=== PATIENT | male | born 1940 | race Caucasian/White ===

== ENCOUNTER 2021-03-28 01:41 | Inpatient (IN) | payer MEDICARE, OTHER ==
[2021-03-28] MEDS ORDERED: SODIUM CHLORIDE 0.9% 1,000 ML IV STA ×3 (01:44→03:44)
--- NOTE | 2021-03-28 01:55 | ED ---
Fever HPI - General Stated Complaint: Fever, Weakness Time Seen by Provider: 03/28/21 01:44 Source: RN notes reviewed, old records reviewed Limitations: no limitations - History of Present Illness Initial Comments: This is an 80-year-old male to the emergency department today. Patient presents today for evaluation of fever. Patient is a poor story brought in by EMS for evaluation regarding fever altered mental status and weakness. MD Complaint: fever, malaise -: hour(s) Temperature Source: subjective Context: multiple patients with similar symptoms Associated Symptoms: myalgias, nausea, vomiting, confusion Treatments Prior to Arrival: none - Related Data Previous Rx's Medication Instructions Recorded Hydrocodone/Acetaminophen [Trail 1 each PO Q6HR PRN #20 tab 01/11/14 5-325] Allergies Allergy/AdvReac Type Severity Reaction Status Date / Time No Known Allergies Allergy Verified 03/28/21 01:54 Review of Systems ROS Statement: Those systems with pertinent positive or pertinent negative responses have been documented in the HPI. ROS Other: All systems not noted in ROS Statement are negative. Past Medical History Past Medical History: No Reported History History of Any Multi-Drug Resistant Organisms: None Reported Past Surgical History: Hernia Repair Past Psychological History: No Psychological Hx Reported Past Alcohol Use History: Rare Past Drug Use History: None Reported General Exam General appearance: alert, in no apparent distress Head exam: Present: atraumatic, normocephalic, normal inspection Eye exam: Present: normal appearance, PERRL, EOMI. Absent: scleral icterus, conjunctival injection, periorbital swelling ENT exam: Present: normal exam, mucous membranes moist Neck exam: Present: normal inspection. Absent: tenderness, meningismus, lymphadenopathy Respiratory exam: Present: normal lung sounds bilaterally. Absent: respiratory distress, wheezes, rales, rhonchi, stridor Cardiovascular Exam: Present: regular rate, normal rhythm, normal heart sounds. Absent: systolic murmur, diastolic murmur, rubs, gallop, clicks GI/Abdominal exam: Present: soft, normal bowel sounds. Absent: distended, tenderness, guarding, rebound, rigid Extremities exam: Present: normal inspection, full ROM, normal capillary refill. Absent: tenderness, pedal edema, joint swelling, calf tenderness Back exam: Present: normal inspection Neurological exam: Present: alert, oriented X3, CN II-XII intact Psychiatric exam: Present: normal affect, normal mood Skin exam: Present: warm, dry, intact, normal color. Absent: rash Course Vital Signs 03/28/21 01:44 Temperature 102 F H Pulse Rate 122 H Respiratory 20 Rate Blood Pressure 145/71 O2 Sat by Pulse 94 L Oximetry - Reevaluation(s) Reevaluation #1: 03/28/21 01:54 Medical record is reviewed Reevaluation #2: 03/28/21 03:46 Patient is informed of results and questions answered Reevaluation #3: 03/28/21 03:46 Patient is feeling improved here in the ER Medical Decision Making - Medical Decision Making 80 male presents DF for evaluation of fever. Fever and weakness. Patient is found to have significant urinary tract infection will place on IV antibiotics and significant fluid bolus and patient can be admitted to the hospital for further evaluation management - Lab Data Result diagrams: 03/28/21 02:35 03/28/21 02:35 Lab Results 03/28/21 03/28/21 03/28/21 Range/Units 02:35 02:35 02:35 WBC 97.3 H* (3.8-10.6) k/uL RBC 3.28 L (4.30-5.90) m/uL Hgb 10.8 L (13.0-17.5) gm/dL Hct 32.2 L (39.0-53.0) % MCV 98.2 (80.0-100.0) fL MCH 33.0 (25.0-35.0) pg MCHC 33.6 (31.0-37.0) g/dL RDW 17.0 H (11.5-15.5) % Plt Count 91 L (150-450) k/uL MPV 8.5 Neutrophils % (Manual) 14 % Lymphocytes % (Manual) 85 % Monocytes % (Manual) 1 % Neutrophils # (Manual) 13.62 H (1.3-7.7) k/uL Lymphocytes # (Manual) 82.71 H (1.0-4.8) k/uL Monocytes # (Manual) 0.97 (0-1.0) k/uL Nucleated RBCs 0 (0-0) /100 WBC Differential Comment Manual Slide Review Performed Anisocytosis Slight Macrocytosis Slight PT 11.4 (9.0-12.0) sec INR 1.1 (<1.2) APTT 22.9 (22.0-30.0) sec Sodium (137-145) mmol/L Potassium (3.5-5.1) mmol/L Chloride (98-107) mmol/L Carbon Dioxide (22-30) mmol/L Anion Gap mmol/L BUN (9-20) mg/dL Creatinine (0.66-1.25) mg/dL Est GFR (CKD-EPI)AfAm (>60 ml/min/1.73 sqM) Est GFR (CKD-EPI)NonAf (>60 ml/min/1.73 sqM) Glucose (74-99) mg/dL Plasma Lactic Acid Doug (0.7-2.0) mmol/L Calcium (8.4-10.2) mg/dL Phosphorus (2.5-4.5) mg/dL Magnesium (1.6-2.3) mg/dL Total Bilirubin (0.2-1.3) mg/dL AST (17-59) U/L ALT (4-49) U/L Alkaline Phosphatase (38-126) U/L Troponin I (0.000-0.034) ng/mL C-Reactive Protein (<1.0) mg/dL NT-Pro-B Natriuret Pep pg/mL Total Protein (6.3-8.2) g/dL Albumin (3.5-5.0) g/dL TSH (0.465-4.680) mIU/L Urine Color Yellow Urine Appearance Turbid (Clear) Urine pH 5.5 (5.0-8.0) Ur Specific [place] 1.021 (1.001-1.035) Urine Protein 2+ H (Negative) Urine Glucose (UA) Negative (Negative) Urine Ketones Negative (Negative) Urine Blood Large H (Negative) Urine Nitrite Positive (Negative) Urine Bilirubin Negative (Negative) Urine Urobilinogen <2.0 (<2.0) mg/dL Ur Leukocyte Esterase Large H (Negative) Urine RBC 78 H (0-5) /hpf Urine WBC >182 H (0-5) /hpf Urine WBC Clumps Many H (None) /hpf Ur Squamous Epith Cells 3 (0-4) /hpf Amorphous Sediment Rare H (None) /hpf Urine Bacteria Many H (None) /hpf Urine Mucus Occasional H (None) /hpf 03/28/21 03/28/21 03/28/21 Range/Units 02:35 02:35 02:35 WBC (3.8-10.6) k/uL RBC (4.30-5.90) m/uL Hgb (13.0-17.5) gm/dL Hct (39.0-53.0) % MCV (80.0-100.0) fL MCH (25.0-35.0) pg MCHC (31.0-37.0) g/dL RDW (11.5-15.5) % Plt Count (150-450) k/uL MPV Neutrophils % (Manual) % Lymphocytes % (Manual) % Monocytes % (Manual) % Neutrophils # (Manual) (1.3-7.7) k/uL Lymphocytes # (Manual) (1.0-4.8) k/uL Monocytes # (Manual) (0-1.0) k/uL Nucleated RBCs (0-0) /100 WBC Differential Comment Manual Slide Review Anisocytosis Macrocytosis PT (9.0-12.0) sec INR (<1.2) APTT (22.0-30.0) sec Sodium 131 L (137-145) mmol/L Potassium 3.9 (3.5-5.1) mmol/L Chloride 105 (98-107) mmol/L Carbon Dioxide 19 L (22-30) mmol/L Anion Gap 7 mmol/L BUN 30 H (9-20) mg/dL Creatinine 1.50 H (0.66-1.25) mg/dL Est GFR (CKD-EPI)AfAm 50 (>60 ml/min/1.73 sqM) Est GFR (CKD-EPI)NonAf 43 (>60 ml/min/1.73 sqM) Glucose 132 H (74-99) mg/dL Plasma Lactic Acid Doug 2.5 H* (0.7-2.0) mmol/L Calcium 8.5 (8.4-10.2) mg/dL Phosphorus 2.0 L (2.5-4.5) mg/dL Magnesium 1.7 (1.6-2.3) mg/dL Total Bilirubin 1.8 H (0.2-1.3) mg/dL AST 49 (17-59) U/L ALT 24 (4-49) U/L Alkaline Phosphatase 127 H (38-126) U/L Troponin I 0.654 H* (0.000-0.034) ng/mL C-Reactive Protein 4.7 H (<1.0) mg/dL NT-Pro-B Natriuret Pep pg/mL Total Protein 5.7 L (6.3-8.2) g/dL Albumin 3.3 L (3.5-5.0) g/dL TSH 1.560 (0.465-4.680) mIU/L Urine Color Urine Appearance (Clear) Urine pH (5.0-8.0) Ur Specific [place] (1.001-1.035) Urine Protein (Negative) Urine Glucose (UA) (Negative) Urine Ketones (Negative) Urine Blood (Negative) Urine Nitrite (Negative) Urine Bilirubin (Negative) Urine Urobilinogen (<2.0) mg/dL Ur Leukocyte Esterase (Negative) Urine RBC (0-5) /hpf Urine WBC (0-5) /hpf Urine WBC Clumps (None) /hpf Ur Squamous Epith Cells (0-4) /hpf Amorphous Sediment (None) /hpf Urine Bacteria (None) /hpf Urine Mucus (None) /hpf 03/28/21 Range/Units 02:35 WBC (3.8-10.6) k/uL RBC (4.30-5.90) m/uL Hgb (13.0-17.5) gm/dL Hct (39.0-53.0) % MCV (80.0-100.0) fL MCH (25.0-35.0) pg MCHC (31.0-37.0) g/dL RDW (11.5-15.5) % Plt Count (150-450) k/uL MPV Neutrophils % (Manual) % Lymphocytes % (Manual) % Monocytes % (Manual) % Neutrophils # (Manual) (1.3-7.7) k/uL Lymphocytes # (Manual) (1.0-4.8) k/uL Monocytes # (Manual) (0-1.0) k/uL Nucleated RBCs (0-0) /100 WBC Differential Comment Manual Slide Review Anisocytosis Macrocytosis PT (9.0-12.0) sec INR (<1.2) APTT (22.0-30.0) sec Sodium (137-145) mmol/L Potassium (3.5-5.1) mmol/L Chloride (98-107) mmol/L Carbon Dioxide (22-30) mmol/L Anion Gap mmol/L BUN (9-20) mg/dL Creatinine (0.66-1.25) mg/dL Est GFR (CKD-EPI)AfAm (>60 ml/min/1.73 sqM) Est GFR (CKD-EPI)NonAf (>60 ml/min/1.73 sqM) Glucose (74-99) mg/dL Plasma Lactic Acid Doug (0.7-2.0) mmol/L Calcium (8.4-10.2) mg/dL Phosphorus (2.5-4.5) mg/dL Magnesium (1.6-2.3) mg/dL Total Bilirubin (0.2-1.3) mg/dL AST (17-59) U/L ALT (4-49) U/L Alkaline Phosphatase (38-126) U/L Troponin I (0.000-0.034) ng/mL C-Reactive Protein (<1.0) mg/dL NT-Pro-B Natriuret Pep 671 pg/mL Total Protein (6.3-8.2) g/dL Albumin (3.5-5.0) g/dL TSH (0.465-4.680) mIU/L Urine Color Urine Appearance (Clear) Urine pH (5.0-8.0) Ur Specific [place] (1.001-1.035) Urine Protein (Negative) Urine Glucose (UA) (Negative) Urine Ketones (Negative) Urine Blood (Negative) Urine Nitrite (Negative) Urine Bilirubin (Negative) Urine Urobilinogen (<2.0) mg/dL Ur Leukocyte Esterase (Negative) Urine RBC (0-5) /hpf Urine WBC (0-5) /hpf Urine WBC Clumps (None) /hpf Ur Squamous Epith Cells (0-4) /hpf Amorphous Sediment (None) /hpf Urine Bacteria (None) /hpf Urine Mucus (None) /hpf - EKG Data -: EKG Interpreted by Me (EKG shows sinus tachycardiaR 190 QRS 118 QTc 464) - Radiology Data Radiology results: report reviewed (Chest x-rays negative for acute disease), image reviewed Disposition Clinical Impression: UTI (urinary tract infection), Weakness, Fever, Leukemia Disposition: ADMITTED IP TO THIS HOSP Condition: Serious Is patient prescribed a controlled substance at d/c from ED?: No Referrals: None,Stated [REFERRING] - 1-2 days
--- NOTE | 2021-03-28 02:49 | XR ---
EXAMINATION TYPE: XR chest 2V DATE OF EXAM: 03/28/2021 COMPARISON: 01/11/2014 HISTORY: Weakness TECHNIQUE: FINDINGS: There is no heart failure nor confluent pneumonic infiltrate. There is slight coarsening of the interstitial markings in the lower lobes. There are old right-sided healed rib fractures. Costop hrenic angles are clear. There is small hiatal hernia. IMPRESSION: Mild fibrotic changes and subsegmental atelectasis at the lung bases that is new compared to old exam. No heart failure. Small hiatal hernia unchanged.
[2021-03-28 02:51] LABS: Anisocytosis Slight; HCT 32.2 % (39.0-53.0); HGB 10.8 gm/dL (13.0-17.5); MCHC 33.6 g/dL (31.0-37.0); MCV 98.2 fL (80.0-100.0); Macrocytosis Slight; Mean Platelet Volume 8.5; Platelet Count 91 k/uL (150-450); RBC 3.28 m/uL (4.30-5.90)
[2021-03-28 02:52] LABS: WBC 97.3 k/uL (3.8-10.6)
[2021-03-28 03:10] LABS: Albumin 3.3 g/dL (3.5-5.0); C Reactive Protein 4.7 mg/dL (<1.0); Calcium 8.5 mg/dL (8.4-10.2); Magnesium 1.7 mg/dL (1.6-2.3); Potassium 3.9 mmol/L (3.5-5.1); Total Bilirubin 1.8 mg/dL (0.2-1.3); Total Protein 5.7 g/dL (6.3-8.2)
[2021-03-28 03:14] LABS: INR 1.1 (<1.2); Partial Thromboplastin Time 22.9 sec (22.0-30.0); Prothrombin Time 11.4 sec (9.0-12.0)
[2021-03-28] MEDS ORDERED: IBUPROFEN 600 MG TAB PO STA (03:23)
[2021-03-28 03:33] LABS: Lymphocytes # (M) 82.71 k/uL (1.0-4.8); Monocytes # (M) 0.97 k/uL (0-1.0); Neutrophils # (M) 13.62 k/uL (1.3-7.7); Neutrophils % (M) 14 %; Nucleated Red Blood Cells 0 /100 WBC (0-0); Total Cells Counted 200
[2021-03-28 03:43] LABS: Amorphous Sediment,Urine Rare /hpf; Appearance,Urine Turbid (Clear); Bacteria,Urine Many /hpf; Bilirubin,Urine Negative (Negative); Blood,Urine Large (Negative); Color,Urine Yellow; Glucose,Urine (UA) Negative (Negative); Ketones,Urine Negative (Negative); Leukocyte Esterase,Urine Large (Negative); Mucus,Urine Occasional /hpf; Nitrite,Urine Positive (Negative); PH, Urine 5.5 (5.0-8.0); Protein,Urine 2+ (Negative); RBC,Urine 78 /hpf (0-5); Specific Gravity,Urine 1.021 (1.001-1.035); Squamous Epithelial Cell,Urine 3 /hpf (0-4); Urobilinogen,Urine <2.0 mg/dL (<2.0); WBC,Urine >182 /hpf (0-5)
[2021-03-28] MEDS ORDERED: MORPHINE SULFATE 4 MG/ML SYRINGE IV PRN (03:44)
[2021-03-28] MEDS ORDERED: ONDANSETRON 4 MG/2 ML VIAL IVP PRN (03:44)
[2021-03-28] MEDS ORDERED: ACETAMINOPHEN TAB 325 MG TAB PO PRN (03:44)
[2021-03-28] MEDS ORDERED: NALOXONE 0.4 MG/ML 1 ML VIAL IV PRN (03:44)
[2021-03-28] MEDS: SODIUM CHLORIDE 0.9% 1,000 ML IV SCH ×3 (04:20→20:02)
[2021-03-28] MEDS ORDERED: PANTOPRAZOLE 40 MG/10 ML VIAL IV SCH (09:00)
[2021-03-28] MEDS ORDERED: VANCOMYCIN IV PER PHARMACY 1 EACH MISC MISCELLANE PRN (10:15)
[2021-03-28] MEDS ORDERED: VANCOMYCIN 1,500 MG in SODIUM CHLORIDE 0.9% 250 ML IVPB SCH (11:00)
--- NOTE | 2021-03-28 11:22 | US ---
EXAMINATION TYPE: US kidneys/renal and bladder DATE OF EXAM: 03/28/2021 COMPARISON: NONE CLINICAL HISTORY: dina. DINA, UTI EXAM MEASUREMENTS: Right Kidney: 10.1 x 4.2 x 4.9 cm Left Kidney: 10.6 x 3.9 x 4.2 cm Right Kidney: no evidence of hydronephrosis Left Kidney: no evidence of hydronephrosis, limited evaluation of lower pole due to overlying bowel c ontent Bladder: multiple diverticula. possible debris noted Bilateral Jets seen: no *Prostate = 5.4cm *spleen enlarged = 16.8cm IMPRESSION: 1. Multiple bladder diverticula with abnormal echogenicity within the right lateral posterior diverti cula could represent early. Other etiologies not excluded correlate clinically. 2. Prostate hypertrophy
[2021-03-28] MEDS: CEFEPIME 2 GM in SODIUM CHLORIDE 0.9% 100 ML IVPB SCH ×2 (12:18→20:01)
[2021-03-28] MEDS ORDERED: TAMSULOSIN 0.4 MG CAP.ER.24H PO STA (13:14)
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
[2021-03-28] MEDS: HEPARIN SODIUM,PORCINE/PF 5,000 UNIT/0.5 ML SYRINGE SQ SCH ×2 (17:02→22:23)
--- NOTE | 2021-03-28 18:29 | P.CONS ---
History of Present Illness - Reason for Consult Consult date: 03/28/21 CLL Requesting physician: Bobby Pearson - Chief Complaint Fever - History of Present Illness Mr. Lua is an 80 year old male patient known to Dr. 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 He has been on surveillance, without requiring treatment. He presents with a fever of 102 on admission. COVID negative, Blood cultures in progress. additional kaur work-up. Because of his known CLL we have been asked to further evaluate. His WBC is 95K, which is actually improved since seen in January. Patient was seen and examined in the emergency department today. He states he apparently "blacked out" and woke up in the ambulance. Review of Systems All systems: negative Constitutional: Reports as per HPI Past Medical History Past Medical History: No Reported History History of Any Multi-Drug Resistant Organisms: None Reported Past Surgical History: Hernia Repair Past Psychological History: No Psychological Hx Reported Past Alcohol Use History: Rare Past Drug Use History: None Reported Medications and Allergies Home Medications Medication Instructions Recorded Confirmed Type Cholecalciferol [Vitamin D3 (25 25 mcg PO DAILY 03/28/21 03/28/21 History Mcg = 1000 Iu)] Levothyroxine Sodium [Synthroid] 50 mcg PO DAILY@0400 03/28/21 03/28/21 History Omeprazole 20 mg PO DAILY 03/28/21 03/28/21 History Super B Complex 1 tab PO DAILY 03/28/21 03/28/21 History Allergies Allergy/AdvReac Type Severity Reaction Status Date / Time No Known Allergies Allergy Verified 03/28/21 17:55 Physical Exam Vitals: Vital Signs Temp Pulse Resp BP Pulse Ox 03/28/21 12:22 98.5 F 72 20 131/73 96 03/28/21 11:00 78 20 137/67 96 03/28/21 09:29 74 20 124/74 96 03/28/21 08:17 89 20 106/60 96 03/28/21 07:00 98.9 F 79 16 104/56 95 03/28/21 04:00 80 18 123/67 95 03/28/21 02:54 100.7 F H 101 H 18 127/77 95 03/28/21 01:44 102 F H 122 H 20 145/71 94 L Intake and Output 03/27/21 03/28/21 03/28/21 22:59 06:59 14:59 Other: Weight 90.718 kg Flushed, Pale NAD O/P Dry Neck: Supple Heart: Irr, Reg Lungs: CTA Abd: Soft Ext": No edema Alert and oriented Results CBC & Chem 7: 03/28/21 02:35 03/28/21 02:35 Labs: Abnormal Lab Results - Last 24 Hours (Table) 03/28/21 03/28/21 03/28/21 Range/Units 02:35 02:35 02:35 WBC 97.3 H* (3.8-10.6) k/uL RBC 3.28 L (4.30-5.90) m/uL Hgb 10.8 L (13.0-17.5) gm/dL Hct 32.2 L (39.0-53.0) % RDW 17.0 H (11.5-15.5) % Plt Count 91 L (150-450) k/uL Neutrophils # (Manual) 13.62 H (1.3-7.7) k/uL Lymphocytes # (Manual) 82.71 H (1.0-4.8) k/uL Sodium 131 L (137-145) mmol/L Carbon Dioxide 19 L (22-30) mmol/L BUN 30 H (9-20) mg/dL Creatinine 1.50 H (0.66-1.25) mg/dL Glucose 132 H (74-99) mg/dL Plasma Lactic Acid Doug (0.7-2.0) mmol/L Phosphorus 2.0 L (2.5-4.5) mg/dL Total Bilirubin 1.8 H (0.2-1.3) mg/dL Alkaline Phosphatase 127 H (38-126) U/L Troponin I (0.000-0.034) ng/mL C-Reactive Protein 4.7 H (<1.0) mg/dL Total Protein 5.7 L (6.3-8.2) g/dL Albumin 3.3 L (3.5-5.0) g/dL Urine Protein 2+ H (Negative) Urine Blood Large H (Negative) Ur Leukocyte Esterase Large H (Negative) Urine RBC 78 H (0-5) /hpf Urine WBC >182 H (0-5) /hpf Urine WBC Clumps Many H (None) /hpf Amorphous Sediment Rare H (None) /hpf Urine Bacteria Many H (None) /hpf Urine Mucus Occasional H (None) /hpf 03/28/21 03/28/21 03/28/21 Range/Units 02:35 02:35 11:08 WBC (3.8-10.6) k/uL RBC (4.30-5.90) m/uL Hgb (13.0-17.5) gm/dL Hct (39.0-53.0) % RDW (11.5-15.5) % Plt Count (150-450) k/uL Neutrophils # (Manual) (1.3-7.7) k/uL Lymphocytes # (Manual) (1.0-4.8) k/uL Sodium (137-145) mmol/L Carbon Dioxide (22-30) mmol/L BUN (9-20) mg/dL Creatinine (0.66-1.25) mg/dL Glucose (74-99) mg/dL Plasma Lactic Acid Doug 2.5 H* (0.7-2.0) mmol/L Phosphorus (2.5-4.5) mg/dL Total Bilirubin (0.2-1.3) mg/dL Alkaline Phosphatase (38-126) U/L Troponin I 0.654 H* 6.770 H* (0.000-0.034) ng/mL C-Reactive Protein (<1.0) mg/dL Total Protein (6.3-8.2) g/dL Albumin (3.5-5.0) g/dL Urine Protein (Negative) Urine Blood (Negative) Ur Leukocyte Esterase (Negative) Urine RBC (0-5) /hpf Urine WBC (0-5) /hpf Urine WBC Clumps (None) /hpf Amorphous Sediment (None) /hpf Urine Bacteria (None) /hpf Urine Mucus (None) /hpf Microbiology - Last 24 Hours (Table) 03/28/21 02:35 Urine Culture - Preliminary Urine,Voided Assessment and Plan (1) CLL (chronic lymphocytic leukemia) Current Visit: Yes Status: Acute Code(s): C91.10 - CHRONIC LYMPHOCYTIC LEUK OF B-CELL TYPE NOT ACHIEVE REMIS SNOMED Code(s): 39073676 (2) Fever Current Visit: Yes Status: Acute Code(s): R50.9 - FEVER, UNSPECIFIED SNOMED Code(s): 030584342 (3) UTI (urinary tract infection) Current Visit: Yes Status: Acute Code(s): N39.0 - URINARY TRACT INFECTION, SITE NOT SPECIFIED SNOMED Code(s): 88469605 Plan: Because of the active infection we will check Immunoglobulins to see if additional immune support can be provided with IVIG. Pancytopenia: - Worsening due to Infectious/Inflammatory Process - Anemia work-up, check hemolysis - Monitor for DIC CLL: - Check Immunoglobulins - Serial CBCs Infection and acute hospitalization support per primary team Thank you for allowing us to participate in the care of this patient
[2021-03-29 02:12] LABS: Uric Acid 6.1 mg/dL (3.7-8.7)
[2021-03-29 02:53] LABS: Immunoglobulin A 54.7 mg/dL (60.0-350.0)
[2021-03-29 03:12] LABS: Immunoglobulin M 8.1 mg/dL (40.0-280.0)
[2021-03-29] MEDS: SODIUM CHLORIDE 0.9% 1,000 ML IV SCH ×3 (04:07→20:18)
[2021-03-29] MEDS: LEVOTHYROXINE 50 MCG TAB PO SCH (04:08)
[2021-03-29] MEDS: PANTOPRAZOLE 40 MG TABLET PO SCH (06:22)
[2021-03-29 07:32] LABS: Anisocytosis Slight; HCT 30.8 % (39.0-53.0); MCHC 32.6 g/dL (31.0-37.0); MCV 101.3 fL (80.0-100.0); Macrocytosis Slight; Mean Platelet Volume 8.9; Platelet Count 77 k/uL (150-450); RBC 3.04 m/uL (4.30-5.90); RDW 16.7 % (11.5-15.5)
[2021-03-29 08:26] LABS: WBC 63.5 k/uL (3.8-10.6)
--- NOTE | 2021-03-29 08:31 | P.CONS ---
History of Present Illness - Reason for Consult Consult date: 03/28/21 Fever/UTI Requesting physician: Lubna Alan - Chief Complaint Fever , weakness x 1 day - History of Present Illness History of present illness : Patient is 80-year-old male with a past medical history significant for CML on surveillance without requiring any tr eatment patient presenting to the [facility] ER for evaluation of blood in his urine symptoms started the day before presentation to the hospital patient also complaining of fever weakness and apparently blacked out when he was in the bathroom patient denies having any fall or trauma patient denies having any headache no chest pain shortness of breath or cough no vomiting no abdominal pain no diarrhea on presentation to the hospital the patient did have a fever of 102 F patient did have white count of 97.3 predominantly sites creatinine was mildly elevated lactic acid was 2.5 liver enzymes are normal did have a positive UA caldera PCR was not detected blood urine culture has been obt ained which are currently pending patient did have a chest x-ray mild fibrotic changes atelectasis patient was admitted to the hospital patient was started on cefepime and vancomycin infectious disease was consulted for further management of antibiotic therapy Review of system: CONSTITUTIONAL: Positive for weakness along with the fever. EYES: No complaint. ENT: No complaint. RESPIRATORY: No complaint. CARDIOVASCULAR: No complaint. GENITOURINARY: As per history of present illness. GASTROINTESTINAL: No complaint. MUSCULOSKELETAL: No complaint. INTEGUMENTARY: No complaint. PSYCHOLOGIC: No complaint. ENDOCRINE: No complaint. NEUROLOGIC: No complaint. Past medical history : Reviewed, documented below Past surgical history : Reviewed, documented below Social history: Reviewed, documented below Medications: Reviewed, as documented below EXAMINATION: Vital sigans= Reviewed and documented below GENERAL DESCRIPTION: Elderly male lying in bed, no distress. No tachypnea or accessory muscle of respiration use. HEENT: Shows Pallor , no scleral icterus. Oral mucous membrane is dry. NECK: Trachea central, no thyromegaly. LUNGS: Unlabored breathing. Clear to auscultation anteriorly. No wheeze or crackle. HEART: S1, S2, regular rate and rhythm. ABDOMEN: Soft, no tenderness , guarding or rigidity EXTREMITIES: No edema of feet. SKIN: No rash, no masses palpable. NEUROLOGICAL: The patient is awake, alert, oriented x2, mood and affect normal. LABS AND RADIOLOGY: Reviewed results see below Assessment : 1-Patient presented to hospital with fever and weakness in this patient who did have hematuria significantly positive UA likely urinary source for his fever infection as currently do not have any other obvious focus of infection 2-elevated white count more likely to his CLL Plan: 1-continue the patient on cefepime 2 g every 12 hours 2-discontinue vancomycin 3-gentle IV fluid We will follow on clinical condition and cultures to further adjust medication if needed Thank you for this consultation we will follow the patient along with you Past Medical History Past Medical History: No Reported History History of Any Multi-Drug Resistant Organisms: None Reported Past Surgical History: Hernia Repair Past Psychological History: No Psychological Hx Reported Past Alcohol Use History: Rare Past Drug Use History: None Reported Medications and Allergies Home Medications Medication Instructions Recorded Confirmed Type Cholecalciferol [Vitamin D3 (25 25 mcg PO DAILY 03/28/21 03/28/21 History Mcg = 1000 Iu)] Levothyroxine Sodium [Synthroid] 50 mcg PO DAILY@0400 03/28/21 03/28/21 History Omeprazole 20 mg PO DAILY 03/28/21 03/28/21 History Super B Complex 1 tab PO DAILY 03/28/21 03/28/21 History Allergies Allergy/AdvReac Type Severity Reaction Status Date / Time No Known Allergies Allergy Verified 03/28/21 17:55 Physical Exam Vitals: Vital Signs Temp Pulse Resp BP Pulse Ox 03/28/21 13:49 79 18 136/77 96 03/28/21 12:22 98.5 F 72 20 131/73 96 03/28/21 11:00 78 20 137/67 96 03/28/21 09:29 74 20 124/74 96 03/28/21 08:17 89 20 106/60 96 03/28/21 07:00 98.9 F 79 16 104/56 95 03/28/21 04:00 80 18 123/67 95 03/28/21 02:54 100.7 F H 101 H 18 127/77 95 03/28/21 01:44 102 F H 122 H 20 145/71 94 L Intake and Output 03/28/21 03/28/21 03/28/21 06:59 14:59 22:59 Other: Weight 90.718 kg Results CBC & Chem 7: 03/29/21 07:08 03/28/21 02:35 Labs: Abnormal Lab Results - Last 24 Hours (Table) 03/28/21 03/28/21 03/28/21 Range/Units 02:35 02:35 02:35 WBC 97.3 H* (3.8-10.6) k/uL RBC 3.28 L (4.30-5.90) m/uL Hgb 10.8 L (13.0-17.5) gm/dL Hct 32.2 L (39.0-53.0) % RDW 17.0 H (11.5-15.5) % Plt Count 91 L (150-450) k/uL Neutrophils # (Manual) 13.62 H (1.3-7.7) k/uL Lymphocytes # (Manual) 82.71 H (1.0-4.8) k/uL Sodium 131 L (137-145) mmol/L Carbon Dioxide 19 L (22-30) mmol/L BUN 30 H (9-20) mg/dL Creatinine 1.50 H (0.66-1.25) mg/dL Glucose 132 H (74-99) mg/dL Plasma Lactic Acid Doug (0.7-2.0) mmol/L Phosphorus 2.0 L (2.5-4.5) mg/dL Total Bilirubin 1.8 H (0.2-1.3) mg/dL Alkaline Phosphatase 127 H (38-126) U/L Troponin I (0.000-0.034) ng/mL C-Reactive Protein 4.7 H (<1.0) mg/dL Total Protein 5.7 L (6.3-8.2) g/dL Albumin 3.3 L (3.5-5.0) g/dL Urine Protein 2+ H (Negative) Urine Blood Large H (Negative) Ur Leukocyte Esterase Large H (Negative) Urine RBC 78 H (0-5) /hpf Urine WBC >182 H (0-5) /hpf Urine WBC Clumps Many H (None) /hpf Amorphous Sediment Rare H (None) /hpf Urine Bacteria Many H (None) /hpf Urine Mucus Occasional H (None) /hpf 03/28/21 03/28/21 03/28/21 Range/Units 02:35 02:35 11:08 WBC (3.8-10.6) k/uL RBC (4.30-5.90) m/uL Hgb (13.0-17.5) gm/dL Hct (39.0-53.0) % RDW (11.5-15.5) % Plt Count (150-450) k/uL Neutrophils # (Manual) (1.3-7.7) k/uL Lymphocytes # (Manual) (1.0-4.8) k/uL Sodium (137-145) mmol/L Carbon Dioxide (22-30) mmol/L BUN (9-20) mg/dL Creatinine (0.66-1.25) mg/dL Glucose (74-99) mg/dL Plasma Lactic Acid Doug 2.5 H* (0.7-2.0) mmol/L Phosphorus (2.5-4.5) mg/dL Total Bilirubin (0.2-1.3) mg/dL Alkaline Phosphatase (38-126) U/L Troponin I 0.654 H* 6.770 H* (0.000-0.034) ng/mL C-Reactive Protein (<1.0) mg/dL Total Protein (6.3-8.2) g/dL Albumin (3.5-5.0) g/dL Urine Protein (Negative) Urine Blood (Negative) Ur Leukocyte Esterase (Negative) Urine RBC (0-5) /hpf Urine WBC (0-5) /hpf Urine WBC Clumps (None) /hpf Amorphous Sediment (None) /hpf Urine Bacteria (None) /hpf Urine Mucus (None) /hpf Microbiology - Last 24 Hours (Table) 03/28/21 02:35 Urine Culture - Preliminary Urine,Voided
[2021-03-29] MEDS ORDERED: HEPARIN SODIUM 1,000 UN/ML (10ML VL) IV ONE (08:40)
[2021-03-29] MEDS ORDERED: HEPARIN SODIUM 1,000 UN/ML (10ML VL) IV PRN (08:40)
[2021-03-29 08:48] LABS: Albumin 2.8 g/dL (3.5-5.0); Calcium 7.8 mg/dL (8.4-10.2); Magnesium 1.8 mg/dL (1.6-2.3); Phosphorus 2.7 mg/dL (2.5-4.5); Potassium 4.4 mmol/L (3.5-5.1); Total Bilirubin 1.6 mg/dL (0.2-1.3); Total Protein 5.1 g/dL (6.3-8.2)
[2021-03-29 09:22] LABS: Anisocytosis Slight; HCT 30.7 % (39.0-53.0); HGB 9.8 gm/dL (13.0-17.5); MCH 32.4 pg (25.0-35.0); MCHC 32.1 g/dL (31.0-37.0); MCV 100.9 fL (80.0-100.0); Macrocytosis Slight; Mean Platelet Volume 8.8; RBC 3.04 m/uL (4.30-5.90); RDW 16.6 % (11.5-15.5)
[2021-03-29 09:52] LABS: Partial Thromboplastin Time 29.5 sec (22.0-30.0); Prothrombin Time 10.9 sec (9.0-12.0)
[2021-03-29] MEDS: CEFEPIME 2 GM in SODIUM CHLORIDE 0.9% 100 ML IVPB SCH ×2 (10:03→20:17)
[2021-03-29] MEDS: ASPIRIN 81 MG PO SCH (10:04)
[2021-03-29] MEDS: ATORVASTATIN 80 MG TAB PO SCH (10:04)
[2021-03-29] MEDS: METOPROLOL TARTRATE 25 MG TAB PO SCH ×2 (10:04→20:17)
[2021-03-29 10:16] LABS: Platelet Count 67 k/uL (150-450)
--- NOTE | 2021-03-29 10:39 | ECHOF ---
Referral Reason:elevated trop MEASUREMENTS -------- HEIGHT: 182.9 cm WEIGHT: 89.8 kg BP: RVIDd: 3.1 cm (< 3.3) IVSd: 1.3 cm (0.6 - 1.1) LVIDd: 4.3 cm (3.9 - 5.3) LVPWd: 1.5 cm (0.6 - 1.1) IVSs: 1.7 cm LVIDs: 4.0 cm LVPWs: 1.1 cm LAESV Index (A-L): 26.15 ml/m Ao Diam: 3.6 cm (2.0 - 3.7) AV Cusp: 1.3 cm (1.5 - 2.6) MV EXCURSION: 14.924 mm (> 18.000) MV EF SLOPE: 49 mm/s (70 - 150) EPSS: 0.3 cm MV E Stevan: 0.71 m/s MV DecT: 172 ms MV A Stevan: 0.72 m/s MV E/A Ratio: 0.98 AV maxP.31 mmHg AV meanP.16 mmHg AR PHT: 317 ms RAP: 5.00 mmHg RVSP: 44.82 mmHg FINDINGS -------- Sinus rhythm. This was a technically good study. The left ventricular size is normal. There is mild concentric left ventricular hypertrophy. Overa ll left ventricular systolic function is normal with, an EF between 55 - 60 %. The right ventricle is normal in size. LA is midly dilated 29-33ml/m2. The right atrial size is normal. Trace to mild aortic regurgitation. There is moderate aortic stenosis present. Peak/mean gradient across the Aortic Valve is 40.31mmHg / 21.16mmHg. Mild mitral annular calcification present. [id number] mitral regurgitation is present. Mild tricuspid regurgitation present. There is mild pulmonary hypertension. The right ventricular systolic pressure, as measured by Doppler, is 44.82mmHg. Trace/mild (physiologic) pulmonic regurgitation. There is no pericardial effusion. CONCLUSIONS -------- 1. The left ventricular size is normal. 2. There is mild concentric left ventricular hypertrophy. 3. Overall left ventricular systolic function is normal with, an EF between 55 - 60 %. 4. The right ventricle is normal in size. 5. LA is midly dilated 29-33ml/m2. 6. The right atrial size is normal. 7. Trace to mild aortic regurgitation. 8. There is moderate aortic stenosis present. 9. Peak/mean gradient across the Aortic Valve is 40.31mmHg / 21.16mmHg. 10. Mild mitral annular calcification present. 11. [id number] mitral regurgitation is present. 12. Mild tricuspid regurgitation present. 13. There is mild pulmonary hypertension. 14. The right ventricular systolic pressure, as measured by Doppler, is 44.82mmHg. 15. Trace/mild (physiologic) pulmonic regurgitation. 16. There is no pericardial effusion. [employer]: Teresa Jeronimo RDCS
--- NOTE | 2021-03-29 10:56 | P.CRDCN ---
History of Present Illness History of present illness: This is a pleasant 80-year-old male past medical history significant for CLL, hypothyroidism, vitamin D deficiency, gastroesophageal reflux disease. 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 We have been asked to see in consultation for concern for elevated troponin. He is somewhat of a poor historian, he is not aware of the names of his physicians or his medical problems. He is alert, orie nted to person and place. Patient presents to the emergency department after a possible syncopal episode. Patient states lately he has been feeling tired and fatigued. Yesterday he was walking to the bathroom, he felt dizzy and "disorientated" and felt as if he might "black out", he states he thinks he lowered himself to the ground. He believes he did lose consciousness because the next thing he remembers is waking up in the EMS. He states the women he lives with called EMS. He does endorse lightheadedness which is chronic for him. He denies any chest pain, shortness of breath, diaphoresis, nausea, vomiting, abdominal pain, palpitations, orthopnea, PND, lower extremity edema. He denies history of PA, stroke, diabetes or hypertension. He denies family history of CAD. He is a non-smoker, denies alcohol use. He states he is pretty active at home walking. On admission his temp of 102. DIAGNOSTICS EKG reveals sinus rhythm first degree AV Block, left anterior fasicular block, LVH, T wave inversion in lead aVL, early repolarization in lead V2 could be positional Telemetry tracings indicate sinus mechanism HR 70s-80s Chest xray mild fibrotic changes and subsugmental atelectasis at the lung bases Laboratory reviewed, WBC 97.3 Hgb 10.8, plt 91, Na 131, K 3.9, BUN 30, sCr 1.5, Mag 1.7 troponin 0.6-->6.7-->61, UA positive for UTI Current home medications include omeprazole, synthroid, Vitamin D REVIEW OF SYSTEMS At the time of my exam: CONSTITUTIONAL: Denies fever or chills. +tiredness +syncope CARDIOVASCULAR: Denies chest pain, shortness of breath, orthopnea, PND or palpitations. RESPIRATORY: Denies cough. GASTROINTESTINAL: Denies abdominal pain, diarrhea, constipation, nausea or vomiting. MUSCULOSKELETAL: Denies myalgias. NEUROLOGIC: +dizziness Denies numbness, tingling, headacbe or weakness. ENDOCRINE: +fatigue, Denies weight change, polydipsia or polyurina. GENITOURINARY: Denies burning, hematuria or urgency with micturation. HEMATOLOGIC: Denies history of anemia or bleeding. PHYSICAL EXAMINATION Blood pressure 118/56, HR 87, temp 98.1, SpO2 92% on room air CONSTITUTIONAL: No apparent distress. HEENT: Head is normocephalic. Pupils are equal, round. Sclerae anicteric. Mucous membranes of the mouth are moist. No JVD. No carotid bruit. CHEST EXAMINATION: Lungs are diminished bilateral bases to auscultation. No chest wall tenderness is noted on palpation or with deep breathing. HEART EXAMINATION: Regular rate and rhythm. S1, S2 heard. Systolic ejection murmur at apex, No gallops or rub. ABDOMEN: Soft, nontender. Positive bowel sounds. EXTREMITIES: 2+ peripheral pulses, no lower extremity edema and no calf tenderness. NEUROLOGIC EXAMINATION: Patient is awake, alert and oriented to person and place ASSESSMENT NSTEMI Syncope CLL Fever UTI Leukocytosis Anemia Thrombocytopenia Acute Kidney Injury History hypothyroidism PLAN -Obtain 2D echocardiogram -Start aspirin and IV heparin. Will reach out with oncology for IV heparin use -Start statin and beta yuko -Patient most likely needs a cardiac catheterization. Discussed with Dr. Harvey olivera, at this time due to thrombocytopenia and acute kidney injury we will treat the patient medically and monitor the patient's lab and further discuss cardiac catheterization -Further recommendations based on clinical course. Nurse Practitioner note has been reviewed, I agree with a documented findings and plan of care. Patient was seen and examined. Past Medical History Past Medical History: No Reported History History of Any Multi-Drug Resistant Organisms: None Reported Past Surgical History: Hernia Repair Past Anesthesia/Blood Transfusion Reactions: No Reported Reaction Additional Past Anesthesia/Blood Transfusion Reaction / Comment(s): PATIENT STATES HE HAS NEVER HAD A BLOOD TRANSFUSION Past Psychological History: No Psychological Hx Reported Past Alcohol Use History: Rare Past Drug Use History: None Reported Medications and Allergies Home Medications Medication Instructions Recorded Confirmed Type Cholecalciferol [Vitamin D3 (25 25 mcg PO DAILY 03/28/21 03/28/21 History Mcg = 1000 Iu)] Levothyroxine Sodium [Synthroid] 50 mcg PO DAILY@0400 03/28/21 03/28/21 History Omeprazole 20 mg PO DAILY 03/28/21 03/28/21 History Super B Complex 1 tab PO DAILY 03/28/21 03/28/21 History Allergies Allergy/AdvReac Type Severity Reaction Status Date / Time No Known Allergies Allergy Verified 03/28/21 17:55 Physical Exam Vitals: Vital Signs Temp Pulse Pulse Resp BP BP Pulse Ox 03/29/21 04:00 87 18 118/56 92 L 03/29/21 00:42 98.1 F 98 18 135/65 95 03/28/21 19:58 97.7 F 90 18 132/64 94 L 03/28/21 18:15 97.5 F L 89 17 157/72 98 03/28/21 17:49 97.7 F 70 22 140/79 95 03/28/21 17:04 72 22 124/76 96 03/28/21 13:49 79 18 136/77 96 03/28/21 12:22 98.5 F 72 20 131/73 96 03/28/21 11:00 78 20 137/67 96 03/28/21 09:29 74 20 124/74 96 03/28/21 08:17 89 20 106/60 96 Intake and Output 03/28/21 03/29/21 03/29/21 22:59 06:59 14:59 Other: # Voids 3 3 # Bowel Movements 1 Weight 90.718 kg 90 kg Results 03/29/21 08:57 03/29/21 07:08 Cardiac Enzymes 03/28/21 Range/Units 11:08 Troponin I 6.770 H* (0.000-0.034) ng/mL Current Medications Generic Name Dose Route Start Last Admin Trade Name Freq PRN Reason Stop Dose Admin Acetaminophen 650 mg 03/28/21 03:44 Acetaminophen Tab 325 Mg Tab PO Q6HR PRN Mild Pain or Fever > 100.5 Heparin Sodium (Porcine) 5,000 unit 03/28/21 16:00 03/28/21 22:23 Heparin Sodium,Porcine/Pf 5,000 Unit/0.5 Ml Syringe SQ 5,000 unit Q8HR WARREN Administration Sodium Chloride 1,000 mls @ 130 mls/hr 03/28/21 03:45 03/29/21 04:07 Saline 0.9% IV 130 mls/hr .[id number] WARREN Administration Cefepime HCl 2 gm/ Sodium 100 mls @ 25 mls/hr 03/28/21 10:30 03/28/21 20:01 Chloride IVPB 25 mls/hr Q12HR WARREN Administration Vancomycin HCl 1,500 mg/ 250 mls @ 125 mls/hr 03/28/21 11:00 03/28/21 12:21 Sodium Chloride IVPB 125 mls/hr Q24H WARREN Administration Levothyroxine Sodium 50 mcg 03/29/21 04:00 03/29/21 04:08 Levothyroxine 50 Mcg Tab PO 50 mcg DAILY@0400 [facility] Administration Morphine Sulfate 4 mg 03/28/21 03:44 Morphine Sulfate 4 Mg/Ml Syringe IV Q4HR PRN Severe Pain Naloxone HCl 0.2 mg 03/28/21 03:44 Naloxone 0.4 Mg/Ml 1 Ml Vial IV Q2M PRN Opioid Reversal Ondansetron HCl 4 mg 03/28/21 03:44 Ondansetron 4 Mg/2 Ml Vial IVP Q8HR PRN Nausea And Vomiting Pantoprazole Sodium 40 mg 03/29/21 07:30 03/29/21 06:22 Pantoprazole 40 Mg Tablet PO 40 mg DAILY@0730 [facility] Administration Intake and Output 03/28/21 03/29/21 03/29/21 22:59 06:59 14:59 Other: # Voids 3 3 # Bowel Movements 1 Weight 90.718 kg 90 kg 03/28/21 02:35 03/28/21 02:35
[2021-03-29 11:40] LABS: Lymphocytes # (M) 52.71 k/uL (1.0-4.8); Monocytes # (M) 0.64 k/uL (0-1.0); Neutrophils # (M) 10.16 k/uL (1.3-7.7); Neutrophils % (M) 16 %; Nucleated Red Blood Cells 0 /100 WBC (0-0); Total Cells Counted 200
[2021-03-29] MEDS: HEPARIN SOD,PORK IN 0.45% NACL 25,000 UNIT in 0.45% NACL 1 250ML.BAG IV SCH (13:02)
[2021-03-29] MEDS: HEPARIN SODIUM,PORCINE/PF 5,000 UNIT/0.5 ML SYRINGE SQ SCH (13:30)
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
[2021-03-29 14:32] LABS: Band Neutrophils % 1 %; Eosinophils # (M) 0.61 k/uL (0-0.7); Lymphocytes # (M) 51.24 k/uL (1.0-4.8); Monocytes # (M) 0.61 k/uL (0-1.0); Neutrophils % (M) 14 %; Nucleated Red Blood Cells 0 /100 WBC (0-0); Total Cells Counted 200
[2021-03-29 14:34] LABS: Poikilocytosis (M) Present
[2021-03-29 17:01] LABS: % Iron Saturation 13.98 (15.00-50.00); Folate, Serum 11.3 ng/mL (4.40-31.00)
--- NOTE | 2021-03-29 17:47 | PN ---
PROGRESS NOTE DATE OF SERVICE: 03/29/2021 REASON FOR FOLLOWUP: Urinary tract infection. INTERVAL HISTORY: The patient is afebrile. The patient is currently breathing comfortably. The patient denies having any chest pain, shortness of breath or cough. No abdominal pain or diarrhea. PHYSICAL EXAMINATION: Blood pressure 133/64, pulse of 75, temperature 98.3. He is 95% on room air. General description is an elderly male lying in bed in no distress. RESPIRATORY SYSTEM: Unlabored breathing. Clear to auscultation anteriorly. HEART: S1, S2. Regular rate and rhythm. ABDOMEN: Soft. There is no tenderness. EXTREMITIES: No edema of the feet. LABS: White count of ,000. Ultrasound shows multiple diverticula and prostate hypertrophy. DIAGNOSTIC IMPRESSION AND PLAN: Patient with a fever. Source is urinary tract infection, likely from enteric Gram- negative pathogen in this patient who seems to have clinically responded to cefepime; to continue while waiting for the culture to finalize and monitor clinical course closely. MMODL / IJN: [id number] /
[2021-03-29 18:32] LABS: Chol/HDL Ratio 6.31 Ratio; HDL Cholesterol 29.3 mg/dL (40.00-60.00); LDL Cholesterol,Calculated 123.3 mg/dL (0.0-131.0); VLDL Calculation 32.4 mg/dL (5.00-40.00)
--- NOTE | 2021-03-29 19:50 | P.PN ---
Subjective Progress Note Date: 03/29/21 Principal diagnosis: OK and Fever Monitor PLatelets closely, trending down, prior to heparin exposure. Will need to keep greater than 50K. Monitor for DIC. Will check HIT (less likely). Renal Function trending down. Stop Heparin if less than 50K or signs of bleeding. Objective - Vital Signs Vital signs: Vital Signs Temp 99.0 F 03/29/21 08:00 Pulse 65 03/29/21 12:00 Resp 18 03/29/21 12:00 BP 130/69 03/29/21 12:00 Pulse Ox 95 03/29/21 12:00 Intake & Output 03/28/21 03/29/21 03/29/21 18:59 06:59 18:59 Intake Total 240 Output Total 300 Balance -60 Weight 90.718 kg 90 kg Intake: Oral 240 Output: Urine 300 Other: # Voids 3 1 # Bowel Movements 1 - Exam Flushed, Pale NAD O/P Dry Neck: Supple Heart: Irr, Reg Lungs: CTA Abd: Soft Ext": No edema Alert and oriented - Labs CBC & Chem 7: 03/29/21 08:57 03/29/21 07:08 Labs: Abnormal Lab Results - Last 24 Hours (Table) 03/28/21 03/29/21 03/29/21 Range/Units 15:13 07:08 07:08 WBC 63.5 H* (3.8-10.6) k/uL RBC 3.04 L (4.30-5.90) m/uL Hgb 10.0 L (13.0-17.5) gm/dL Hct 30.8 L (39.0-53.0) % MCV 101.3 H (80.0-100.0) fL RDW 16.7 H (11.5-15.5) % Plt Count 77 L (150-450) k/uL Neutrophils # (Manual) 10.16 H (1.3-7.7) k/uL Lymphocytes # (Manual) 52.71 H (1.0-4.8) k/uL APTT (22.0-30.0) sec Sodium 135 L (137-145) mmol/L Chloride 110 H (98-107) mmol/L Carbon Dioxide 19 L (22-30) mmol/L BUN 24 H (9-20) mg/dL Creatinine 1.27 H (0.66-1.25) mg/dL Calcium 7.8 L (8.4-10.2) mg/dL Total Bilirubin 1.6 H (0.2-1.3) mg/dL AST 63 H (17-59) U/L Troponin I (0.000-0.034) ng/mL Total Protein 5.1 L (6.3-8.2) g/dL Albumin 2.8 L (3.5-5.0) g/dL IgG 643.0 L (700.0-1600.0) mg/dL IgA 54.7 L (60.0-350.0) mg/dL IgM 8.1 L (40.0-280.0) mg/dL 03/29/21 03/29/21 03/29/21 Range/Units 07:08 08:57 14:29 WBC 61.0 H* (3.8-10.6) k/uL RBC 3.04 L (4.30-5.90) m/uL Hgb 9.8 L (13.0-17.5) gm/dL Hct 30.7 L (39.0-53.0) % MCV 100.9 H (80.0-100.0) fL RDW 16.6 H (11.5-15.5) % Plt Count 67 L (150-450) k/uL Neutrophils # (Manual) 9.10 H (1.3-7.7) k/uL Lymphocytes # (Manual) 51.24 H (1.0-4.8) k/uL APTT 82.1 H (22.0-30.0) sec Sodium (137-145) mmol/L Chloride (98-107) mmol/L Carbon Dioxide (22-30) mmol/L BUN (9-20) mg/dL Creatinine (0.66-1.25) mg/dL Calcium (8.4-10.2) mg/dL Total Bilirubin (0.2-1.3) mg/dL AST (17-59) U/L Troponin I 4.540 H* (0.000-0.034) ng/mL Total Protein (6.3-8.2) g/dL Albumin (3.5-5.0) g/dL IgG (700.0-1600.0) mg/dL IgA (60.0-350.0) mg/dL IgM (40.0-280.0) mg/dL Microbiology - Last 24 Hours (Table) 03/28/21 02:35 Urine Culture - Final Urine,Voided 03/28/21 02:50 Blood Culture - Preliminary Blood No Growth after 24 hours 03/28/21 03:05 Blood Culture - Preliminary Blood No Growth after 24 hours Assessment and Plan (1) CLL (chronic lymphocytic leukemia) Current Visit: Yes Status: Acute Code(s): C91.10 - CHRONIC LYMPHOCYTIC LEUK OF B-CELL TYPE NOT ACHIEVE REMIS SNOMED Code(s): 39096986 (2) Fever Current Visit: Yes Status: Acute Code(s): R50.9 - FEVER, UNSPECIFIED SNOMED Code(s): 347959115 (3) UTI (urinary tract infection) Current Visit: Yes Status: Acute Code(s): N39.0 - URINARY TRACT INFECTION, SITE NOT SPECIFIED SNOMED Code(s): 05639098 Plan: Because of the active infection we will check Immunoglobulins to see if additional immune support can be provided with IVIG. Pancytopenia: - Worsening due to Infectious/Inflammatory Process - Anemia work-up, check hemolysis - Monitor for DIC Thrombocytopenia: - Monitor closely as this is trending down and now heparin drip had been started - Hold Heparin if signs of bleeding or less than 50K 0 Recheck DIC panel - Check HOT antibodies (less likely trending down prior to Hep) CLL: - Check Immunoglobulins - Serial CBCs Anticoagulation started per primary team - KEEP platelets greater than 50K Physician attest: garima completed the full history and physical and agree with above dictation, dictated as a scribe.
[2021-03-29 20:46] LABS: Partial Thromboplastin Time 64.4 sec (22.0-30.0)
[2021-03-30] MEDS: SODIUM CHLORIDE 0.9% 1,000 ML IV SCH ×4 (05:31→20:33)
[2021-03-30] MEDS: PANTOPRAZOLE 40 MG TABLET PO SCH (06:05)
[2021-03-30] MEDS: LEVOTHYROXINE 50 MCG TAB PO SCH (06:05)
[2021-03-30] MEDS: CEFEPIME 2 GM in SODIUM CHLORIDE 0.9% 100 ML IVPB SCH ×2 (08:43→20:30)
[2021-03-30] MEDS: ASPIRIN 81 MG PO SCH (08:43)
[2021-03-30] MEDS: ATORVASTATIN 80 MG TAB PO SCH (08:43)
[2021-03-30] MEDS: METOPROLOL TARTRATE 25 MG TAB PO SCH ×2 (08:44→20:30)
[2021-03-30 10:06] LABS: Anisocytosis Slight; HCT 28.6 % (39.0-53.0); HGB 9.3 gm/dL (13.0-17.5); MCH 33.2 pg (25.0-35.0); MCHC 32.6 g/dL (31.0-37.0); MCV 101.8 fL (80.0-100.0); Macrocytosis Moderate; Mean Platelet Volume 8.8; Platelet Count 69 k/uL (150-450); RBC 2.81 m/uL (4.30-5.90); RDW 16.7 % (11.5-15.5)
[2021-03-30 10:07] LABS: WBC 57.4 k/uL (3.8-10.6)
[2021-03-30 10:21] LABS: Albumin 2.7 g/dL (3.5-5.0); Calcium 7.8 mg/dL (8.4-10.2); Potassium 3.9 mmol/L (3.5-5.1); Total Bilirubin 1.3 mg/dL (0.2-1.3); Total Protein 4.9 g/dL (6.3-8.2)
[2021-03-30 10:25] LABS: Prothrombin Time 10.4 sec (9.0-12.0)
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
[2021-03-30 14:02] LABS: Band Neutrophils % 1 %; Lymphocytes # (M) 48.22 k/uL (1.0-4.8); Monocytes # (M) 0.57 k/uL (0-1.0); Neutrophils % (M) 15 %; Nucleated Red Blood Cells 0 /100 WBC (0-0); Total Cells Counted 200
[2021-03-30 14:03] LABS: Poikilocytosis (M) Present
--- NOTE | 2021-03-30 14:43 | P.PN ---
Subjective Progress Note Date: 03/30/21 The patient is an 80-year-old female with past medical history of CLL, hypothyroidism, and GERD, who presented to the hospital with a syncopal spell. The patient reported being more tired and fatigued. She was walking to the bathroom when he felt he might pass out. On arrival to the emergency room he was febrile with a temp of 102F. EKG revealed first-degree AV block with left anterior fascicular block and T-wave inversions. Elevated troponins at 0.6, 6.7, and 4.5. Echocardiogram revealed normal LV function with mild to moderate mitral regurgitation and mild tricuspid regurgitation. He was subsequently diagnosed with a non-ST elevated myocardial infarction, however we did not proceed with coronary angiogram due to thrombocytopenia and pancytopenia. Overnight the patient states he's been doing well. He has no complaints. No chest pain or chest pressure. He has not been up ambulating therefore he cannot assess for shortness of breath or dizziness and lightheadedness with positional changes. Discussed planning care in detail with the patient and his . We d o recommend proceeding with coronary angiogram, however this must be delayed due to his worsening thrombocytopenia. Should he undergo left heart cath and need stent placement, he will need to be on dual antiplatelet therapy for at least 1 year. Currently we will recommend medical management, however we appreciate any recommendations from his oncologist. GENERAL: Well-appearing, well-nourished and in no acute distress. NECK: Supple without JVD or thyromegaly. LUNGS: Breath sounds clear to auscultation bilaterally. Respiration equal and unlabored. No wheezes, rales or rhonchi. HEART: Regular rate and rhythm without rubs or gallops. S1 and S2 heard. Systolic murmur audible. EXTREMITIES: Normal range of motion, no edema. No clubbing or cyanosis. Peripheral pulses intact and strong. VITALS: Blood pressure 123/69, pulse 77, respiratory rate 16, temp 97.8F, SpO2 94% on 4 L nasal cannula TELEMETRY: Sinus mechanism without arrhythmia overnight LABS: WBC 57.4, hemoglobin 9.3, platelets 69, sodium 134, potassium 3.9, BUN 19, creatinine 1.25, AST 58, ALT 24, LDL 123, HDL 29 IMPRESSION: Non-ST elevated myocardial infarction, coronary angiogram deferred at this time due to worsening thrombocytopenia Medical management, however appreciate recommendations from heme/onc as we may proceed if platelets rise Thrombocytopenia, worsening Pancytopenia, secondary to CLL Dyslipidemia, start statin therapy Valvular heart disease, moderate mitral regurgitation PLAN: Recommend continuing atorvastatin 80 mg daily Heparin infusion per heme/onc recommendations Further recommendations based on clinical course The patient has been seen and evaluated. Plan of care has been reviewed and agreed upon by Dr Griffin. Objective - Vital Signs Vital signs: Vital Signs Temp 97.9 F 03/30/21 11:05 Pulse 73 03/30/21 11:05 Resp 16 03/30/21 11:05 BP 158/73 03/30/21 11:05 Pulse Ox 95 03/30/21 11:05 Intake & Output 03/29/21 03/30/21 03/30/21 18:59 06:59 18:59 Intake Total 538 92.250 180 Output Total 300 Balance 238 92.250 180 Weight 90.3 kg Intake: Intake, IV Titration 58 92.250 Amount Heparin Sod,Pork in 0.45% 58 92.250 NaCl 25,000 unit In 0.45 % NaCl 1 250ml.bag @ 11. 111 UNITS/KG/HR 10 mls/hr IV .Q24H WARREN Rx#: [id number] Oral 480 180 Output: Urine 300 Other: # Voids 1 1 3 - Labs CBC & Chem 7: 03/30/21 09:38 03/30/21 09:38 Labs: Abnormal Lab Results - Last 24 Hours (Table) 03/28/21 03/29/21 03/29/21 Range/Units 15:13 07:08 08:57 WBC (3.8-10.6) k/uL RBC (4.30-5.90) m/uL Hgb (13.0-17.5) gm/dL Hct (39.0-53.0) % MCV (80.0-100.0) fL RDW (11.5-15.5) % Plt Count 67 L (150-450) k/uL Neutrophils # (Manual) 9.10 H (1.3-7.7) k/uL Lymphocytes # (Manual) 51.24 H (1.0-4.8) k/uL APTT (22.0-30.0) sec D-Dimer (<0.60) mg/L FEU Sodium (137-145) mmol/L Chloride (98-107) mmol/L Carbon Dioxide (22-30) mmol/L Calcium (8.4-10.2) mg/dL Iron 37 L (65-175) ug/dL % Saturation 13.98 L (15.00-50.00) Transferrin 189.0 L (204.0-354.0) mg/dL Lactate Dehydrogenase 268 H (120-246) U/L Total Protein (6.3-8.2) g/dL Albumin (3.5-5.0) g/dL Triglycerides 162.00 H (0.00-149.00) mg/dL HDL Cholesterol 29.30 L (40.00-60.00) mg/dL 03/29/21 03/29/21 03/30/21 Range/Units 14:29 19:51 09:38 WBC (3.8-10.6) k/uL RBC (4.30-5.90) m/uL Hgb (13.0-17.5) gm/dL Hct (39.0-53.0) % MCV (80.0-100.0) fL RDW (11.5-15.5) % Plt Count (150-450) k/uL Neutrophils # (Manual) (1.3-7.7) k/uL Lymphocytes # (Manual) (1.0-4.8) k/uL APTT 82.1 H 64.4 H (22.0-30.0) sec D-Dimer 1.03 H (<0.60) mg/L FEU Sodium 134 L (137-145) mmol/L Chloride 110 H (98-107) mmol/L Carbon Dioxide 20 L (22-30) mmol/L Calcium 7.8 L (8.4-10.2) mg/dL Iron (65-175) ug/dL % Saturation (15.00-50.00) Transferrin (204.0-354.0) mg/dL Lactate Dehydrogenase (120-246) U/L Total Protein 4.9 L (6.3-8.2) g/dL Albumin 2.7 L (3.5-5.0) g/dL Triglycerides (0.00-149.00) mg/dL HDL Cholesterol (40.00-60.00) mg/dL 03/30/21 Range/Units 09:38 WBC 57.4 H* (3.8-10.6) k/uL RBC 2.81 L (4.30-5.90) m/uL Hgb 9.3 L (13.0-17.5) gm/dL Hct 28.6 L (39.0-53.0) % MCV 101.8 H (80.0-100.0) fL RDW 16.7 H (11.5-15.5) % Plt Count 69 L (150-450) k/uL Neutrophils # (Manual) 9.10 H (1.3-7.7) k/uL Lymphocytes # (Manual) 48.22 H (1.0-4.8) k/uL APTT (22.0-30.0) sec D-Dimer (<0.60) mg/L FEU Sodium (137-145) mmol/L Chloride (98-107) mmol/L Carbon Dioxide (22-30) mmol/L Calcium (8.4-10.2) mg/dL Iron (65-175) ug/dL % Saturation (15.00-50.00) Transferrin (204.0-354.0) mg/dL Lactate Dehydrogenase (120-246) U/L Total Protein (6.3-8.2) g/dL Albumin (3.5-5.0) g/dL Triglycerides (0.00-149.00) mg/dL HDL Cholesterol (40.00-60.00) mg/dL Microbiology - Last 24 Hours (Table) 03/28/21 02:50 Blood Culture - Preliminary Blood No Growth after 48 hours 03/28/21 03:05 Blood Culture - Preliminary Blood No Growth after 48 hours 03/28/21 02:35 Urine Culture - Final Urine,Voided
[2021-03-30] MEDS: HEPARIN SOD,PORK IN 0.45% NACL 25,000 UNIT in 0.45% NACL 1 250ML.BAG IV SCH (15:49)
--- NOTE | 2021-03-30 16:52 | PN ---
PROGRESS NOTE DATE OF SERVICE: 03/30/2021 REASON FOR FOLLOWUP: Urinary tract infection. INTERVAL HISTORY: The patient is afebrile. The patient is breathing comfortably. The patient denies having any chest pain, shortness of breath or cough. No nausea or vomiting. No abdominal pain or diarrhea. PHYSICAL EXAMINATION: Blood pressure 158/73 with a pulse of 73, temperature 97.9. He is 95% on room air. General description is an elderly male lying in bed in no distress. RESPIRATORY SYSTEM: Unlabored breathing. Clear to auscultation anteriorly. HEART: S1, S2. Regular rate and rhythm. ABDOMEN: Soft. No tenderness. LABS: Hemoglobin is 9.3, white count of 57, creatinine 1.25. Blood and urine cultures came back negative. DIAGNOSTIC IMPRESSION AND PLAN: Patient admitted to hospital with a fever and hematuria concerning for a urinary source of infection. The patient's urine culture came back negative. Will repeat his UA. Continue with cefepime with overall clinical improvement and monitor his clinical course closely. MMODL / IJN: [id number] /
[2021-03-30 17:02] LABS: Appearance,Urine Cloudy (Clear); Bacteria,Urine Rare /hpf; Bilirubin,Urine Negative (Negative); Blood,Urine Moderate (Negative); Color,Urine Yellow; Glucose,Urine (UA) Negative (Negative); Ketones,Urine Negative (Negative); Leukocyte Esterase,Urine Large (Negative); Mucus,Urine Rare /hpf; Nitrite,Urine Negative (Negative); PH, Urine 5.5 (5.0-8.0); Protein,Urine Trace (Negative); RBC,Urine 38 /hpf (0-5); Specific Gravity,Urine 1.011 (1.001-1.035); Squamous Epithelial Cell,Urine <1 /hpf (0-4); Urobilinogen,Urine <2.0 mg/dL (<2.0); WBC,Urine 98 /hpf (0-5)
[2021-03-31] MEDS: PANTOPRAZOLE 40 MG TABLET PO SCH (06:11)
[2021-03-31] MEDS: LEVOTHYROXINE 50 MCG TAB PO SCH (06:11)
[2021-03-31 09:44] LABS: Anisocytosis Slight; HCT 31.1 % (39.0-53.0); MCH 31.8 pg (25.0-35.0); MCHC 32.1 g/dL (31.0-37.0); Macrocytosis Slight; Mean Platelet Volume 9.2; Poikilocytosis Slight; RBC 3.14 m/uL (4.30-5.90); RDW 17.3 % (11.5-15.5)
[2021-03-31] MEDS: HEPARIN SOD,PORK IN 0.45% NACL 25,000 UNIT in 0.45% NACL 1 250ML.BAG IV SCH (09:52)
[2021-03-31 09:53] LABS: Calcium 8.2 mg/dL (8.4-10.2)
[2021-03-31] MEDS: CEFEPIME 2 GM in SODIUM CHLORIDE 0.9% 100 ML IVPB SCH ×2 (09:53→20:40)
[2021-03-31] MEDS: METOPROLOL TARTRATE 25 MG TAB PO SCH (09:53)
[2021-03-31] MEDS: ATORVASTATIN 80 MG TAB PO SCH (09:53)
[2021-03-31] MEDS: TAMSULOSIN 0.4 MG CAP.ER.24H PO SCH (09:53)
[2021-03-31] MEDS: ASPIRIN 81 MG PO SCH (09:53)
[2021-03-31 10:04] LABS: Platelet Count 92 k/uL (150-450)
[2021-03-31 10:06] LABS: WBC 72.1 k/uL (3.8-10.6)
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
--- NOTE | 2021-03-31 12:52 | P.PN ---
Subjective Progress Note Date: 03/31/21 Overnight the patient states he's been doing well. He has no complaints. No chest pain or chest pressure. He has not been up ambulating therefore he cannot assess for shortness of breath or dizziness and lightheadedness with positional changes. GENERAL: Well-appearing, well-nourished and in no acute distress. NECK: Supple without JVD or thyromegaly. LUNGS: Breath sounds clear to auscultation bilaterally. Respiration equal and unlabored. No wheezes, rales or rhonchi. HEART: Regular rate and rhythm without rubs or gallops. S1 and S2 heard. Systolic murmur audible. EXTREMITIES: Normal range of motion, no edema. No clubbing or cyanosis. Peripheral pulses intact and strong. VITALS: Blood pressure 164/86, pulse 75, respiratory rate 18, temp 97.7F, SpO2 94% on room air TELEMETRY: Sinus mechanism without arrhythmia overnight LABS: WBC 72.1, hemoglobin 10.0, hematocrit 31.1, platelet 92, sodium 136, potassium 4.0, BUN 16, creatinine 1.26 IMPRESSION: Non-ST elevated myocardial infarction, coronary angiogram deferred at this time due to worsening thrombocytopenia Medical management, however appreciate recommendations from heme/onc as we may proceed if platelets rise Thrombocytopenia, improved since discontinuing heparin Pancytopenia, secondary to CLL Dyslipidemia, start statin therapy Valvular heart disease, moderate mitral regurgitation PLAN: Recommend continuing atorvastatin 80 mg daily Continue to monitor platelet count Increase beta yuko to 50 mg twice daily Start losartan 25 mg daily at bedtime Further recommendations based on clinical course The patient has been seen and evaluated. Plan of care has been reviewed and agreed upon by Dr Griffin. Objective - Vital Signs Vital signs: Vital Signs Temp 97.8 F 03/31/21 11:55 Pulse 88 03/31/21 11:55 Resp 19 03/31/21 11:55 BP 162/85 03/31/21 11:55 Pulse Ox 94 L 03/31/21 11:55 Intake & Output 03/30/21 03/31/21 03/31/21 18:59 06:59 18:59 Intake Total 360 Balance 360 Weight 91.1 kg Intake: Oral 360 Other: # Voids 2 1 - Labs CBC & Chem 7: 03/31/21 08:11 03/31/21 08:11 Labs: Abnormal Lab Results - Last 24 Hours (Table) 03/30/21 03/30/21 03/31/21 Range/Units 09:38 14:55 08:11 WBC 57.4 H* 72.1 H* (3.8-10.6) k/uL RBC 3.14 L (4.30-5.90) m/uL Hgb 10.0 L (13.0-17.5) gm/dL Hct 31.1 L (39.0-53.0) % RDW 17.3 H (11.5-15.5) % Plt Count 92 L (150-450) k/uL Neutrophils # (Manual) 9.10 H (1.3-7.7) k/uL Lymphocytes # (Manual) 48.22 H (1.0-4.8) k/uL Sodium (137-145) mmol/L Chloride (98-107) mmol/L Carbon Dioxide (22-30) mmol/L Creatinine (0.66-1.25) mg/dL Calcium (8.4-10.2) mg/dL Urine Protein Trace H (Negative) Urine Blood Moderate H (Negative) Ur Leukocyte Esterase Large H (Negative) Urine RBC 38 H (0-5) /hpf Urine WBC 98 H (0-5) /hpf Urine Bacteria Rare H (None) /hpf Urine Mucus Rare H (None) /hpf 03/31/21 Range/Units 08:11 WBC (3.8-10.6) k/uL RBC (4.30-5.90) m/uL Hgb (13.0-17.5) gm/dL Hct (39.0-53.0) % RDW (11.5-15.5) % Plt Count (150-450) k/uL Neutrophils # (Manual) (1.3-7.7) k/uL Lymphocytes # (Manual) (1.0-4.8) k/uL Sodium 136 L (137-145) mmol/L Chloride 110 H (98-107) mmol/L Carbon Dioxide 19 L (22-30) mmol/L Creatinine 1.26 H (0.66-1.25) mg/dL Calcium 8.2 L (8.4-10.2) mg/dL Urine Protein (Negative) Urine Blood (Negative) Ur Leukocyte Esterase (Negative) Urine RBC (0-5) /hpf Urine WBC (0-5) /hpf Urine Bacteria (None) /hpf Urine Mucus (None) /hpf Microbiology - Last 24 Hours (Table) 03/28/21 02:50 Blood Culture - Preliminary Blood No Growth after 72 hours 03/28/21 03:05 Blood Culture - Preliminary Blood No Growth after 72 hours 03/30/21 14:55 Urine Culture - Preliminary Urine,Voided
[2021-03-31 13:21] LABS: Eosinophils # (M) 0.72 k/uL (0-0.7)
[2021-03-31 13:22] LABS: Nucleated Red Blood Cells 0 /100 WBC (0-0); Total Cells Counted 200
[2021-03-31 16:27] VITALS: RESP 18
[2021-03-31] MEDS: SODIUM CHLORIDE 0.9% 1,000 ML IV SCH ×2 (16:42→20:42)
[2021-03-31] MEDS: METOPROLOL TARTRATE 50 MG TAB PO SCH (20:40)
[2021-03-31] MEDS: LOSARTAN 25 MG TAB PO SCH (20:40)
--- NOTE | 2021-04-01 02:47 | PN ---
PROGRESS NOTE DATE OF SERVICE: 03/31/2021 REASON FOR FOLLOWUP: Urinary tract infection. INTERVAL HISTORY: Patient is afebrile. The patient is currently breathing comfortably. The patient denies having any chest pain. No shortness of breath or cough. No nausea, vomiting. No abdominal pain or diarrhea. EXAMINATION: Blood pressure 134/63 with a pulse of 72, temperature 98.4. He is 96% on room air. General description is an elderly male lying in bed in no distress. Respiratory system: Unlabored breathing, clear to auscultation anteriorly. Heart S1, S2. Regular rate and rhythm. Abdomen soft, no tenderness. LABS: Hemoglobin is 10, white count 72. BUN of 16, creatinine 1.26. Repeat urine is mildly positive. DIAGNOSTIC IMPRESSION AND PLAN: Patient admitted to the hospital with fever, hematuria, concern for a symptomatic urinary tract infection. Overall fever responded to the cefepime. Cultures remain negative. May consider a short course of oral Ceftin on discharge. Continue supportive care. MMODL / IJN: [id number] /
[2021-04-01 06:15] LABS: Anisocytosis Slight; HCT 29.5 % (39.0-53.0); HGB 9.6 gm/dL (13.0-17.5); MCH 32.9 pg (25.0-35.0); MCHC 32.6 g/dL (31.0-37.0); MCV 100.9 fL (80.0-100.0); Macrocytosis Slight; Mean Platelet Volume 8.4; Platelet Count 86 k/uL (150-450); Poikilocytosis Slight; RBC 2.92 m/uL (4.30-5.90); RDW 16.8 % (11.5-15.5)
[2021-04-01 06:26] LABS: Calcium 8.4 mg/dL (8.4-10.2); Potassium 3.9 mmol/L (3.5-5.1)
[2021-04-01 06:29] LABS: WBC 70.1 k/uL (3.8-10.6)
[2021-04-01] MEDS: TAMSULOSIN 0.4 MG CAP.ER.24H PO SCH (06:52)
[2021-04-01] MEDS: PANTOPRAZOLE 40 MG TABLET PO SCH (06:52)
[2021-04-01] MEDS: LEVOTHYROXINE 50 MCG TAB PO SCH (06:52)
[2021-04-01] MEDS: SODIUM CHLORIDE 0.9% 1,000 ML IV SCH ×2 (06:53→16:42)
[2021-04-01 08:41] LABS: Band Neutrophils % 1 %; Lymphocytes # (M) 60.56 k/uL (1.0-4.8); Monocytes # (M) 1.44 k/uL (0-1.0); Myelocytes # (M) 0.72 k/uL (0); Myelocytes % 1 %; Neutrophils % (M) 14 %
[2021-04-01] MEDS: ATORVASTATIN 80 MG TAB PO SCH (09:28)
[2021-04-01] MEDS: LOSARTAN 25 MG TAB PO SCH (09:28)
[2021-04-01] MEDS: CEFEPIME 2 GM in SODIUM CHLORIDE 0.9% 100 ML IVPB SCH (09:28)
[2021-04-01] MEDS: METOPROLOL TARTRATE 50 MG TAB PO SCH (09:28)
[2021-04-01] MEDS: ASPIRIN 81 MG PO SCH (09:28)
[2021-04-01 12:16] LABS: Lymphocytes # (M) 57.48 k/uL (1.0-4.8); Neutrophils # (M) 10.52 k/uL (1.3-7.7); Neutrophils % (M) 15 %; Nucleated Red Blood Cells 0 /100 WBC (0-0); Total Cells Counted 200
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
--- NOTE | 2021-04-01 13:44 | PN ---
PROGRESS NOTE DATE OF SERVICE: 04/01/2021 REASON FOR FOLLOW UP: Urinary tract infection. INTERVAL HISTORY: Patient is afebrile. The patient is currently breathing comfortably. Denies having any chest pain, shortness of breath or cough. No nausea, vomiting. No abdominal pain. No diarrhea. PHYSICAL EXAMINATION: Blood pressure 134/65, pulse of 65, temperature 98.5. He is 94% on room air. General description is an elderly male up in the bed in no distress. Respiratory system: Unlabored breathing, clear to auscultation anteriorly. Heart S1, S2. Regular rate and rhythm. Abdomen soft, no tenderness. Extremities: No edema of the feet. LABS: Hemoglobin 9.1, white count 17.1, creatinine 1.18. DIAGNOSTIC IMPRESSION AND PLAN: Patient admitted to the hospital with fever, hematuria concerning for urinary tract infection in this patient who has clinically responded to cefepime. Cultures have been negative, may consider short course of oral Ceftin on discharge. Continue supportive care. MMODL / IJN: [id number] /
--- NOTE | 2021-04-01 13:53 | P.PN ---
Subjective Progress Note Date: 04/01/21 HISTORY OF PRESENT ILLNESS: This is a pleasant 80-year-old male past medical history significant for CLL, hypothyroidism, vitamin D deficiency, gastroesophageal reflux disease. 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 We have been asked to see in consultation for concern for elevated troponin. He is somewhat of a poor historian, he is not aware of the names of his physicians or his medical problems. He is alert, oriented to person and place. Patient presents to the emergency department after a possible syncopal episode. Patient states lately he has been feeling tired and fatigued. Yesterday he was walking to the bathroom, he felt dizzy and "disorientated" and felt as if he might "black out", he states he thinks he lowered himself to the ground. He believes he did lose consciousness because the next thing he remembers is waking up in the EMS. He states the women he lives with called EMS. He does endorse lightheadedness which is chronic for him. He denies any chest pain, shortness of breath, diaphoresis, nausea, vomiting, abdominal pain, palpitations, orthopnea, PND, lower extremity edema. He denies history of [place], stroke, diabetes or hypertension. He denies family history of CAD. He is a non-smoker, denies alcohol use. He states he is pretty active at home walking. On admission his temp of 102. DIAGNOSTICS EKG reveals sinus rhythm first degree AV Block, left anterior fasicular block, LVH, T wave inversion in lead aVL, early repolarization in lead V2 could be positional Telemetry tracings indicate sinus mechanism HR 70s-80s Chest xray mild fibrotic changes and subsugmental atelectasis at the lung bases Laboratory reviewed, WBC 97.3 Hgb 10.8, plt 91, Na 131, K 3.9, BUN 30, sCr 1.5, Mag 1.7 troponin 0.6-->6.7-->61, UA positive for UTI Current home medications include omeprazole, synthroid, Vitamin D 04/01/2021 Patient examined this morning at the bedside. Patient denies chest pain or pressure. He denies shortness of breath. Patient has been up in the hallway with physical therapy and bleeding. Patient states he is tired today and just wants to sleep. His vital signs are stable. Her cardiac exam completed revealing ejection fraction 55-60%, trace to mild aortic regurgitation, moderate aortic stenosis, mild to moderate mitral regurgitation, mild tricuspid regurgitation, and mild pulmonary hypertension PHYSICAL EXAM: VITAL SIGNS: Reviewed. GENERAL: Well-developed in no acute distress. NECK: Supple. No JVD or thyromegaly LUNGS: Respirations even and unlabored. Lungs essentially clear to auscultation bilaterally. HEART: Regular rate and rhythm. S1 and S2 heard. + Systolic murmur EXTREMITIES: Normal range of motion. No clubbing or cyanosis. Peripheral pulses intact. No lower extremity edema ASSESSMENT: Non-STEMI Syncope CLL Urinary tract infection with sepsis Anemia Thrombocytopenia Hyperlipidemia Hypertension Valvular heart disease PLAN: Continue with medical management at this time No plans for cardiac cath due to thrombocytopenia Continue current cardiac medications Further recommendations pending patient's course Patient may follow up outpatient with Dr. Griffin Nurse practitioner note has been reviewed by physician. Signing provider agrees with the documented findings, assessment, and plan of care. Objective - Vital Signs Vital signs: Vital Signs Temp 98.5 F 04/01/21 12:00 Pulse 65 04/01/21 12:00 Resp 18 04/01/21 12:00 BP 134/65 04/01/21 12:00 Pulse Ox 94 L 04/01/21 12:00 Intake & Output 03/31/21 04/01/21 04/01/21 18:59 06:59 18:59 Intake Total 300 240 Output Total 204 800 200 Balance -204 -500 40 Weight 88.6 kg Intake: IV 40 Invasive Line 1 20 Invasive Line 3 20 Oral 260 240 Output: Urine 400 200 Straight 400 Post Void Residual 204 400 Other: Voiding Method Toilet Toilet # Voids 1 1 1 # Bowel Movements 1 - Labs CBC & Chem 7: 04/01/21 05:38 04/01/21 05:38 Labs: Abnormal Lab Results - Last 24 Hours (Table) 03/31/21 04/01/21 04/01/21 Range/Units 08:11 05:38 05:38 WBC 72.1 H* 70.1 H* (3.8-10.6) k/uL RBC 3.14 L 2.92 L (4.30-5.90) m/uL Hgb 10.0 L 9.6 L (13.0-17.5) gm/dL Hct 31.1 L 29.5 L (39.0-53.0) % MCV 100.9 H (80.0-100.0) fL RDW 17.3 H 16.8 H (11.5-15.5) % Plt Count 92 L 86 L (150-450) k/uL Neutrophils # (Manual) 10.80 H 10.52 H (1.3-7.7) k/uL Lymphocytes # (Manual) 60.56 H 57.48 H (1.0-4.8) k/uL Monocytes # (Manual) 1.44 H 2.80 H (0-1.0) k/uL Eosinophils # (Manual) 0.72 H (0-0.7) k/uL Myelocytes # (Manual) 0.72 H (0) k/uL Blast Cells # (Man) 2.16 H (0) k/uL Sodium 136 L (137-145) mmol/L Chloride 111 H (98-107) mmol/L Carbon Dioxide 20 L (22-30) mmol/L Microbiology - Last 24 Hours (Table) 03/28/21 02:50 Blood Culture - Preliminary Blood No Growth after 96 hours 03/28/21 03:05 Blood Culture - Preliminary Blood No Growth after 96 hours 03/30/21 14:55 Urine Culture - Final Urine,Voided
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
--- NOTE | 2021-04-01 15:48 | P.GSCN ---
History of Present Illness Consult date: 04/01/21 History of present illness: This is an 80 yo male admitted to the hospital with fever and possible UTI. Urology is consulted for urinary retention. He indicated he is been having gross hematuria and dysuria for the past few days. No previous hx of UTI, but indicates he did have an episode of gross hematuria earlier this year. No previous hx of urinary retention. His PVR was 400 mL and required CIC X 1. He does have obstructive symptoms at baseline.He underwent RBUS which showed multiple bladder diverticula and echogenic focus within one of the diverticula. Review of Systems - Constitutional Denies fever, Denies weight loss - EENT Ears, nose, mouth and throat: Denies dysphagia - Cardiovascular Denies chest pain, Denies shortness of breath - Respiratory Reports as per HPI - Gastrointestinal Reports as per HPI - Genitourinary Reports dysuria, Reports hematuria, Reports urinary retention - Neurological Denies headaches, Denies syncope Past Medical History Past Medical History: No Reported History History of Any Multi-Drug Resistant Organisms: None Reported Past Surgical History: Hernia Repair Past Anesthesia/Blood Transfusion Reactions: No Reported Reaction Additional Past Anesthesia/Blood Transfusion Reaction / Comm: PATIENT STATES HE HAS NEVER HAD A BLOOD TRANSFUSION Past Psychological History: No Psychological Hx Reported Past Alcohol Use History: Rare Past Drug Use History: None Reported Medications and Allergies Home Medications Medication Instructions Recorded Confirmed Type Cholecalciferol [Vitamin D3 (25 25 mcg PO DAILY 03/28/21 03/28/21 History Mcg = 1000 Iu)] Levothyroxine Sodium [Synthroid] 50 mcg PO DAILY@0400 03/28/21 03/28/21 History Omeprazole 20 mg PO DAILY 03/28/21 03/28/21 History Super B Complex 1 tab PO DAILY 03/28/21 03/28/21 History Aspirin 81 mg PO DAILY tab 04/01/21 Rx Atorvastatin [Lipitor] 80 mg PO DAILY #30 tab 04/01/21 Rx Cefuroxime [Ceftin] 250 mg PO BID 5 Days #10 tab 04/01/21 Rx Losartan [Cozaar] 25 mg PO DAILY #30 tab 04/01/21 Rx Metoprolol Tartrate [Lopressor] 50 mg PO BID #60 tab 04/01/21 Rx Allergies Allergy/AdvReac Type Severity Reaction Status Date / Time No Known Allergies Allergy Verified 03/28/21 17:55 Surgical - Exam Vital Signs Temp Pulse Resp BP Pulse Ox 102 F H 122 H 20 145/71 94 L 03/28/21 01:44 03/28/21 01:44 03/28/21 01:44 03/28/21 01:44 03/28/21 01:44 - General well developed, well nourished, no distress, no pain - Eyes PERRL, normal ocular movement - ENT normal nares, normal mucosa - Respiratory normal expansion, normal respiratory effort - Abdomen Abdomen: soft, non tender - Psychiatric oriented to time, oriented to person, oriented to place Results - Labs 04/01/21 05:38 04/01/21 05:38 Abnormal Lab Results - Last 24 Hours (Table) 03/31/21 04/01/21 04/01/21 Range/Units 08:11 05:38 05:38 WBC 70.1 H* (3.8-10.6) k/uL RBC 2.92 L (4.30-5.90) m/uL Hgb 9.6 L (13.0-17.5) gm/dL Hct 29.5 L (39.0-53.0) % MCV 100.9 H (80.0-100.0) fL RDW 16.8 H (11.5-15.5) % Plt Count 86 L (150-450) k/uL Neutrophils # (Manual) 10.80 H 10.52 H (1.3-7.7) k/uL Lymphocytes # (Manual) 60.56 H 57.48 H (1.0-4.8) k/uL Monocytes # (Manual) 1.44 H 2.80 H (0-1.0) k/uL Eosinophils # (Manual) 0.72 H (0-0.7) k/uL Myelocytes # (Manual) 0.72 H (0) k/uL Blast Cells # (Man) 2.16 H (0) k/uL Sodium 136 L (137-145) mmol/L Chloride 111 H (98-107) mmol/L Carbon Dioxide 20 L (22-30) mmol/L Microbiology - Last 24 Hours (Table) 03/28/21 02:50 Blood Culture - Preliminary Blood No Growth after 96 hours 03/28/21 03:05 Blood Culture - Preliminary Blood No Growth after 96 hours 03/30/21 14:55 Urine Culture - Final Urine,Voided Diabetes panel 04/01/21 Range/Units 05:38 Sodium 136 L (137-145) mmol/L Potassium 3.9 (3.5-5.1) mmol/L Chloride 111 H (98-107) mmol/L Carbon Dioxide 20 L (22-30) mmol/L BUN 14 (9-20) mg/dL Creatinine 1.18 (0.66-1.25) mg/dL Glucose 98 (74-99) mg/dL Calcium 8.4 (8.4-10.2) mg/dL Calcium panel 04/01/21 Range/Units 05:38 Calcium 8.4 (8.4-10.2) mg/dL Pituitary panel 04/01/21 Range/Units 05:38 Sodium 136 L (137-145) mmol/L Potassium 3.9 (3.5-5.1) mmol/L Chloride 111 H (98-107) mmol/L Carbon Dioxide 20 L (22-30) mmol/L BUN 14 (9-20) mg/dL Creatinine 1.18 (0.66-1.25) mg/dL Glucose 98 (74-99) mg/dL Calcium 8.4 (8.4-10.2) mg/dL Adrenal panel 04/01/21 Range/Units 05:38 Sodium 136 L (137-145) mmol/L Potassium 3.9 (3.5-5.1) mmol/L Chloride 111 H (98-107) mmol/L Carbon Dioxide 20 L (22-30) mmol/L BUN 14 (9-20) mg/dL Creatinine 1.18 (0.66-1.25) mg/dL Glucose 98 (74-99) mg/dL Calcium 8.4 (8.4-10.2) mg/dL Assessment and Plan Assessment: 80 yo with urinary retention, admitted with possible UTI, but urine culture is negative. Has no had two episode of gross hematuria. RBUS showed multiple diverticula and echogenic focus within one of the diverticula. -Obtain PVR, if >300 mL insert walton can f/u one week for TOV -Continue flomax -Will need cystoscopy as an outpatient given his recurrent gross hematuria.
[2021-04-01 16:18] VITALS: BP 166/79; PULSE 71; TEMP 98.6
== END 2021-04-01 17:14 | disposition home or self-care (01) | DRG 871 ==
LOC: EC 01:41 → 4SSUR 03:44 → 3SCARD 15:13
PROVIDERS: ADMIT Internal Medicine Geriatric Medicine; ATTEND Internal Medicine Geriatric Medicine
DX: A41.9 Sepsis, unspecified organism (principal); I21.4 Non-ST elevation (NSTEMI) myocardial infarction; C91.10 Chronic lymphocytic leukemia of B-cell type not having achieved remission; D61.818 Other pancytopenia; N17.9 Acute kidney failure, unspecified; N39.0 Urinary tract infection, site not specified; E03.9 Hypothyroidism, unspecified; E78.5 Hyperlipidemia, unspecified; H91.90 Unspecified hearing loss, unspecified ear; I10 Essential (primary) hypertension; I27.20 Pulmonary hypertension, unspecified; I34.0 Nonrheumatic mitral (valve) insufficiency; I44.0 Atrioventricular block, first degree; I44.4 Left anterior fascicular block; Z20.822 Contact with and (suspected) exposure to COVID-19; K21.9 Gastro-esophageal reflux disease without esophagitis; K44.9 Diaphragmatic hernia without obstruction or gangrene; N20.0 Calculus of kidney; N32.3 Diverticulum of bladder; N40.0 Benign prostatic hyperplasia without lower urinary tract symptoms; R31.0 Gross hematuria; Z79.82 Long term (current) use of aspirin; Z79.890 Hormone replacement therapy; Z79.899 Other long term (current) drug therapy; Z82.49 Family history of ischemic heart disease and other diseases of the circulatory system; Z82.5 Family history of asthma and other chronic lower respiratory diseases; R25.1 Tremor, unspecified; E55.9 Vitamin D deficiency, unspecified
CPT/HCPCS: 36415; 71046; 76770; 80048; 80053; 80061; 81001; 82306; 82607; 82728; 82746; 82784; 83010; 83540; 83550; 83605; 83615; 83735; 83880; 84100; 84439; 84443; 84484; 84550; 85025; 85379; 85384; 85610; 85730; 86022; 86140; 87040; 87086; 87635; 93005; 93306; 96365; 96366; 96367; 96375; 99285

== ENCOUNTER 2022-05-13 08:27 | Inpatient (IN) | payer MEDICARE, OTHER ==
--- NOTE | 2022-05-13 08:36 | ED ---
Chest Pain HPI - General Stated Complaint: chest pain Time Seen by Provider: 05/13/22 08:27 Source: patient, RN notes reviewed - History of Present Illness Initial Comments: 81-year-old male with a history of thyroid disease dementia and Parkinson's disease and leukemia for which she takes chemo therapy orally who states he had the onset around 3 AM this morning of midsternal chest pain 4/10 severity pressure-like nonradiating. It persisted throughout the restaurant crew but by the time paramedics arrived it was about 1/10. He currently is pain-free he denies any fevers chills nausea vomiting sweats cough or other symptoms no known prior history of heart disease. Information obtained from the patient and patient's family. MD Complaint: chest pain - Related Data Home Medications Medication Instructions Recorded Confirmed Cholecalciferol [Vitamin D3 (25 25 mcg PO DAILY 03/28/21 03/28/21 Mcg = 1000 Iu)] Levothyroxine Sodium [Synthroid] 50 mcg PO DAILY@0400 03/28/21 03/28/21 Omeprazole 20 mg PO DAILY 03/28/21 03/28/21 Super B Complex 1 tab PO DAILY 03/28/21 03/28/21 Previous Rx's Medication Instructions Recorded Aspirin 81 mg PO DAILY tab 04/01/21 Atorvastatin [Lipitor] 80 mg PO DAILY #30 tab 04/01/21 Cefuroxime [Ceftin] 250 mg PO BID 5 Days #10 tab 04/01/21 Losartan [Cozaar] 25 mg PO DAILY #30 tab 04/01/21 Metoprolol Tartrate [Lopressor] 50 mg PO BID #60 tab 04/01/21 Allergies Allergy/AdvReac Type Severity Reaction Status Date / Time No Known Allergies Allergy Verified 03/28/21 17:55 Review of Systems ROS Statement: Those systems with pertinent positive or pertinent negative responses have been documented in the HPI. ROS Other: All systems not noted in ROS Statement are negative. EKG Findings - EKG Results: EKG: interpreted by ERMD (EKG interpreted by me a sinus rhythm with first-degree AV block rate 86 VT interval 2:30 QRS duration 112 QT since QTC 354/397 evidence a left axis deviation and LVH there is evidence of ST depression in leads 2 as well as leads V4 V5 and V6 compared to an EKG dated 03/28/2021) Past Medical History Past Medical History: No Reported History History of Any Multi-Drug Resistant Organisms: None Reported Past Surgical History: Hernia Repair Past Anesthesia/Blood Transfusion Reactions: No Reported Reaction Additional Past Anesthesia/Blood Transfusion Reaction / Comment(s): PATIENT STATES HE HAS NEVER HAD A BLOOD TRANSFUSION Past Psychological History: No Psychological Hx Reported Past Alcohol Use History: Rare Past Drug Use History: None Reported General Exam - General Exam Comments Initial Comments: This is a well-developed well-nourished awake alert oriented 3 male General appearance: alert, in no apparent distress Head exam: Present: atraumatic, normocephalic, normal inspection Eye exam: Present: normal appearance, PERRL, EOMI. Absent: scleral icterus, conjunctival injection, periorbital swelling ENT exam: Present: normal exam, mucous membranes moist Neck exam: Present: normal inspection, full ROM, other (No stridor JVD or bruits). Absent: tenderness, meningismus, lymphadenopathy Respiratory exam: Present: normal lung sounds bilaterally. Absent: respiratory distress, wheezes, rales, rhonchi, stridor Cardiovascular Exam: Present: regular rate, normal rhythm, normal heart sounds. Absent: systolic murmur, diastolic murmur, rubs, gallop, clicks GI/Abdominal exam: Present: soft, normal bowel sounds. Absent: distended, tenderness, guarding, rebound, rigid, bruit, pulsatile mass Extremities exam: Present: normal inspection, full ROM, normal capillary refill. Absent: tenderness, pedal edema, joint swelling, calf tenderness Back exam: Present: normal inspection Neurological exam: Present: alert, oriented X3, CN II-XII intact Psychiatric exam: Present: normal affect, normal mood Skin exam: Present: warm, dry, intact, normal color. Absent: rash Course Vital Signs 05/13/22 08:32 Temperature 98.9 F Pulse Rate 86 Respiratory 16 Rate Blood Pressure 145/80 O2 Sat by Pulse 96 Oximetry - Reevaluation(s) Reevaluation #1: 05/13/22 08:51 I did discuss the case with Dr. Griffin who will see the patient in consult in the emergency department. Reevaluation #2: 05/13/22 09:10 I did interpret the chest x-ray no evidence of acute processes. Reevaluation #3: 05/13/22 09:28 Patient remains pain-free at this time patient was examined by cardiology. Patient will be admitted for initial medical management and consideration of catheterization Chest Pain MDM - MDM Patient does have evidence of EKG changes with the chest pain that he dem onstrated this morning currently pain-free patient will be admitted his regimen seen by cardiology. Initially medical management will be performed with potential catheterization. Patient will be admitted to Dr. Torres's group. Critical Care Time Critical Care Time: Yes Total Critical Care Time: 32 Critical Care Time: Critical care time includes initial presentation with history physical labs x- rays discussed with the patient family discussed with paramedics on arrival reevaluation patient discussed with cardiology. Review of old charting was available admission orders and documentation of the above Disposition Clinical Impression: Chest pain, Unstable angina, Acute electrocardiogram changes, Leukemia Disposition: ADMITTED IP TO THIS HOSP Condition: Fair Referrals: Roberto Crocker MD [Primary Care Provider] - 1-2 days Decision Date: 05/13/22 Decision Time: 09:30
[2022-05-13] MEDS ORDERED: HEPARIN SODIUM 1,000 UN/ML (10ML VL) IV PRN (08:56)
[2022-05-13] MEDS ORDERED: HEPARIN SODIUM 1,000 UN/ML (10ML VL) IV ONE ×2 (08:56→12:25)
[2022-05-13] MEDS ORDERED: NITROGLYCERIN OINT 1 INCH/GM PACKET TOPICAL STA (08:56)
[2022-05-13] MEDS: SODIUM CHLORIDE 0.9% 500 ML 500 ML IV SCH ×2 (09:00→17:40)
--- NOTE | 2022-05-13 09:12 | XR ---
EXAMINATION TYPE: XR chest 2V DATE OF EXAM: 05/13/2022 COMPARISON: 03/28/2021 TECHNIQUE: PA and lateral views submitted. HISTORY: Chest pain FINDINGS: The lungs are clear and there is no pneumothorax, pleural effusion, or focal pneumonia. Chronic rib deformities are seen in the hyperinflation. Atherosclerotic change aorta. Correlate for COPD. Subseg mental linear changes at the left lung base lucency overlying the right glenoid and scapula appear st able dating back to 01/11/2014, therefore, likely is benign and represent a benign cyst or geode. IMPRESSION: 1. COPD with basilar atelectasis favored over pneumonia. Correlate for chronic interstitial pulmonary fibrosis..
[2022-05-13 09:14] LABS: Anisocytosis Slight; Basophils # (A) 0.1 k/uL (0-0.2); Basophils % (A) 1 %; Eosinophils # (A) 0.1 k/uL (0-0.7); Eosinophils % (A) 0 %; HCT 30.8 % (39.0-53.0); HGB 10.2 gm/dL (13.0-17.5); Hypochromasia Slight; Lymphocytes # (A) 8.8 k/uL (1.0-4.8); Lymphocytes % (A) 60 %; MCH 31.9 pg (25.0-35.0); MCHC 33.2 g/dL (31.0-37.0); MCV 96.2 fL (80.0-100.0); Macrocytosis Slight; Mean Platelet Volume 10.5; Monocytes # (A) 0.7 k/uL (0-1.0); Monocytes % (A) 5 %; Neutrophils # (A) 4.4 k/uL (1.3-7.7); Neutrophils % (A) 30 %; WBC 14.7 k/uL (3.8-10.6)
[2022-05-13] MEDS ORDERED: LOSARTAN 25 MG TAB PO SCH (09:15)
[2022-05-13] MEDS ORDERED: ATORVASTATIN 80 MG TAB PO SCH (09:15)
[2022-05-13 09:16] LABS: Albumin 3.7 g/dL (3.5-5.0); Calcium 8.7 mg/dL (8.4-10.2); Magnesium 1.8 mg/dL (1.6-2.3); Potassium 4.2 mmol/L (3.5-5.1); Total Bilirubin 1.1 mg/dL (0.2-1.3); Total Protein 5.6 g/dL (6.3-8.2)
[2022-05-13] MEDS: HEPARIN SOD,PORK IN 0.45% NACL 25,000 UNIT in 0.45% NACL 1 250ML.BAG IV SCH ×2 (09:16→17:41)
[2022-05-13] MEDS: ASPIRIN 81 MG PO SCH (09:18)
[2022-05-13] MEDS: METOPROLOL TARTRATE 50 MG TAB PO SCH ×2 (09:19→20:51)
[2022-05-13 09:23] LABS: INR 1.1 (<1.2); Partial Thromboplastin Time 22.2 sec (22.0-30.0); Prothrombin Time 11.7 sec (9.0-12.0)
--- NOTE | 2022-05-13 09:41 | ED ---
Medical Decision Making - Lab Data Result diagrams: 05/13/22 08:38 05/13/22 08:38 Lab Results 05/13/22 05/13/22 05/13/22 Range/Units 08:38 08:38 08:38 WBC 14.7 H (3.8-10.6) k/uL RBC 3.20 L (4.30-5.90) m/uL Hgb 10.2 L (13.0-17.5) gm/dL Hct 30.8 L (39.0-53.0) % MCV 96.2 (80.0-100.0) fL MCH 31.9 (25.0-35.0) pg MCHC 33.2 (31.0-37.0) g/dL RDW 17.0 H (11.5-15.5) % MPV 10.5 Hypochromasia Slight Anisocytosis Slight Macrocytosis Slight PT 11.7 (9.0-12.0) sec INR 1.1 (<1.2) APTT 22.2 (22.0-30.0) sec D-Dimer 0.52 (<0.60) mg/L FEU Sodium 138 (137-145) mmol/L Potassium 4.2 (3.5-5.1) mmol/L Chloride 108 H (98-107) mmol/L Carbon Dioxide 23 (22-30) mmol/L Anion Gap 7 mmol/L BUN 30 H (9-20) mg/dL Creatinine 1.45 H (0.66-1.25) mg/dL Est GFR (CKD-EPI)AfAm 51 (>60 ml/min/1.73 sqM) Est GFR (CKD-EPI)NonAf 44 (>60 ml/min/1.73 sqM) Glucose 103 H (74-99) mg/dL Calcium 8.7 (8.4-10.2) mg/dL Magnesium 1.8 (1.6-2.3) mg/dL Total Bilirubin 1.1 (0.2-1.3) mg/dL AST 33 (17-59) U/L ALT 23 (4-49) U/L Alkaline Phosphatase 96 (38-126) U/L Total Protein 5.6 L (6.3-8.2) g/dL Albumin 3.7 (3.5-5.0) g/dL Lipase 106 (23-300) U/L Disposition Clinical Impression: Chest pain, Unstable angina, Acute electrocardiogram changes, Leukemia, Leukocytosis Disposition: ADMITTED IP TO THIS HOSP Condition: Fair
[2022-05-13 09:42] LABS: Platelet Count 45 k/uL (150-450)
--- NOTE | 2022-05-13 09:51 | ED ---
Medical Decision Making - Medical Decision Making The patient's troponin was evaluated and found to be elevated consistent with an NSTEMI. I did discuss case with Dr. Condon from [facility] - Lab Data Result diagrams: 05/13/22 08:38 05/13/22 08:38 Lab Results 05/13/22 05/13/22 05/13/22 Range/Units 08:38 08:38 08:38 WBC 14.7 H (3.8-10.6) k/uL RBC 3.20 L (4.30-5.90) m/uL Hgb 10.2 L (13.0-17.5) gm/dL Hct 30.8 L (39.0-53.0) % MCV 96.2 (80.0-100.0) fL MCH 31.9 (25.0-35.0) pg MCHC 33.2 (31.0-37.0) g/dL RDW 17.0 H (11.5-15.5) % Plt Count 45 L (150-450) k/uL MPV 10.5 Neutrophils % 30 % Lymphocytes % 60 % Monocytes % 5 % Eosinophils % 0 % Basophils % 1 % Neutrophils # 4.4 (1.3-7.7) k/uL Lymphocytes # 8.8 H (1.0-4.8) k/uL Monocytes # 0.7 (0-1.0) k/uL Eosinophils # 0.1 (0-0.7) k/uL Basophils # 0.1 (0-0.2) k/uL Manual Slide Review Performed Hypochromasia Slight Anisocytosis Slight Macrocytosis Slight PT 11.7 (9.0-12.0) sec INR 1.1 (<1.2) APTT 22.2 (22.0-30.0) sec D-Dimer 0.52 (<0.60) mg/L FEU Sodium 138 (137-145) mmol/L Potassium 4.2 (3.5-5.1) mmol/L Chloride 108 H (98-107) mmol/L Carbon Dioxide 23 (22-30) mmol/L Anion Gap 7 mmol/L BUN 30 H (9-20) mg/dL Creatinine 1.45 H (0.66-1.25) mg/dL Est GFR (CKD-EPI)AfAm 51 (>60 ml/min/1.73 sqM) Est GFR (CKD-EPI)NonAf 44 (>60 ml/min/1.73 sqM) Glucose 103 H (74-99) mg/dL Calcium 8.7 (8.4-10.2) mg/dL Magnesium 1.8 (1.6-2.3) mg/dL Total Bilirubin 1.1 (0.2-1.3) mg/dL AST 33 (17-59) U/L ALT 23 (4-49) U/L Alkaline Phosphatase 96 (38-126) U/L Troponin I (0.000-0.034) ng/mL NT-Pro-B Natriuret Pep pg/mL Total Protein 5.6 L (6.3-8.2) g/dL Albumin 3.7 (3.5-5.0) g/dL Lipase 106 (23-300) U/L 05/13/22 05/13/22 Range/Units 08:38 08:38 WBC (3.8-10.6) k/uL RBC (4.30-5.90) m/uL Hgb (13.0-17.5) gm/dL Hct (39.0-53.0) % MCV (80.0-100.0) fL MCH (25.0-35.0) pg MCHC (31.0-37.0) g/dL RDW (11.5-15.5) % Plt Count (150-450) k/uL MPV Neutrophils % % Lymphocytes % % Monocytes % % Eosinophils % % Basophils % % Neutrophils # (1.3-7.7) k/uL Lymphocytes # (1.0-4.8) k/uL Monocytes # (0-1.0) k/uL Eosinophils # (0-0.7) k/uL Basophils # (0-0.2) k/uL Manual Slide Review Hypochromasia Anisocytosis Macrocytosis PT (9.0-12.0) sec INR (<1.2) APTT (22.0-30.0) sec D-Dimer (<0.60) mg/L FEU Sodium (137-145) mmol/L Potassium (3.5-5.1) mmol/L Chloride (98-107) mmol/L Carbon Dioxide (22-30) mmol/L Anion Gap mmol/L BUN (9-20) mg/dL Creatinine (0.66-1.25) mg/dL Est GFR (CKD-EPI)AfAm (>60 ml/min/1.73 sqM) Est GFR (CKD-EPI)NonAf (>60 ml/min/1.73 sqM) Glucose (74-99) mg/dL Calcium (8.4-10.2) mg/dL Magnesium (1.6-2.3) mg/dL Total Bilirubin (0.2-1.3) mg/dL AST (17-59) U/L ALT (4-49) U/L Alkaline Phosphatase (38-126) U/L Troponin I 0.416 H* (0.000-0.034) ng/mL NT-Pro-B Natriuret Pep 2920 pg/mL Total Protein (6.3-8.2) g/dL Albumin (3.5-5.0) g/dL Lipase (23-300) U/L Disposition Clinical Impression: Chest pain, Unstable angina, Acute electrocardiogram changes, Leukemia, Leukocytosis, Acute non-ST elevation myocardial infarction (NSTEMI) Disposition: ADMITTED IP TO THIS HOSP Condition: Fair Procedures - [place] Protocol (Time Out) Nurse: Valentina Keller
[2022-05-13 10:38] LABS: Appearance,Urine Clear (Clear); Bilirubin,Urine Negative (Negative); Blood,Urine Negative (Negative); Color,Urine Yellow; Glucose,Urine (UA) Negative (Negative); Ketones,Urine Negative (Negative); Leukocyte Esterase,Urine Negative (Negative); Mucus,Urine Occasional /hpf; Nitrite,Urine Negative (Negative); PH, Urine 5.5 (5.0-8.0); RBC,Urine 4 /hpf (0-5); Squamous Epithelial Cell,Urine <1 /hpf (0-4); Urobilinogen,Urine <2.0 mg/dL (<2.0); WBC,Urine 2 /hpf (0-5)
[2022-05-13 10:40] LABS: Protein,Urine 1+ (Negative)
[2022-05-13] MEDS ORDERED: ALPRAZolam 0.25 MG TAB PO PRN (11:12)
[2022-05-13] MEDS ORDERED: NITROGLYCERIN SL TABS 0.4 MG TAB SUBLINGUAL PRN (11:12)
[2022-05-13] MEDS ORDERED: ALPRAZolam 0.5 MG TAB PO PRN (11:12)
[2022-05-13] MEDS ORDERED: VERAPAMIL 2.5 MG/ML 2 ML AMP ONE (11:30)
--- NOTE | 2022-05-13 12:00 | P.CRDCN ---
History of Present Illness History of present illness: This is a pleasant 80-year-old male past medical history significant for CLL, hypothyroidism, vitamin D deficiency, gastroesophageal reflux disease, NSTEMI in 03/2021 advised medical therapy. He does not follow with a stick roller. We have been asked to see in consultation for concern for chest pain, elevated troponin. He is somewhat of a poor historian about medical care, but is alert, oriented to person and place. Patient presents to the emergency department with chest pain. He states he woke up with heaviness in his chest early in the morning, states it felt as if someone was sitting on his chest. Non-radiating. It was not resolving. No specific alleviating or aggravating factors. He had some mild shortness of breath. Denies any palpitations, lightheadedness, dizziness, nausea or vomiting. EMS was called, EKG reveled significant ST depression in anterior leads and was brought to the ER for further evaluation. In 03/2021 Patient presented to the ER as NSTEMI also with fever, UTI, and thrombocytopenia, and acute kidney injury. At that time he was evaluated by cardiology and cardiac catheterization was deferred and patient treated medically secondary to kidney function and thrombocytopenia. He was placed on medical therapy at that time. He has no known history of stroke, diabetes, CAD, or hypertension. He denies family history of CAD. He is a non-smoker. DIAGNOSTICS * EKG reveals sinus rhythm first degree AV Block, with ST depression in leads V4-V6 and slightly ST depression in inferior leads. * Telemetry tracings indicate sinus rhythm * Chest xray COPD, basilar atelectasis, no acute heart failure * Laboratory reviewed, troponin 0.41, proBNP 2019, sodium 138, potassium 4.2, BUN 30, serum creatinine 1.4, magnesium 1.8, WBC 40.7, hemoglobin 10.2, platelets 45 * Current home medications include atorvastatin 80 mg nightly, metoprolol tartrate 50 mg twice a day, losartan 25 mg daily, calquence, synthroid, namenda * Echocardiogram 03/2021 revealed EF 5560 percent, moderate aortic stenosis 40mmHg/21mmHg, mild to moderate mitral regurgitation, mild tricuspid reg urgitation REVIEW OF SYSTEMS At the time of my exam: CONSTITUTIONAL: Denies fever or chills. CARDIOVASCULAR: +chest pain,Denies shortness of breath, orthopnea, PND or palpitations. RESPIRATORY: Denies cough. GASTROINTESTINAL: Denies abdominal pain, diarrhea, constipation, nausea or vomiting. MUSCULOSKELETAL: Denies myalgias. NEUROLOGIC: Denies numbness, tingling, headacbe or weakness. ENDOCRINE: Denies weight change, polydipsia or polyurina. GENITOURINARY: Denies burning, hematuria or urgency with micturation. HEMATOLOGIC: Denies history of anemia or bleeding. PHYSICAL EXAMINATION Blood pressure CONSTITUTIONAL: No apparent distress. HEENT: Head is normocephalic. Pupils are equal, round. Sclerae anicteric. Mucous membranes of the mouth are moist. No JVD. No carotid bruit. CHEST EXAMINATION: Lungs are diminished bilateral bases to auscultation. No chest wall tenderness is noted on palpation or with deep breathing. HEART EXAMINATION: Regular rate and rhythm. S1, S2 heard. Systolic ejection murmur at right sternal border and apex, No gallops or rub. ABDOMEN: Soft, nontender. Positive bowel sounds. EXTREMITIES: 2+ peripheral pulses, no lower extremity edema and no calf tender ness. NEUROLOGIC EXAMINATION: Patient is awake, alert and oriented to person and place ASSESSMENT NSTEMI CLL Thrombocytopenia History hypothyroidism Chronic kidney disease Anemia of chronic disease, hemoglobin stable PLAN -Obtain 2D echocardiogram -Start aspirin and IV heparin. -Hold Losartan -Start statin and beta yuko -Recommend cardiac catheterization this was discussed with patient and his significant other, Sagrario. Patient and family are agreeable to proceed with cardiac catheterization. Patient discussed with Dr. Griffin and Dr. Painter. Plan for cardiac catheterization with Dr. Painter today. -Keep NPO -Monitor renal function -I have discussed the risks, benefits and alternative therapies for the above- mentioned procedure and for both sedation/analgesia as well as necessary blood product administration, if indicated, as they pertain to this patient. The patient has indicated understanding and acceptance of the risks and procedures discussed. Questions have been answered appropriately and he is agreeable to move forward with the above-stated procedure. Nurse Practitioner note has been reviewed, I agree with a documented findings and plan of care. Patient was seen and examined. Past Medical History Past Medical History: No Reported History Additional Past Medical History / Comment(s): luekiamia, CLL, parkinsons, dementia History of Any Multi-Drug Resistant Organisms: None Reported Past Surgical History: Hernia Repair Past Anesthesia/Blood Transfusion Reactions: No Reported Reaction Additional Past Anesthesia/Blood Transfusion Reaction / Comment(s): PATIENT STATES HE HAS NEVER HAD A BLOOD TRANSFUSION Past Psychological History: No Psychological Hx Reported Past Alcohol Use History: Rare Past Drug Use History: None Reported Medications and Allergies Home Medications Medication Instructions Recorded Confirmed Type Levothyroxine Sodium [Synthroid] 50 mcg PO DAILY@0400 03/28/21 05/13/22 History Losartan [Cozaar] 25 mg PO DAILY #30 tab 04/01/21 05/13/22 Rx Metoprolol Tartrate [Lopressor] 50 mg PO BID #60 tab 04/01/21 05/13/22 Rx Acalabrutinib Maleate [Calquence] 100 mg PO BID@0500,1700 05/13/22 05/13/22 History Atorvastatin [Lipitor] 80 mg PO HS 05/13/22 05/13/22 History Memantine [Namenda] 10 mg PO BID 05/13/22 05/13/22 History Allergies Allergy/AdvReac Type Severity Reaction Status Date / Time No Known Allergies Allergy Verified 05/13/22 09:33 Physical Exam Vitals: Vital Signs Temp Pulse Resp BP Pulse Ox 05/13/22 08:32 98.9 F 86 16 145/80 96 Intake and Output 05/12/22 05/13/22 05/13/22 22:59 06:59 14:59 Other: Weight 90.718 kg Results 05/13/22 08:38 05/13/22 08:38 Current Medications Generic Name Dose Route Start Last Admin Trade Name Hemantq PRN Reason Stop Dose Admin Heparin Sodium (Porcine) 0 unit 05/13/22 08:56 Heparin Sodium 1,000 Un/Ml (10ml Vl) IV PER PROTOCOL PRN Low PTT Protocol Heparin Sodium/Sodium Chloride 250 mls @ 10.006 mls/hr 05/13/22 09:00 25,000 unit/ Sodium Chloride IV .Q24H WARREN Protocol 11.03 UNITS/KG/HR Intake and Output 05/12/22 05/13/22 05/13/22 22:59 06:59 14:59 Other: Weight 90.718 kg Patient Weight 05/14/22 06:59 Weight 90.718 kg
[2022-05-13] MEDS ORDERED: fentaNYL (PF) 50 MCG/ML 2 ML AMP ONE (12:13)
[2022-05-13] MEDS ORDERED: LIDOCAINE 1% INJ 10MG/ML (30 ML VIAL-PF) SQ ONE (12:15)
[2022-05-13] MEDS ORDERED: VERAPAMIL SYRINGE (5 MG/10 ML) INTRAARTER ONE (12:15)
[2022-05-13] MEDS ORDERED: MIDAZOLAM 2 MG/2 ML VIAL IV ONE (12:16)
[2022-05-13] MEDS ORDERED: fentaNYL (PF) 50 MCG/ML 2 ML AMP IV ONE (12:16)
[2022-05-13] MEDS ORDERED: HEPARIN SODIUM 1,000 UN/ML (10ML VL) ONE (12:19)
[2022-05-13] MEDS ORDERED: SODIUM CHLORIDE 0.9% 1,000 ML IV ONE (12:29)
[2022-05-13] MEDS ORDERED: CLOPIDOGREL 75 MG TAB ONE (12:34)
[2022-05-13] MEDS ORDERED: CLOPIDOGREL 75 MG TAB PO ONE (12:35)
[2022-05-13] MEDS: SODIUM CHLORIDE 0.9% 1,000 ML IV SCH (12:45)
[2022-05-13] MEDS ORDERED: IOPAMIDOL-370 100ML BTL INJ ONE (12:47)
--- NOTE | 2022-05-13 12:48 | P.CARDCATH ---
Description of Procedure: PROCEDURES PERFORMED: Left heart catheterization, bilateral coronary angiography INDICATION: Non-STEMI, CKD CONSENT:I have discussed the risks, benefits and alternative therapies for the above-mentioned procedure and for both sedation/analgesia as well as necessary blood product administration, if indicated, as they pertain to this patient. The patient has indicated understanding and acceptance of the risks and procedures discussed. PROCEDURE: After the risks, benefits and alternatives of the above mentioned procedure explained in detail with the patient, informed consent was obtained. Patient was taken to the catheterization lab and prepped and draped in usual fashion. 1% lidocaine was used to anesthetize the right radial artery. A 6- Macedonian sheath was placed in the right radial artery using modified Seldinger technique. Left coronary angiography was performed with a 5-Macedonian JL 3.5 catheter and right coronary angiography was performed with a 5-Macedonian JR5 catheter in various views. A 5-Macedonian FR5 catheter was inserted into the left ventricle and pressure measurements were obtained. The takeoff of the innomin ate was very tortuous making any intervention likely difficult from her right radial approach and patient also nearing contrast limit and therefore decision was made to stage intervention. The right radial sheath was removed and a TR band was placed with hemostasis achieved. The patient tolerated the procedure well. Patient was transported back to the post catheterization holding area in stable condition. Conscious Sedation: Patient was monitored under the direct supervision of vision of myself for conscious sedation using Versed and fentanyl for a total duration of [] minutes HEMODYNAMICS: Aortic: 110/76 LV: 144/5, LVEDP 16. Peak to peak gradient of 24 with a mean gradient of 20 mmHg SELECTIVE CORONARY ARTERIOGRAPHY: LEFT MAIN: The left main is a large caliber vessel which bifurcates into the LAD and circumflex. There is no significant stenosis. LEFT ANTERIOR DESCENDING CORONARY ARTERY: LAD is a large caliber vessel which wraps around to the apex. There is a proximal LAD 50% stenosis and a mid LAD 50-60% stenosis. LEFT CIRCUMFLEX CORONARY ARTERY: Left circumflex is a large caliber vessel which has a 85% proximal circumflex stenosis at the level of an OM1 branch. Othe rwise there are mild 2030% circumflex stenosis. The circumflex gives off the PDA and is the dominant vessel. RIGHT CORONARY ARTERY: The right coronary artery is a small caliber vessel which gives off an acute marginal branch and is nondominant. There is a mid 80% RCA stenosis. FINAL IMPRESSION: 1. CAD as described above including 85% proximal circumflex stenosis, 50% proximal LAD stenosis and mid LAD 50-60% stenosis, and small caliber nondominant mid RCA 80% stenosis 2. High normal left sided filling pressures 3. Mild aortic stenosis PLAN: 1. Aggressive risk factor modification per most recent ACC/AHA guidelines. 2. Culprit lesion appears to be circumflex however given contrast/shoulder as well as tortuosity of innominate recommend staged intervention and next 24-48 hours. Continue on heparin drip. Load with Plavix.
--- NOTE | 2022-05-13 12:55 | P.HPIM ---
History of Present Illness H&P Date: 05/13/22 History of present illness: Patient is 80-year-old male with past medical history significant for CLL, hypothyroidism, vitamin D deficiency, gastroesophageal reflux disease, NSTEMI in 03/2021 who presented to the emergency department with chest pain. Patient stated that he woke up this morning with left-sided chest pain, pressure-like in nature, was 10 x 10 intensity, nonradiating, not associated with any shortness of breath or diaphoresis. No specific alleviating or aggravating factors. Denies any palpitations, lightheadedness, dizziness, nausea or vomiting. EMS was called, EKG reveled significant ST depression in anterior leads and was brought to the ER for further evaluation. Patient was worked up in the ER, initial WBC was 14.7, hemoglobin 10.2. D-dimer was 0.52. Initial troponin was 0.416. Creatinine was 1.45, bun 30. EKG showed ST depression in leads V4 to V6. Patient was started on pharmacy dose heparin, cardiology was consulted. Patient will be admitted to hospitalist service REVIEW OF SYSTEMS: CONSTITUTIONAL: No fever, no malaise, no fatigue. HEENT: No recent visual problems or hearing problems. Denied any sore throat. CARDIOVASCULAR: No orthopnea, PND, no palpitations, no syncope. PULMONARY: No shortness of breath, no cough, no hemoptysis. GASTROINTESTINAL: No diarrhea, no nausea, no vomiting, no abdominal pain. NEUROLOGICAL: No headaches, no weakness, no numbness. HEMATOLOGICAL: Denies any bleeding or petechiae. GENITOURINARY: Denies any burning micturition, frequency, or urgency. MUSCULOSKELETAL/RHEUMATOLOGICAL: Denies any joint pain, swelling, or any muscle pain. ENDOCRINE: Denies any polyuria or polydipsia. The rest of the 14-point review of systems is negative. PHYSICAL EXAMINATION: GENERAL: The patient is alert and oriented x3, not in any acute distress. Well developed, well nourished. HEENT: Pupils are round and equally reacting to light. EOMI. No scleral icterus. No conjunctival pallor. Normocephalic, atraumatic. No pharyngeal erythema. No thyromegaly. CARDIOVASCULAR: S1 and S2 present. No murmurs, rubs, or gallops. PULMONARY: Chest is clear to auscultation, no wheezing or crackles. ABDOMEN: Soft, nontender, nondistended, normoactive bowel sounds. No palpable organomegaly. MUSCULOSKELETAL: No joint swelling or deformity. EXTREMITIES: No cyanosis, clubbing, or pedal edema. NEUROLOGICAL: Gross neurological examination did not reveal any focal deficits. SKIN: No rashes. Assessment and plan NSTEMI CLL Thrombocytopenia History hypothyroidism Chronic kidney disease Anemia of chronic disease, hemoglobin stable PLAN Monitor electrolytes. Monitor renal function continue telemetry monitoring Ordered 2D echocardiogram Continue pharmacy dose IV heparin. Continue statin and beta yuko Cardiology consulted DVT prophylaxis: Heparin Past Medical History Past Medical History: No Reported History Additional Past Medical History / Comment(s): lue[place]ia, CLL, parkinsons, dementia History of Any Multi-Drug Resistant Organisms: None Reported Past Surgical History: Hernia Repair Past Anesthesia/Blood Transfusion Reactions: No Reported Reaction Additional Past Anesthesia/Blood Transfusion Reaction / Comment(s): PATIENT STATES HE HAS NEVER HAD A BLOOD TRANSFUSION Past Psychological History: No Psychological Hx Reported Past Alcohol Use History: Rare Past Drug Use History: None Reported Medications and Allergies Home Medications Medication Instructions Recorded Confirmed Type Levothyroxine Sodium [Synthroid] 50 mcg PO DAILY@0400 03/28/21 05/13/22 History Losartan [Cozaar] 25 mg PO DAILY #30 tab 04/01/21 05/13/22 Rx Metoprolol Tartrate [Lopressor] 50 mg PO BID #60 tab 04/01/21 05/13/22 Rx Acalabrutinib Maleate [Calquence] 100 mg PO BID@0500,1700 05/13/22 05/13/22 History Atorvastatin [Lipitor] 80 mg PO HS 05/13/22 05/13/22 History Memantine [Namenda] 10 mg PO BID 05/13/22 05/13/22 History Allergies Allergy/AdvReac Type Severity Reaction Status Date / Time No Known Allergies Allergy Verified 05/13/22 09:33 Physical Exam Vitals: Vital Signs Temp Pulse Resp BP Pulse Ox 05/13/22 11:55 98.8 F 72 16 106/64 96 05/13/22 11:00 71 16 121/62 96 05/13/22 10:30 72 18 139/77 96 05/13/22 10:00 79 18 137/70 96 05/13/22 09:30 79 16 141/70 96 05/13/22 09:00 78 18 146/73 96 05/13/22 08:32 98.9 F 86 16 145/80 96 Intake and Output 05/12/22 05/13/22 05/13/22 22:59 06:59 14:59 Intake Total 425.682 Balance 425.682 Intake: IV 400 Intake, IV Titration 25.682 Amount Heparin Sod,Pork in 0.45% 25.682 NaCl 25,000 unit In 0.45 % NaCl 1 250ml.bag @ 11. 03 UNITS/KG/HR 10.006 mls /hr IV .Q24H [facility] Rx#: [id number] Other: Weight 90.718 kg Results CBC & Chem 7: 05/13/22 08:38 05/13/22 08:38 Labs: Abnormal Lab Results - Last 24 Hours (Table) 05/13/22 05/13/22 05/13/22 Range/Units 08:38 08:38 08:38 WBC 14.7 H (3.8-10.6) k/uL RBC 3.20 L (4.30-5.90) m/uL Hgb 10.2 L (13.0-17.5) gm/dL Hct 30.8 L (39.0-53.0) % RDW 17.0 H (11.5-15.5) % Plt Count 45 L (150-450) k/uL Lymphocytes # 8.8 H (1.0-4.8) k/uL Chloride 108 H (98-107) mmol/L BUN 30 H (9-20) mg/dL Creatinine 1.45 H (0.66-1.25) mg/dL Glucose 103 H (74-99) mg/dL Troponin I 0.416 H* (0.000-0.034) ng/mL Total Protein 5.6 L (6.3-8.2) g/dL Urine Protein (Negative) Urine Mucus (None) /hpf 05/13/22 Range/Units 10:06 WBC (3.8-10.6) k/uL RBC (4.30-5.90) m/uL Hgb (13.0-17.5) gm/dL Hct (39.0-53.0) % RDW (11.5-15.5) % Plt Count (150-450) k/uL Lymphocytes # (1.0-4.8) k/uL Chloride (98-107) mmol/L BUN (9-20) mg/dL Creatinine (0.66-1.25) mg/dL Glucose (74-99) mg/dL Troponin I (0.000-0.034) ng/mL Total Protein (6.3-8.2) g/dL Urine Protein 1+ H (Negative) Urine Mucus Occasional H (None) /hpf
[2022-05-13] MEDS ORDERED: HEPARIN SOD,PORK IN 0.45% NACL 25,000 UNIT in 0.45% NACL 1 250ML.BAG IV SCH (14:15)
[2022-05-13] MEDS: ATORVASTATIN 80 MG TAB PO SCH (20:51)
[2022-05-13] MEDS: MEMANTINE 10 MG TAB PO SCH (20:51)
[2022-05-14] MEDS ORDERED: SODIUM CHLORIDE 0.9% 1,000 ML in EMPTY BAG 1 BAG IV ONE
[2022-05-14] MEDS: ASPIRIN 81 MG PO SCH (06:07)
[2022-05-14] MEDS: LEVOTHYROXINE 50 MCG TAB PO SCH (06:07)
[2022-05-14] MEDS: MEMANTINE 10 MG TAB PO SCH ×2 (06:08→20:45)
[2022-05-14] MEDS: METOPROLOL TARTRATE 50 MG TAB PO SCH ×2 (06:08→20:44)
[2022-05-14] MEDS: CLOPIDOGREL 75 MG TAB PO SCH (06:08)
[2022-05-14] MEDS: SODIUM CHLORIDE 0.9% 500 ML 500 ML IV SCH (06:08)
[2022-05-14] MEDS ORDERED: HEPARIN SODIUM,PORCINE 10,000 UNIT in SODIUM CHLORIDE 0.9% 1,000 ML IRRIGATION PRN (07:00)
[2022-05-14] MEDS ORDERED: HEPARIN SODIUM,PORCINE 2,500 UNIT in SODIUM CHLORIDE 0.9% 250 ML IRRIGATION PRN (07:00)
[2022-05-14 09:21] LABS: Anisocytosis Slight; HCT 22.5 % (39.0-53.0); Hypochromasia Moderate; MCH 33.3 pg (25.0-35.0); MCHC 33.9 g/dL (31.0-37.0); MCV 98.4 fL (80.0-100.0); Macrocytosis Slight; Mean Platelet Volume 10.8; RBC 2.28 m/uL (4.30-5.90); RDW 17.5 % (11.5-15.5); WBC 11.6 k/uL (3.8-10.6)
[2022-05-14 09:46] LABS: INR 1.2 (<1.2); Partial Thromboplastin Time 59.8 sec (22.0-30.0); Prothrombin Time 12.4 sec (9.0-12.0)
--- NOTE | 2022-05-14 09:52 | CA ---
Transthoracic Echo Report Name: Tab Lua Age: 81 Gender: M : 1940 Exam Date: 05/13/2022 13:27 Exam Location: [facility] Ht (in): Wt (lb): 200 Ordering Physician: Chrissie Trivedi Attending/Referring Phys: [employer] Tender Raisa Parrish RDCS Procedure CPT: Indications: nstemi Cardiac Hx: Technical Quality: Fair Contrast 1: Total Dose (mL): Contrast 2: Total Dose (mL): MEASUREMENTS (Male / Female) Normal Values 2D ECHO LV Diastolic Diameter PLAX 5.0 cm 4.2 - 5.9 / 3.9 - 5.3 cm LV Systolic Diameter PLAX 3.1 cm IVS Diastolic Thickness 1.3 cm 0.6 - 1.0 / 0.6 - 0.9 cm LVPW Diastolic Thickness 0.9 cm 0.6 - 1.0 / 0.6 - 0.9 cm LV Relative Wall Thickness 0.4 RV Internal Dim ED PLAX 4.4 cm LVOT Diameter 2.2 cm LA Volume 99.6 cm??? 18 - 58 / 22 - 52 cm??? M-MODE Aortic Root Diameter MM 3.0 cm LA Systolic Diameter MM 4.5 cm LA Ao Ratio MM 1.5 DOPPLER AV Peak Velocity 340.6 cm/s AV Peak Gradient 46.4 mmHg AV Mean Velocity 225.8 cm/s AV Mean Gradient 23.3 mmHg AV Velocity Time Integral 64.7 cm AI Peak Velocity 429.6 cm/s AI Peak Gradient 73.8 mmHg AI Pressure Half Time 423.0 ms LVOT Peak Velocity 106.4 cm/s LVOT Peak Gradient 4.5 mmHg LVOT Velocity Time Integral 27.4 cm LVOT Stroke Volume 107.5 cm??? AV Area Cont Eq vti 1.7 cm??? AV Area Cont Eq pk 1.2 cm??? MV Area PHT 3.6 cm??? MR Peak Velocity 533.5 cm/s MR Peak Gradient 113.8 mmHg Mitral E Point Velocity 115.8 cm/s Mitral A Point Velocity 91.9 cm/s Mitral E to A Ratio 1.3 MV Deceleration Time 210.0 ms MV E' Velocity 7.1 cm/s Mitral E to MV E' Ratio 16.3 TR Peak Velocity 278.2 cm/s TR Peak Gradient 31.0 mmHg Right Ventricular Systolic Press 33.9 mmHg FINDINGS Left Ventricle Mildly increased left ventricular wall thickness. Hypokinetic basal inferior wall. Preserved LV function. Left ventricular ejection fraction is estimated at 50 %. Right Ventricle Moderate right ventricular dilatation. Right ventricular systolic pressure within normal limits. Right Atrium Normal right atrial size. Left Atrium Severely increased left atrial volume. Mitral Valve Structurally normal mitral valve. Mitral valve thickened. Moderate mitral annular calcification. Moderate mitral regurgitation. Centrally directed mitral regurgitation jet. Aortic Valve Moderate aortic stenosis with a peak gradient of 46 mmHg and a mean gradient of 23 mmHg. Mild aortic regurgitation. Tricuspid Valve Structurally normal tricuspid valve. Mild tricuspid regurgitation. Pulmonic Valve Trace pulmonic regurgitation. Pericardium No pericardial effusion. Aorta Normal size aortic root and proximal ascending aorta. CONCLUSIONS Left ventricular ejection fraction 50% with inferior hypokinesis RVSP 33 Moderate mitral regurgitation Moderate mitral annular calcification Mild aortic regurgitation Moderate aortic stenosis Mild tricuspid regurgitation No pericardial effusion Previewed by: Dr. Skyler Painter DO (Electronically Signed) Final Date: 14 May 2022 09:51
[2022-05-14 10:07] LABS: Calcium 7.6 mg/dL (8.4-10.2); Potassium 4.2 mmol/L (3.5-5.1)
--- NOTE | 2022-05-14 11:31 | P.PN ---
Subjective This is a pleasant 81-year-old male past medical history significant for CLL, hypothyroidism, vitamin D deficiency, gastroesophageal reflux disease, NSTEMI in 03/2021 advised medical therapy. He does not follow with a remedy developer. We have been asked to see in consultation for concern for chest pain, elevated troponin. He is somewhat of a poor historian about medical care, but is alert, oriented to person and place. Patient presents to the emergency department with chest pain. He states he woke up with heaviness in his chest early in the morning, states it felt as if someone was sitting on his chest. Non-radiating. It was not resolving. No specific alleviating or aggravating factors. He had some mild shortness of breath. Denies any palpitations, lightheadedness, dizziness, nausea or vomiting. EMS was called, EKG reveled significant ST depression in anterior leads and was brought to the ER for further evaluation. He underwent cardiac catheterization that revealed CAD with 85% proximal circumflex stenosis, 50% proximal LAD stenosis and mid LAD 50-60% stenosis, and small caliber nondominant mid RCA 80% stenosis, High normal left sided filling pressures, Mild aortic stenosis. Plan for PCI to circumflex on 05/14. Echocardiogram revealed EF 50%, hypokinetic basal inferior wall, moderate mitral regurgitation, moderate aortic stenosis, mild aortic regurgitation 05/14/2022 Patient seen and examined at bedside, he is lying comfortably in bed, no acute distress. He had increased confusion and agitation overnight. He has significant right radial edema and bruising post cardiac catheterization yesterday. right radial pulse appreciated. He is more lethargic this morning. BUN 38, serum creatinine 1.2. PHYSICAL EXAMINATION Blood pressure CONSTITUTIONAL: No apparent distress. HEENT: Neck Supple. No JVD. No carotid bruit. CHEST EXAMINATION: Lungs are diminished bilateral bases to auscultation. No c hest wall tenderness is noted on palpation or with deep breathing. HEART EXAMINATION: Regular rate and rhythm. S1, S2 heard. Systolic ejection murmur at right sternal border and apex, No gallops or rub. ABDOMEN: Soft, nontender. Positive bowel sounds. EXTREMITIES: 1+ right radial pulse, Right radial cath site significant edema and hematoma and bruising. no lower extremity edema and no calf tenderness. NEUROLOGIC EXAMINATION: Patient is lethargic, alert and oriented to person and place ASSESSMENT NSTEMI Status post cardiac catheterization with 85% proximal circumflex stenosis, 50% proximal LAD stenosis and mid LAD 50-60% stenosis, and small caliber nondominant mid RCA 80% stenosis Right radial site edema CLL Thrombocytopenia History hypothyroidism Chronic kidney disease Anemia of chronic disease, hemoglobin stable Dementia Mild aortic stenosis Moderate mitral regurgitation PLAN At this time, do not recommend repeat heart catheterization and stent placement. Continue to monitor right radial cath site Continue medical therapy with aspirin and Plavix Continue statin and beta yuko Losartan currently on hold for hypotension Stop IV heparin Further recommendations based on clinical course Nurse Practitioner note has been reviewed, I agree with a documented findings and plan of care. Patient was seen and examined. Objective - Vital Signs Vital signs: Vital Signs Temp 98.6 F 05/14/22 08:00 Pulse 68 05/14/22 08:00 Resp 16 05/14/22 08:00 BP 93/51 05/14/22 08:00 Pulse Ox 95 05/14/22 08:00 FiO2 Intake & Output 05/13/22 05/14/22 05/14/22 18:59 06:59 18:59 Intake Total 665.682 134.528 Output Total 150 200 Balance 515.682 -65.472 Weight 90.718 kg Intake: IV 400 Intake, IV Titration 25.682 134.528 Amount Heparin Sod,Pork in 0.45% 25.682 74.528 NaCl 25,000 unit In 0.45 % NaCl 1 250ml.bag @ 11. 03 UNITS/KG/HR 10.006 mls /hr IV .Q24H [facility] Rx#: [id number] Heparin Sod,Pork in 0.45% 60 NaCl 25,000 unit In 0.45 % NaCl 1 250ml.bag @ 12 UNITS/KG/HR 10.886 mls/hr IV .[id number] [facility] Rx#: [id number] Oral 240 Output: Urine 150 200 Other: Voiding Method Urinal Urinal # Voids 1 2 - Labs CBC & Chem 7: 05/13/22 08:38 05/14/22 08:11 Labs: Abnormal Lab Results - Last 24 Hours (Table) 05/13/22 05/13/22 05/13/22 Range/Units 11:26 15:31 15:31 PT (9.0-12.0) sec INR (<1.2) APTT 54.8 H (22.0-30.0) sec Sodium (137-145) mmol/L Chloride (98-107) mmol/L Carbon Dioxide (22-30) mmol/L BUN (9-20) mg/dL Creatinine (0.66-1.25) mg/dL Calcium (8.4-10.2) mg/dL Troponin I 2.180 H* 5.600 H* (0.000-0.034) ng/mL 05/13/22 05/14/22 05/14/22 Range/Units 23:31 08:11 08:11 PT 12.4 H (9.0-12.0) sec INR 1.2 H (<1.2) APTT 96.7 H 59.8 H (22.0-30.0) sec Sodium 134 L (137-145) mmol/L Chloride 109 H (98-107) mmol/L Carbon Dioxide 20 L (22-30) mmol/L BUN 38 H (9-20) mg/dL Creatinine 1.32 H (0.66-1.25) mg/dL Calcium 7.6 L (8.4-10.2) mg/dL Troponin I (0.000-0.034) ng/mL
[2022-05-14 12:11] LABS: Platelet Count 34 k/uL (150-450)
--- NOTE | 2022-05-14 12:39 | P.PN ---
Subjective Progress Note Date: 05/14/22 Patient is 80-year-old male with past medical history significant for CLL, hypothyroidism, vitamin D deficiency, gastroesophageal reflux disease, NSTEMI in 03/2021 who presented to the emergency department with chest pain. Patient stated that he woke up this morning with left-sided chest pain, pressure-like in nature, was 10 x 10 intensity, nonradiating, not associated with any shortness of breath or diaphoresis. No specific alleviating or aggravating factors. Denies any palpitations, lightheadedness, dizziness, nausea or vomiting. EMS was called, EKG reveled significant ST depression in anterior leads and was brought to the ER for further evaluation. Patient was worked up in the ER, initial WBC was 14.7, hemoglobin 10.2. D-dimer was 0.52. Initial troponin was 0.416. Creatinine was 1.45, bun 30. EKG showed ST depression in leads V4 to V6. Patient was started on pharmacy dose heparin, cardiology was consulted. Patient will be admitted to hospitalist service 05/14 He underwent cardiac catheterization that revealed CAD with 85% proximal circumflex stenosis, 50% proximal LAD stenosis and mid LAD 50-60% stenosis, and small caliber nondominant mid RCA 80% stenosis, High normal left sided filling pressures, Mild aortic stenosis. Initial Plan was for PCI to circumflex on 05/14 but patient developed hematoma of his right forearm. Cardiology had postponed the procedure for now. No chest pain at this time. Denies any shortness of breath. Hemoglobin this morning is 7.6, platelet count is 34 REVIEW OF SYSTEMS: CONSTITUTIONAL: No fever, no malaise,. CARDIOVASCULAR: No chest pain, no palpitations, no syncope. PULMONARY: No shortness of breath, no cough, GASTROINTESTINAL: No diarrhea, no nausea, no vomiting, no abdominal pain. NEUROLOGICAL: No headaches, no weakness, PHYSICAL EXAMINATION: GENERAL: The patient is alert , not in any acute distress. Well developed, well nourished. HEENT: Pupils are round and equally reacting to light. EOMI. No scleral icterus. No conjunctival pallor. Normocephalic, atraumatic. No pharyngeal erythema. No thyromegaly. CARDIOVASCULAR: S1 and S2 present. No murmurs, rubs, or gallops. PULMONARY: Chest is clear to auscultation, no wheezing or crackles. ABDOMEN: Soft, nontender, nondistended, normoactive bowel sounds. No palpable organomegaly. MUSCULOSKELETAL: Right forearm hematoma seen, no evidence of any loss of sensations in fingers. No cyanosis noticeable EXTREMITIES: No cyanosis, clubbing, or pedal edema. NEUROLOGICAL: Gross neurological examination did not reveal any focal deficits. SKIN: No rashes. Assessment and plan Status post cardiac catheterization with 85% proximal circumflex stenosis, 50% proximal LAD stenosis and mid LAD 50-60% stenosis, and small caliber nondominant mid RCA 80% stenosis Right radial site edema CLL Thrombocytopenia History hypothyroidism Chronic kidney disease Anemia of chronic disease, hemoglobin stable Dementia Mild aortic stenosis Moderate mitral regurgitation PLAN Monitor vital signs Monitor CBC Will transfuse 1 unit of packed red blood cell. Consult hematology oncology. DC heparin Cardiology At this time, do not recommend repeat heart catheterization and stent placement. Continue to monitor right radial cath site Continue medical therapy with aspirin and Plavix Continue statin and beta yuko Follow-up on cardiology recommendations Objective - Vital Signs Vital signs: Vital Signs Temp 98.6 F 05/14/22 08:00 Pulse 80 05/14/22 12:00 Resp 16 05/14/22 12:00 BP 108/56 05/14/22 12:00 Pulse Ox 96 05/14/22 12:00 FiO2 Intake & Output 05/13/22 05/14/22 05/14/22 18:59 06:59 18:59 Intake Total 665.682 134.528 Output Total 150 200 Balance 515.682 -65.472 Weight 90.718 kg Intake: IV 400 Intake, IV Titration 25.682 134.528 Amount Heparin Sod,Pork in 0.45% 25.682 74.528 NaCl 25,000 unit In 0.45 % NaCl 1 250ml.bag @ 11. 03 UNITS/KG/HR 10.006 mls /hr IV .Q24H [facility] Rx#: [id number] Heparin Sod,Pork in 0.45% 60 NaCl 25,000 unit In 0.45 % NaCl 1 250ml.bag @ 12 UNITS/KG/HR 10.886 mls/hr IV .[id number] [facility] Rx#: [id number] Oral 240 Output: Urine 150 200 Other: Voiding Method Urinal Urinal # Voids 1 2 - Labs CBC & Chem 7: 05/14/22 08:11 05/14/22 08:11 Labs: Abnormal Lab Results - Last 24 Hours (Table) 05/13/22 05/13/22 05/13/22 Range/Units 11:26 15:31 15:31 WBC (3.8-10.6) k/uL RBC (4.30-5.90) m/uL Hgb (13.0-17.5) gm/dL Hct (39.0-53.0) % RDW (11.5-15.5) % Plt Count (150-450) k/uL PT (9.0-12.0) sec INR (<1.2) APTT 54.8 H (22.0-30.0) sec Sodium (137-145) mmol/L Chloride (98-107) mmol/L Carbon Dioxide (22-30) mmol/L BUN (9-20) mg/dL Creatinine (0.66-1.25) mg/dL Calcium (8.4-10.2) mg/dL Troponin I 2.180 H* 5.600 H* (0.000-0.034) ng/mL 05/13/22 05/14/22 05/14/22 Range/Units 23:31 08:11 08:11 WBC 11.6 H (3.8-10.6) k/uL RBC 2.28 L (4.30-5.90) m/uL Hgb 7.6 L D (13.0-17.5) gm/dL Hct 22.5 L (39.0-53.0) % RDW 17.5 H (11.5-15.5) % Plt Count 34 L (150-450) k/uL PT 12.4 H (9.0-12.0) sec INR 1.2 H (<1.2) APTT 96.7 H 59.8 H (22.0-30.0) sec Sodium (137-145) mmol/L Chloride (98-107) mmol/L Carbon Dioxide (22-30) mmol/L BUN (9-20) mg/dL Creatinine (0.66-1.25) mg/dL Calcium (8.4-10.2) mg/dL Troponin I (0.000-0.034) ng/mL 05/14/22 Range/Units 08:11 WBC (3.8-10.6) k/uL RBC (4.30-5.90) m/uL Hgb (13.0-17.5) gm/dL Hct (39.0-53.0) % RDW (11.5-15.5) % Plt Count (150-450) k/uL PT (9.0-12.0) sec INR (<1.2) APTT (22.0-30.0) sec Sodium 134 L (137-145) mmol/L Chloride 109 H (98-107) mmol/L Carbon Dioxide 20 L (22-30) mmol/L BUN 38 H (9-20) mg/dL Creatinine 1.32 H (0.66-1.25) mg/dL Calcium 7.6 L (8.4-10.2) mg/dL Troponin I (0.000-0.034) ng/mL
[2022-05-14 14:19] LABS: Lymphocytes # (M) 7.66 k/uL (1.0-4.8); Neutrophils # (M) 3.25 k/uL (1.3-7.7); Neutrophils % (M) 28 %; Nucleated Red Blood Cells 0 /100 WBC (0-0); Total Cells Counted 100
--- NOTE | 2022-05-14 15:35 | CDI ---
Documentation Clarification Form Date: 05/14/2022 02:52:59 PM From: Michelle Tobin RN CCDS Admit Date: 05/13/2022 09:04:00 AM Patient Name: Tab Lua Visit Number: [id number] Discharge Date: ATTENTION: The Clinical Documentation Specialists (CDI) and [facility] Coding Staff appreciate your assistance in clarifying documentation. Please respond to the clarification below the line at the bottom and electronically sign. The CDI & [facility] Coding staff will review the response and follow-up if needed. Please note: Queries are made part of the Legal Health Record. If you have any questions, please contact the author of this message via ITS. Dr. Skyler Painter Right radial edema and bruising and right forearm hematoma is documented 05/14, Medicine note and patient had cardiac catheterization, 05/13. Additional clarification is requested regarding the relationship, if any, that exists between the diagnosis and the procedure. Patients Admitting Diagnosis: NSTEMI, CKD Post-Operative Diagnosis: CAD, 85% proximal circumflex stenosis, 50% proximal LAD stenosis and mid LAD 50-60% stenosis, and small caliber nondominant mid RCA 80% stenosis. High normal left sided filling pressures. Procedure performed: Left heart catheterization, bilateral coronary angiography History/Risk Factors: 80-year-old male presents to the ED with left sided chest pain, pressure-like in nature. Medical History: CLL, CKD and Anemia. 05/13, H&P. Clinical Indicators: 05/14, Cardiology note: He has significant right radial edema and bruising post cardiac catheterization yesterday. Right radial pulse appreciated. 05/14, Medicine note: initial plan was for PCI to circumflex on 05/14 but patient developed hematoma of his right forearm. Treatment: 05/14 1-unit PRBC transfused; Stop IV heparin; Monitor right radial catheter site; PCI procedure cancelled. What relationship, if any, exists between the diagnosis of Right radial edema and bruising and right forearm hematoma and the procedure: [ ] Right radial edema and bruising and right forearm hematoma is a complication of surgical procedure [ x ] Right radial edema and bruising and right forearm hematoma is related to patients co-morbid condition(s) of Chronic lymphocytic leukemia, thrombocytopenia & not a complication of the procedure. [ ] Right radial edema and bruising and right forearm hematoma is related to patients co-morbid condition(s) of please specify [ ] Other please specify ____ [ ] Unable to determine (Template Last Revised: August 2020) MTDD
[2022-05-14 16:06] LABS: HGB 7.6 gm/dL (13.0-17.5)
[2022-05-14] MEDS ORDERED: ACALABRUTINIB MALEATE 100 MG PO SCH (17:00)
[2022-05-14] MEDS: SODIUM CHLORIDE 0.9% 1,000 ML IV SCH (20:36)
[2022-05-14] MEDS: ATORVASTATIN 80 MG TAB PO SCH (20:45)
--- NOTE | 2022-05-14 23:21 | P.CONS ---
History of Present Illness - Reason for Consult Consult date: 05/14/22 CLL, thrombocytopenia Requesting physician: Pablo Condon - Chief Complaint chest pain - History of Present Illness Mr. Khan is a male pt of Dr. Real yeboah a PHM including CLL, hypothyroidism, GERD, NSTEMI presenting to ED with c/o chest pain, severe, no associated symptoms. EKG showed ST depression started on heparin, asa, plavix. Cardiology has seen pt and he has had catherization. He was seen in 2013 for elevated WBC, had no other abnormal counts and no co nstitutional symptoms so he was monitored. 12/2021 he started having B symptoms including night sweats and anorexia. He was started on acalabrutinib 100mg BID and has done well on it, resolution of B symptoms, last CBC 04/25 WBC 31.9, Hgb 10 and plt of 54,000. Review of Systems 10 point ROS is neg except as stated in HPI Past Medical History Past Medical History: No Reported History, Cancer, Chest Pain / Angina Additional Past Medical History / Comment(s): luekiamia, CLL, parkinsons, dementia History of Any Multi-Drug Resistant Organisms: None Reported Past Surgical History: Hernia Repair Past Anesthesia/Blood Transfusion Reactions: No Reported Reaction Additional Past Anesthesia/Blood Transfusion Reaction / Comm: PATIENT STATES HE HAS NEVER HAD A BLOOD TRANSFUSION Past Psychological History: No Psychological Hx Reported Smoking Status: Never smoker Past Alcohol Use History: Rare Past Drug Use History: None Reported Medications and Allergies Home Medications Medication Instructions Recorded Confirmed Type Levothyroxine Sodium [Synthroid] 50 mcg PO DAILY@0400 03/28/21 05/13/22 History Losartan [Cozaar] 25 mg PO DAILY #30 tab 04/01/21 05/13/22 Rx Metoprolol Tartrate [Lopressor] 50 mg PO BID #60 tab 04/01/21 05/13/22 Rx Acalabrutinib Maleate [Calquence] 100 mg PO BID@0500,1700 05/13/22 05/13/22 History Atorvastatin [Lipitor] 80 mg PO HS 05/13/22 05/13/22 History Memantine [Namenda] 10 mg PO BID 05/13/22 05/13/22 History Allergies Allergy/AdvReac Type Severity Reaction Status Date / Time No Known Allergies Allergy Verified 05/13/22 09:33 Physical Exam Vitals: Vital Signs Temp Pulse Pulse Pulse Resp BP BP 05/14/22 16:49 99 F 74 16 115/58 05/14/22 16:29 98.1 F 76 16 99/51 05/14/22 16:20 99.4 F 75 16 106/61 05/14/22 12:00 80 16 108/56 05/14/22 08:00 98.6 F 68 16 93/51 05/14/22 04:00 97.8 F 80 16 136/72 05/14/22 00:30 97.7 F 79 17 132/78 05/13/22 23:43 82 18 05/13/22 23:39 97.6 F 82 18 126/82 05/13/22 20:00 97.7 F 88 18 137/63 Pulse Ox 05/14/22 16:49 94 L 05/14/22 16:29 94 L 05/14/22 16:20 05/14/22 12:00 96 05/14/22 08:00 95 05/14/22 04:00 92 L 05/14/22 00:30 91 L 05/13/22 23:43 05/13/22 23:39 91 L 05/13/22 20:00 94 L Intake and Output 05/14/22 05/14/22 05/14/22 06:59 14:59 22:59 Intake Total 134.528 0 Output Total 100 Balance 34.528 0 Intake: Intake, IV Titration 134.528 Amount Heparin Sod,Pork in 0.45% 74.528 NaCl 25,000 unit In 0.45 % NaCl 1 250ml.bag @ 11. 03 UNITS/KG/HR 10.006 mls /hr IV .Q24H [facility]ARREN Rx#: [id number] Heparin Sod,Pork in 0.45% 60 NaCl 25,000 unit In 0.45 % NaCl 1 250ml.bag @ 12 UNITS/KG/HR 10.886 mls/hr IV .[id number] [facility]ARREN Rx#: [id number] Blood Product 0 Rc As-1 Unit 0 [id number] Output: Urine 100 Other: Voiding Method Urinal Urinal # Voids 1 2 2 - Constitutional General appearance: average body habitus, cooperative, no acute distress - EENT Eyes: anicteric sclerae, EOMI ENT: hearing grossly normal, normal oropharynx - Neck Neck: no lymphadenopathy - Respiratory Respiratory: bilateral: diminished - Cardiovascular Rhythm: regular Heart sounds: normal: S1, S2 leg Peripheral Edema: bilateral: None - Gastrointestinal General gastrointestinal: no absent bowel sounds, no decreased bowel sounds, no distended, no hepatomegaly, no hyperactive bowel sounds, normal bowel sounds, no organomegaly, no rigid, no scaphoid, soft, no splenomegaly, no tenderness, no umbilical hernia, no ventral hernia - Neurologic Neurologic: CNII-XII intact - Musculoskeletal Musculoskeletal: generalized weakness - Psychiatric Psychiatric: A&O x's 3, appropriate affect, intact judgment & insight Results CBC & Chem 7: 05/14/22 08:11 05/14/22 08:11 Labs: Abnormal Lab Results - Last 24 Hours (Table) 05/13/22 05/14/22 05/14/22 Range/Units 23:31 08:11 08:11 WBC 11.6 H (3.8-10.6) k/uL RBC 2.28 L (4.30-5.90) m/uL Hgb 7.6 L D (13.0-17.5) gm/dL Hct 22.5 L (39.0-53.0) % RDW 17.5 H (11.5-15.5) % Plt Count 34 L (150-450) k/uL Lymphocytes # (Manual) 7.66 H (1.0-4.8) k/uL PT 12.4 H (9.0-12.0) sec INR 1.2 H (<1.2) APTT 96.7 H 59.8 H (22.0-30.0) sec Sodium (137-145) mmol/L Chloride (98-107) mmol/L Carbon Dioxide (22-30) mmol/L BUN (9-20) mg/dL Creatinine (0.66-1.25) mg/dL Calcium (8.4-10.2) mg/dL Crossmatch 05/14/22 05/14/22 Range/Units 08:11 12:38 WBC (3.8-10.6) k/uL RBC (4.30-5.90) m/uL Hgb (13.0-17.5) gm/dL Hct (39.0-53.0) % RDW (11.5-15.5) % Plt Count (150-450) k/uL Lymphocytes # (Manual) (1.0-4.8) k/uL PT (9.0-12.0) sec INR (<1.2) APTT (22.0-30.0) sec Sodium 134 L (137-145) mmol/L Chloride 109 H (98-107) mmol/L Carbon Dioxide 20 L (22-30) mmol/L BUN 38 H (9-20) mg/dL Creatinine 1.32 H (0.66-1.25) mg/dL Calcium 7.6 L (8.4-10.2) mg/dL Crossmatch See Detail Assessment and Plan (1) CLL (chronic lymphocytic leukemia) Current Visit: No Status: Chronic Priority: Medium Code(s): C91.10 - CHRONIC LYMPHOCYTIC LEUK OF B-CELL TYPE NOT ACHIEVE REMIS SNOMED Code(s): 40197378 Plan: Did order 1 unit SD platelets for count<50,000 on asa and plavix, with bruising. Keep platelets 40-50K on antiplatelet therapy. Monitor Hgb. Transfuse for Hgb <7 or if symptomatic. Hold acalabrutinib for CLL for now. Checking hepatic function, hemolysis labs and fibrinogen as acalabrutinib can cause bleeding and increased LFTs. CBC daily.
[2022-05-15 02:56] LABS: Reticulocyte % 1.2 % (0.5-2.0)
[2022-05-15 02:58] LABS: Albumin 2.7 g/dL (3.5-5.0); Bilirubin, Delta 0.1 mg/dL (0.0-0.2); Calcium 7.6 mg/dL (8.4-10.2); Potassium 4.1 mmol/L (3.5-5.1); Total Bilirubin 1.1 mg/dL (0.2-1.3); Total Protein 4.6 g/dL (6.3-8.2)
[2022-05-15 03:03] LABS: Anisocytosis Slight; HCT 25.2 % (39.0-53.0); HGB 8.3 gm/dL (13.0-17.5); Hypochromasia Slight; MCH 31.1 pg (25.0-35.0); MCHC 33.1 g/dL (31.0-37.0); MCV 93.8 fL (80.0-100.0); Mean Platelet Volume 11.3; Poikilocytosis Slight; RBC 2.68 m/uL (4.30-5.90); RDW 17.6 % (11.5-15.5); WBC 14.6 k/uL (3.8-10.6)
[2022-05-15 03:09] LABS: Platelet Count 32 k/uL (150-450)
[2022-05-15 03:59] LABS: Lymphocytes # (M) 10.37 k/uL (1.0-4.8); Monocytes # (M) 0.44 k/uL (0-1.0); Neutrophils % (M) 26 %; Nucleated Red Blood Cells 0 /100 WBC (0-0); Total Cells Counted 200
[2022-05-15] MEDS: SODIUM CHLORIDE 0.9% 500 ML 500 ML IV SCH ×4 (06:24→20:15)
[2022-05-15] MEDS: LEVOTHYROXINE 50 MCG TAB PO SCH (06:24)
[2022-05-15] MEDS: SODIUM CHLORIDE 0.9% 1,000 ML IV SCH (07:29)
[2022-05-15] MEDS: ASPIRIN 81 MG PO SCH (07:51)
[2022-05-15] MEDS: MEMANTINE 10 MG TAB PO SCH ×2 (07:51→20:14)
[2022-05-15] MEDS: CLOPIDOGREL 75 MG TAB PO SCH (07:51)
[2022-05-15] MEDS: METOPROLOL TARTRATE 50 MG TAB PO SCH ×2 (07:52→20:14)
--- NOTE | 2022-05-15 11:42 | P.PN ---
Subjective Progress Note Date: 05/15/22 Patient is 80-year-old male with past medical history significant for CLL, hypothyroidism, vitamin D deficiency, gastroesophageal reflux disease, NSTEMI in 03/2021 who presented to the emergency department with chest pain. Patient stated that he woke up this morning with left-sided chest pain, pressure-like in nature, was 10 x 10 intensity, nonradiating, not associated with any shortness of breath or diaphoresis. No specific alleviating or aggravating factors. Denies any palpitations, lightheadedness, dizziness, nausea or vomiting. EMS was called, EKG reveled significant ST depression in anterior leads and was brought to the ER for further evaluation. Patient was worked up in the ER, initial WBC was 14.7, hemoglobin 10.2. D-dimer was 0.52. Initial troponin was 0.416. Creatinine was 1.45, bun 30. EKG showed ST depression in leads V4 to V6. Patient was started on pharmacy dose heparin, cardiology was consulted. Patient will be admitted to hospitalist service 05/14 He underwent cardiac catheterization that revealed CAD with 85% proximal circumflex stenosis, 50% proximal LAD stenosis and mid LAD 50-60% stenosis, and small caliber nondominant mid RCA 80% stenosis, High normal left sided filling pressures, Mild aortic stenosis. Initial Plan was for PCI to circumflex on 05/14 but patient developed hematoma of his right forearm. Cardiology had postponed the procedure for now. No chest pain at this time. Denies any shortness of breath. Hemoglobin this morning is 7.6, platelet count is 34 05/15. Patient seen and examined. Right forearm swelling slightly improved, bruising noticeable. Denies any chest pain. Vital signs stable. REVIEW OF SYSTEMS: CONSTITUTIONAL: No fever, no malaise,. CARDIOVASCULAR: No palpitations, no syncope. PULMONARY: No shortness of breath, no cough, GASTROINTESTINAL: No diarrhea, no abdominal pain. NEUROLOGICAL: No headaches, no weakness, PHYSICAL EXAMINATION: GENERAL: The patient is alert , not in any acute distress. Well developed, well nourished. HEENT: Pupils are round and equally reacting to light. EOMI. No scleral icterus. No conjunctival pallor. Normocephalic, atraumatic. No pharyngeal erythema. No thyromegaly. CARDIOVASCULAR: S1 and S2 present. No murmurs, rubs, or gallops. PULMONARY: Chest is clear to auscultation, no wheezing or crackles. ABDOMEN: Soft, nontender, nondistended, normoactive bowel sounds. No palpable organomegaly. MUSCULOSKELETAL: Right forearm hematoma improved from yesterday, bruising noticeable. No cyanosis noticeable EXTREMITIES: No cyanosis, clubbing, or pedal edema. NEUROLOGICAL: Gross neurological examination did not reveal any focal deficits. SKIN: No rashes. Assessment and plan Status post cardiac catheterization with 85% proximal circumflex stenosis, 50% proximal LAD stenosis and mid LAD 50-60% stenosis, and small caliber nondominant mid RCA 80% stenosis Right radial site edema CLL Thrombocytopenia History hypothyroidism Chronic kidney disease Anemia of chronic disease, hemoglobin stable Dementia Mild aortic stenosis Moderate mitral regurgitation PLAN Monitor vital signs Monitor CBC Cardiology At this time, do not recommend repeat heart catheterization and stent placement recommend medical therapy with aspirin and Plavix Continue statin and beta yuko Hematology oncology evaluated the patient and recommended to transfuse 1 unit SD platelets for count<50,000 on asa and plavix, with bruising. They also recommended to Keep platelets 40-50K on antiplatelet therapy. Monitor Hgb. Transfuse for Hgb <7 or if symptomatic. Hold acalabrutinib for CLL for now. Checking hepatic function, hemolysis labs and fibrinogen as acalabrutinib can cause bleeding and increased LFTs Objective - Vital Signs Vital signs: Vital Signs Temp 98.4 F 05/15/22 04:00 Pulse 58 L 05/15/22 11:22 Resp 15 05/15/22 11:22 BP 101/58 05/15/22 11:22 Pulse Ox 95 05/15/22 11:22 FiO2 Intake & Output 05/14/22 05/15/22 05/15/22 18:59 06:59 18:59 Intake Total 310 337 Balance 310 337 Weight 71.5 kg Intake: Blood Product 310 337 Platelet Pheresis Pas 337 Psoralen Unit [id number] Rc As-1 Unit 310 [id number] Other: Voiding Method Urinal Urinal Urinal Diaper # Voids 2 1 0 # Bowel Movements 1 0 - Labs CBC & Chem 7: 05/15/22 02:22 05/15/22 02:22 Labs: Abnormal Lab Results - Last 24 Hours (Table) 05/14/22 05/14/22 05/15/22 Range/Units 08:11 12:38 02:22 WBC 11.6 H 14.6 H (3.8-10.6) k/uL RBC 2.28 L 2.68 L (4.30-5.90) m/uL Hgb 7.6 L D 8.3 L (13.0-17.5) gm/dL Hct 22.5 L 25.2 L (39.0-53.0) % RDW 17.5 H 17.6 H (11.5-15.5) % Plt Count 34 L 32 L (150-450) k/uL Lymphocytes # (Manual) 7.66 H 10.37 H (1.0-4.8) k/uL Sodium (137-145) mmol/L Chloride (98-107) mmol/L Carbon Dioxide (22-30) mmol/L BUN (9-20) mg/dL Creatinine (0.66-1.25) mg/dL Calcium (8.4-10.2) mg/dL AST (17-59) U/L Lactate Dehydrogenase (313-618) U/L Total Protein (6.3-8.2) g/dL Albumin (3.5-5.0) g/dL Crossmatch See Detail 05/15/22 05/15/22 Range/Units 02:22 02:22 WBC (3.8-10.6) k/uL RBC (4.30-5.90) m/uL Hgb (13.0-17.5) gm/dL Hct (39.0-53.0) % RDW (11.5-15.5) % Plt Count (150-450) k/uL Lymphocytes # (Manual) (1.0-4.8) k/uL Sodium 132 L (137-145) mmol/L Chloride 108 H (98-107) mmol/L Carbon Dioxide 20 L (22-30) mmol/L BUN 43 H (9-20) mg/dL Creatinine 1.49 H (0.66-1.25) mg/dL Calcium 7.6 L (8.4-10.2) mg/dL AST 78 H (17-59) U/L Lactate Dehydrogenase 712 H (313-618) U/L Total Protein 4.6 L (6.3-8.2) g/dL Albumin 2.7 L (3.5-5.0) g/dL Crossmatch
--- NOTE | 2022-05-15 13:20 | P.PN ---
Subjective This is a pleasant 81-year-old male past medical history significant for CLL, hypothyroidism, vitamin D deficiency, gastroesophageal reflux disease, NSTEMI in 03/2021 advised medical therapy. 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 We have been asked to see in consultation for concern for chest pain, elevated troponin. He is somewhat of a poor historian about medical care, but is alert, oriented to person and place. Patient presents to the emergency department with chest pain. He states he woke up with heaviness in his chest early in the morning, states it felt as if someone was sitting on his chest. Non-radiating. It was not resolving. No specific alleviating or aggravating factors. He had some mild shortness of breath. Denies any palpitations, lightheadedness, dizziness, nausea or vomiting. EMS was called, EKG reveled significant ST depression in anterior leads and was brought to the ER for further evaluation. He underwent cardiac catheterization that revealed CAD with 85% proximal circumflex stenosis, 50% proximal LAD stenosis and mid LAD 50-60% stenosis, and small caliber nondominant mid RCA 80% stenosis, High normal left sided filling pressures, Mild aortic stenosis. Plan for PCI to circumflex on 05/14. Echocardiogram revealed EF 50%, hypokinetic basal inferior wall, moderate mitral regurgitation, moderate aortic stenosis, mild aortic regurgitation 05/14/2022 Patient seen and examined at bedside, he is lying comfortably in bed, no acute distress. He had increased confusion and agitation overnight. He has significant right radial edema and bruising post cardiac catheterization yesterday. right radial pulse appreciated. He is more lethargic this morning. BUN 38, serum creatinine 1.2. 05/15 Patient seen and examined. Patient's right forearm appears stable with no increase in swelling. He denies any chest pain or pressure. He remains somewhat lethargic however arousable. PHYSICAL EXAMINATION Blood pressure CONSTITUTIONAL: No apparent distress. HEENT: Neck Supple. No JVD. No carotid bruit. CHEST EXAMINATION: Lungs are diminished bilateral bases to auscultation. No chest wall tenderness is noted on palpation or with deep breathing. HEART EXAMINATION: Regular rate and rhythm. S1, S2 heard. Systolic ejection murmur at right sternal border and apex, No gallops or rub. ABDOMEN: Soft, nontender. Positive bowel sounds. EXTREMITIES: 1+ right radial pulse, Right radial cath site significant edema and hematoma and bruising. no lower extremity edema and no calf tenderness. NEUROLOGIC EXAMINATION: Patient is lethargic, alert and oriented to person and place ASSESSMENT NSTEMI Status post cardiac catheterization with 85% proximal circumflex stenosis, 50% proximal LAD stenosis and mid LAD 50-60% stenosis, and small caliber nondominant mid RCA 80% stenosis Right radial site edema CLL Thrombocytopenia History hypothyroidism Chronic kidney disease Anemia of chronic disease, hemoglobin stable Dementia Mild aortic stenosis Moderate mitral regurgitation PLAN Continue with current medical therapy with aspirin and Plavix. Patient has not had any more angina-type symptoms and continue with antianginals. Unclear if patient will be able to tolerate dual antiplatelets long-term with his thrombocytopenia and unclear if she is the best interventional candidate. Id eally optimize and monitor and if remains stable possible discharge home and may consider intervention as an outpatient in 1-2 weeks if radial site is stable and mentation improved. Continue to monitor clinically. Continue statin and beta yuko Losartan currently on hold for hypotension Further recommendations based on clinical course Objective - Vital Signs Vital signs: Vital Signs Temp 98.4 F 05/15/22 04:00 Pulse 58 L 05/15/22 11:22 Resp 15 05/15/22 11:22 BP 101/58 05/15/22 11:22 Pulse Ox 95 05/15/22 11:22 FiO2 Intake & Output 05/14/22 05/15/22 05/15/22 18:59 06:59 18:59 Intake Total 310 337 Output Total 20 Balance 310 337 -20 Weight 71.5 kg Intake: Blood Product 310 337 Platelet Pheresis Pas 337 Psoralen Unit [id number] Rc As-1 Unit 310 [id number] Output: Urine 20 Other: Voiding Method Urinal Urinal Urinal Diaper # Voids 2 1 1 # Bowel Movements 1 0 - Labs CBC & Chem 7: 05/15/22 02:22 05/15/22 02:22 Labs: Abnormal Lab Results - Last 24 Hours (Table) 05/14/22 05/14/22 05/15/22 Range/Units 08:11 12:38 02:22 WBC 14.6 H (3.8-10.6) k/uL RBC 2.68 L (4.30-5.90) m/uL Hgb 7.6 L D 8.3 L (13.0-17.5) gm/dL Hct 25.2 L (39.0-53.0) % RDW 17.6 H (11.5-15.5) % Plt Count 32 L (150-450) k/uL Lymphocytes # (Manual) 7.66 H 10.37 H (1.0-4.8) k/uL Sodium (137-145) mmol/L Chloride (98-107) mmol/L Carbon Dioxide (22-30) mmol/L BUN (9-20) mg/dL Creatinine (0.66-1.25) mg/dL Calcium (8.4-10.2) mg/dL AST (17-59) U/L Lactate Dehydrogenase (313-618) U/L Total Protein (6.3-8.2) g/dL Albumin (3.5-5.0) g/dL Crossmatch See Detail 05/15/22 05/15/22 Range/Units 02:22 02:22 WBC (3.8-10.6) k/uL RBC (4.30-5.90) m/uL Hgb (13.0-17.5) gm/dL Hct (39.0-53.0) % RDW (11.5-15.5) % Plt Count (150-450) k/uL Lymphocytes # (Manual) (1.0-4.8) k/uL Sodium 132 L (137-145) mmol/L Chloride 108 H (98-107) mmol/L Carbon Dioxide 20 L (22-30) mmol/L BUN 43 H (9-20) mg/dL Creatinine 1.49 H (0.66-1.25) mg/dL Calcium 7.6 L (8.4-10.2) mg/dL AST 78 H (17-59) U/L Lactate Dehydrogenase 712 H (313-618) U/L Total Protein 4.6 L (6.3-8.2) g/dL Albumin 2.7 L (3.5-5.0) g/dL Crossmatch
[2022-05-15 16:51] LABS: Glucose,Whole Blood 109 mg/dL (70-110)
[2022-05-15 17:42] LABS: Anisocytosis Slight; Basophils % (A) 0 %; Eosinophils % (A) 0 %; Hypochromasia Moderate; Lymphocytes # (A) 6.7 k/uL (1.0-4.8); Lymphocytes % (A) 66 %; MCH 32.1 pg (25.0-35.0); MCHC 33.4 g/dL (31.0-37.0); MCV 96.1 fL (80.0-100.0); Macrocytosis Slight; Mean Platelet Volume 11.6; Monocytes # (A) 0.4 k/uL (0-1.0); Monocytes % (A) 4 %; Neutrophils # (A) 2.7 k/uL (1.3-7.7); Neutrophils % (A) 26 %; Poikilocytosis Slight; RDW 17.5 % (11.5-15.5); WBC 10.1 k/uL (3.8-10.6)
[2022-05-15 17:44] LABS: Platelet Count 31 k/uL (150-450)
[2022-05-15] MEDS: ATORVASTATIN 80 MG TAB PO SCH (20:14)
[2022-05-15] MEDS: PANTOPRAZOLE 40 MG/10 ML VIAL IVP SCH (20:14)
[2022-05-16 01:27] LABS: Anisocytosis Slight; HCT 22.5 % (39.0-53.0); HGB 7.3 gm/dL (13.0-17.5); Hypochromasia Moderate; MCH 30.9 pg (25.0-35.0); MCHC 32.3 g/dL (31.0-37.0); MCV 95.6 fL (80.0-100.0); Macrocytosis Slight; RBC 2.36 m/uL (4.30-5.90); RDW 17.3 % (11.5-15.5); WBC 11.2 k/uL (3.8-10.6)
[2022-05-16 01:33] LABS: Platelet Count 27 k/uL (150-450)
[2022-05-16] MEDS: SODIUM CHLORIDE 0.9% 1,000 ML IV SCH ×2 (02:13→08:51)
[2022-05-16 03:11] LABS: Band Neutrophils % 2 %; Lymphocytes # (M) 7.39 k/uL (1.0-4.8); Monocytes # (M) 0.34 k/uL (0-1.0); Neutrophils % (M) 29 %; Nucleated Red Blood Cells 0 /100 WBC (0-0); Total Cells Counted 100
[2022-05-16 03:16] LABS: Poikilocytosis (M) Present
[2022-05-16] MEDS: LEVOTHYROXINE 50 MCG TAB PO SCH (04:30)
[2022-05-16] MEDS: SODIUM CHLORIDE 0.9% 500 ML 500 ML IV SCH ×2 (07:02→16:25)
[2022-05-16 08:25] LABS: Anisocytosis Slight; HCT 22.1 % (39.0-53.0); HGB 7.1 gm/dL (13.0-17.5); Hypochromasia Moderate; MCH 31.2 pg (25.0-35.0); MCHC 32.2 g/dL (31.0-37.0); Macrocytosis Slight; Mean Platelet Volume 12.7; Poikilocytosis Slight; RBC 2.28 m/uL (4.30-5.90); WBC 8.9 k/uL (3.8-10.6)
[2022-05-16 08:32] LABS: Platelet Count 24 k/uL (150-450)
[2022-05-16 08:47] LABS: Albumin 2.5 g/dL (3.5-5.0); Calcium 7.3 mg/dL (8.4-10.2); Potassium 4.1 mmol/L (3.5-5.1); Total Bilirubin 1.1 mg/dL (0.2-1.3); Total Protein 4.2 g/dL (6.3-8.2)
[2022-05-16] MEDS: ASPIRIN 81 MG PO SCH (08:51)
[2022-05-16] MEDS: METOPROLOL TARTRATE 50 MG TAB PO SCH ×2 (08:51→20:25)
[2022-05-16] MEDS: PANTOPRAZOLE 40 MG/10 ML VIAL IVP SCH ×2 (08:51→20:25)
[2022-05-16] MEDS: MEMANTINE 10 MG TAB PO SCH ×2 (08:51→20:25)
--- NOTE | 2022-05-16 11:23 | P.GSCN ---
History of Present Illness Consult date: 05/16/22 Reason for Consult: GI bleed History of present illness: 81-year-old male hospitalized with chest pain. Found to have significant coronary artery disease. Started on antiplatelet therapy. Patient improved from a cardiac standpoint. Patient did have drop in hemoglobin from his initial CBC. This may be related to hydration. Stool was positive for occult blood. No rectal bleeding or melena per patient. He feels well. No abdominal com plaints. Patient is not sure if he has had previous endoscopy. Patient is on chemotherapy for CLL. Platelets also were low. He has received blood and platelet transfusion. Review of Systems The patient denies any acute changes in vision or hearing, no dysphagia or kate nophagia, no shortness of breath, no dysuria or hematuria, no headache, no runny nose, no rectal bleeding or melena, no unexplained weight loss Past Medical History Past Medical History: No Reported History, Cancer, Chest Pain / Angina Additional Past Medical History / Comment(s): [place], CLL, parkinsons, dementia History of Any Multi-Drug Resistant Organisms: None Reported Past Surgical History: Hernia Repair Past Anesthesia/Blood Transfusion Reactions: No Reported Reaction Additional Past Anesthesia/Blood Transfusion Reaction / Comm: PATIENT STATES HE HAS NEVER HAD A BLOOD TRANSFUSION Past Psychological History: No Psychological Hx Reported Smoking Status: Never smoker Past Alcohol Use History: Rare Past Drug Use History: None Reported Medications and Allergies Home Medications Medication Instructions Recorded Confirmed Type Levothyroxine Sodium [Synthroid] 50 mcg PO DAILY@0400 03/28/21 05/13/22 History Losartan [Cozaar] 25 mg PO DAILY #30 tab 04/01/21 05/13/22 Rx Metoprolol Tartrate [Lopressor] 50 mg PO BID #60 tab 04/01/21 05/13/22 Rx Acalabrutinib Maleate [Calquence] 100 mg PO BID@0500,1700 05/13/22 05/13/22 History Atorvastatin [Lipitor] 80 mg PO HS 05/13/22 05/13/22 History Memantine [Namenda] 10 mg PO BID 05/13/22 05/13/22 History Allergies Allergy/AdvReac Type Severity Reaction Status Date / Time No Known Allergies Allergy Verified 05/13/22 09:33 Surgical - Exam Vital Signs Temp Pulse Resp BP Pulse Ox 98.9 F 86 16 145/80 96 05/13/22 08:32 05/13/22 08:32 05/13/22 08:32 05/13/22 08:32 05/13/22 08:32 Physical exam: General: Well-developed, well-nourished HEENT: Normocephalic, sclerae nonicteric Abdomen: Nontender, nondistended Extremities: No edema Neuro: Alert and oriented Results - Labs 05/16/22 07:36 05/16/22 07:36 Abnormal Lab Results - Last 24 Hours (Table) 05/14/22 05/15/22 05/16/22 Range/Units 12:38 17:23 00:09 WBC 11.2 H (3.8-10.6) k/uL RBC 2.50 L 2.36 L (4.30-5.90) m/uL Hgb 8.0 L 7.3 L (13.0-17.5) gm/dL Hct 24.0 L 22.5 L (39.0-53.0) % RDW 17.5 H 17.3 H (11.5-15.5) % Plt Count 31 L 27 L (150-450) k/uL Lymphocytes # 6.7 H (1.0-4.8) k/uL Lymphocytes # (Manual) 7.39 H (1.0-4.8) k/uL Sodium (137-145) mmol/L Chloride (98-107) mmol/L BUN (9-20) mg/dL Calcium (8.4-10.2) mg/dL AST (17-59) U/L Total Protein (6.3-8.2) g/dL Albumin (3.5-5.0) g/dL Crossmatch See Detail 05/16/22 05/16/22 Range/Units 07:36 07:36 WBC (3.8-10.6) k/uL RBC 2.28 L (4.30-5.90) m/uL Hgb 7.1 L (13.0-17.5) gm/dL Hct 22.1 L (39.0-53.0) % RDW 18.0 H (11.5-15.5) % Plt Count 24 L (150-450) k/uL Lymphocytes # (1.0-4.8) k/uL Lymphocytes # (Manual) (1.0-4.8) k/uL Sodium 134 L (137-145) mmol/L Chloride 110 H (98-107) mmol/L BUN 37 H (9-20) mg/dL Calcium 7.3 L (8.4-10.2) mg/dL AST 68 H (17-59) U/L Total Protein 4.2 L (6.3-8.2) g/dL Albumin 2.5 L (3.5-5.0) g/dL Crossmatch Diabetes panel 05/16/22 Range/Units 07:36 Sodium 134 L (137-145) mmol/L Potassium 4.1 (3.5-5.1) mmol/L Chloride 110 H (98-107) mmol/L Carbon Dioxide 22 (22-30) mmol/L BUN 37 H (9-20) mg/dL Creatinine 1.23 (0.66-1.25) mg/dL Glucose 82 (74-99) mg/dL Calcium 7.3 L (8.4-10.2) mg/dL AST 68 H (17-59) U/L ALT 32 (4-49) U/L Alkaline Phosphatase 67 (38-126) U/L Total Protein 4.2 L (6.3-8.2) g/dL Albumin 2.5 L (3.5-5.0) g/dL Calcium panel 05/16/22 Range/Units 07:36 Calcium 7.3 L (8.4-10.2) mg/dL Albumin 2.5 L (3.5-5.0) g/dL Pituitary panel 05/16/22 Range/Units 07:36 Sodium 134 L (137-145) mmol/L Potassium 4.1 (3.5-5.1) mmol/L Chloride 110 H (98-107) mmol/L Carbon Dioxide 22 (22-30) mmol/L BUN 37 H (9-20) mg/dL Creatinine 1.23 (0.66-1.25) mg/dL Glucose 82 (74-99) mg/dL Calcium 7.3 L (8.4-10.2) mg/dL Adrenal panel 05/16/22 Range/Units 07:36 Sodium 134 L (137-145) mmol/L Potassium 4.1 (3.5-5.1) mmol/L Chloride 110 H (98-107) mmol/L Carbon Dioxide 22 (22-30) mmol/L BUN 37 H (9-20) mg/dL Creatinine 1.23 (0.66-1.25) mg/dL Glucose 82 (74-99) mg/dL Calcium 7.3 L (8.4-10.2) mg/dL Total Bilirubin 1.1 (0.2-1.3) mg/dL AST 68 H (17-59) U/L ALT 32 (4-49) U/L Alkaline Phosphatase 67 (38-126) U/L Total Protein 4.2 L (6.3-8.2) g/dL Albumin 2.5 L (3.5-5.0) g/dL Assessment and Plan (1) GI bleed Narrative/Plan: 81-year-old male with GI bleed. Patient now on antiplatelet therapy. Patient with thrombocytopenia. Unclear whether the patient has had previous endoscopy. We'll try to obtain those records. No significant active bleeding seen clinically at this time. We'll follow closely with you. Current Visit: Yes Status: Acute Code(s): K92.2 - GASTROINTESTINAL HEMORRHAGE, UNSPECIFIED SNOMED Code(s): 47461571
--- NOTE | 2022-05-16 13:42 | P.PN ---
Subjective This is a pleasant 81-year-old male past medical history significant for CLL, hypothyroidism, vitamin D deficiency, gastroesophageal reflux disease, NSTEMI in 03/2021 advised medical therapy. 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 We have been asked to see in consultation for concern for chest pain, elevated troponin. He is somewhat of a poor historian about medical care, but is alert, oriented to person and place. Patient presents to the emergency department with chest pain. He states he woke up with heaviness in his chest early in the morning, states it felt as if someone was sitting on his chest. Non-radiating. It was not resolving. No specific alleviating or aggravating factors. He had some mild shortness of breath. Denies any palpitations, lightheadedness, dizziness, nausea or vomiting. EMS was called, EKG reveled significant ST depression in anterior leads and was brought to the ER for further evaluation. He underwent cardiac catheterization that revealed CAD with 85% proximal circumflex stenosis, 50% proximal LAD stenosis and mid LAD 50-60% stenosis, and small caliber nondominant mid RCA 80% stenosis, High normal left sided filling pressures, Mild aortic stenosis. Plan for PCI to circumflex on 05/14. Echocardiogram revealed EF 50%, hypokinetic basal inferior wall, moderate mitral regurgitation, moderate aortic stenosis, mild aortic regurgitation 05/14/2022 Patient seen and examined at bedside, he is lying comfortably in bed, no acute distress. He had increased confusion and agitation overnight. He has significant right radial edema and bruising post cardiac catheterization yesterday. right radial pulse appreciated. He is more lethargic this morning. BUN 38, serum creatinine 1.2. 05/15 Patient seen and examined. Patient's right forearm appears stable with no increase in swelling. He denies any chest pain or pressure. He remains somewhat lethargic however arousable. 05/16 Patient seen and examined. Patient having black melanotic stools yesterday. He was on aspirin and Plavix. The Plavix was discontinued. Fortunately has not had anymore chest pain or pressure. His hemoglobin did drop to 7.1 and he has been transfused 2 units packed red blood cells. Platelets remained in the 30s. PHYSICAL EXAMINATION Blood pressure CONSTITUTIONAL: No apparent distress. HEENT: Neck Supple. No JVD. No carotid bruit. CHEST EXAMINATION: Lungs are diminished bilateral bases to auscultation. No chest wall tenderness is noted on palpation or with deep breathing. HEART EXAMINATION: Regular rate and rhythm. S1, S2 heard. Systolic ejection murmur at right sternal border and apex, No gallops or rub. ABDOMEN: Soft, nontender. Positive bowel sounds. EXTREMITIES: 1+ right radial pulse, Right radial cath site significant edema and hematoma and bruising. no lower extremity edema and no calf tenderness. NEUROLOGIC EXAMINATION: Patient is lethargic, alert and oriented to person and place ASSESSMENT NSTEMI Status post cardiac catheterization with 85% proximal circumflex stenosis, 50% proximal LAD stenosis and mid LAD 50-60% stenosis, and small caliber nondominant mid RCA 80% stenosis Right radial site edema CLL Thrombocytopenia History hypothyroidism Chronic kidney disease Anemia of chronic disease, hemoglobin stable Dementia Mild aortic stenosis Moderate mitral regurgitation GI bleed PLAN Patient having melena and has been transfused platelets as well as packed red blood cells. Does not appear he can tolerate antiplatelets and patient is not a good interventional candidate at this point. Fortunately he has not been having any angina and appears well controlled on the metoprolol. Continue with medical therapy and discussed with may reassess matters in the office if platelets and bleeding stabilized. Currently however no significant angina-type symptoms. Objective - Vital Signs Vital signs: Vital Signs Temp 96.7 F L 05/16/22 12:00 Pulse 58 L 05/16/22 12:00 Resp 16 05/16/22 12:00 BP 128/61 05/16/22 12:00 Pulse Ox 96 05/16/22 12:00 FiO2 Intake & Output 05/15/22 05/16/22 05/16/22 18:59 06:59 18:59 Intake Total 180 150 0 Output Total 20 0 300 Balance 160 150 -300 Weight 71.5 kg Intake: Intake, IV Titration 150 Amount Sodium Chloride 0.9% 500 150 ml 500 ml @ 50 mls/hr IV .Q10H [facility] Rx#:[id number] Oral 180 Blood Product 0 Rc As-1 Unit 0 [id number] Output: Urine 20 0 300 Other: Voiding Method Urinal Urinal Diaper Diaper # Voids 1 1 # Bowel Movements 0 1 - Labs CBC & Chem 7: 05/16/22 07:36 05/16/22 07:36 Labs: Abnormal Lab Results - Last 24 Hours (Table) 1105/15/22 05/16/22 Range/Units 12:38 17:23 00:09 WBC 11.2 H (3.8-10.6) k/uL RBC 2.50 L 2.36 L (4.30-5.90) m/uL Hgb 8.0 L 7.3 L (13.0-17.5) gm/dL Hct 24.0 L 22.5 L (39.0-53.0) % RDW 17.5 H 17.3 H (11.5-15.5) % Plt Count 31 L 27 L (150-450) k/uL Lymphocytes # 6.7 H (1.0-4.8) k/uL Lymphocytes # (Manual) 7.39 H (1.0-4.8) k/uL Sodium (137-145) mmol/L Chloride (98-107) mmol/L BUN (9-20) mg/dL Calcium (8.4-10.2) mg/dL AST (17-59) U/L Total Protein (6.3-8.2) g/dL Albumin (3.5-5.0) g/dL Crossmatch See Detail 05/16/22 05/16/22 Range/Units 07:36 07:36 WBC (3.8-10.6) k/uL RBC 2.28 L (4.30-5.90) m/uL Hgb 7.1 L (13.0-17.5) gm/dL Hct 22.1 L (39.0-53.0) % RDW 18.0 H (11.5-15.5) % Plt Count 24 L (150-450) k/uL Lymphocytes # (1.0-4.8) k/uL Lymphocytes # (Manual) (1.0-4.8) k/uL Sodium 134 L (137-145) mmol/L Chloride 110 H (98-107) mmol/L BUN 37 H (9-20) mg/dL Calcium 7.3 L (8.4-10.2) mg/dL AST 68 H (17-59) U/L Total Protein 4.2 L (6.3-8.2) g/dL Albumin 2.5 L (3.5-5.0) g/dL Crossmatch
--- NOTE | 2022-05-16 14:30 | P.PN ---
Subjective Progress Note Date: 05/16/22 Patient is 80-year-old male with past medical history significant for CLL, hypothyroidism, vitamin D deficiency, gastroesophageal reflux disease, NSTEMI in 03/2021 who presented to the emergency department with chest pain. Patient stated that he woke up this morning with left-sided chest pain, pressure-like in nature, was 10 x 10 intensity, nonradiating, not associated with any shortness of breath or diaphoresis. No specific alleviating or aggravating factors. Denies any palpitations, lightheadedness, dizziness, nausea or vomiting. EMS was called, EKG reveled significant ST depression in anterior leads and was brought to the ER for further evaluation. Patient was worked up in the ER, initial WBC was 14.7, hemoglobin 10.2. D-dimer was 0.52. Initial troponin was 0.416. Creatinine was 1.45, bun 30. EKG showed ST depression in leads V4 to V6. Patient was started on pharmacy dose heparin, cardiology was consulted. Patient will be admitted to hospitalist service 05/14 He underwent cardiac catheterization that revealed CAD with 85% proximal circumflex stenosis, 50% proximal LAD stenosis and mid LAD 50-60% stenosis, and small caliber nondominant mid RCA 80% stenosis, High normal left sided filling pressures, Mild aortic stenosis. Initial Plan was for PCI to circumflex on 05/14 but patient developed hematoma of his right forearm. Cardiology had postponed the procedure for now. No chest pain at this time. Denies any shortness of breath. Hemoglobin this morning is 7.6, platelet count is 34 05/15. Patient seen and examined. Right forearm swelling slightly improved, bruising noticeable. Denies any chest pain. Vital signs stable. 05/16. Patient seen and examined. Patient had black tarry stools overnight. Hemoglobin did drop from 8 to 7.1 this morning. Patient being transfuse 1 unit of packed red blood cell. Aspirin and Plavix has been discontinued. Denies any chest pain REVIEW OF SYSTEMS: CONSTITUTIONAL: No fever, no malaise,. CARDIOVASCULAR: No palpitations, no syncope. PULMONARY: No shortness of breath, no cough, GASTROINTESTINAL: No diarrhea, no abdominal pain. NEUROLOGICAL: No headaches, no weakness, PHYSICAL EXAMINATION: GENERAL: The patient is alert , not in any acute distress. Well developed, well nourished. HEENT: Pupils are round and equally reacting to light. EOMI. No scleral icterus. No conjunctival pallor. Normocephalic, atraumatic. No pharyngeal erythema. No thyromegaly. CARDIOVASCULAR: S1 and S2 present. No murmurs, rubs, or gallops. PULMONARY: Chest is clear to auscultation, no wheezing or crackles. ABDOMEN: Soft, nontender, nondistended, normoactive bowel sounds. No palpable organomegaly. MUSCULOSKELETAL: Right forearm hematoma improved from yesterday, bruising noticeable. No cyanosis noticeable EXTREMITIES: No cyanosis, clubbing, or pedal edema. NEUROLOGICAL: Gross neurological examination did not reveal any focal deficits. SKIN: No rashes. Assessment and plan Status post cardiac catheterization with 85% proximal circumflex stenosis, 50% proximal LAD stenosis and mid LAD 50-60% stenosis, and small caliber nondominant mid RCA 80% stenosis Right radial site edema GI bleed Acute blood loss anemia CLL Thrombocytopenia History hypothyroidism Chronic kidney disease Anemia of chronic disease Dementia Mild aortic stenosis Moderate mitral regurgitation PLAN Monitor vital signs Monitor CBC Transfuse 1 unit of packed red blood cell. DC aspirin Plavix Continue IV Protonix Consulted general surgery for GI bleed Continue statin and beta yuko Cardiology At this time, do not recommend repeat heart catheterization and stent placement recommend medical therapy Hematology oncology evaluated the patient They also recommended to Keep platelets 40-50K on antiplatelet therapy. Monitor Hgb. Transfuse for Hgb <7 or if symptomatic. Hold acalabrutinib for CLL for now. Patient received 1 unit of packed red blood cell and platelets on 05/15. Patient being transfused another unit of platelets today Objective - Vital Signs Vital signs: Vital Signs Temp 96.7 F L 05/16/22 12:00 Pulse 58 L 05/16/22 12:00 Resp 16 05/16/22 12:00 BP 128/61 05/16/22 12:00 Pulse Ox 96 05/16/22 12:00 FiO2 Intake & Output 05/15/22 05/16/22 05/16/22 18:59 06:59 18:59 Intake Total 180 150 240 Output Total 20 0 300 Balance 160 150 -60 Weight 71.5 kg Intake: Intake, IV Titration 150 Amount Sodium Chloride 0.9% 500 150 ml 500 ml @ 50 mls/hr IV .Q10H [facility] Rx#:[id number] Oral 180 240 Blood Product 0 Rc As-1 Unit 0 [id number] Output: Urine 20 0 300 Other: Voiding Method Urinal Urinal Diaper Diaper # Voids 1 1 # Bowel Movements 0 1 - Labs CBC & Chem 7: 05/16/22 07:36 05/16/22 07:36 Labs: Abnormal Lab Results - Last 24 Hours (Table) 05/14/22 05/15/22 05/16/22 Range/Units 12:38 17:23 00:09 WBC 11.2 H (3.8-10.6) k/uL RBC 2.50 L 2.36 L (4.30-5.90) m/uL Hgb 8.0 L 7.3 L (13.0-17.5) gm/dL Hct 24.0 L 22.5 L (39.0-53.0) % RDW 17.5 H 17.3 H (11.5-15.5) % Plt Count 31 L 27 L (150-450) k/uL Lymphocytes # 6.7 H (1.0-4.8) k/uL Lymphocytes # (Manual) 7.39 H (1.0-4.8) k/uL Sodium (137-145) mmol/L Chloride (98-107) mmol/L BUN (9-20) mg/dL Calcium (8.4-10.2) mg/dL AST (17-59) U/L Total Protein (6.3-8.2) g/dL Albumin (3.5-5.0) g/dL Crossmatch See Detail 05/16/22 05/16/22 Range/Units 07:36 07:36 WBC (3.8-10.6) k/uL RBC 2.28 L (4.30-5.90) m/uL Hgb 7.1 L (13.0-17.5) gm/dL Hct 22.1 L (39.0-53.0) % RDW 18.0 H (11.5-15.5) % Plt Count 24 L (150-450) k/uL Lymphocytes # (1.0-4.8) k/uL Lymphocytes # (Manual) (1.0-4.8) k/uL Sodium 134 L (137-145) mmol/L Chloride 110 H (98-107) mmol/L BUN 37 H (9-20) mg/dL Calcium 7.3 L (8.4-10.2) mg/dL AST 68 H (17-59) U/L Total Protein 4.2 L (6.3-8.2) g/dL Albumin 2.5 L (3.5-5.0) g/dL Crossmatch
[2022-05-16 15:12] LABS: Basophils # (M) 0.09 k/uL (0-0.2); Lymphocytes # (M) 5.87 k/uL (1.0-4.8); Monocytes # (M) 0.62 k/uL (0-1.0); Neutrophils # (M) 2.31 k/uL (1.3-7.7); Neutrophils % (M) 26 %; Nucleated Red Blood Cells 0 /100 WBC (0-0); Total Cells Counted 100
[2022-05-16] MEDS: ATORVASTATIN 80 MG TAB PO SCH (20:25)
[2022-05-17] MEDS: LEVOTHYROXINE 50 MCG TAB PO SCH (03:43)
[2022-05-17] MEDS: SODIUM CHLORIDE 0.9% 500 ML 500 ML IV SCH ×2 (05:52→20:31)
[2022-05-17 08:37] LABS: Anisocytosis Slight; HCT 25.8 % (39.0-53.0); HGB 8.3 gm/dL (13.0-17.5); Hypochromasia Slight; MCH 30.5 pg (25.0-35.0); MCHC 32.4 g/dL (31.0-37.0); MCV 94.2 fL (80.0-100.0); Macrocytosis Slight; Mean Platelet Volume 12.2; Poikilocytosis Slight; RBC 2.73 m/uL (4.30-5.90); WBC 10.1 k/uL (3.8-10.6)
[2022-05-17 08:46] LABS: Platelet Count 34 k/uL (150-450)
[2022-05-17 08:55] LABS: Albumin 2.6 g/dL (3.5-5.0); Calcium 7.2 mg/dL (8.4-10.2); Total Bilirubin 1.4 mg/dL (0.2-1.3); Total Protein 4.4 g/dL (6.3-8.2)
[2022-05-17] MEDS: PANTOPRAZOLE 40 MG/10 ML VIAL IVP SCH ×2 (09:05→20:26)
[2022-05-17] MEDS: MEMANTINE 10 MG TAB PO SCH ×2 (09:05→20:26)
[2022-05-17] MEDS: METOPROLOL TARTRATE 50 MG TAB PO SCH ×2 (09:05→20:26)
[2022-05-17] MEDS: SODIUM CHLORIDE 0.9% 1,000 ML IV SCH (09:06)
[2022-05-17 09:11] LABS: Potassium 3.9 mmol/L (3.5-5.1)
--- NOTE | 2022-05-17 10:21 | P.PN ---
Subjective Progress Note Date: 05/17/22 Principal diagnosis: GI bleed Patient without new complaints. No rectal bleeding per patient. Tolerating regular diet. Hemoglobin 8 after 1 unit transfusion yesterday. No chest pain or abdominal pain. Objective - Vital Signs Vital signs: Vital Signs Temp 98.3 F 05/17/22 03:40 Pulse 59 L 05/17/22 03:40 Resp 16 05/17/22 03:40 BP 110/44 05/17/22 03:40 Pulse Ox 93 L 05/17/22 03:40 FiO2 Intake & Output 05/16/22 05/17/22 05/17/22 18:59 06:59 18:59 Intake Total 1648 900 118 Output Total 300 450 Balance 1348 450 118 Intake: Intake, IV Titration 100 600 Amount Sodium Chloride 0.9% 1, 100 600 000 ml @ 50 mls/hr IV . Q20H [facility] Rx#:[id number] Oral 240 300 118 Blood Product 1308 Platelet Pheresis Pas 344 Psoralen Unit [id number] Rc As-1 Unit 310 [id number] Output: Urine 300 450 Other: Voiding Method Urinal Diaper - Exam Abdomen: Soft, nontender, nondistended - Labs CBC & Chem 7: 05/17/22 08:00 05/17/22 08:00 Labs: Abnormal Lab Results - Last 24 Hours (Table) 05/14/22 05/16/22 05/17/22 Range/Units 12:38 07:36 08:00 RBC 2.73 L (4.30-5.90) m/uL Hgb 8.3 L (13.0-17.5) gm/dL Hct 25.8 L (39.0-53.0) % RDW 18.0 H (11.5-15.5) % Plt Count 34 L (150-450) k/uL Lymphocytes # (Manual) 5.87 H (1.0-4.8) k/uL Sodium (137-145) mmol/L Chloride (98-107) mmol/L BUN (9-20) mg/dL Calcium (8.4-10.2) mg/dL Total Bilirubin (0.2-1.3) mg/dL AST (17-59) U/L Total Protein (6.3-8.2) g/dL Albumin (3.5-5.0) g/dL Crossmatch See Detail 05/17/22 Range/Units 08:00 RBC (4.30-5.90) m/uL Hgb (13.0-17.5) gm/dL Hct (39.0-53.0) % RDW (11.5-15.5) % Plt Count (150-450) k/uL Lymphocytes # (Manual) (1.0-4.8) k/uL Sodium 136 L (137-145) mmol/L Chloride 111 H (98-107) mmol/L BUN 30 H (9-20) mg/dL Calcium 7.2 L (8.4-10.2) mg/dL Total Bilirubin 1.4 H (0.2-1.3) mg/dL AST 65 H (17-59) U/L Total Protein 4.4 L (6.3-8.2) g/dL Albumin 2.6 L (3.5-5.0) g/dL Crossmatch Assessment and Plan (1) GI bleed Narrative/Plan: 81-year-old male with anemia. Patient with ongoing oral chemotherapy for CLL. Patient with severe cardiac disease. Recommend upper and lower endoscopy to evaluate for source of fecal occult blood. Patient states he will consider. Current Visit: Yes Status: Acute Code(s): K92.2 - GASTROINTESTINAL HEMORRHAGE, UNSPECIFIED SNOMED Code(s): 18778551
--- NOTE | 2022-05-17 11:43 | P.PN ---
Subjective Progress Note Date: 05/17/22 Patient is 80-year-old male with past medical history significant for CLL, hypothyroidism, vitamin D deficiency, gastroesophageal reflux disease, NSTEMI in 03/2021 who presented to the emergency department with chest pain. Patient stated that he woke up this morning with left-sided chest pain, pressure-like in nature, was 10 x 10 intensity, nonradiating, not associated with any shortness of breath or diaphoresis. No specific alleviating or aggravating factors. Denies any palpitations, lightheadedness, dizziness, nausea or vomiting. EMS was called, EKG reveled significant ST depression in anterior leads and was brought to the ER for further evaluation. Patient was worked up in the ER, initial WBC was 14.7, hemoglobin 10.2. D-dimer was 0.52. Initial troponin was 0.416. Creatinine was 1.45, bun 30. EKG showed ST depression in leads V4 to V6. Patient was started on pharmacy dose heparin, cardiology was consulted. Patient will be admitted to hospitalist service 05/14 He underwent cardiac catheterization that revealed CAD with 85% proximal circumflex stenosis, 50% proximal LAD stenosis and mid LAD 50-60% stenosis, and small caliber nondominant mid RCA 80% stenosis, High normal left sided filling pressures, Mild aortic stenosis. Initial Plan was for PCI to circumflex on 05/14 but patient developed hematoma of his right forearm. Cardiology had postponed the procedure for now. No chest pain at this time. Denies any shortness of breath. Hemoglobin this morning is 7.6, platelet count is 34 05/15. Patient seen and examined. Right forearm swelling slightly improved, bruising noticeable. Denies any chest pain. Vital signs stable. 05/16. Patient seen and examined. Patient had black tarry stools overnight. Hemoglobin did drop from 8 to 7.1 this morning. Patient being transfuse 1 unit of packed red blood cell. Aspirin and Plavix has been discontinued. Denies any chest pain 05/17. Patient seen and examined. Denies any chest pain. Hemoglobin this morning is 8.3. Platelet count this morning is 34. No abdominal pain. No blood in stools REVIEW OF SYSTEMS: CONSTITUTIONAL: No fever, no malaise,. CARDIOVASCULAR: No palpitations, no syncope. PULMONARY: No shortness of breath, no cough, GASTROINTESTINAL: No diarrhea, no abdominal pain. NEUROLOGICAL: No headaches, no weakness, PHYSICAL EXAMINATION: GENERAL: The patient is alert , not in any acute distress. Well developed, well nourished. HEENT: Pupils are round and equally reacting to light. EOMI. No scleral icterus. No conjunctival pallor. Normocephalic, atraumatic. No pharyngeal erythema. No thyromegaly. CARDIOVASCULAR: S1 and S2 present. No murmurs, rubs, or gallops. PULMONARY: Chest is clear to auscultation, no wheezing or crackles. ABDOMEN: Soft, nontender, nondistended, normoactive bowel sounds. No palpable organomegaly. MUSCULOSKELETAL: Right forearm hematoma improved from yesterday, bruising noticeable. No cyanosis noticeable EXTREMITIES: No cyanosis, clubbing, or pedal edema. NEUROLOGICAL: Gross neurological examination did not reveal any focal deficits. SKIN: No rashes. Assessment and plan Status post cardiac catheterization with 85% proximal circumflex stenosis, 50% proximal LAD stenosis and mid LAD 50-60% stenosis, and small caliber nondominant mid RCA 80% stenosis Coronary artery disease Right radial site edema GI bleed Acute blood loss anemia CLL Thrombocytopenia History hypothyroidism Chronic kidney disease Anemia of chronic disease Dementia Mild aortic stenosis Moderate mitral regurgitation PLAN Monitor vital signs Monitor CBC Continue IV Protonix Continue statin and beta yuko Cardiology At this time, do not recommend repeat heart catheterization and stent placement recommend medical therapy. Patient cannot tolerate aspirin Plavix secondary to GI bleed Hematology oncology evaluated the patient They also recommended to Keep platelets 40-50K on antiplatelet therapy. Monitor Hgb. Transfuse for Hgb <7 or if symptomatic. Hold acalabrutinib for CLL for now. Patient received 1 unit of packed red blood cell and platelets on 05/15. Patient being transfused another unit of platelets and blood on 05/16. Gen. surgery consulted for GI bleed, recommend upper and lower endoscopy Objective - Vital Signs Vital signs: Vital Signs Temp 97.9 F 05/17/22 08:00 Pulse 62 05/17/22 08:00 Resp 16 05/17/22 08:00 BP 112/60 05/17/22 08:00 Pulse Ox 95 05/17/22 08:00 FiO2 Intake & Output 05/16/22 05/17/22 05/17/22 18:59 06:59 18:59 Intake Total 1648 900 118 Output Total 300 450 Balance 1348 450 118 Intake: Intake, IV Titration 100 600 Amount Sodium Chloride 0.9% 1, 100 600 000 ml @ 50 mls/hr IV . Q20H [facility] Rx#:[id number] Oral 240 300 118 Blood Product 1308 Platelet Pheresis Pas 344 Psoralen Unit [id number] Rc As-1 Unit 310 [id number] Output: Urine 300 450 Other: Voiding Method Urinal Urinal Diaper Diaper - Labs CBC & Chem 7: 05/17/22 08:00 05/17/22 08:00 Labs: Abnormal Lab Results - Last 24 Hours (Table) 05/14/22 05/16/22 05/17/22 Range/Units 12:38 07:36 08:00 RBC 2.73 L (4.30-5.90) m/uL Hgb 8.3 L (13.0-17.5) gm/dL Hct 25.8 L (39.0-53.0) % RDW 18.0 H (11.5-15.5) % Plt Count 34 L (150-450) k/uL Lymphocytes # (Manual) 5.87 H (1.0-4.8) k/uL Sodium (137-145) mmol/L Chloride (98-107) mmol/L BUN (9-20) mg/dL Calcium (8.4-10.2) mg/dL Total Bilirubin (0.2-1.3) mg/dL AST (17-59) U/L Total Protein (6.3-8.2) g/dL Albumin (3.5-5.0) g/dL Crossmatch See Detail 05/17/22 Range/Units 08:00 RBC (4.30-5.90) m/uL Hgb (13.0-17.5) gm/dL Hct (39.0-53.0) % RDW (11.5-15.5) % Plt Count (150-450) k/uL Lymphocytes # (Manual) (1.0-4.8) k/uL Sodium 136 L (137-145) mmol/L Chloride 111 H (98-107) mmol/L BUN 30 H (9-20) mg/dL Calcium 7.2 L (8.4-10.2) mg/dL Total Bilirubin 1.4 H (0.2-1.3) mg/dL AST 65 H (17-59) U/L Total Protein 4.4 L (6.3-8.2) g/dL Albumin 2.6 L (3.5-5.0) g/dL Crossmatch
--- NOTE | 2022-05-17 14:37 | P.PN ---
Subjective This is a pleasant 81-year-old male past medical history significant for CLL, hypothyroidism, vitamin D deficiency, gastroesophageal reflux disease, NSTEMI in 03/2021 advised medical therapy. 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 We have been asked to see in consultation for concern for chest pain, elevated troponin. He is somewhat of a poor historian about medical care, but is alert, oriented to person and place. Patient presents to the emergency department with chest pain. He states he woke up with heaviness in his chest early in the morning, states it felt as if someone was sitting on his chest. Non-radiating. It was not resolving. No specific alleviating or aggravating factors. He had some mild shortness of breath. Denies any palpitations, lightheadedness, dizziness, nausea or vomiting. EMS was called, EKG reveled significant ST depression in anterior leads and was brought to the ER for further evaluation. He underwent cardiac catheterization that revealed CAD with 85% proximal circumflex stenosis, 50% proximal LAD stenosis and mid LAD 50-60% stenosis, and small caliber nondominant mid RCA 80% stenosis, High normal left sided filling pressures, Mild aortic stenosis. Plan for PCI to circumflex on 05/14. Echocardiogram revealed EF 50%, hypokinetic basal inferior wall, moderate mitral regurgitation, moderate aortic stenosis, mild aortic regurgitation 05/14/2022 Patient seen and examined at bedside, he is lying comfortably in bed, no acute distress. He had increased confusion and agitation overnight. He has significant right radial edema and bruising post cardiac catheterization yesterday. right radial pulse appreciated. He is more lethargic this morning. BUN 38, serum creatinine 1.2. 05/15 Patient seen and examined. Patient's right forearm appears stable with no increase in swelling. He denies any chest pain or pressure. He remains somewhat lethargic however arousable. 05/16 Patient seen and examined. Patient having black melanotic stools yesterday. He was on aspirin and Plavix. The Plavix was discontinued. Fortunately has not had anymore chest pain or pressure. His hemoglobin did drop to 7.1 and he has been transfused 2 units packed red blood cells. Platelets remained in the 30s. 05/17 Patient seen and examined. Patient denies any chest pain or pressure. He states he is looking forward to going home. He did receive blood transfusion yesterday with hemoglobin up to 8.3. No further hematochezia or melena. Platelets 34 mildly improved from yesterday. PHYSICAL EXAMINATION Blood pressure CONSTITUTIONAL: No apparent distress. HEENT: Neck Supple. No JVD. No carotid bruit. CHEST EXAMINATION: Lungs are diminished bilateral bases to auscultation. No mary st wall tenderness is noted on palpation or with deep breathing. HEART EXAMINATION: Regular rate and rhythm. S1, S2 heard. Systolic ejection murmur at right sternal border and apex, No gallops or rub. ABDOMEN: Soft, nontender. Positive bowel sounds. EXTREMITIES: 1+ right radial pulse, Right radial cath site significant edema and hematoma and bruising. no lower extremity edema and no calf tenderness. NEUROLOGIC EXAMINATION: Patient is lethargic, alert and oriented to person and place ASSESSMENT NSTEMI Status post cardiac catheterization with 85% proximal circumflex stenosis, 50% proximal LAD stenosis and mid LAD 50-60% stenosis, and small caliber nondominant mid RCA 80% stenosis Right radial site edema CLL Thrombocytopenia History hypothyroidism Chronic kidney disease Anemia of chronic disease, hemoglobin stable Dementia Mild aortic stenosis Moderate mitral regurgitation GI bleed PLAN Patient appears relatively stable from a cardiac standpoint. Although he does have significant circumflex stenosis has been doing well without any significant angina. Given severe thrombocytopenia and anemia no current recommendations for stenting. Patient appears stable for discharge home from a cardiac standpoint. Monitor hemoglobin and platelets. Objective - Vital Signs Vital signs: Vital Signs Temp 97.9 F 05/17/22 08:00 Pulse 62 05/17/22 08:00 Resp 16 05/17/22 08:00 BP 112/60 05/17/22 08:00 Pulse Ox 95 05/17/22 08:00 FiO2 Intake & Output 05/16/22 05/17/22 05/17/22 18:59 06:59 18:59 Intake Total 1648 900 236 Output Total 300 450 Balance 1348 450 236 Intake: Intake, IV Titration 100 600 Amount Sodium Chloride 0.9% 1, 100 600 000 ml @ 50 mls/hr IV . Q20H [facility] Rx#:[id number] Oral 240 300 236 Blood Product 1308 Platelet Pheresis Pas 344 Psoralen Unit [id number] Rc As-1 Unit 310 [id number] Output: Urine 300 450 Other: Voiding Method Urinal Urinal Diaper Diaper - Labs CBC & Chem 7: 05/17/22 08:00 05/17/22 08:00 Labs: Abnormal Lab Results - Last 24 Hours (Table) 05/14/22 05/16/22 05/17/22 Range/Units 12:38 07:36 08:00 RBC 2.73 L (4.30-5.90) m/uL Hgb 8.3 L (13.0-17.5) gm/dL Hct 25.8 L (39.0-53.0) % RDW 18.0 H (11.5-15.5) % Plt Count 34 L (150-450) k/uL Lymphocytes # (Manual) 5.87 H (1.0-4.8) k/uL Sodium (137-145) mmol/L Chloride (98-107) mmol/L BUN (9-20) mg/dL Calcium (8.4-10.2) mg/dL Total Bilirubin (0.2-1.3) mg/dL AST (17-59) U/L Total Protein (6.3-8.2) g/dL Albumin (3.5-5.0) g/dL Crossmatch See Detail 05/17/22 Range/Units 08:00 RBC (4.30-5.90) m/uL Hgb (13.0-17.5) gm/dL Hct (39.0-53.0) % RDW (11.5-15.5) % Plt Count (150-450) k/uL Lymphocytes # (Manual) (1.0-4.8) k/uL Sodium 136 L (137-145) mmol/L Chloride 111 H (98-107) mmol/L BUN 30 H (9-20) mg/dL Calcium 7.2 L (8.4-10.2) mg/dL Total Bilirubin 1.4 H (0.2-1.3) mg/dL AST 65 H (17-59) U/L Total Protein 4.4 L (6.3-8.2) g/dL Albumin 2.6 L (3.5-5.0) g/dL Crossmatch
--- NOTE | 2022-05-17 19:54 | P.PN ---
Subjective Progress Note Date: 05/17/22 Platelets remain under 50K, Antiplatelets had been discharged therefore will not transfuse unless evidence of bleeding. Recheck coags today Objective - Vital Signs Vital signs: Vital Signs Temp 97.9 F 05/17/22 08:00 Pulse 62 05/17/22 08:00 Resp 16 05/17/22 08:00 BP 112/60 05/17/22 08:00 Pulse Ox 95 05/17/22 08:00 FiO2 Intake & Output 05/16/22 05/17/22 05/17/22 18:59 06:59 18:59 Intake Total 1648 900 118 Output Total 300 450 Balance 1348 450 118 Intake: Intake, IV Titration 100 600 Amount Sodium Chloride 0.9% 1, 100 600 000 ml @ 50 mls/hr IV . Q20H [facility] Rx#:[id number] Oral 240 300 118 Blood Product 1308 Platelet Pheresis Pas 344 Psoralen Unit [id number] Rc As-1 Unit 310 [id number] Output: Urine 300 450 Other: Voiding Method Urinal Urinal Diaper Diaper - Exam - Constitutional General appearance: average body habitus, cooperative, no acute distress - EENT Eyes: anicteric sclerae, EOMI ENT: hearing grossly normal, normal oropharynx - Neck Neck: no lymphadenopathy - Respiratory Respiratory: bilateral: diminished - Cardiovascular Rhythm: regular Heart sounds: normal: S1, S2 leg Peripheral Edema: bilateral: None - Gastrointestinal General gastrointestinal: no absent bowel sounds, no decreased bowel sounds, no distended, no hepatomegaly, no hyperactive bowel sounds, normal bowel sounds, no organomegaly, no rigid, no scaphoid, soft, no splenomegaly, no tenderness, no umbilical hernia, no ventral hernia - Neurologic Neurologic: CNII-XII intact - Musculoskeletal Musculoskeletal: generalized weakness - Psychiatric Psychiatric: A&O x's 3, appropriate affect, intact judgment & insight - Labs CBC & Chem 7: 05/17/22 08:00 05/17/22 08:00 Labs: Abnormal Lab Results - Last 24 Hours (Table) 05/14/22 05/16/22 05/17/22 Range/Units 12:38 07:36 08:00 RBC 2.73 L (4.30-5.90) m/uL Hgb 8.3 L (13.0-17.5) gm/dL Hct 25.8 L (39.0-53.0) % RDW 18.0 H (11.5-15.5) % Plt Count 34 L (150-450) k/uL Lymphocytes # (Manual) 5.87 H (1.0-4.8) k/uL Sodium (137-145) mmol/L Chloride (98-107) mmol/L BUN (9-20) mg/dL Calcium (8.4-10.2) mg/dL Total Bilirubin (0.2-1.3) mg/dL AST (17-59) U/L Total Protein (6.3-8.2) g/dL Albumin (3.5-5.0) g/dL Crossmatch See Detail 05/17/22 Range/Units 08:00 RBC (4.30-5.90) m/uL Hgb (13.0-17.5) gm/dL Hct (39.0-53.0) % RDW (11.5-15.5) % Plt Count (150-450) k/uL Lymphocytes # (Manual) (1.0-4.8) k/uL Sodium 136 L (137-145) mmol/L Chloride 111 H (98-107) mmol/L BUN 30 H (9-20) mg/dL Calcium 7.2 L (8.4-10.2) mg/dL Total Bilirubin 1.4 H (0.2-1.3) mg/dL AST 65 H (17-59) U/L Total Protein 4.4 L (6.3-8.2) g/dL Albumin 2.6 L (3.5-5.0) g/dL Crossmatch Assessment and Plan (1) Thrombocytopenia Current Visit: Yes Status: Acute Code(s): D69.6 - THROMBOCYTOPENIA, UNSPECIFIED SNOMED Code(s): 271857645 (2) Acute non-ST elevation myocardial infarction (NSTEMI) Current Visit: Yes Status: Acute Code(s): I21.4 - NON-ST ELEVATION (NSTEMI) MYOCARDIAL INFARCTION SNOMED Code(s): 624851906 (3) CLL (chronic lymphocytic leukemia) Current Visit: No Status: Chronic Priority: Medium Code(s): C91.10 - CHRONIC LYMPHOCYTIC LEUK OF B-CELL TYPE NOT ACHIEVE REMIS SNOMED Code(s): 59194525 Plan: Assessment and Plan (1) CLL (chronic lymphocytic leukemia) Current Visit: No Status: Chronic Priority: Medium Code(s): C91.10 - CHRONIC LYMPHOCYTIC LEUK OF B-CELL TYPE NOT ACHIEVE REMIS SNOMED Code(s): 02635372 Plan: If anti-coagulant and anti-platelets need to stay on then will need to transfuse platelets to keep platelets 40-50K on antiplatelet therapy. Monitor Hgb. Monitor for s/s bleeding Transfuse for Hgb <7 or if symptomatic. Hold acalabrutinib for CLL for now. Monitor for DIC Appears that AC has been stopped at this time will monitor for now
[2022-05-17] MEDS: ATORVASTATIN 80 MG TAB PO SCH (20:26)
[2022-05-18] MEDS: SODIUM CHLORIDE 0.9% 500 ML 500 ML IV SCH (00:06)
[2022-05-18] MEDS: SODIUM CHLORIDE 0.9% 1,000 ML IV SCH (02:31)
[2022-05-18] MEDS: LEVOTHYROXINE 50 MCG TAB PO SCH (05:20)
[2022-05-18 08:31] LABS: Anisocytosis Slight; HCT 27.9 % (39.0-53.0); HGB 9.2 gm/dL (13.0-17.5); Hypochromasia Slight; MCH 30.9 pg (25.0-35.0); MCV 93.8 fL (80.0-100.0); Mean Platelet Volume 10.7; Poikilocytosis Slight; RBC 2.98 m/uL (4.30-5.90); WBC 11.3 k/uL (3.8-10.6)
[2022-05-18 08:36] LABS: Platelet Count 36 k/uL (150-450)
[2022-05-18 08:49] LABS: Eosinophils # (M) 0.11 k/uL (0-0.7); Lymphocytes # (M) 6.55 k/uL (1.0-4.8); Metamyelocytes # (M) 0.23 k/uL (0); Metamyelocytes % 2 %; Monocytes # (M) 0.57 k/uL (0-1.0); Neutrophils # (M) 3.84 k/uL (1.3-7.7); Neutrophils % (M) 34 %; Nucleated Red Blood Cells 0 /100 WBC (0-0); Polychromasia Present; Total Cells Counted 100
[2022-05-18] MEDS ORDERED: LACTULOSE 20 GM/30 ML CUP PO ONE (09:44)
--- NOTE | 2022-05-18 09:44 | P.PN ---
Subjective Progress Note Date: 05/18/22 Principal diagnosis: GI bleed Patient without new complaints. Denies abdominal pain. No rectal bleeding or melena. Tolerating diet. Anticoagulation has been held. Labs noted. Objective - Vital Signs Vital signs: Vital Signs Temp 98.2 F 05/18/22 00:00 Pulse 65 05/18/22 03:21 Resp 17 05/18/22 03:21 BP 155/62 05/18/22 03:21 Pulse Ox 94 L 05/18/22 03:21 FiO2 Intake & Output 05/17/22 05/18/22 05/18/22 18:59 06:59 18:59 Intake Total 476 450 Output Total 450 700 Balance 26 -250 Intake: Intake, IV Titration 400 Amount Sodium Chloride 0.9% 1, 400 000 ml @ 50 mls/hr IV . Q20H [facility] Rx#:[id number] Oral 476 50 Output: Urine 450 500 Stool 200 Other: Voiding Method Urinal External Catheter Diaper # Bowel Movements 1 - Exam Abdomen: Soft, nontender, nondistended - Labs CBC & Chem 7: 05/18/22 07:31 05/17/22 08:00 Labs: Abnormal Lab Results - Last 24 Hours (Table) 05/18/22 Range/Units 07:31 WBC 11.3 H (3.8-10.6) k/uL RBC 2.98 L (4.30-5.90) m/uL Hgb 9.2 L (13.0-17.5) gm/dL Hct 27.9 L (39.0-53.0) % RDW 18.0 H (11.5-15.5) % Plt Count 36 L (150-450) k/uL Lymphocytes # (Manual) 6.55 H (1.0-4.8) k/uL Metamyelocytes # (Man) 0.23 H (0) k/uL Assessment and Plan (1) GI bleed Narrative/Plan: Patient is stable from a cardiac and surgery standpoint at this time. Will begin clear liquid diet tomorrow for possible upper and lower endoscopy on Thursday of patient agreeable Current Visit: Yes Status: Acute Code(s): K92.2 - GASTROINTESTINAL HEMORRHAGE, UNSPECIFIED SNOMED Code(s): 99067683
[2022-05-18] MEDS: METOPROLOL TARTRATE 50 MG TAB PO SCH (09:45)
[2022-05-18] MEDS: MEMANTINE 10 MG TAB PO SCH (09:45)
[2022-05-18] MEDS: PANTOPRAZOLE 40 MG/10 ML VIAL IVP SCH (09:45)
[2022-05-18 11:29] VITALS: BP 159/57; PULSE 64; RESP 18; TEMP 97.7
--- NOTE | 2022-05-18 12:13 | P.DS ---
Providers Date of admission: 05/13/22 09:04 Expected date of discharge: 05/18/22 Attending physician: Wilberto Torres Consults: 05/14/22 12:32 Consult Physician Routine Consulting Provider: Torin España Consult Reason/Comments: CLL, thrombocyotpenia Do you want consulting provider notified?: Yes 05/16/22 09:01 Consult Physician Routine Consulting Provider: Pepe Carpio Consult Reason/Comments: blood in stool. gi bleed Do you want consulting provider notified?: Yes Primary care physician: [facility] Course: Discharge diagnoses; Status post cardiac catheterization with 85% proximal circumflex stenosis, 50% proximal LAD stenosis and mid LAD 50-60% stenosis, and small caliber nondominant mid RCA 80% stenosis Coronary artery disease Right radial site edema GI bleed Acute blood loss anemia CLL Thrombocytopenia History hypothyroidism Chronic kidney disease Anemia of chronic disease Dementia Mild aortic stenosis Moderate mitral regurgitation PLAN Being discharged on oral Protonix 40 mg twice a day Patient at this time is refusing EGD and colonoscopy, hemoglobin is stable. Referral sent to GI outpatient for endoscopy Continue statin and beta yuko Cardiology At this time, do not recommend repeat heart catheterization and stent placement recommend medical therapy. Patient cannot tolerate aspirin Plavix secondary to GI bleed Hematology oncology evaluated the patient They also recommended to Keep platelets 40-50K on antiplatelet therapy. Monitor Hgb. Transfuse for Hgb <7 or if symptomatic. Hold acalabrutinib for CLL for now. Patient received 1 unit of packed red blood cell and platelets on 05/15. Patient being transfused another unit of platelets and blood on 05/16. Outpatient follow-up with hematology oncology Hospital course; Patient is 80-year-old male with past medical history significant for CLL, hypothyroidism, vitamin D deficiency, gastroesophageal reflux disease, NSTEMI in 03/2021 who presented to the emergency department with chest pain. Patient stated that he woke up this morning with left-sided chest pain, pressure-like in nature, was 10 x 10 intensity, nonradiating, not associated with any shortness of breath or diaphoresis. No specific alleviating or aggravating factors. Denies any palpitations, lightheadedness, dizziness, nausea or vomiting. EMS was called, EKG reveled significant ST depression in anterior leads and was brought to the ER for further evaluation. Patient was worked up in the ER, initial WBC was 14.7, hemoglobin 10.2. D-dimer was 0.52. Initial troponin was 0.416. Creatinine was 1.45, bun 30. EKG showed ST depression in leads V4 to V6. Patient was started on pharmacy dose heparin, cardiology was consulted. Patient will be admitted to hospitalist service 05/14 He underwent cardiac catheterization that revealed CAD with 85% proximal circumflex stenosis, 50% proximal LAD stenosis and mid LAD 50-60% stenosis, and small caliber nondominant mid RCA 80% stenosis, High normal left sided filling pressures, Mild aortic stenosis. Initial Plan was for PCI to circumflex on 05/14 but patient developed hematoma of his right forearm. Cardiology had postponed the procedure for now. No chest pain at this time. Denies any shortness of breath. Hemoglobin this morning is 7.6, platelet count is 34 05/15. Patient seen and examined. Right forearm swelling slightly improved, bruising noticeable. Denies any chest pain. Vital signs stable. 05/16. Patient seen and examined. Patient had black tarry stools overnight. Hemoglobin did drop from 8 to 7.1 this morning. Patient being transfuse 1 unit of packed red blood cell. Aspirin and Plavix has been discontinued. Denies any chest pain 05/17. Patient seen and examined. Denies any chest pain. Hemoglobin this morning is 8.3. Platelet count this morning is 34. No abdominal pain. No blood in stools 05/18. Hemoglobin continues to be stable, platelet count has improved to 36. Patient not keen to stay in the hospital, was discharged home. Referral sent for outpatient GI for follow-up for EGD and colonoscopy patient cannot tolerate aspirin or Plavix because of GI bleed PHYSICAL EXAMINATION: GENERAL: The patient is alert , not in any acute distress. Well developed, well nourished. HEENT: Pupils are round and equally reacting to light. EOMI. No scleral icterus. No conjunctival pallor. Normocephalic, atraumatic. No pharyngeal erythema. No thyromegaly. CARDIOVASCULAR: S1 and S2 present. No murmurs, rubs, or gallops. PULMONARY: Chest is clear to auscultation, no wheezing or crackles. ABDOMEN: Soft, nontender, nondistended, normoactive bowel sounds. No palpable organomegaly. MUSCULOSKELETAL: No joint swelling or deformity. EXTREMITIES: No cyanosis, clubbing, or pedal edema. NEUROLOGICAL: Gross neurological examination did not reveal any focal deficits. SKIN: No rashes. Patient Condition at Discharge: Fair Plan - Discharge Summary Discharge Rx Participant: No New Discharge Prescriptions: New Pantoprazole Sodium [Protonix] 40 mg PO AC-BID #60 tab Nitroglycerin Sl Tabs [Nitrostat] 0.4 mg SUBLINGUAL Q5M PRN #30 tab PRN Reason: Chest Pain Continue Levothyroxine Sodium [Synthroid] 50 mcg PO DAILY@0400 Memantine [Namenda] 10 mg PO BID Losartan [Cozaar] 25 mg PO DAILY #30 tab Metoprolol Tartrate [Lopressor] 50 mg PO BID #60 tab Atorvastatin [Lipitor] 80 mg PO HS Acalabrutinib Maleate [Calquence] 100 mg PO BID@0500,1700 Discharge Medication List Levothyroxine Sodium [Synthroid] 50 mcg PO DAILY@0400 03/28/21 [History] Losartan [Cozaar] 25 mg PO DAILY #30 tab 04/01/21 [Rx] Metoprolol Tartrate [Lopressor] 50 mg PO BID #60 tab 04/01/21 [Rx] Acalabrutinib Maleate [Calquence] 100 mg PO BID@0500,1700 05/13/22 [History] Atorvastatin [Lipitor] 80 mg PO HS 05/13/22 [History] Memantine [Namenda] 10 mg PO BID 05/13/22 [History] Nitroglycerin Sl Tabs [Nitrostat] 0.4 mg SUBLINGUAL Q5M PRN #30 tab 05/18/22 [Rx] Pantoprazole Sodium [Protonix] 40 mg PO AC-BID #60 tab 05/18/22 [Rx] Follow up Appointment(s)/Referral(s): Skyler Painter DO [STAFF PHYSICIAN] - 1 Week Dona Lira MD [STAFF PHYSICIAN] - [facility] Week [facility] [NON-STAFF] - Roberto Crocker MD [Primary Care Provider] - 1-2 days
--- NOTE | 2022-05-21 08:25 | CDI ---
Documentation Clarification Form Date: 05/21/22 From: Maggie Timmons Admit Date: 05/13/2022 09:04:00 AM Patient Name: Tab Lua Visit Number: [id number] Discharge Date: 05/18/2022 03:34:00 PM ATTENTION: The Clinical Documentation Specialists (CDI) and [facility] Coding Staff appreciate your assistance in clarifying documentation. Please respond to the clarification below the line at the bottom and electronically sign. The CDI & [facility] Coding staff will review the response and follow-up if needed. Please note: Queries are made part of the Legal Health Record. If you have any questions, please contact the author of this message via ITS. Dr. Pablo Condon, Unspecified CKD is documented in the H&P and DS. Additional clarification regarding the stage of CKD is requested. History/Risk Factors: NSTEMI, CAD, CLL, ABLA, melena, thrombocytopenia, chronic anemia Patients Historical BUN/CR/GFR - not available Clinical Indicators: 05/13-05/17/22 Current BUN: 30, 38, 43, 37, 30 Current CR: 1.45, 1.32, 1.49, 1.23, 1.17 Current GFR: 44, 50, 43, 54, 57 Treatment: IV fluids, hold Losartan, during heart cath nearing contrast limit and was decided to stage intervention Please clarify the stage of the CKD, if known: [ ] CKD Stage 1 (GFR > 90) [ ] CKD Stage 2 (GFR 60-89) [ ] CKD Stage 3 (GFR 30-59) [ x ] CKD Stage 3a (GFR 45-59) [ ] CKD Stage 3b (GFR 30-44) [ ] CKD Stage 4 (GFR 15-29) [ ] CKD Stage 5 (GFR <15) [ ] ESRD [ ] Other, please specify [ ] Unable to determine MTDD
--- NOTE | 2022-05-23 10:53 | CDI ---
Documentation Clarification Form Date: 05/21/2022 08:24:00 AM From: Maggie Timmons Admit Date: 05/13/2022 09:04:00 AM Patient Name: Tab uLa Visit Number: [id number] Discharge Date: 05/18/2022 03:34:00 PM ATTENTION: The Clinical Documentation Specialists (CDI) and [facility] Coding Staff appreciate your assistance in clarifying documentation. Please respond to the clarification below the line at the bottom and electronically sign. The CDI & [facility] Coding staff will review the response and follow-up if needed. Please note: Queries are made part of the Legal Health Record. If you have any questions, please contact the author of this message via ITS. Dr. Pablo Condon, Unspecified CKD is documented in the H&P and DS. Additional clarification regarding the stage of CKD is requested. History/Risk Factors: NSTEMI, CAD, CLL, ABLA, melena, thrombocytopenia, chronic anemia Patients Historical BUN/CR/GFR Clinical Indicators: 05/13-05/17/22 Current BUN: 30, 38, 43, 37, 30 Current CR: 1.45, 1.32, 1.49, 1.23, 1.17 Current GFR: 44, 50, 43, 54, 57 Treatment: IV fluids, hold Losartan, during heart cath nearing contrast limit and was decided to stage intervention Please clarify the stage of the CKD, if known: [ ] CKD Stage 1 (GFR > 90) [ ] CKD Stage 2 (GFR 60-89) [ ] CKD Stage 3 (GFR 30-59) [ ] CKD Stage 3a (GFR 45-59) [ ] CKD Stage 3b (GFR 30-44) [ ] CKD Stage 4 (GFR 15-29) [ ] CKD Stage 5 (GFR <15) [ ] ESRD [ ] Other, please specify [ ] Unable to determine MTDD
== END 2022-05-18 15:34 | disposition home health service (06) | DRG 281 ==
LOC: EC 08:27 → 3SCARD 09:04
PROVIDERS: ADMIT Hospitalist; ATTEND Hospitalist
PROC: 4A023N7 Measurement of Cardiac Sampling and Pressure, Left Heart, Percutaneous Approach (ICD-10-PCS; principal; 2022-05-13 13:30)
PROC: B2111ZZ Fluoroscopy of Multiple Coronary Arteries using Low Osmolar Contrast (ICD-10-PCS; principal; 2022-05-13 13:30)
PROC: 30233R1 Transfusion of Nonautologous Platelets into Peripheral Vein, Percutaneous Approach (ICD-10-PCS; 2022-05-14)
PROC: 30233N1 Transfusion of Nonautologous Red Blood Cells into Peripheral Vein, Percutaneous Approach (ICD-10-PCS; 2022-05-14)
DX: I21.4 Non-ST elevation (NSTEMI) myocardial infarction (principal); C91.10 Chronic lymphocytic leukemia of B-cell type not having achieved remission; D62 Acute posthemorrhagic anemia; F02.811 Dementia in other diseases classified elsewhere, unspecified severity, with agitation; K92.1 Melena; D69.6 Thrombocytopenia, unspecified; D63.1 Anemia in chronic kidney disease; I95.9 Hypotension, unspecified; K21.9 Gastro-esophageal reflux disease without esophagitis; G20 Parkinson's disease; I25.110 Atherosclerotic heart disease of native coronary artery with unstable angina pectoris; N18.31 Chronic kidney disease, stage 3a; I08.3 Combined rheumatic disorders of mitral, aortic and tricuspid valves; M79.81 Nontraumatic hematoma of soft tissue; D63.0 Anemia in neoplastic disease; I44.0 Atrioventricular block, first degree; I25.2 Old myocardial infarction; E03.9 Hypothyroidism, unspecified; E55.9 Vitamin D deficiency, unspecified; Z79.890 Hormone replacement therapy; Z79.899 Other long term (current) drug therapy; Z87.440 Personal history of urinary (tract) infections
CPT/HCPCS: 36415; 71046; 80048; 80053; 80076; 81001; 82272; 83010; 83615; 83690; 83735; 83880; 84484; 85025; 85027; 85045; 85379; 85384; 85610; 85730; 86850; 86900; 86901; 86920; 93005; 93306; 93458; 96365; 96366; 99291

== ENCOUNTER 2023-01-28 20:43 | Observation (INO) | payer MEDICARE, OTHER ==
--- NOTE | 2023-01-28 21:56 | ED ---
General Adult HPI - General Chief complaint: Chest Pain Stated complaint: Chest Pain Time Seen by Provider: 01/28/23 21:02 Source: EMS, RN notes reviewed, old records reviewed Mode of arrival: EMS Limitations: no limitations - History of Present Illness Initial comments: 82-year-old male history of coronary artery disease presents for evaluation of chest pain which was related to exertion. This episode lasted approximately 30 minutes. It was relieved by nitroglycerin. The patient has no chest pain at the time my evaluation. He does have known coronary artery disease. No vomiting. No abdominal pain. No fever. - Related Data Home Medications Medication Instructions Recorded Confirmed Levothyroxine Sodium [Synthroid] 50 mcg PO DAILY 03/28/21 01/28/23 Acalabrutinib Maleate [Calquence] 100 mg PO DAILY 05/13/22 01/28/23 Atorvastatin [Lipitor] 80 mg PO HS 05/13/22 01/28/23 Memantine [Namenda] 10 mg PO BID 05/13/22 01/28/23 Carbidopa-Levodopa ER 25-100Mg 2 tab PO BID 01/28/23 01/28/23 [Sinemet CR 25-100 mg] Cholecalciferol [Vitamin D3 (10 10 mcg PO DAILY 01/28/23 01/28/23 Mcg = 400 Iu)] Super B Complex 1 tab PO DAILY 01/28/23 01/28/23 Previous Rx's Medication Instructions Recorded Losartan [Cozaar] 25 mg PO DAILY #30 tab 04/01/21 Metoprolol Tartrate [Lopressor] 50 mg PO BID #60 tab 04/01/21 Nitroglycerin Sl Tabs [Nitrostat] 0.4 mg SUBLINGUAL Q5M PRN #30 tab 05/18/22 Pantoprazole Sodium [Protonix] 40 mg PO AC-BID #60 tab 05/18/22 Allergies Allergy/AdvReac Type Severity Reaction Status Date / Time No Known Allergies Allergy Verified 01/28/23 22:03 Review of Systems ROS Statement: Those systems with pertinent positive or pertinent negative responses have been documented in the HPI. ROS Other: All systems not noted in ROS Statement are negative. Past Medical History Past Medical History: No Reported History, Cancer, Chest Pain / Angina Additional Past Medical History / Comment(s): [place], CLL, parkinsons, dementia History of Any Multi-Drug Resistant Organisms: None Reported Past Surgical History: Hernia Repair Past Anesthesia/Blood Transfusion Reactions: No Reported Reaction Additional Past Anesthesia/Blood Transfusion Reaction / Comment(s): PATIENT STATES HE HAS NEVER HAD A BLOOD TRANSFUSION Past Psychological History: No Psychological Hx Reported Smoking Status: Never smoker Past Alcohol Use History: Rare Past Drug Use History: None Reported General Exam Limitations: no limitations General appearance: alert, in no apparent distress Head exam: Present: atraumatic, normocephalic Eye exam: Present: normal appearance, PERRL ENT exam: Present: normal exam Neck exam: Present: normal inspection. Absent: tenderness Respiratory exam: Present: normal lung sounds bilaterally. Absent: respiratory distress, wheezes Cardiovascular Exam: Present: regular rate, normal rhythm GI/Abdominal exam: Present: soft. Absent: distended, tenderness, guarding Extremities exam: Present: normal inspection, normal capillary refill Neurological exam: Present: alert, oriented X3, CN II-XII intact. Absent: motor sensory deficit Psychiatric exam: Present: normal affect, normal mood Skin exam: Present: warm, dry, intact Course Vital Signs 01/28/23 01/28/23 20:52 22:31 Pulse Rate 65 57 L Respiratory 18 18 Rate Blood Pressure 153/68 183/78 O2 Sat by Pulse 99 99 Oximetry Medical Decision Making - Medical Decision Making Was pt. sent in by a medical professional or institution (FRANCK Araujo, [employer], urgent care, hospital, or care home...) When possible be specific @ -No Did you speak to anyone other than the patient for history (EMS, parent, family, police, friend...)? What history was obtained from this source @ -No Did you review nursing and triage notes (agree or disagree)? Why? @ -I reviewed and agree with nursing and triage notes Were old charts reviewed (outside hosp., previous admission, EMS record, old EKG, old radiological studies, urgent care reports/EKG's, care home records)? Report findings @ -[Reviewed heart cath from Differential Diagnosis (chest pain, altered mental status, abdominal pain women, abdominal pain men, vaginal bleeding, weakness, fever, dyspnea, syncope, headache, dizziness, GI bleed, back pain, seizure, CVA, palpatations, mental health, musculoskeletal)? @ Differential Chest Pain: Stable Angina, Unstable Angina, STEMI, NSTEMI Aortic Dissection, Pneumothorax, Musculoskeletal, Esophageal Spasm GERD, Cholecystitis, Pancreatitis, Zoster, this is not meant to be an all-inclusive list. EKG interpreted by me (3pts min.). @ -EKG: Sinus rhythm rate of 65, VT interval 232 consistent with a first-degree AV block, QRS duration 123, QTC [address] segment elevation. X-rays interpreted by me (1pt min.). @ -COPD, CHF CT interpreted by me (1pt min.). @ -None done U/S interpreted by me (1pt. min.). @ -None done What testing was considered but not performed or refused? (CT, X-rays, U/S, labs)? Why? @ -None What meds were considered but not given or refused? Why? @ -None Did you discuss the management of the patient with other professionals (professionals i.e. , PA, INTERIOR BLOCK [employer]ER, lab, RT, psych nurse, rn social work, office bookkeeper, teacher, staff submarine warfare officer, telephonic nurse case manager)? Give summary @ -[Case discussed with Dr. Crocker Was smoking cessation discussed for >3mins.? @ -No Was critical care preformed (if so, how long)? @ -No Were there social determinants of health that impacted care today? How? (Mini elessness, low income, unemployed, alcoholism, drug addiction, transportation, low edu. Level, literacy, decrease access to med. care, detention, rehab)? @ -No Was there de-escalation of care discussed even if they declined (Discuss DNR or withdrawal of care, Hospice)? DNR status @ -No What co-morbidities impacted this encounter? (DM, HTN, Smoking, COPD, CAD, Cancer, CVA, ARF, Chemo, Hep., AIDS, mental health diagnosis, sleep apnea, morbid obesity)? @ -COPD, CHF, coronary artery disease Was patient admitted / discharged? Hospital course, mention meds given and route, prescriptions, significant lab abnormalities, going to OR and other pertinent info. @ -[82-year-old male presenting for an episode of chest pain which was exertional, substernal, relieved by nitroglycerin. EKG is without ST segment elevation. Chest x-ray shows mild CHF and hyperinflation. Patient has chronic stable lab abnormalities including chronic anemia, headache, cytopenia. He has a negative initial troponin. Patient will be kept in observation for telemetry, cardiology consultation, serial cardiac enzymes. Undiagnosed new problem with uncertain prognosis? @ -No Drug Therapy requiring intensive monitoring for toxicity (Heparin, Nitro, Insulin, Cardizem)? @ -No Were any procedures done? @ -No Diagnosis/symptom? @ -[Chest pain rule out Acute, or Chronic, or Acute on Chronic? @ -[Acute Uncomplicated (without systemic symptoms) or Complicated (systemic symptoms)? @ -default Side effects of treatment? @ -No Exacerbation, Progression, or Severe Exacerbation? @ -No Poses a threat to life or bodily function? How? (Chest pain, [place], IA, pneumonia, PE, COPD, DKA, ARF, appy, cholecystitis, CVA, Diverticulitis, Homicidal, Suicidal, threat to staff... and all critical care pts) @ -[Yes, chest pain - Lab Data Result diagrams: 01/28/23 20:50 01/28/23 20:50 Lab Results 01/28/23 01/28/23 01/28/23 Range/Units 20:50 20:50 20:50 WBC 11.1 H (3.8-10.6) k/uL RBC 2.33 L (4.30-5.90) m/uL Hgb 7.2 L (13.0-17.5) gm/dL Hct 22.1 L (39.0-53.0) % MCV 95.1 (80.0-100.0) fL MCH 30.7 (25.0-35.0) pg MCHC 32.3 (31.0-37.0) g/dL RDW 17.3 H (11.5-15.5) % Plt Count 32 L (150-450) k/uL MPV 11.6 Neutrophils % (Manual) 41 % Lymphocytes % (Manual) 53 % Monocytes % (Manual) 6 % Neutrophils # (Manual) 4.55 (1.3-7.7) k/uL Lymphocytes # (Manual) 5.88 H (1.0-4.8) k/uL Monocytes # (Manual) 0.67 (0-1.0) k/uL Nucleated RBCs 0 (0-0) /100 WBC Manual Slide Review Performed Large Platelets Present Polychromasia Present Hypochromasia Marked Poikilocytosis Slight Anisocytosis Slight PT 10.9 (9.0-12.0) sec INR 1.0 (<1.2) APTT 23.3 (22.0-30.0) sec Sodium 134 L (137-145) mmol/L Potassium 3.9 (3.5-5.1) mmol/L Chloride 104 (98-107) mmol/L Carbon Dioxide 21 L (22-30) mmol/L Anion Gap 9 mmol/L BUN 22 H (9-20) mg/dL Creatinine 1.32 H (0.66-1.25) mg/dL Est GFR (CKD-EPI)AfAm 57 (>60 ml/min/1.73 sqM) Est GFR (CKD-EPI)NonAf 49 (>60 ml/min/1.73 sqM) Glucose 110 H (74-99) mg/dL Calcium 7.9 L (8.4-10.2) mg/dL Magnesium 2.0 (1.6-2.3) mg/dL Total Bilirubin 0.8 (0.2-1.3) mg/dL AST 22 (17-59) U/L ALT 15 (4-49) U/L Alkaline Phosphatase 81 (38-126) U/L Troponin I (0.000-0.034) ng/mL NT-Pro-B Natriuret Pep 2240 pg/mL Total Protein 5.3 L (6.3-8.2) g/dL Albumin 3.2 L (3.5-5.0) g/dL 01/28/23 Range/Units 20:50 WBC (3.8-10.6) k/uL RBC (4.30-5.90) m/uL Hgb (13.0-17.5) gm/dL Hct (39.0-53.0) % MCV (80.0-100.0) fL MCH (25.0-35.0) pg MCHC (31.0-37.0) g/dL RDW (11.5-15.5) % Plt Count (150-450) k/uL MPV Neutrophils % (Manual) % Lymphocytes % (Manual) % Monocytes % (Manual) % Neutrophils # (Manual) (1.3-7.7) k/uL Lymphocytes # (Manual) (1.0-4.8) k/uL Monocytes # (Manual) (0-1.0) k/uL Nucleated RBCs (0-0) /100 WBC Manual Slide Review Large Platelets Polychromasia Hypochromasia Poikilocytosis Anisocytosis PT (9.0-12.0) sec INR (<1.2) APTT (22.0-30.0) sec Sodium (137-145) mmol/L Potassium (3.5-5.1) mmol/L Chloride (98-107) mmol/L Carbon Dioxide (22-30) mmol/L Anion Gap mmol/L BUN (9-20) mg/dL Creatinine (0.66-1.25) mg/dL Est GFR (CKD-EPI)AfAm (>60 ml/min/1.73 sqM) Est GFR (CKD-EPI)NonAf (>60 ml/min/1.73 sqM) Glucose (74-99) mg/dL Calcium (8.4-10.2) mg/dL Magnesium (1.6-2.3) mg/dL Total Bilirubin (0.2-1.3) mg/dL AST (17-59) U/L ALT (4-49) U/L Alkaline Phosphatase (38-126) U/L Troponin I 0.017 (0.000-0.034) ng/mL NT-Pro-B Natriuret Pep pg/mL Total Protein (6.3-8.2) g/dL Albumin (3.5-5.0) g/dL Disposition Clinical Impression: Chest pain, Thrombocytopenia Disposition: ADMITTED IP TO THIS [facility] Condition: Stable Is patient prescribed a controlled substance at d/c from ED?: No Referrals: Jostin Crocker MD [Primary Care Provider] - 1-2 days Time of Disposition: 23:08
--- NOTE | 2023-01-28 22:04 | XR ---
EXAMINATION TYPE: XR chest 2V DATE OF EXAM: 01/28/2023 COMPARISON: 05/13/2022 HISTORY: 82-year-old male with chest pain TECHNIQUE: AP and lateral views FINDINGS: Heart mild to moderately enlarged. Hyperinflation. Diffuse interstitial density. Old healed bilateral rib fracture deformities. Patchy posterior basilar opacity on the lateral view. No sizable pleural e ffusion. IMPRESSION: Cardiomegaly with COPD. Diffuse interstitial density. Correlate for CHF with pulmonary vascular conge stion. Patchy posterior basilar atelectasis versus early developing patchy pulmonary edema.
[2023-01-28 22:29] LABS: Partial Thromboplastin Time 23.3 sec (22.0-30.0); Prothrombin Time 10.9 sec (9.0-12.0)
[2023-01-28 22:33] LABS: Anisocytosis Slight; HCT 22.1 % (39.0-53.0); HGB 7.2 gm/dL (13.0-17.5); Hypochromasia Marked; MCH 30.7 pg (25.0-35.0); MCHC 32.3 g/dL (31.0-37.0); MCV 95.1 fL (80.0-100.0); Mean Platelet Volume 11.6; Poikilocytosis Slight; RBC 2.33 m/uL (4.30-5.90); RDW 17.3 % (11.5-15.5); WBC 11.1 k/uL (3.8-10.6)
[2023-01-28 22:35] LABS: ALT 15 U/L (4-49); AST 22 U/L (17-59); African American GFR (CKD) 57 (>60 ml/min/1.73 sqM); Albumin 3.2 g/dL (3.5-5.0); Alkaline Phosphatase 81 U/L (38-126); Anion Gap 9 mmol/L; Blood Urea Nitrogen 22 mg/dL (9-20); Calcium 7.9 mg/dL (8.4-10.2); Carbon Dioxide 21 mmol/L (22-30); Chloride 104 mmol/L (98-107); Glucose 110 mg/dL (74-99); Non-African American GFR(CKD) 49 (>60 ml/min/1.73 sqM); Potassium 3.9 mmol/L (3.5-5.1); Sodium 134 mmol/L (137-145); Total Bilirubin 0.8 mg/dL (0.2-1.3); Total Protein 5.3 g/dL (6.3-8.2)
[2023-01-28 22:42] LABS: NT-Pro-B-Type Natriuretic Pept 2240 pg/mL
[2023-01-28 22:59] LABS: Lymphocytes # (M) 5.88 k/uL (1.0-4.8); Monocytes # (M) 0.67 k/uL (0-1.0); Neutrophils # (M) 4.55 k/uL (1.3-7.7); Neutrophils % (M) 41 %; Nucleated Red Blood Cells 0 /100 WBC (0-0); Total Cells Counted 100
[2023-01-28 23:00] LABS: Platelet Count 32 k/uL (150-450); Polychromasia Present
[2023-01-28 23:01] LABS: Large Platelets Present
[2023-01-28] MEDS ORDERED: ACETAMINOPHEN TAB 325 MG TAB PO PRN (23:04)
[2023-01-28] MEDS ORDERED: NALOXONE 0.4 MG/ML 1 ML VIAL IV PRN (23:04)
[2023-01-28] MEDS ORDERED: METOPROLOL TARTRATE 50 MG TAB PO STA (23:04)
[2023-01-29] MEDS ORDERED: HEPARIN SODIUM 1,000 UN/ML (10ML VL) IV PRN (03:42)
[2023-01-29] MEDS ORDERED: HEPARIN SODIUM 1,000 UN/ML (10ML VL) IV ONE (03:42)
[2023-01-29] MEDS ORDERED: HEPARIN SOD,PORK IN 0.45% NACL 25,000 UNIT in 0.45% NACL 1 250ML.BAG IV SCH (03:45)
[2023-01-29] MEDS: NITROGLYCERIN OINT 1 INCH/GM PACKET TOPICAL SCH ×2 (04:08→08:42)
[2023-01-29] MEDS ORDERED: NITROGLYCERIN SL TABS 0.4 MG TAB SUBLINGUAL PRN (08:17)
[2023-01-29] MEDS ORDERED: NON FORMULARY DRUG (Super B Complex 1 TAB) PO SCH (09:00)
[2023-01-29] MEDS: ISOSORBIDE MONONITRATE ER 30 MG TAB.ER.24H PO SCH (09:36)
[2023-01-29] MEDS: CHOLECALCIFEROL 10 MCG (400 IU) TABLET PO SCH (09:36)
[2023-01-29] MEDS: LOSARTAN 25 MG TAB PO SCH (09:36)
[2023-01-29] MEDS: LEVOTHYROXINE 50 MCG TAB PO SCH (09:37)
[2023-01-29] MEDS: CARBIDOPA-LEVODOPA ER 25-100MG 1 EACH TABLET.ER PO SCH ×2 (09:37→21:02)
[2023-01-29] MEDS: METOPROLOL TARTRATE 50 MG TAB PO SCH ×2 (09:37→21:02)
[2023-01-29] MEDS: PANTOPRAZOLE 40 MG TABLET PO SCH ×2 (09:37→17:20)
[2023-01-29] MEDS: MEMANTINE 10 MG TAB PO SCH ×2 (09:37→21:02)
--- NOTE | 2023-01-29 12:19 | P.CRDCN ---
History of Present Illness Consult date: 01/29/23 Consult reason: chest pain History of present illness: History of present illness: This is an 82-year-old male with past medical history of CLL, hypertension, hyperlipidemia, hypothyroidism, gastroesophageal reflux disease, history of non- ST elevated myocardial infarction and 2020 with medical therapy advised at the time and diagnosed with a non-ST elevated myocardial infarction 04/2022 and underwent cardiac catheterization that revealed CAD 85% proximal circumflex stenosis, 50% proximal LAD stenosis, mid LAD at 50-60% stenosis in caliber nondominant mid RCA 80% stenosis. Plan was for staged intervention. Unfortunately, patient developed hematoma on the right forearm and procedure was to be postponed. Patient was found to have a GI bleed and hemoglobin drop as well as low platelets. Medical therapy was recommended at that time. We have been asked to evaluate the patient for chest pain. Patient states that he developed an episode of chest pain in the midsternal area felt like someone was stepping on his chest after he had walked a half a block. He normally walks assistance without any symptoms. Patient states that he has been eating and drinking okay. EKG sinus rhythm with left axis deviation Chest x-ray: Cardiomegaly with COPD. Diffuse interstitial density. Correlate for heart failure with pulmonary vascular congestion. Patchy posterior basilar atelectasis versus early developing patchy pulmonary edema. WBC 11.1, hemoglobin 7.2, platelet count 32. INR 1.0. Sodium 134, potassium 3.9, BUN 22 and creatinine 1.32. Troponin 0.017, 0.036 and 0.034. ProBNP 2240. Liver function tests normal. Magnesium 2. Blood sugar 110. Calcium 7.9. Home cardiac medications: Lipitor 80 mg at bedtime, losartan 25 mg daily, Lopressor 50 mg twice daily, Nitrostat as needed, patient is also on levothyroxine 50 g daily, Protonix 40 mg twice daily and also on Acalabrutinib. Echocardiogram 04/2022 revealed EF 50%, RVSP 33, moderate mitral regurgitation, mild aortic regurgitation, moderate aortic stenosis, mild tricuspid regurgitation. No pericardial effusion. Review Of Systems: At the time of my evaluation: Constitutional: No fever, no chills. No weakness, fatigue or lethargy. EENT: No headache. No dizziness. Lungs: No shortness of breath, cough, no sputum production. No wheezing. Cardiovascular: No chest pain, no lower extremity edema. No palpitations. No paroxysmal nocturnal dyspnea. No orthopnea. No lightheadedness or dizziness. No syncopal episodes. Abdominal: No abdominal pain. No nausea, vomiting. No diarrhea. No constipation. No bloody or tarry stools. Genitourinary: No dysuria.. No urinary retention. Musculoskeletal: No myalgias. No muscle weakness, no frequent falls. No back p ain. No neck pain. Integumentary: No wounds. No rash. No unusual bruising. Neurologic: No aphasia. No facial droop. No change in mentation. No head injury. No headache. Physical examination: Gen: This is an 82-year-old male. He is resting in bed and appears to be comfortable. VS: reviewed HEENT: Head is atraumatic, normocephalic. Pupils equal, round. Sclerae is anicteric. NECK: Supple. No JVD. LUNGS: Clear to auscultation. No wheezes or rhonchi. No intercostal retractions. HEART: Regular rate and rhythm. No murmur. ABDOMEN: Soft No tenderness. EXTREMITIES: No pedal edema. No calf tenderness. NEUROLOGICAL: Patient is awake, alert and oriented x3. Assessment: Chest pain most likely secondary to symptomatic anemia Bicytopenia with anemia and thrombocytopenia secondary to CLL CAD with severe obstructive disease Moderate aortic stenosis Hypertension Hyperlipidemia Hypothyroidism, gastroesophageal reflux disease Known coronary artery disease Plan: Continue home cardiac medications Continue Protonix 40 mg twice daily Hold aspirin due to anemia Monitor hemoglobin/anemia closely and transfuse as indicated Obtain good blood pressure control Plan for medical management and no aggressive cardiac workup at this time Obtain 2-D echocardiogram and Doppler study to assess cardiac structure and function Further recommendations to follow based upon clinical course Thank you kindly for this consultation. Nurse practitioner note has been reviewed, I agree with documented findings and plan of care. Patient was seen and examined. Dr. Steinberg's Addendum Patient presented with chest pain which is most likely due to symptomatic anemia. Due to his anemia and leukocytopenia he is not on an antiplatelet therapy despite having severe obstructive coronary artery disease. No evidence of ACS at this time. We will obtain an echocardiogram to assess aortic stenosis. We will add antianginal therapy and controlled his blood pressure. I have personally seen and examined the patient. I have personally performed all the components of medical care documented above including detailed hisotry, review of system, physican exam, MDM and formulating the assessment and plan. I have personally reviewed the relevant labs, imaging and other diagnostics. I have discussed this in detail with my [employer]ER who has helped me with this documentation. I have carefully reviewed this document before finalizing. Thank you for letting cardiology team participating in this patient's care. Dr. Parag Steinberg MD Cardiovascular Disease Past Medical History Past Medical History: Cancer, Chest Pain / Angina, Dementia, GERD/Reflux, Hypertension, Thyroid Disorder Additional Past Medical History / Comment(s): CLL, leukemia, parkinsons History of Any Multi-Drug Resistant Organisms: None Reported Past Surgical History: Heart Catheterization, Hernia Repair Past Anesthesia/Blood Transfusion Reactions: No Reported Reaction Additional Past Anesthesia/Blood Transfusion Reaction / Comment(s): PATIENT STATES HE HAS NEVER HAD A BLOOD TRANSFUSION Past Psychological History: No Psychological Hx Reported Smoking Status: Never smoker Past Alcohol Use History: Rare Past Drug Use History: None Reported Medications and Allergies Home Medications Medication Instructions Recorded Confirmed Type Levothyroxine Sodium [Synthroid] 50 mcg PO DAILY 03/28/21 01/28/23 History Losartan [Cozaar] 25 mg PO DAILY #30 tab 04/01/21 01/28/23 Rx Metoprolol Tartrate [Lopressor] 50 mg PO BID #60 tab 04/01/21 01/28/23 Rx Acalabrutinib Maleate [Calquence] 100 mg PO DAILY 05/13/22 01/28/23 History Atorvastatin [Lipitor] 80 mg PO HS 05/13/22 01/28/23 History Memantine [Namenda] 10 mg PO BID 05/13/22 01/28/23 History Nitroglycerin Sl Tabs [Nitrostat] 0.4 mg SUBLINGUAL Q5M PRN #30 tab 05/18/22 01/28/23 Rx Pantoprazole Sodium [Protonix] 40 mg PO AC-BID #60 tab 05/18/22 01/28/23 Rx Carbidopa-Levodopa ER 25-100Mg 2 tab PO BID 01/28/23 01/28/23 History [Sinemet CR 25-100 mg] Cholecalciferol [Vitamin D3 (10 10 mcg PO DAILY 01/28/23 01/28/23 History Mcg = 400 Iu)] Super B Complex 1 tab PO DAILY 01/28/23 01/28/23 History Allergies Allergy/AdvReac Type Severity Reaction Status Date / Time No Known Allergies Allergy Verified 01/28/23 22:03 Physical Exam Vitals: Vital Signs Temp Pulse Pulse Resp BP BP Pulse Ox 01/29/23 07:00 98.2 F 60 16 147/67 97 01/29/23 00:35 97.7 F 60 15 177/78 97 01/28/23 23:54 60 18 187/80 99 01/28/23 22:31 57 L 18 183/78 99 01/28/23 20:52 65 18 153/68 99 Intake and Output 01/28/23 01/29/23 01/29/23 22:59 06:59 14:59 Other: Voiding Method Toilet # Voids 2 Weight 90.718 kg 90.718 kg Results 01/28/23 20:50 01/28/23 20:50 Cardiac Enzymes 01/28/23 01/28/23 01/29/23 Range/Units 20:50 20:50 01:33 AST 22 (17-59) U/L Troponin I 0.017 0.036 H* (0.000-0.034) ng/mL 01/29/23 Range/Units 05:37 AST (17-59) U/L Troponin I 0.034 (0.000-0.034) ng/mL Coagulation 01/28/23 Range/Units 20:50 PT 10.9 (9.0-12.0) sec APTT 23.3 (22.0-30.0) sec CBC 01/28/23 Range/Units 20:50 WBC 11.1 H (3.8-10.6) k/uL RBC 2.33 L (4.30-5.90) m/uL Hgb 7.2 L (13.0-17.5) gm/dL Hct 22.1 L (39.0-53.0) % Plt Count 32 L (150-450) k/uL Comprehensive Metabolic Panel 01/28/23 Range/Units 20:50 Sodium 134 L (137-145) mmol/L Potassium 3.9 (3.5-5.1) mmol/L Chloride 104 (98-107) mmol/L Carbon Dioxide 21 L (22-30) mmol/L BUN 22 H (9-20) mg/dL Creatinine 1.32 H (0.66-1.25) mg/dL Glucose 110 H (74-99) mg/dL Calcium 7.9 L (8.4-10.2) mg/dL AST 22 (17-59) U/L ALT 15 (4-49) U/L Alkaline Phosphatase 81 (38-126) U/L Total Protein 5.3 L (6.3-8.2) g/dL Albumin 3.2 L (3.5-5.0) g/dL Current Medications Generic Name Dose Route Start Last Admin Trade Name Freq PRN Reason Stop Dose Admin Acetaminophen 650 mg 01/28/23 23:04 Acetaminophen Tab 325 Mg Tab PO Q6HR PRN Mild Pain or Fever > 100.5 Naloxone HCl 0.2 mg 01/28/23 23:04 Naloxone 0.4 Mg/Ml 1 Ml Vial IV Q2M PRN Opioid Reversal Nitroglycerin 1 inch 01/29/23 04:00 01/29/23 04:08 Nitroglycerin Oint 1 Inch/Gm Packet TOPICAL 1 inch Q8HR WARREN Administration Intake and Output 01/28/23 01/29/23 01/29/23 22:59 06:59 14:59 Other: Voiding Method Toilet # Voids 2 Weight 90.718 kg 90.718 kg 01/28/23 20:50 01/28/23 20:50
[2023-01-29] MEDS: SUCRALFATE 1 GM TAB PO SCH ×2 (12:53→17:20)
--- NOTE | 2023-01-29 13:24 | CA ---
Transthoracic Echo Report Name: Tab Lua Age: 82 Gender: M : 1940 Exam Date: 01/29/2023 11:14 Exam Location: [facility] Ht (in): 72 Wt (lb): 200 Ordering Physician: Ana Palmer Attending/Referring Phys: Real Wilder MD Humidifier Maintenance Worker Erin Green RDCS Procedure CPT: Indications: LVF Cardiac Hx: Technical Quality: Good Contrast 1: Total Dose (mL): Contrast 2: Total Dose (mL): MEASUREMENTS (Male / Female) Normal Values 2D ECHO LV Diastolic Diameter PLAX 4.5 cm 4.2 - 5.9 / 3.9 - 5.3 cm LV Systolic Diameter PLAX 3.2 cm IVS Diastolic Thickness 1.6 cm 0.6 - 1.0 / 0.6 - 0.9 cm LVPW Diastolic Thickness 1.4 cm 0.6 - 1.0 / 0.6 - 0.9 cm LV Relative Wall Thickness 0.7 RV Internal Dim ED PLAX 4.0 cm LVOT Diameter 2.3 cm LA Systolic Diameter LX 3.9 cm 3.0 - 4.0 / 2.7 - 3.8 cm LV Diastolic Volume MOD 4C 134.7 cm??? LV Systolic Volume MOD 4C 54.3 cm??? LV Ejection Fraction MOD 4C 59.7 % LV Cardiac Index MOD 4C 2233.1 cm???/min???m??? LV Diastolic Length 4C 8.8 cm LV Systolic Length 4C 6.7 cm LV Diastolic Volume MOD 2C 136.5 cm??? LV Systolic Volume MOD 2C 54.8 cm??? LV Ejection Fraction MOD 2C 59.9 % LV Cardiac Index MOD 2C 2270.2 cm???/min???m??? LV Diastolic Length 2C 8.6 cm LV Systolic Length 2C 7.0 cm LA Volume 95.4 cm??? 18 - 58 / 22 - 52 cm??? M-MODE Aortic Root Diameter MM 3.9 cm MV E Point Septal Separation 0.8 cm AV Cusp Separation MM 1.3 cm DOPPLER AV Peak Velocity 356.3 cm/s AV Peak Gradient 50.8 mmHg AV Mean Velocity 281.5 cm/s AV Mean Gradient 36.2 mmHg AV Velocity Time Integral 102.6 cm AI Peak Velocity 439.1 cm/s AI Peak Gradient 77.1 mmHg AI Pressure Half Time 390.0 ms LVOT Peak Velocity 129.5 cm/s LVOT Peak Gradient 6.7 mmHg AV Area Cont Eq pk 1.5 cm??? MV Area PHT 3.3 cm??? Mitral E Point Velocity 126.2 cm/s Mitral A Point Velocity 81.0 cm/s Mitral E to A Ratio 1.6 MV Deceleration Time 230.9 ms TR Peak Velocity 283.7 cm/s TR Peak Gradient 32.2 mmHg Right Ventricular Systolic Press 36.2 mmHg FINDINGS Left Ventricle Left ventricular ejection fraction is estimated at 55-60 %. Left ventricular cavity size normal. Mild septal hypertrophy. No obvious regional wall motion abnormality Right Ventricle Mild right ventricular dilatation. RVSP estimated at 35 mmHg Right Atrium Normal right atrial size. Left Atrium Moderate left atrial dilatation Mitral Valve Mitral valve thickened. Mild mitral annular calcification. Moderate mitral regurgitation Aortic Valve Moderate aortic valve sclerosis. Moderate aortic stenosis a mean gradient of 36 mmHg. Moderate aortic regurgitation. Tricuspid Valve Structurally normal tricuspid valve. Mild tricuspid regurgitation. Pulmonic Valve Pulmonic valve not well visualized. Trace pulmonic regurgitation. Pericardium No pericardial effusion. Aorta Mildly dilated proximal ascending aorta 39 mm CONCLUSIONS Normal LV size. Mildly increased septal thickness. Normal LV systolic function. EF estimated at 55% No obvious regional wall motion abnormality Moderate aortic stenosis, mean gradient 36 mmHg Moderate aortic regurgitation Moderate mitral regurgitation Moderate left atrial dilatation When compared to prior echo from 05/13, MR and AI appear similar. Aortic stenosis has progressed Previewed by: Dr Parag Steinberg (Electronically Signed) Final Date: 29 January 2023 13:24
[2023-01-29] MEDS: methylPREDNISolone SOD SUCCI 40 MG/ML 1 ML VIAL IV SCH (18:38)
[2023-01-29] MEDS ORDERED: ATORVASTATIN 80 MG TAB PO SCH (21:00)
[2023-01-29] MEDS: BUDESONIDE 0.5 MG/2 ML NEBU INHALATION SCH (21:21)
[2023-01-29] MEDS: IPRATROPIUM-ALBUTEROL 3 ML NEB INHALATION SCH (21:21)
--- NOTE | 2023-01-29 22:01 | CT ---
EXAMINATION TYPE: CT chest wo con DATE OF EXAM: 01/29/2023 HISTORY: chest pain. Inpatient. TECHNIQUE: CT scan of the thorax is performed without IV contrast. CT DLP: 311.6 mGycm. Automated Exposure Control for Dose Reduction was Utilized. COMPARISON: None FINDINGS: LUNGS: The lungs are grossly clear, there is no concerning parenchymal mass or nodule identified. Chronic bi basilar subpleural coarse reticulation noted. There is no pleural effusion or pneumothorax seen. Th e tracheobronchial tree is patent. MEDIASTINUM: Thyroid is unremarkable. 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 Lack of IV contrast is noted to limit evaluation for mediastinal and especially hilar adenopathy. The re are no definitive greater than 1 cm hilar or mediastinal lymph nodes. There is moderate cardiomegaly with prominent left and right coronary calcifications. Pulmonary arteries are mildly dilated, which can correlate with a clinical diagnosis of pulmonary hyp ertension. There are prominent aortic valve calcifications. The aorta is moderately tortuous and the arch and de scending aorta demonstrate prominent volume of atherosclerotic intimal calcifications. The ascending aorta is not dilated though the descending aorta measures up to 31 mm caliber. The proximal half of the stomach is intrathoracic in its position. OTHER: No additional significant abnormality is seen. IMPRESSION: No acute process, though findings as noted.
--- NOTE | 2023-01-29 22:19 | HP ---
HISTORY AND PHYSICAL HISTORY OF PRESENT ILLNESS: An 82-year-old white male, CLL, hypertension, dyslipidemia, hypothyroidism, GERD, history of NSTEMI, heart catheterization, left in 2010 and 2021, 85% proximal circumflex stenosis, 50% stenosis in multiple other vessels. History of GI bleed also. He had some chest pain after stepping on walked half a block and he walks without any assistance. Chest x-ray, cardiomegaly, COPD, , cardiovascular congestion, atelectasis versus pulmonary edema. Hemoglobin 7.2, potassium 3.9, BUN is 22, creatinine 1.32. BNP 2240. LFTs normal. Calcium is 7.9. MEDICATIONS: 1. Lipitor 80 at night. 2. Losartan 25 daily. 3. Lopressor 50 b.i.d. 4. Nitrostat p.r.n. 5. Levothyroxine 50 units daily. 6. Protonix 40 mg daily. Echo 04/2022 showed moderate , tricuspid regurg, REVIEW OF SYSTEMS: A 14-point review of systems otherwise negative. PHYSICAL EXAMINATION: VITAL SIGNS: An 82-year-old white male, comfortable. HEAD: Normocephalic, atraumatic. LUNGS: Decreased breath sounds x4. HEART: S1, S2. ABDOMEN: Soft, nontender. EXTREMITIES: No cyanosis, clubbing, or edema. NEUROLOGIC: Cranial nerves intact. 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 Continue cardiac monitoring. Hold aspirin due to anemia. Monitor hemoglobin. Get Dr. España to assess him. Continue on current treatments. Prognosis guarded. MMODL / IJN: [id number] /
[2023-01-30] MEDS: methylPREDNISolone SOD SUCCI 40 MG/ML 1 ML VIAL IV SCH ×2 (00:15→08:54)
[2023-01-30] MEDS: LEVOTHYROXINE 50 MCG TAB PO SCH (06:07)
[2023-01-30] MEDS: PANTOPRAZOLE 40 MG TABLET PO SCH (06:08)
[2023-01-30] MEDS: SUCRALFATE 1 GM TAB PO SCH (06:09)
[2023-01-30] MEDS: BUDESONIDE 0.5 MG/2 ML NEBU INHALATION SCH (07:48)
[2023-01-30] MEDS: IPRATROPIUM-ALBUTEROL 3 ML NEB INHALATION SCH ×4 (07:48→14:58)
[2023-01-30 08:38] LABS: Glucose,Whole Blood 147 mg/dL (70-110)
[2023-01-30] MEDS: METOPROLOL TARTRATE 50 MG TAB PO SCH (08:54)
[2023-01-30] MEDS: ISOSORBIDE MONONITRATE ER 30 MG TAB.ER.24H PO SCH (08:54)
[2023-01-30] MEDS: LOSARTAN 25 MG TAB PO SCH (08:54)
[2023-01-30] MEDS: CHOLECALCIFEROL 10 MCG (400 IU) TABLET PO SCH (08:54)
[2023-01-30] MEDS: MEMANTINE 10 MG TAB PO SCH (08:54)
[2023-01-30] MEDS: CARBIDOPA-LEVODOPA ER 25-100MG 1 EACH TABLET.ER PO SCH (08:54)
[2023-01-30] MEDS ORDERED: SODIUM FERRIC GLUCONAT-SUCROSE 125 MG in SODIUM CHLORIDE 0.9% 100 ML IVPB SCH (09:00)
[2023-01-30 09:28] VITALS: RESP 18; TEMP 97.5
[2023-01-30 10:42] VITALS: BP 129/61; PULSE 71
--- NOTE | 2023-01-30 10:58 | P.PN ---
Subjective Progress Note Date: 01/30/23 History of present illness: This is an 82-year-old male with past medical history of CLL, hypertension, hy perlipidemia, hypothyroidism, gastroesophageal reflux disease, history of non-ST elevated myocardial infarction and 2020 with medical therapy advised at the time and diagnosed with a non-ST elevated myocardial infarction 04/2022 and underwent cardiac catheterization that revealed CAD 85% proximal circumflex stenosis, 50% proximal LAD stenosis, mid LAD at 50-60% stenosis in caliber nondominant mid RCA 80% stenosis. Plan was for staged intervention. Unfortunately, patient developed hematoma on the right forearm and procedure was to be postponed. Patient was found to have a GI bleed and hemoglobin drop as well as low platelets. Medical therapy was recommended at that time. We have been asked to evaluate the patient for chest pain. Patient states that he developed an episode of chest pain in the midsternal area felt like someone was stepping on his chest after he had walked a half a block. He normally walks assistance without any symptoms. Patient states that he has been eating and drinking okay. EKG sinus rhythm with left axis deviation Chest x-ray: Cardiomegaly with COPD. Diffuse interstitial density. Correlate for heart failure with pulmonary vascular congestion. Patchy posterior basilar atelectasis versus early developing patchy pulmonary edema. WBC 11.1, hemoglobin 7.2, platelet count 32. INR 1.0. Sodium 134, potassium 3.9, BUN 22 and creatinine 1.32. Troponin 0.017, 0.036 and 0.034. ProBNP 2240. Liver function tests normal. Magnesium 2. Blood sugar 110. Calcium 7.9. Home cardiac medications: Lipitor 80 mg at bedtime, losartan 25 mg daily, Lopressor 50 mg twice daily, Nitrostat as needed, patient is also on levothyroxine 50 g daily, Protonix 40 mg twice daily and also on Acalabrutinib. Echocardiogram 04/2022 revealed EF 50%, RVSP 33, moderate mitral regurgitation, mild aortic regurgitation, moderate aortic stenosis, mild tricuspid regurgitation. No pericardial effusion. Dr. Steinberg's Addendum Patient presented with chest pain which is most likely due to symptomatic anemia. Due to his anemia and leukocytopenia he is not on an antiplatelet therapy despite having severe obstructive coronary artery disease. No evidence of ACS at this time. We will obtain an echocardiogram to assess aortic stenosis. We will add antianginal therapy and controlled his blood pressure. I have personally seen and examined the patient. I have personally performed all the components of medical care documented above including detailed hisotry, review of system, physican exam, MDM and formulating the assessment and plan. I have personally reviewed the relevant labs, imaging and other diagnostics. I have discussed this in detail with my COMMUNICATIONS ASSISTANT who has helped me with this documentation. I have carefully reviewed this document before finalizing. Thank you for letting cardiology team participating in this patient's care. Dr. Parag Steinberg MD Cardiovascular Disease 01/30 Patient is seen today in follow-up. He denies having any chest pain, lightheadedness or dizziness. Repeat blood work for today is pending. Echocardiogram reveals EF 55%, moderate aortic stenosis, moderate aortic regurgitation, moderate mitral regurgitation, moderate left atrial dilatation. No arrhythmias on telemetry. Blood pressure 129/61, heart rate 71. 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 Cardiology will sign off this case and follow on an as-needed basis. Please reconsult for any new concerns. Patient may follow-up in the office in one to 2 weeks.. Nurse practitioner note has been reviewed, I agree with documented findings and plan of care. Patient was seen and examined. Objective - Vital Signs Vital signs: Vital Signs Temp 98.6 F 01/30/23 02:10 Pulse 71 01/30/23 02:10 Resp 17 01/30/23 02:10 BP 123/78 01/30/23 02:10 Pulse Ox 99 01/30/23 02:10 FiO2 Intake & Output 01/29/23 01/30/23 01/30/23 18:59 06:59 18:59 Other: Voiding Method Toilet Toilet # Voids 2 0 - Labs CBC & Chem 7: 01/28/23 20:50 01/28/23 20:50
[2023-01-30 13:31] LABS: HCT 22.4 % (39.6-50.0); Immature Platelet Fraction 13.4 % (1.1-6.1); MCH 29.9 pg (27.0-32.0); MCHC 31.3 d/dL (32.0-37.0); MCV 95.7 FL (80.0-97.0); NRBC Per 100 WBC 0 X 10*3/uL (0.00-0.01); Platelet Count 37 X 10*3/uL (140-440); RBC 2.34 X 10*6/uL (4.40-5.60); RDW 17.9 % (11.5-14.5); WBC 17.19 X 10*3/uL (4.50-10.00)
[2023-01-30 13:32] LABS: Basophils # (M) 0 X 10*3/uL (0.00-0.10); Eosinophils # (M) 0 X 10*3/uL (0.04-0.35); Lymphocytes # (M) 8.77 X 10*3/uL (0.90-5.00); Monocytes # (M) 0 X 10*3/uL (0.20-1.00); Neutrophils # (M) 8.42 X 10*3/uL (1.80-7.70); Neutrophils % (M) 49 %
[2023-01-30 13:33] LABS: ALT <5 U/L (10-49); AST 17 U/L (14-35); Albumin 3.8 d/dL (3.8-4.9); Albumin/Globulin Ratio 2.24 Ratio (1.60-3.17); Alkaline Phosphatase 93 U/L (41-126); Blood Urea Nitrogen 25.9 mg/dL (9.0-27.0); Calcium 8.8 mg/dL (8.7-10.3); Carbon Dioxide 22.9 mmol/L (21.6-31.8); Chloride 105 mmol/L (96-109); Globulin 1.7 d/dL (1.6-3.3); Glucose 140 mg/dL (70-110); Potassium 4.6 mmol/L (3.5-5.5); Sodium 137 mmol/L (135-145); Total Protein 5.5 d/dL (6.2-8.2)
--- NOTE | 2023-01-30 22:48 | P.DS ---
Providers Date of admission: 01/28/23 23:06 Expected date of discharge: 01/30/23 Attending physician: Jostin Crocker Consults: 01/28/23 23:04 Consult Physician Routine Consulting Provider: Skyler Painter Consult Reason/Comments: CP Do you want consulting provider notified?: Yes Primary care physician: [facility] Course: This is an 82-year-old male with past medical history of CLL, hypertension, hyperlipidemia, hypothyroidism, gastroesophageal reflux disease, history of non- ST elevated myocardial infarction and 2020 with medical therapy advised at the time and diagnosed with a non-ST elevated myocardial infarction 04/2022 and underwent cardiac catheterization that revealed CAD 85% proximal circumflex stenosis, 50% proximal LAD stenosis, mid LAD at 50-60% stenosis in caliber nondominant mid RCA 80% stenosis. Plan was for staged intervention. Unfortunately, patient developed hematoma on the right forearm and procedure was to be postponed. Patient was found to have a GI bleed and hemoglobin drop as well as low platelets. Medical therapy was recommended at that time. We have been asked to evaluate the patient for chest pain. Patient states that he developed an episode of chest pain in the midsternal area felt like someone was stepping on his chest after he had walked a half a block. He normally walks assistance without any symptoms. Patient states that he has been eating and drinking okay. 01/30/2023: I'm rounding for Dr. Jostin Crocker today. Patient admitted with chest pain. [place] to be due to symptomatic anemia. Patient was transfused 1 unit of blood. Patient is due to see Dr. Cuenca today. Spoke to the nurse and the patient and the . Appointment has been made for later today. Imdur has been added. Patient will follow-up with cardiology outpatient. Questions answered. Discussion and discharge planning more than 35 minutes On examination: 71, 18, 129/61, 94% room air Resting in bed, comfortable Lungs: Clear Cardiovascular first seconds are normal Psychiatry: AO 3, mood affect normal INVESTIGATIONS, reviewed in the clinical context: White count 17.1 hemoglobin 7 platelets 37 sodium 137 potassium 4.[address]: Unremarkable 2-D echocardiogram: EF 55-60%. Moderate mitral regurgitation. Moderate aortic valve sclerosis. Moderate aortic stenosis. Moderate aortic regurgitation. Assessment and plan: -Angina precipitated by anemia. Imdur added. -Moderate mitral regurgitation, moderate aortic valve sclerosis, moderate aortic stenosis. Moderate aortic regurgitation. Follow outpatient with cardiology. -Cognitive impairment -GERD Protonix -Hypothyroid Synthroid -GERD -Essential hypertension Lopressor. Cozaar -Chronic lymphoid leukemia Follow with Dr. Cuenca -Parkinson's disease Sinemet -hyperlipidemia Lipitor Plan - Discharge Summary New Discharge Prescriptions: New Isosorbide Mononitrate ER [Imdur] 30 mg PO DAILY #30 tab Continue Levothyroxine Sodium [Synthroid] 50 mcg PO DAILY Memantine [Namenda] 10 mg PO BID Pantoprazole Sodium [Protonix] 40 mg PO AC-BID #60 tab Carbidopa-Levodopa ER 25-100Mg [Sinemet CR 25-100 mg] 2 tab PO BID Cholecalciferol [Vitamin D3 (10 Mcg = 400 Iu)] 10 mcg PO DAILY Super B Complex 1 tab PO DAILY Losartan [Cozaar] 25 mg PO DAILY #30 tab Metoprolol Tartrate [Lopressor] 50 mg PO BID #60 tab Atorvastatin [Lipitor] 80 mg PO HS Acalabrutinib Maleate [Calquence] 100 mg PO DAILY Nitroglycerin Sl Tabs [Nitrostat] 0.4 mg SUBLINGUAL Q5M PRN #30 tab PRN Reason: Chest Pain Discharge Medication List Levothyroxine Sodium [Synthroid] 50 mcg PO DAILY 03/28/21 [History] Losartan [Cozaar] 25 mg PO DAILY #30 tab 04/01/21 [Rx] Metoprolol Tartrate [Lopressor] 50 mg PO BID #60 tab 04/01/21 [Rx] Acalabrutinib Maleate [Calquence] 100 mg PO DAILY 05/13/22 [History] Atorvastatin [Lipitor] 80 mg PO HS 05/13/22 [History] Memantine [Namenda] 10 mg PO BID 05/13/22 [History] Nitroglycerin Sl Tabs [Nitrostat] 0.4 mg SUBLINGUAL Q5M PRN #30 tab 05/18/22 [Rx] Pantoprazole Sodium [Protonix] 40 mg PO AC-BID #60 tab 05/18/22 [Rx] Carbidopa-Levodopa ER 25-100Mg [Sinemet CR 25-100 mg] 2 tab PO BID 01/28/23 [History] Cholecalciferol [Vitamin D3 (10 Mcg = 400 Iu)] 10 mcg PO DAILY 01/28/23 [History] Super B Complex 1 tab PO DAILY 01/28/23 [History] Isosorbide Mononitrate ER [Imdur] 30 mg PO DAILY #30 tab 01/30/23 [Rx] Follow up Appointment(s)/Referral(s): Skyler Painter DO [STAFF PHYSICIAN] - 02/10/23 1:00 pm Jostin Crocker MD [Primary Care Provider] - 1-2 days Real Wilder MD [STAFF PHYSICIAN] - 01/30/23 4:00 pm Patient Instructions/Handouts: Chest Pain (DC)
[2023-01-30 23:51] LABS: % Iron Saturation 7.01 (15.00-50.00); Ferritin 21.9 ng/mL (22.0-322.0)
== END 2023-01-30 15:30 ==
LOC: EC 20:43 → 6NMEDSUR 23:06
PROVIDERS: ADMIT Family Medicine; ATTEND Family Medicine
DX: I25.118 Atherosclerotic heart disease of native coronary artery with other forms of angina pectoris (principal); D63.0 Anemia in neoplastic disease; C91.10 Chronic lymphocytic leukemia of B-cell type not having achieved remission; I08.3 Combined rheumatic disorders of mitral, aortic and tricuspid valves; D69.6 Thrombocytopenia, unspecified; K21.9 Gastro-esophageal reflux disease without esophagitis; E03.9 Hypothyroidism, unspecified; I10 Essential (primary) hypertension; F02.80 Dementia in other diseases classified elsewhere, unspecified severity, without behavioral disturbance, psychotic disturbance, mood disturbance, and anxiety; G20 Parkinson's disease; E78.5 Hyperlipidemia, unspecified; Z98.890 Other specified postprocedural states; I25.2 Old myocardial infarction; Z87.19 Personal history of other diseases of the digestive system; J44.9 Chronic obstructive pulmonary disease, unspecified; R07.89 Other chest pain; D75.9 Disease of blood and blood-forming organs, unspecified; Z79.890 Hormone replacement therapy; Z79.899 Other long term (current) drug therapy
CPT/HCPCS: 96376; 96365; 96375; 99285; 36415; 94640 ×2; 94760; 93005; 93306; 83880; 80053 ×2; 84443; 82728; 83540; 83550; 83735; 84484 ×2; 85025 ×2; 85610; 85730; 83036; 71046; 71250; G0378 ×3; J2920 ×2; J2916

== ENCOUNTER 2023-04-12 17:20 | Emergency (ER) | payer MEDICARE ==
[2023-04-12] MEDS ORDERED: SODIUM CHLORIDE 0.9% 500 ML 500 ML IV STA (17:52)
--- NOTE | 2023-04-12 17:55 | ED ---
General Adult HPI - General Chief complaint: Fever Stated complaint: Fever,Cough Time Seen by Provider: 04/12/23 17:34 Source: patient, RN notes reviewed, old records reviewed Mode of arrival: wheelchair Limitations: no limitations - History of Present Illness Initial comments: 82-year-old male history of chronic lymphocytic leukemia presenting for eval uation of fever and cough. Symptoms have been present for the past 24 hours. has been giving Tylenol for fever T-max of 102. She also reports he's had a poor appetite and poor oral intake over the past 24 hours. He is not currently on any specific treatment for his leukemia. He does follow with hematology on a regular basis. No vomiting. No dysuria or hematuria - Related Data Home Medications Medication Instructions Recorded Confirmed Levothyroxine Sodium [Synthroid] 50 mcg PO DAILY 03/28/21 02/20/23 Acalabrutinib Maleate [Calquence] 100 mg PO DAILY 05/13/22 02/20/23 Atorvastatin [Lipitor] 80 mg PO HS 05/13/22 02/20/23 Memantine [Namenda] 10 mg PO BID 05/13/22 02/20/23 Carbidopa-Levodopa ER 25-100Mg 2 tab PO BID 01/28/23 02/20/23 [Sinemet CR 25-100 mg] Cholecalciferol [Vitamin D3 (10 10 mcg PO DAILY 01/28/23 02/20/23 Mcg = 400 Iu)] Super B Complex 1 tab PO DAILY 01/28/23 02/20/23 Metoprolol Tartrate [Lopressor] 25 mg PO BID 02/06/23 02/20/23 Previous Rx's Medication Instructions Recorded Nitroglycerin Sl Tabs [Nitrostat] 0.4 mg SUBLINGUAL Q5M PRN #30 tab 05/18/22 Pantoprazole Sodium [Protonix] 40 mg PO AC-BID #60 tab 05/18/22 Azithromycin [Zithromax Z Pack] 1 tab PO DIRECTED #6 tab 04/12/23 Allergies Allergy/AdvReac Type Severity Reaction Status Date / Time No Known Allergies Allergy Verified 04/12/23 17:27 Review of Systems ROS Statement: Those systems with pertinent positive or pertinent negative responses have been documented in the HPI. ROS Other: All systems not noted in ROS Statement are negative. Past Medical History Past Medical History: Cancer, Chest Pain / Angina, Dementia, GERD/Reflux, Hypertension, Thyroid Disorder Additional Past Medical History / Comment(s): CLL, leukemia, parkinsons History of Any Multi-Drug Resistant Organisms: None Reported Past Surgical History: Heart Catheterization, Hernia Repair Past Anesthesia/Blood Transfusion Reactions: No Reported Reaction Additional Past Anesthesia/Blood Transfusion Reaction / Comment(s): PATIENT STATES HE HAS NEVER HAD A BLOOD TRANSFUSION Past Psychological History: No Psychological Hx Reported Smoking Status: Never smoker General Exam Limitations: no limitations General appearance: alert, in no apparent distress Head exam: Present: atraumatic, normocephalic Eye exam: Present: normal appearance, PERRL ENT exam: Present: mucous membranes dry Neck exam: Present: normal inspection. Absent: tenderness, meningismus Respiratory exam: Present: normal lung sounds bilaterally. Absent: respiratory distress, wheezes Cardiovascular Exam: Present: regular rate, normal rhythm GI/Abdominal exam: Present: soft. Absent: distended, tenderness, guarding Neurological exam: Present: alert. Absent: motor sensory deficit Skin exam: Present: warm, dry Course Vital Signs 04/12/23 04/12/23 17:25 18:49 Temperature 98.7 F 99 F Pulse Rate 83 73 Respiratory 16 18 Rate Blood Pressure 96/59 134/67 O2 Sat by Pulse 93 L 95 Oximetry Medical Decision Making - Medical Decision Making Was pt. sent in by a medical professional or institution (FRANCK Araujo, FAMILY SERVICES COORDINATOR, urgent care, hospital, or prison...) When possible be specific @ -[No] Did you speak to anyone other than the patient for history (EMS, parent, family, police, friend...)? What history was obtained from this source @ Patient's Did you review nursing and triage notes (agree or disagree)? Why? @ -[I reviewed and agree with nursing and triage notes] Were old charts reviewed (outside hosp., previous admission, EMS record, old EKG, old radiological studies, urgent care reports/EKG's, prison records)? Report findings @ -[No old charts were reviewed] Differential Diagnosis (chest pain, altered mental status, abdominal pain women, abdominal pain men, vaginal bleeding, weakness, fever, dyspnea, syncope, headache, dizziness, GI bleed, back pain, seizure, CVA, palpatations, mental health, musculoskeletal)? @ Differential Fever: Pneumonia, viral URI, endocarditis, myocarditis, pericarditis, otitis, sinusit is, peritonsillar Abscess, retropharyngeal Abscess, epiglottitis, peritonitis, appendicitis, Vilma cystitis, diverticulitis, hepatitis, colitis, UTI, PID, TOA, pyelonephritis, prostatitis, epididymitis, meningitis, encephalitis, pulmonary embolism, CVA, thyroid storm, pancreatitis, adrenal crisis, cavernous sinus thrombosis, this is not meant to be an all-inclusive list. EKG interpreted by me (3pts min.). @ -[As above] X-rays interpreted by me (1pt min.). @ No focal pneumonia cardiomegaly on chest x-ray CT interpreted by me (1pt min.). @ -[None done] U/S interpreted by me (1pt. min.). @ -[None done] What testing was considered but not performed or refused? (CT, X-rays, U/S, labs)? Why? @ -[None] What meds were considered but not given or refused? Why? @ -[None] Did you discuss the management of the patient with other professionals (professionals i.e. , PA, FAMILY SERVICES COORDINATOR, lab, RT, psych nurse, social services designee, primary grade teacher, teacher, information systems security officer, caseworker)? Give summary @ -[No] Was smoking cessation discussed for >3mins.? @ -[No] Was critical care preformed (if so, how long)? @ -[No] Were there social determinants of health that impacted care today? How? (Homelessness, low income, unemployed, alcoholism, drug addiction, transportation, low edu. Level, literacy, decrease access to med. care, senior care, rehab)? @ -[No] Was there de-escalation of care discussed even if they declined (Discuss DNR or withdrawal of care, Hospice)? DNR status @ -[No] What co-morbidities impacted this encounter? (DM, HTN, Smoking, COPD, CAD, Cancer, CVA, ARF, Chemo, Hep., AIDS, mental health diagnosis, sleep apnea, morbid obesity)? @ -[CLL, Parkinson's disease Was patient admitted / discharged? Hospital course, mention meds given and route, prescriptions, significant lab abnormalities, going to OR and other pertinent info. @ -82-year-old male with history of CLL presents for evaluation of fever over the past 12-24 hours. Patient afebrile in the emergency department. He had had complained of cough. Chest x-ray is negative for focal pneumonia, no acute findings. Patient has an elevated white blood cell count which is predominantly lymphocytes. He has anemia and thrombocytopenia which are at baseline. Chronic kidney disease which is also at baseline. Viral panel is negative including Covid, influenza, RSV. Urinalysis negative for infection. Patient offered observation versus discharged with return parameters. Patient prefers to be discharged and will follow with his primary care provider. Undiagnosed new problem with uncertain prognosis? @ -[No] Drug Therapy requiring intensive monitoring for toxicity (Heparin, Nitro, Insulin, Cardizem)? @ -[No] Were any procedures done? @ -[No] Diagnosis/symptom? @ -Upper respiratory infection, Acute, or Chronic, or Acute on Chronic? @ -Acute Uncomplicated (without systemic symptoms) or Complicated (systemic symptoms)? @ -[default] Side effects of treatment? @ -[No] Exacerbation, Progression, or Severe Exacerbation? @ -[No] Poses a threat to life or bodily function? How? (Chest pain, [place], [place], pneumonia, PE, COPD, DKA, ARF, appy, cholecystitis, CVA, Diverticulitis, Homicidal, Suicidal, threat to staff... and all critical care pts) @ -[Low risk at this time - Lab Data Result diagrams: 04/12/23 18:25 04/12/23 18:25 Lab Results 04/12/23 04/12/23 04/12/23 Range/Units 18:25 18:25 18:25 WBC 35.8 H (3.8-10.6) k/uL RBC 3.32 L (4.30-5.90) m/uL Hgb 11.0 L (13.0-17.5) gm/dL Hct 33.6 L (39.0-53.0) % MCV 101.3 H (80.0-100.0) fL MCH 33.1 (25.0-35.0) pg MCHC 32.7 (31.0-37.0) g/dL RDW 20.8 H (11.5-15.5) % Plt Count 53 L (150-450) k/uL MPV 9.8 Neutrophils % (Manual) 24 % Lymphocytes % (Manual) 72 % Monocytes % (Manual) 4 % Eosinophils % (Manual) 1 % Neutrophils # (Manual) 8.59 H (1.3-7.7) k/uL Lymphocytes # (Manual) 25.78 H (1.0-4.8) k/uL Monocytes # (Manual) 1.43 H (0-1.0) k/uL Eosinophils # (Manual) 0.36 (0-0.7) k/uL Nucleated RBCs 0 (0-0) /100 WBC Manual Slide Review Performed Hypochromasia Slight Anisocytosis Moderate Macrocytosis Moderate Sodium 137 (137-145) mmol/L Potassium 4.0 (3.5-5.1) mmol/L Chloride 102 (98-107) mmol/L Carbon Dioxide 24 (22-30) mmol/L Anion Gap 11 mmol/L BUN 23 H (9-20) mg/dL Creatinine 1.43 H (0.66-1.25) mg/dL Est GFR (CKD-EPI)AfAm 52 (>60 ml/min/1.73 sqM) Est GFR (CKD-EPI)NonAf 45 (>60 ml/min/1.73 sqM) Glucose 118 H (74-99) mg/dL Plasma Lactic Acid Doug 1.2 (0.7-2.0) mmol/L Calcium 8.6 (8.4-10.2) mg/dL Total Bilirubin 2.5 H (0.2-1.3) mg/dL AST 26 (17-59) U/L ALT 9 (4-49) U/L Alkaline Phosphatase 110 (38-126) U/L Total Protein 5.6 L (6.3-8.2) g/dL Albumin 3.4 L (3.5-5.0) g/dL Influenza Type A (PCR) (Not Detectd) Influenza Type B (PCR) (Not Detectd) RSV (PCR) (Not Detectd) SARS-CoV-2 (PCR) (Not Detectd) 04/12/23 Range/Units 18:25 WBC (3.8-10.6) k/uL RBC (4.30-5.90) m/uL Hgb (13.0-17.5) gm/dL Hct (39.0-53.0) % MCV (80.0-100.0) fL MCH (25.0-35.0) pg MCHC (31.0-37.0) g/dL RDW (11.5-15.5) % Plt Count (150-450) k/uL MPV Neutrophils % (Manual) % Lymphocytes % (Manual) % Monocytes % (Manual) % Eosinophils % (Manual) % Neutrophils # (Manual) (1.3-7.7) k/uL Lymphocytes # (Manual) (1.0-4.8) k/uL Monocytes # (Manual) (0-1.0) k/uL Eosinophils # (Manual) (0-0.7) k/uL Nucleated RBCs (0-0) /100 WBC Manual Slide Review Hypochromasia Anisocytosis Macrocytosis Sodium (137-145) mmol/L Potassium (3.5-5.1) mmol/L Chloride (98-107) mmol/L Carbon Dioxide (22-30) mmol/L Anion Gap mmol/L BUN (9-20) mg/dL Creatinine (0.66-1.25) mg/dL Est GFR (CKD-EPI)AfAm (>60 ml/min/1.73 sqM) Est GFR (CKD-EPI)NonAf (>60 ml/min/1.73 sqM) Glucose (74-99) mg/dL Plasma Lactic Acid Doug (0.7-2.0) mmol/L Calcium (8.4-10.2) mg/dL Total Bilirubin (0.2-1.3) mg/dL AST (17-59) U/L ALT (4-49) U/L Alkaline Phosphatase (38-126) U/L Total Protein (6.3-8.2) g/dL Albumin (3.5-5.0) g/dL Influenza Type A (PCR) Not Detected (Not Detectd) Influenza Type B (PCR) Not Detected (Not Detectd) RSV (PCR) Not Detected (Not Detectd) SARS-CoV-2 (PCR) Not Detected (Not Detectd) Disposition Clinical Impression: CLL (chronic lymphocytic leukemia), Fever Disposition: HOME SELF-CARE Condition: Fair Instructions (If sedation given, give patient instructions): Fever in Adults (ED) Prescriptions: Azithromycin [Zithromax Z Pack] 1 tab PO DIRECTED #6 tab Is patient prescribed a controlled substance at d/c from ED?: No Referrals: Roberto Crocker MD [Primary Care Provider] - 1-2 days Time of Disposition: 20:03
[2023-04-12 18:46] LABS: Anisocytosis Moderate; HCT 33.6 % (39.0-53.0); Hypochromasia Slight; MCH 33.1 pg (25.0-35.0); MCHC 32.7 g/dL (31.0-37.0); MCV 101.3 fL (80.0-100.0); Macrocytosis Moderate; Mean Platelet Volume 9.8; RBC 3.32 m/uL (4.30-5.90); RDW 20.8 % (11.5-15.5); WBC 35.8 k/uL (3.8-10.6)
[2023-04-12 18:56] VITALS: RESP 18
[2023-04-12 18:58] LABS: ALT 9 U/L (4-49); AST 26 U/L (17-59); African American GFR (CKD) 52 (>60 ml/min/1.73 sqM); Albumin 3.4 g/dL (3.5-5.0); Alkaline Phosphatase 110 U/L (38-126); Anion Gap 11 mmol/L; Blood Urea Nitrogen 23 mg/dL (9-20); Calcium 8.6 mg/dL (8.4-10.2); Carbon Dioxide 24 mmol/L (22-30); Chloride 102 mmol/L (98-107); Glucose 118 mg/dL (74-99); Non-African American GFR(CKD) 45 (>60 ml/min/1.73 sqM); Sodium 137 mmol/L (137-145); Total Bilirubin 2.5 mg/dL (0.2-1.3); Total Protein 5.6 g/dL (6.3-8.2)
[2023-04-12 19:13] LABS: Eosinophils # (M) 0.36 k/uL (0-0.7); Lymphocytes # (M) 25.78 k/uL (1.0-4.8); Monocytes # (M) 1.43 k/uL (0-1.0); Neutrophils # (M) 8.59 k/uL (1.3-7.7); Neutrophils % (M) 24 %; Nucleated Red Blood Cells 0 /100 WBC (0-0); Total Cells Counted 200
[2023-04-12 19:14] LABS: Platelet Count 53 k/uL (150-450)
--- NOTE | 2023-04-12 19:47 | XR ---
EXAMINATION TYPE: XR chest 2V DATE OF EXAM: 04/12/2023 7:33 PM CLINICAL INDICATION:Male, 82 years old with history of fever; [facility] COMPARISON: 01/28/2023. TECHNIQUE: XR chest 2V Frontal and lateral views of the chest. FINDINGS: Lungs/Pleura: There is no evidence of pleural effusion, focal consolidation, or pneumothorax. Pulmonary vascularity: Unremarkable. Heart/mediastinum: Cardiomediastinal silhouette is enlarged and stable. Atherosclerotic calcificatio ns are seen in the aorta. Musculoskeletal: No acute osseous pathology. IMPRESSION: No significant change in examination compared to 01/28/2023.
[2023-04-12 20:09] LABS: Appearance,Urine Clear (Clear); Bilirubin,Urine Negative (Negative); Blood,Urine Negative (Negative); Color,Urine Yellow; Glucose,Urine (UA) Negative (Negative); Hyaline Casts,Urine 10 /lpf (0-2); Ketones,Urine Negative (Negative); Leukocyte Esterase,Urine Trace (Negative); Mucus,Urine Few /hpf; Nitrite,Urine Negative (Negative); PH, Urine 6.5 (5.0-8.0); Protein,Urine Trace (Negative); RBC,Urine 3 /hpf (0-5); Specific Gravity,Urine 1.017 (1.001-1.035); Squamous Epithelial Cell,Urine <1 /hpf (0-4); WBC,Urine 4 /hpf (0-5)
[2023-04-12 20:26] VITALS: BP 125/65; PULSE 75; TEMP 99.1
== END 2023-04-12 20:24 | disposition home or self-care (01) ==
LOC: EC 17:20
DX: C91.10 Chronic lymphocytic leukemia of B-cell type not having achieved remission (principal); J06.9 Acute upper respiratory infection, unspecified; I12.9 Hypertensive chronic kidney disease with stage 1 through stage 4 chronic kidney disease, or unspecified chronic kidney disease; N18.9 Chronic kidney disease, unspecified; D64.9 Anemia, unspecified; D69.6 Thrombocytopenia, unspecified; E07.9 Disorder of thyroid, unspecified; G20.A1 Parkinson's disease without dyskinesia, without mention of fluctuations; K21.9 Gastro-esophageal reflux disease without esophagitis; F02.80 Dementia in other diseases classified elsewhere, unspecified severity, without behavioral disturbance, psychotic disturbance, mood disturbance, and anxiety; Z79.890 Hormone replacement therapy; Z79.899 Other long term (current) drug therapy; Z20.822 Contact with and (suspected) exposure to COVID-19
CPT/HCPCS: 36415; 71046; 80053; 81001; 83605; 85025; 87040; 87636; 96360; 99284

== ENCOUNTER 2023-09-26 19:37 | Emergency (ER) | payer MEDICARE ==
--- NOTE | 2023-09-26 19:53 | ED ---
Fever HPI - General Chief Complaint: Fever Stated Complaint: Fever, cough Time Seen by Provider: 09/26/23 19:45 Source: patient, RN notes reviewed, old records reviewed Mode of arrival: ambulatory Limitations: no limitations - History of Present Illness Initial Comments: This is a 82-year-old male who presents under severe weakness history of underlying oncology disease, cancer, on chemotherapy. Patient is coming after having fever with exposure to who is positive for influenza. Patient also having chest pain MD Complaint: fever, malaise -: days(s) Temperature Source: subjective Context: sick contacts, multiple patients with similar symptoms Associated Symptoms: chills, rigors, myalgias Treatments Prior to Arrival: none - Related Data Home Medications Medication Instructions Recorded Confirmed Levothyroxine Sodium [Synthroid] 50 mcg PO DAILY 03/28/21 09/28/23 Atorvastatin [Lipitor] 80 mg PO HS 05/13/22 09/28/23 Memantine [Namenda] 10 mg PO BID 05/13/22 09/28/23 Carbidopa-Levodopa ER 50-200Mg 1 tab PO BID 09/28/23 09/28/23 [Sinemet CR 50-200 mg] Losartan [Cozaar] 25 mg PO DAILY 09/28/23 09/28/23 Metoprolol Tartrate [Lopressor] 25 mg PO BID 09/28/23 09/28/23 Pantoprazole Sodium [Protonix] 40 mg PO BID 09/28/23 09/28/23 Allergies Allergy/AdvReac Type Severity Reaction Status Date / Time No Known Allergies Allergy Verified 09/28/23 17:21 Review of Systems ROS Statement: Those systems with pertinent positive or pertinent negative responses have been documented in the HPI. ROS Other: All systems not noted in ROS Statement are negative. Past Medical History Past Medical History: Cancer, Chest Pain / Angina, Dementia, GERD/Reflux, Hypertension, Thyroid Disorder Additional Past Medical History / Comment(s): CLL, leukemia, parkinsons History of Any Multi-Drug Resistant Organisms: None Reported Past Surgical History: Heart Catheterization, Hernia Repair Past Anesthesia/Blood Transfusion Reactions: No Reported Reaction Additional Past Anesthesia/Blood Transfusion Reaction / Comment(s): PATIENT STATES HE HAS NEVER HAD A BLOOD TRANSFUSION Past Psychological History: No Psychological Hx Reported Smoking Status: Never smoker Past Alcohol Use History: None Reported Past Drug Use History: None Reported General Exam Limitations: no limitations General appearance: alert, in no apparent distress Head exam: Present: atraumatic, normocephalic, normal inspection Eye exam: Present: normal appearance, PERRL, EOMI. Absent: scleral icterus, co njunctival injection, periorbital swelling ENT exam: Present: normal exam, mucous membranes moist Neck exam: Present: normal inspection. Absent: tenderness, meningismus, lymphadenopathy Respiratory exam: Present: normal lung sounds bilaterally. Absent: respiratory distress, wheezes, rales, rhonchi, stridor Cardiovascular Exam: Present: regular rate, normal rhythm, normal heart sounds. Absent: systolic murmur, diastolic murmur, rubs, gallop, clicks GI/Abdominal exam: Present: soft, normal bowel sounds. Absent: distended, tenderness, guarding, rebound, rigid Extremities exam: Present: normal inspection, full ROM, normal capillary refill. Absent: tenderness, pedal edema, joint swelling, calf tenderness Back exam: Present: normal inspection Neurological exam: Present: alert, oriented X3, CN II-XII intact Psychiatric exam: Present: normal affect, normal mood Skin exam: Present: warm, dry, intact, normal color. Absent: rash Course Vital Signs 09/26/23 09/26/23 19:38 21:46 Temperature 101.5 F H Pulse Rate 89 92 Respiratory 17 18 Rate Blood Pressure 110/68 117/60 O2 Sat by Pulse 95 93 L Oximetry - Reevaluation(s) Reevaluation #1: 09/26/23 20:24 Medical records reviewed Reevaluation #2: 09/26/23 21:48 Patient symptoms are improved. Did have recurrent chest pain here in the ER Reevaluation #3: 09/26/23 21:48 Patient informed of results questions answered Reevaluation #4: Was pt. sent in by a medical professional or institution (, PA, PARKING WORKER, urgent care, hospital, or senior care...) When possible be specific @ -no Did you speak to anyone other than the patient for history (EMS, parent, family, police, friend...)? What history was obtained from this source @ -no Did you review nursing and triage notes (agree or disagree)? Why? @ -agree Are old charts reviewed (outside hosp., previous admission, EMS record, old EKG, old radiological studies, urgent care reports/EKG's, senior care records)? Report findings @ -yes Differential Diagnosis (chest pain, altered mental status, abdominal pain women, abdominal pain men, vaginal bleeding, weakness, fever, dyspnea, syncope, headache, dizziness, GI bleed, back pain, seizure, CVA, palpatations, mental health, musculoskeletal)? @ -prior EKG interpreted by me (3pts min.). @ -yes X-rays interpreted by me (1pt min.). @ -yes negative for acute disease CT interpreted by me (1pt min.). @ -no U/S interpreted by me (1pt. min.). @ -no What testing was considered but not performed or refused? (CT, X-rays, U/S, labs)? Why? @ -none What meds were considered but not given or refused? Why? @ -none Did you discuss the management of the patient with other professionals (professionals i.e. , PA, PARKING WORKER, lab, RT, psych nurse, dialysis social worker, order entry administrator, teacher, truant officer, dependency case manager)? Give summary @ -no Was smoking cessation discussed for >3mins.? @ -no Was critical care preformed (if so, how long)? @ -no Were there social determinants of health that impacted care today? How? (Homelessness, low income, unemployed, alcoholism, drug addiction, transportation, low edu. Level, literacy, decrease access to med. care, half-way, rehab)? @ -none Was there de-escalation of care discussed even if they declined (Discuss DNR or withdrawal of care, Hospice)? DNR status @ -no What co-morbidities impacted this encounter? (DM, HTN, Smoking, COPD, CAD, Cancer, CVA, ARF, Chemo, Hep., AIDS, mental health diagnosis, sleep apnea, morbid obesity)? @ -none Was patient admitted / discharged? Hospital course, mention meds given and route, prescriptions, significant lab abnormalities, going to OR and other pertinent info. @ - 82 male to the ER for evaluation of severe weakness does have persistent weakness here in the ER found to have positive influenza. Patient is otherwise no acute distress and prefers discharge home Discharge Undiagnosed new problem with uncertain prognosis? @ -no Drug Therapy requiring intensive monitoring for toxicity (Heparin, Nitro, Insulin, Cardizem)? @ -no Were any procedures done? @ -no Diagnosis/symptom? @ -Fever, influenza Acute, or Chronic, or Acute on Chronic? @ -Acute Uncomplicated (without systemic symptoms) or Complicated (systemic symptoms)? @ -Complicated Side effects of treatment? @ -no Exacerbation, Progression, or Severe Exacerbation? @ -exacerbation Poses a threat to life or bodily function? How? (Chest pain, [place], [place], pneumonia, PE, COPD, DKA, ARF, appy, cholecystitis, CVA, Diverticulitis, Homicidal, Suicidal, threat to staff... and all critical care pts) @ -yes with significant febrile illness Reevaluation #5: Differential Fever: Pneumonia, viral URI, endocarditis, myocarditis, pericarditis, otitis, sinusitis, peritonsillar Abscess, retropharyngeal Abscess, epiglottitis, peritonitis, appendicitis, Vilma cystitis, diverticulitis, hepatitis, colitis, UTI, PID, TOA, pyelonephritis, prostatitis, epididymitis, meningitis, encephalitis, pulmonary embolism, CVA, thyroid storm, pancreatitis, adrenal crisis, cavernous sinus thrombosis, this is not meant to be an all-inclusive list. Medical Decision Making - Medical Decision Making 82 male to the ER for evaluation of severe weakness does have persistent weakness here in the ER found to have positive influenza. Patient is otherwise no acute distress and prefers discharge home - Lab Data Result diagrams: 09/26/23 20:04 09/26/23 20:04 Lab Results 09/26/23 09/26/23 09/26/23 Range/Units 20:04 20:04 20:04 WBC 34.8 H (3.8-10.6) k/uL RBC 2.89 L (4.30-5.90) m/uL Hgb 9.4 L (13.0-17.5) gm/dL Hct 29.1 L (39.0-53.0) % MCV 101.0 H (80.0-100.0) fL MCH 32.5 (25.0-35.0) pg MCHC 32.2 (31.0-37.0) g/dL RDW 17.6 H (11.5-15.5) % Plt Count 26 L (150-450) k/uL MPV 12.5 Neutrophils % (Manual) 10 % Lymphocytes % (Manual) 89 % Monocytes % (Manual) 1 % Neutrophils # (Manual) 3.48 (1.3-7.7) k/uL Lymphocytes # (Manual) 30.97 H (1.0-4.8) k/uL Monocytes # (Manual) 0.35 (0-1.0) k/uL Nucleated RBCs 0 (0-0) /100 WBC Manual Slide Review Performed RBC Morphology Normal Anisocytosis Slight Macrocytosis Slight PT 11.4 (10.0-12.5) sec INR 1.0 (<1.2) APTT 26.1 (22.0-30.0) sec Sodium 134 L (137-145) mmol/L Potassium 3.9 (3.5-5.1) mmol/L Chloride 106 (98-107) mmol/L Carbon Dioxide 21 L (22-30) mmol/L Anion Gap 7 mmol/L BUN 31 H (9-20) mg/dL Creatinine 1.44 H (0.66-1.25) mg/dL Est GFR (CKD-EPI)AfAm 51 (>60 ml/min/1.73 sqM) Est GFR (CKD-EPI)NonAf 44 (>60 ml/min/1.73 sqM) Glucose 101 H (74-99) mg/dL Plasma Lactic Acid Doug (0.7-2.0) mmol/L Calcium 8.1 L (8.4-10.2) mg/dL Phosphorus 3.0 (2.5-4.5) mg/dL Magnesium 1.7 (1.6-2.3) mg/dL Total Bilirubin 1.5 H (0.2-1.3) mg/dL AST 20 (17-59) U/L ALT <6 (4-49) U/L Alkaline Phosphatase 125 (38-126) U/L Troponin I (0.000-0.034) ng/mL Total Protein 5.2 L (6.3-8.2) g/dL Albumin 3.0 L (3.5-5.0) g/dL Influenza Type A (PCR) (Not Detectd) Influenza Type B (PCR) (Not Detectd) RSV (PCR) (Not Detectd) SARS-CoV-2 (PCR) (Not Detectd) 09/26/23 09/26/23 09/26/23 Range/Units 20:04 20:04 20:04 WBC (3.8-10.6) k/uL RBC (4.30-5.90) m/uL Hgb (13.0-17.5) gm/dL Hct (39.0-53.0) % MCV (80.0-100.0) fL MCH (25.0-35.0) pg MCHC (31.0-37.0) g/dL RDW (11.5-15.5) % Plt Count (150-450) k/uL MPV Neutrophils % (Manual) % Lymphocytes % (Manual) % Monocytes % (Manual) % Neutrophils # (Manual) (1.3-7.7) k/uL Lymphocytes # (Manual) (1.0-4.8) k/uL Monocytes # (Manual) (0-1.0) k/uL Nucleated RBCs (0-0) /100 WBC Manual Slide Review RBC Morphology Anisocytosis Macrocytosis PT (10.0-12.5) sec INR (<1.2) APTT (22.0-30.0) sec Sodium (137-145) mmol/L Potassium (3.5-5.1) mmol/L Chloride (98-107) mmol/L Carbon Dioxide (22-30) mmol/L Anion Gap mmol/L BUN (9-20) mg/dL Creatinine (0.66-1.25) mg/dL Est GFR (CKD-EPI)AfAm (>60 ml/min/1.73 sqM) Est GFR (CKD-EPI)NonAf (>60 ml/min/1.73 sqM) Glucose (74-99) mg/dL Plasma Lactic Acid Doug 0.8 (0.7-2.0) mmol/L Calcium (8.4-10.2) mg/dL Phosphorus (2.5-4.5) mg/dL Magnesium (1.6-2.3) mg/dL Total Bilirubin (0.2-1.3) mg/dL AST (17-59) U/L ALT (4-49) U/L Alkaline Phosphatase (38-126) U/L Troponin I 0.028 (0.000-0.034) ng/mL Total Protein (6.3-8.2) g/dL Albumin (3.5-5.0) g/dL Influenza Type A (PCR) Detected A (Not Detectd) Influenza Type B (PCR) Not Detected (Not Detectd) RSV (PCR) Not Detected (Not Detectd) SARS-CoV-2 (PCR) Not Detected (Not Detectd) - EKG Data -: EKG Interpreted by Me (EKG is sinus 88 MD 209 QRS 117 QTc 403) Rate: normal (Repeat EKG shows intraventricular rhythm 98 QRS 138 QTc 426) Disposition Clinical Impression: Weakness, Fever, Influenza Disposition: HOME SELF-CARE Instructions (If sedation given, give patient instructions): Fever in Adults (ED), Influenza (ED) Is patient prescribed a controlled substance at d/c from ED?: No Referrals: Roberto Crocker MD [Primary Care Provider] - 1-2 days Time of Disposition: 22:00
[2023-09-26 20:02] VITALS: TEMP 101.5
[2023-09-26] MEDS: SODIUM CHLORIDE 0.9% 1,000 ML IV STA ×2 (20:28→21:53)
[2023-09-26 20:34] LABS: Anisocytosis Slight; HCT 29.1 % (39.0-53.0); HGB 9.4 gm/dL (13.0-17.5); MCH 32.5 pg (25.0-35.0); MCHC 32.2 g/dL (31.0-37.0); Macrocytosis Slight; Mean Platelet Volume 12.5; RBC 2.89 m/uL (4.30-5.90); RDW 17.6 % (11.5-15.5); WBC 34.8 k/uL (3.8-10.6)
[2023-09-26 20:54] LABS: Partial Thromboplastin Time 26.1 sec (22.0-30.0); Prothrombin Time 11.4 sec (10.0-12.5)
[2023-09-26 21:12] LABS: ALT <6 U/L (4-49); AST 20 U/L (17-59); African American GFR (CKD) 51 (>60 ml/min/1.73 sqM); Alkaline Phosphatase 125 U/L (38-126); Anion Gap 7 mmol/L; Blood Urea Nitrogen 31 mg/dL (9-20); Calcium 8.1 mg/dL (8.4-10.2); Carbon Dioxide 21 mmol/L (22-30); Chloride 106 mmol/L (98-107); Glucose 101 mg/dL (74-99); Magnesium 1.7 mg/dL (1.6-2.3); Non-African American GFR(CKD) 44 (>60 ml/min/1.73 sqM); Potassium 3.9 mmol/L (3.5-5.1); Sodium 134 mmol/L (137-145); Total Bilirubin 1.5 mg/dL (0.2-1.3); Total Protein 5.2 g/dL (6.3-8.2)
--- NOTE | 2023-09-26 21:25 | XR ---
EXAMINATION TYPE: XR chest 2V DATE OF EXAM: 09/26/2023 8:32 PM CLINICAL INDICATION:Male, 82 years old with history of Weakness; [facility] COMPARISON: 04/12/2023 TECHNIQUE: XR chest 2V. Frontal and lateral views of the chest.. FINDINGS: Lines/Tubes/Devices: EKG leads overlie the chest. No indwelling lines are seen. Heart/mediastinum: Heart size upper normal. Tortuous aorta with atherosclerotic calcification. Pulmonary vascularity: Not increased, Lungs/Pleura: Hyperinflation with flattening of the diaphragm and mild interstitial changes can be se en with COPD. No evidence of focal consolidation, sizeable pleural effusion, or pneumothorax. Musculoskeletal: No acute osseous abnormality demonstrated in the limits of the exam. Other findings: None. IMPRESSION: Chronic changes without acute pulmonary process.
[2023-09-26 21:43] LABS: Lymphocytes # (M) 30.97 k/uL (1.0-4.8); Monocytes # (M) 0.35 k/uL (0-1.0); Neutrophils # (M) 3.48 k/uL (1.3-7.7); Neutrophils % (M) 10 %; Nucleated Red Blood Cells 0 /100 WBC (0-0); Platelet Count 26 k/uL (150-450); RBC Morphology Normal; Total Cells Counted 100
[2023-09-26] MEDS ORDERED: MORPHINE SULFATE 4 MG/ML SYRINGE IVP STA (21:43)
[2023-09-26] MEDS: KETOROLAC 15 MG/ML 1 ML VIAL IVP STA (21:52)
[2023-09-26 21:54] VITALS: BP 117/60; PULSE 92; RESP 18
[2023-09-26] MEDS ORDERED: OSELTAMIVIR 75 MG CAP PO STA (22:06)
== END 2023-09-26 22:22 | disposition home or self-care (01) ==
LOC: EC 19:37
DX: J10.1 Influenza due to other identified influenza virus with other respiratory manifestations (principal); R53.1 Weakness; I25.2 Old myocardial infarction
CPT/HCPCS: 36415; 93005; 80053; 83605; 83735; 84100; 84484; 85025; 85610; 85730; 87040; 87077; 87186; 87636; 71046; 99284; 96374; 96361; J1885

== ENCOUNTER 2023-09-28 15:55 | Inpatient (IN) | payer MEDICARE ==
--- NOTE | 2023-09-28 16:36 | ED ---
General Adult HPI - General Chief complaint: Fall Stated complaint: fall Time Seen by Provider: 09/28/23 16:09 Source: patient, EMS, RN notes reviewed Mode of arrival: EMS Limitations: no limitations - History of Present Illness Initial comments: Patient is a pleasant 82-year-old male present to the emergency department for fall. Patient states he tripped getting out of his bathroom. Patient states he twisted his neck. Patient has discomfort in his neck. Patient does have history of previous neck injury. Discomfort is moderate at this time. Patient denies any other area of injury or concern. No head injury. Patient states he has been eating and drinking well. Patient denies any weakness despite stated in nursing triage note. Patient feels comfortable with only getting x-rays of the neck. - Related Data Home Medications Medication Instructions Recorded Confirmed Levothyroxine Sodium [Synthroid] 50 mcg PO DAILY 03/28/21 09/28/23 Atorvastatin [Lipitor] 80 mg PO HS 05/13/22 09/28/23 Memantine [Namenda] 10 mg PO BID 05/13/22 09/28/23 Carbidopa-Levodopa ER 50-200Mg 1 tab PO BID 09/28/23 09/28/23 [Sinemet CR 50-200 mg] Losartan [Cozaar] 25 mg PO DAILY 09/28/23 09/28/23 Metoprolol Tartrate [Lopressor] 25 mg PO BID 09/28/23 09/28/23 Pantoprazole Sodium [Protonix] 40 mg PO BID 09/28/23 09/28/23 Allergies Allergy/AdvReac Type Severity Reaction Status Date / Time No Known Allergies Allergy Verified 09/28/23 17:21 Review of Systems ROS Statement: Those systems with pertinent positive or pertinent negative responses have been documented in the HPI. ROS Other: All systems not noted in ROS Statement are negative. Constitutional: Denies: fever Eyes: Denies: eye pain ENT: Denies: ear pain Respiratory: Denies: cough, dyspnea Cardiovascular: Denies: chest pain Musculoskeletal: Reports: as per HPI. Denies: back pain Neurological: Denies: headache Past Medical History Past Medical History: Cancer, Chest Pain / Angina, Dementia, GERD/Reflux, Hypertension, Thyroid Disorder Additional Past Medical History / Comment(s): CLL, leukemia, parkinsons History of Any Multi-Drug Resistant Organisms: None Reported Past Surgical History: Heart Catheterization, Hernia Repair Past Anesthesia/Blood Transfusion Reactions: No Reported Reaction Additional Past Anesthesia/Blood Transfusion Reaction / Comment(s): PATIENT STATES HE HAS NEVER HAD A BLOOD TRANSFUSION Past Psychological History: No Psychological Hx Reported Smoking Status: Never smoker Past Alcohol Use History: None Reported Past Drug Use History: None Reported General Exam Limitations: no limitations General appearance: alert, in no apparent distress Head exam: Present: atraumatic, normocephalic Eye exam: Present: normal appearance, PERRL, EOMI ENT exam: Present: normal oropharynx Neck exam: Present: normal inspection. Absent: tenderness Respiratory exam: Present: normal lung sounds bilaterally Cardiovascular Exam: Present: regular rate, normal rhythm GI/Abdominal exam: Present: soft. Absent: tenderness Extremities exam: Present: normal inspection, full ROM. Absent: tenderness Neurological exam: Present: alert, CN II-XII intact. Absent: motor sensory deficit Expanded Motor strength exam: RUE: 5, LUE: 5, RLE: 5, LLE: 5 Eye Response: (4) open spontaneously Motor Response: (6) obeys commands Verbal Response: (5) oriented Psychiatric exam: Present: normal affect, normal mood Skin exam: Present: normal color Course Vital Signs 09/28/23 15:56 Temperature 98.6 F Pulse Rate 80 Respiratory 16 Rate Blood Pressure 108/53 O2 Sat by Pulse 96 Oximetry Medical Decision Making - Medical Decision Making Was pt. sent in by a medical professional or institution ([facility] Araujo, VETERINARIAN, urgent care, hospital, or [facility]...) When possible be specific @ -No Did you speak to anyone other than the patient for history (EMS, parent, family, police, friend...)? What history was obtained from this source @ -No Did you review nursing and triage notes (agree or disagree)? Why? @ -I reviewed and agree with nursing and triage notes Were old charts reviewed (outside hosp., previous admission, EMS record, old EKG, old radiological studies, urgent care reports/EKG's, [facility] records)? Report findings @ -Previous blood culture reviewed positive for staph species x 2 Differential Diagnosis (chest pain, altered mental status, abdominal pain women, abdominal pain men, vaginal bleeding, weakness, fever, dyspnea, syncope, headache, dizziness, GI bleed, back pain, seizure, CVA, palpatations, mental health, musculoskeletal)? @ -Differential Weakness: Hypoglycemia, shock, sepsis, hyponatremia, anemia, infection, MN, ETOH, adverse medicine reaction, overdose, stroke, this is not meant to be an all-inclusive list. EKG interpreted by me (3pts min.). @ -As above X-rays interpreted by me (1pt min.). @ -Cervical spine x-ray shows degenerative change CT interpreted by me (1pt min.). @ -None done U/S interpreted by me (1pt. min.). @ -None done What testing was considered but not performed or refused? (CT, X-rays, U/S, labs)? Why? @ -None What meds were considered but not given or refused? Why? @ -None Did you discuss the management of the patient with other professionals (professionals i.e. , PA, VETERINARIAN, lab, RT, psych nurse, administrator social welfare, admiralty lawyer, teacher, protection officer, watch caser)? Give summary @ -Case discussed with practitioner Mariam who will admit covering Dr. Crocker, to Was smoking cessation discussed for >3mins.? @ -No Was critical care preformed (if so, how long)? @ -No Were there social determinants of health that impacted care today? How? (Homelessness, low income, unemployed, alcoholism, drug addiction, transportation, low edu. Level, literacy, decrease access to med. care, [place] [facility], rehab)? @ -No Was there de-escalation of care discussed even if they declined (Discuss DNR or withdrawal of care, Hospice)? DNR status @ -No What co-morbidities impacted this encounter? (DM, HTN, Smoking, COPD, CAD, Cancer, CVA, ARF, Chemo, Hep., AIDS, mental health diagnosis, sleep apnea, morbid obesity)? @ -Patient has underlying CLL Was patient admitted / discharged? Hospital course, mention meds given and route, prescriptions, significant lab abnormalities, going to OR and other pertinent info. @ -Patient reevaluated and updated. There is concern for bacteremia with 2 positive blood cultures. Patient will be admitted with IV antibiotics. Labs will be redrawn. Admission orders written. Consult will be placed for infectious disease Undiagnosed new problem with uncertain prognosis? @ -No Drug Therapy requiring intensive monitoring for toxicity (Heparin, Nitro, Ins ulin, Cardizem)? @ -No Were any procedures done? @ -No Diagnosis/symptom? @ -Bacteremia, CLL Acute, or Chronic, or Acute on Chronic? @ -Acute, chronic Uncomplicated (without systemic symptoms) or Complicated (systemic symptoms)? @ -Complicated with underlying CLL Side effects of treatment? @ -No Exacerbation, Progression, or Severe Exacerbation? @ -No Poses a threat to life or bodily function? How? (Chest pain, USA, MN, pneumonia, PE, COPD, DKA, ARF, appy, cholecystitis, CVA, Diverticulitis, Homicidal, Suicidal, threat to staff... and all critical care pts) @ -Potential for sepsis causing organ dysfunction or Disposition Clinical Impression: Bacteremia Disposition: ADMITTED IP TO THIS HOSP Is patient prescribed a controlled substance at d/c from ED?: No Referrals: Roberto Crocker MD [Primary Care Provider] - 1-2 days Time of Disposition: 18:21
[2023-09-28] MEDS: ACETAMINOPHEN TAB 500 MG TAB PO STA (16:37)
--- NOTE | 2023-09-28 17:26 | XR ---
EXAMINATION TYPE: XR cervical spine comp DATE OF EXAM: 09/28/2023 4:53 PM CLINICAL INDICATION:Male, 82 years old with history of fall; [facility] COMPARISON: None TECHNIQUE: The cervical spine was imaged in frontal, lateral, odontoid and bilateral oblique. FINDINGS: The osseous structures show normal alignment without evidence of an acute fracture. There are osteoph ytes noted throughout the cervical spine on the anterior and lateral aspects of the vertebral bodies. The intervertebral disk spaces are narrowed at multiple levels. Pedicles are intact. Soft tissues a re within normal limits. The odontoid appears intact. Multilevel neural foraminal stenosis of at leas t moderate severity bilaterally. IMPRESSION: 1. No fracture or dislocation. 2. 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
[2023-09-28] MEDS ORDERED: VANCOMYCIN IV PER PHARMACY 1 EACH MISC MISCELLANE PRN (18:11)
[2023-09-28] MEDS ORDERED: NALOXONE 0.4 MG/ML 1 ML VIAL IV PRN (18:21)
[2023-09-28] MEDS ORDERED: IBUPROFEN 400 MG TAB PO PRN (18:21)
[2023-09-28] MEDS: SODIUM CHLORIDE 0.9% 1,000 ML IV SCH (19:21)
[2023-09-28 19:55] LABS: Anisocytosis Slight; HCT 28.8 % (39.0-53.0); HGB 9.2 gm/dL (13.0-17.5); MCH 32.2 pg (25.0-35.0); MCV 100.8 fL (80.0-100.0); Macrocytosis Slight; Mean Platelet Volume 12.7; Poikilocytosis Slight; RBC 2.86 m/uL (4.30-5.90); RDW 17.7 % (11.5-15.5); WBC 20.7 k/uL (3.8-10.6)
[2023-09-28] MEDS: VANCOMYCIN 1,500 MG in SODIUM CHLORIDE 0.9% 500 ML 500 ML IVPB STA (19:56)
[2023-09-28 19:59] LABS: ALT 7 U/L (4-49); AST 30 U/L (17-59); African American GFR (CKD) 52 (>60 ml/min/1.73 sqM); Albumin 2.8 g/dL (3.5-5.0); Alkaline Phosphatase 128 U/L (38-126); Anion Gap 7 mmol/L; Blood Urea Nitrogen 33 mg/dL (9-20); Calcium 8.1 mg/dL (8.4-10.2); Carbon Dioxide 20 mmol/L (22-30); Chloride 104 mmol/L (98-107); Glucose 89 mg/dL (74-99); Non-African American GFR(CKD) 45 (>60 ml/min/1.73 sqM); Potassium 4.4 mmol/L (3.5-5.1); Sodium 131 mmol/L (137-145); Total Protein 4.9 g/dL (6.3-8.2)
--- NOTE | 2023-09-28 20:03 | XR ---
EXAMINATION TYPE: XR chest 2V DATE OF EXAM: 09/28/2023 COMPARISON: 09/26/2023 HISTORY: Fever TECHNIQUE: Frontal and lateral views of the chest are obtained. FINDINGS: There is a small focal infiltrate in the right lung base consistent with a pneumonic infiltrate. Ther e is a small right pleural effusion. The heart is moderately enlarged but the pulmonary vasculature is not congested. There is no pneumothorax. The osseous structures are intact IMPRESSION: Acute cardiopulmonary disease. Small focal infiltrate right lung base with small pleural effusion. Fi ndings suggest acute pneumonia. Short-term follow-up to resolution is recommended.
[2023-09-28 21:02] LABS: Appearance,Urine Clear (Clear); Bilirubin,Urine Negative (Negative); Blood,Urine Negative (Negative); Color,Urine Yellow; Glucose,Urine (UA) Negative (Negative); Hyaline Casts,Urine 1 /lpf (0-2); Ketones,Urine Negative (Negative); Leukocyte Esterase,Urine Negative (Negative); Mucus,Urine Rare /hpf; Nitrite,Urine Negative (Negative); PH, Urine 5.5 (5.0-8.0); Protein,Urine 1+ (Negative); RBC,Urine 1 /hpf (0-5); Specific Gravity,Urine 1.026 (1.001-1.035); WBC,Urine 2 /hpf (0-5)
[2023-09-28 21:45] LABS: Lymphocytes # (M) 17.39 k/uL (1.0-4.8); Monocytes # (M) 0.21 k/uL (0-1.0); Neutrophils # (M) 3.11 k/uL (1.3-7.7); Neutrophils % (M) 15 %; Nucleated Red Blood Cells 0 /100 WBC (0-0); Total Cells Counted 100
[2023-09-28 21:48] LABS: Platelet Count 21 k/uL (150-450)
[2023-09-28] MEDS: METOPROLOL TARTRATE 25 MG TAB PO SCH (23:54)
[2023-09-28] MEDS: AZITHROMYCIN 500 MG in SODIUM CHLORIDE 0.9% 250 ML IVPB SCH (23:54)
[2023-09-28] MEDS: MEMANTINE 10 MG TAB PO SCH (23:54)
[2023-09-28] MEDS: CARBIDOPA-LEVODOPA ER 50-200MG 1 EACH TABLET.ER PO SCH (23:54)
[2023-09-28] MEDS: PANTOPRAZOLE 40 MG TABLET PO SCH (23:54)
[2023-09-28] MEDS: ATORVASTATIN 80 MG TAB PO SCH (23:54)
[2023-09-29] MEDS: LEVOTHYROXINE 50 MCG TAB PO SCH (05:57)
[2023-09-29 07:31] LABS: African American GFR (CKD) 63 (>60 ml/min/1.73 sqM); Non-African American GFR(CKD) 54 (>60 ml/min/1.73 sqM)
--- NOTE | 2023-09-29 09:33 | P.HPIM ---
History of Present Illness This is a pleasant 82 years old male with past medical history of multiple medical problems including history of colorectal cancer on chemotherapy and CLL. He presents to the emergency room on 09/25 for generalized weakness and fever, his influenza and he had a fever of 101.5 at that time and he was diagnosed with influenza without pneumonia or hypoxia and was sent home He comes back yesterday because of fall while he was going to the bathroom, he states he blacked out woke without syncope because his both legs give way and he fell hitting his elbow but no head trauma. He denies dizziness at that time and no other specific complaint he was complaining from some mild neck pain which is fine today as he denies any pain to me Patient denies chest pain or dyspnea. No exertional dyspnea, no coughing, no diarrhea or vomiting. No abdominal pain, no urinary complaint No headache or dizziness or weakness or numbness. Patient feels generally weak He denies smoking alcohol or illicit drugs This time patient is afebrile, vitals are stable and he is on room air He has leukocytosis of 20,000 improved from 34.8k 3 days ago, hemoglobin stable 9.4 and 9.2, platelet count is low at 2621 Influenza was positive on 11/27, rest of viruses were negative BMP and liver enzymes were unremarkable except for mildly elevated creatinine at baseline of 1.4 Chest x-ray showed cardiomegaly with no evidence of vascular congestion but the re is a small right lower lobe infiltrate suspicious for pneumonia, Cervical spine x-ray showing no fracture or dislocation with 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 She is currently receiving normal saline 130 mL, Zithromax, ceftriaxone and IV vancomycin Review of Systems Review of systems CONSTITUTIONAL: No fever, no malaise, no fatigue. HEENT: No recent visual problems or hearing problems. Denied any sore throat. CARDIOVASCULAR: No orthopnea, PND, no palpitations, no syncope. PULMONARY: No shortness of breath, no cough, no hemoptysis. GASTROINTESTINAL: No diarrhea, no nausea, no vomiting, no abdominal pain. Normoactive bowel sounds. NEUROLOGICAL: No headaches, no weakness, no numbness. HEMATOLOGICAL: Denies any bleeding or petechiae. GENITOURINARY: Denies any burning micturition, frequency, or urgency. MUSCULOSKELETAL/RHEUMATOLOGICAL: Denies any joint pain, swelling, or any muscle pain. ENDOCRINE: Denies any polyuria or polydipsia. Past Medical History Past Medical History: Cancer, Chest Pain / Angina, Dementia, GERD/Reflux, Hypertension, Thyroid Disorder Additional Past Medical History / Comment(s): CLL, leukemia, parkinsons History of Any Multi-Drug Resistant Organisms: None Reported Past Surgical History: Heart Catheterization, Hernia Repair Past Anesthesia/Blood Transfusion Reactions: No Reported Reaction Additional Past Anesthesia/Blood Transfusion Reaction / Comment(s): PATIENT STATES HE HAS NEVER HAD A BLOOD TRANSFUSION Past Psychological History: No Psychological Hx Reported Smoking Status: Never smoker Past Alcohol Use History: Rare Past Drug Use History: None Reported - Past Family History Father Family Medical History: Unable to Obtain Medications and Allergies Home Medications Medication Instructions Recorded Confirmed Type Levothyroxine Sodium [Synthroid] 50 mcg PO DAILY 03/28/21 09/28/23 History Atorvastatin [Lipitor] 80 mg PO HS 05/13/22 09/28/23 History Memantine [Namenda] 10 mg PO BID 05/13/22 09/28/23 History Carbidopa-Levodopa ER 50-200Mg 1 tab PO BID 09/28/23 09/28/23 History [Sinemet CR 50-200 mg] Losartan [Cozaar] 25 mg PO DAILY 09/28/23 09/28/23 History Metoprolol Tartrate [Lopressor] 25 mg PO BID 09/28/23 09/28/23 History Pantoprazole Sodium [Protonix] 40 mg PO BID 09/28/23 09/28/23 History Allergies Allergy/AdvReac Type Severity Reaction Status Date / Time No Known Allergies Allergy Verified 09/28/23 17:21 Physical Exam Vitals: Vital Signs Temp Pulse Pulse Resp BP BP Pulse Ox 09/29/23 07:00 97.9 F 77 16 155/74 94 L 09/29/23 03:19 97.6 F 70 15 109/56 91 L 09/28/23 21:04 98.4 F 80 16 162/80 96 09/28/23 20:37 76 16 138/76 96 09/28/23 15:56 98.6 F 80 16 108/53 96 Intake and Output 09/28/23 09/29/23 09/29/23 22:59 06:59 14:59 Other: # Voids 1 Weight 85.729 kg GENERAL: The patient is alert and oriented x3, not in any acute distress. Well developed, well nourished. HEENT: Pupils are round and equally reacting to light. EOMI. No scleral icterus. No conjunctival pallor. Normocephalic, atraumatic. No pharyngeal erythema. No thyromegaly. CARDIOVASCULAR: S1 and S2 present. No murmurs, rubs, or gallops. PULMONARY: Chest is clear to auscultation, no wheezing , no crackles. ABDOMEN: Soft, nontender, nondistended, normoactive bowel sounds. No palpable organomegaly. MUSCULOSKELETAL: No joint swelling or deformity. EXTREMITIES: No cyanosis, clubbing, or pedal edema. NEUROLOGICAL: Gross neurological examination did not reveal any focal deficits. SKIN: No rashes. no petechiae. Results CBC & Chem 7: 09/28/23 18:21 09/29/23 06:13 Labs: Abnormal Lab Results - Last 24 Hours (Table) 09/28/23 09/28/23 09/28/23 Range/Units 18:21 18:21 20:27 WBC 20.7 H (3.8-10.6) k/uL RBC 2.86 L (4.30-5.90) m/uL Hgb 9.2 L (13.0-17.5) gm/dL Hct 28.8 L (39.0-53.0) % MCV 100.8 H (80.0-100.0) fL RDW 17.7 H (11.5-15.5) % Plt Count 21 L (150-450) k/uL Lymphocytes # (Manual) 17.39 H (1.0-4.8) k/uL Sodium 131 L (137-145) mmol/L Carbon Dioxide 20 L (22-30) mmol/L BUN 33 H (9-20) mg/dL Creatinine 1.42 H (0.66-1.25) mg/dL Calcium 8.1 L (8.4-10.2) mg/dL Alkaline Phosphatase 128 H (38-126) U/L Total Protein 4.9 L (6.3-8.2) g/dL Albumin 2.8 L (3.5-5.0) g/dL Urine Protein 1+ H (Negative) Urine Mucus Rare H (None) /hpf Thrombosis Risk Factor Assmnt - Choose All That Apply Any of the Below Risk Factors Present?: No Other Risk Factors: Yes Each Risk Factor Represents 2 Points: Malignancy Each Risk Factor Represents 3 Points: Age 75 years or older Other congenital or acquired thrombophilia - If yes, enter type in comment: No Thrombosis Risk Factor Assessment Total Risk Factor Score: 5 Thrombosis Risk Factor Assessment Level: High Risk Assessment and Plan Assessment: Bacteremia Fall at home without syncope related to generalized weakness Possible right lower lobe pneumonia Leukocytosis, improving Bicytopenia with anemia and more severe thrombocytopenia Parkinson disease Hypertension Chronic kidney disease stage III Plan: Continue with broad-spectrum antibiotic and follow-up culture results Repeat blood cultures Infectious disease consult Hematology/oncology team consult for his malignancy Labs and medication were reviewed.. Continue same treatment. Continue with symptomatic treatment. Resume home medication. Monitor labs and vitals. DVT and GI prophylaxis. Further recommendations as per clinical course of the patient DVT prophylaxis: no Subcutaneous heparin GI Prophylaxis: Ppi PT/OT: Pending Prognosis is guarded
[2023-09-29 11:09] VITALS: BMI 25.6
[2023-09-29] MEDS: PANTOPRAZOLE 40 MG/10 ML VIAL IVP SCH (12:13)
--- NOTE | 2023-09-29 12:18 | P.GSCN ---
History of Present Illness Consult date: 09/29/23 History of present illness: CHIEF COMPLAINT: Fall HISTORY OF PRESENT ILLNESS: This is a 82-year-old male who presented to the hospital after a fall. He is currently being treated for pneumonia and possible bacteremia. Patient has a known history of CLL. Patient had a large maroon stool this morning. Hemoglobin on admission 9.2. Repeat hemoglobin is pending. Patient has history of dementia and Parkinson's. Unable to obtain history from patient. Family at bedside reports that patient is never had EGD or colonoscopy. Patient is not on any blood thinners. PAST MEDICAL HISTORY: Cancer, Chest Pain / Angina, Dementia, GERD/Reflux, Hypertension, Thyroid Disor [place] PAST SURGICAL HISTORY: MEDICATIONS: See below ALLERGIES: See below SOCIAL HISTORY: No illicit drug use. REVIEW OF SYSTEMS: CONSTITUTIONAL: Denies fever or chills. HEENT: Denies blurred vision, vision changes, or eye pain. Denies hemoptysis CARDIOVASCULAR: Denies chest pain or pressure. RESPIRATORY: No shortness of breath. GASTROINTESTINAL: See HPI for pertinent findings HEMATOLOGIC: Denies bleeding disorders. GENITOURINARY: Denies any blood in urine or increased urinary frequency. SKIN: Denies pruitis. Denies rash. PHYSICAL EXAM: VITAL SIGNS: Reviewed GENERAL: Well-developed in no acute distress. HEENT: No sclera icterus. Extraocular movements grossly intact. Moist buccal mucosa. Head is atraumatic, normocephalic. No nasal drainage. ABDOMEN: Soft. Nondistended. NEUROLOGIC: awake and alert. Confused LABORATORY DATA: WBC 20.7 Hgb 9.2 platelets 21 Sodium is 131 potassium 4.4 creatinine 1.42 IMAGING: ASSESSMENT: 1. Acute GI bleed with a large maroon stool 2. Influenza A positive 3. Possible pneumonia and possible bacteremia 4. History of CLL 5. Thrombocytopenia PLAN: -Patient scheduled for EGD and colonoscopy on with Dr. Carpio. -Repeat CBC pending -Continue to monitor hemoglobin and platelets -Continue to monitor for any signs or symptoms of bleeding -Continue Protonix Physician Advertising Writer note has been reviewed by physician. Signing provider agrees with the documented findings, assessment, and plan of care. Past Medical History Past Medical History: Cancer, Chest Pain / Angina, Dementia, GERD/Reflux, Hypertension, Thyroid Disorder Additional Past Medical History / Comment(s): CLL, leukemia, parkinsons History of Any Multi-Drug Resistant Organisms: None Reported Past Surgical History: Heart Catheterization, Hernia Repair Past Anesthesia/Blood Transfusion Reactions: No Reported Reaction Additional Past Anesthesia/Blood Transfusion Reaction / Comm: PATIENT STATES HE HAS NEVER HAD A BLOOD TRANSFUSION Past Psychological History: No Psychological Hx Reported Smoking Status: Never smoker Past Alcohol Use History: Rare Past Drug Use History: None Reported - Past Family History Father Family Medical History: Unable to Obtain Medications and Allergies Home Medications Medication Instructions Recorded Confirmed Type Levothyroxine Sodium [Synthroid] 50 mcg PO DAILY 03/28/21 09/28/23 History Atorvastatin [Lipitor] 80 mg PO HS 05/13/22 09/28/23 History Memantine [Namenda] 10 mg PO BID 05/13/22 09/28/23 History Carbidopa-Levodopa ER 50-200Mg 1 tab PO BID 09/28/23 09/28/23 History [Sinemet CR 50-200 mg] Losartan [Cozaar] 25 mg PO DAILY 09/28/23 09/28/23 History Metoprolol Tartrate [Lopressor] 25 mg PO BID 09/28/23 09/28/23 History Pantoprazole Sodium [Protonix] 40 mg PO BID 09/28/23 09/28/23 History Allergies Allergy/AdvReac Type Severity Reaction Status Date / Time No Known Allergies Allergy Verified 09/28/23 17:21 Surgical - Exam Vital Signs Temp Pulse Resp BP Pulse Ox 98.6 F 80 16 108/53 96 09/28/23 15:56 09/28/23 15:56 09/28/23 15:56 09/28/23 15:56 09/28/23 15:56 Results - Labs 09/28/23 18:21 09/29/23 06:13 Abnormal Lab Results - Last 24 Hours (Table) 09/28/23 09/28/23 09/28/23 Range/Units 18:21 18:21 20:27 WBC 20.7 H (3.8-10.6) k/uL RBC 2.86 L (4.30-5.90) m/uL Hgb 9.2 L (13.0-17.5) gm/dL Hct 28.8 L (39.0-53.0) % MCV 100.8 H (80.0-100.0) fL RDW 17.7 H (11.5-15.5) % Plt Count 21 L (150-450) k/uL Lymphocytes # (Manual) 17.39 H (1.0-4.8) k/uL Sodium 131 L (137-145) mmol/L Carbon Dioxide 20 L (22-30) mmol/L BUN 33 H (9-20) mg/dL Creatinine 1.42 H (0.66-1.25) mg/dL Calcium 8.1 L (8.4-10.2) mg/dL Alkaline Phosphatase 128 H (38-126) U/L Total Protein 4.9 L (6.3-8.2) g/dL Albumin 2.8 L (3.5-5.0) g/dL Urine Protein 1+ H (Negative) Urine Mucus Rare H (None) /hpf Diabetes panel 09/28/23 09/29/23 Range/Units 18:21 06:13 Sodium 131 L (137-145) mmol/L Potassium 4.4 (3.5-5.1) mmol/L Chloride 104 (98-107) mmol/L Carbon Dioxide 20 L (22-30) mmol/L BUN 33 H (9-20) mg/dL Creatinine 1.42 H 1.22 (0.66-1.25) mg/dL Glucose 89 (74-99) mg/dL Calcium 8.1 L (8.4-10.2) mg/dL AST 30 (17-59) U/L ALT 7 (4-49) U/L Alkaline Phosphatase 128 H (38-126) U/L Total Protein 4.9 L (6.3-8.2) g/dL Albumin 2.8 L (3.5-5.0) g/dL Calcium panel 09/28/23 Range/Units 18:21 Calcium 8.1 L (8.4-10.2) mg/dL Albumin 2.8 L (3.5-5.0) g/dL Pituitary panel 09/28/23 09/29/23 Range/Units 18:21 06:13 Sodium 131 L (137-145) mmol/L Potassium 4.4 (3.5-5.1) mmol/L Chloride 104 (98-107) mmol/L Carbon Dioxide 20 L (22-30) mmol/L BUN 33 H (9-20) mg/dL Creatinine 1.42 H 1.22 (0.66-1.25) mg/dL Glucose 89 (74-99) mg/dL Calcium 8.1 L (8.4-10.2) mg/dL Adrenal panel 09/28/23 09/29/23 Range/Units 18:21 06:13 Sodium 131 L (137-145) mmol/L Potassium 4.4 (3.5-5.1) mmol/L Chloride 104 (98-107) mmol/L Carbon Dioxide 20 L (22-30) mmol/L BUN 33 H (9-20) mg/dL Creatinine 1.42 H 1.22 (0.66-1.25) mg/dL Glucose 89 (74-99) mg/dL Calcium 8.1 L (8.4-10.2) mg/dL Total Bilirubin 1.0 (0.2-1.3) mg/dL AST 30 (17-59) U/L ALT 7 (4-49) U/L Alkaline Phosphatase 128 H (38-126) U/L Total Protein 4.9 L (6.3-8.2) g/dL Albumin 2.8 L (3.5-5.0) g/dL
[2023-09-29 16:59] LABS: Basophils # (M) 0 X 10*3/uL (0.00-0.10); Eosinophils # (M) 0 X 10*3/uL (0.04-0.35); HCT 26.7 % (39.6-50.0); HGB 8.7 g/dL (13.0-17.0); Immature Platelet Fraction 16.3 % (1.1-6.1); Lymphocytes # (M) 20.22 X 10*3/uL (0.90-5.00); MCH 32.6 pg (27.0-32.0); MCHC 32.6 g/dL (32.0-37.0); Monocytes # (M) 1.26 X 10*3/uL (0.20-1.00); NRBC Per 100 WBC 0 X 10*3/uL (0.00-0.01); Neutrophils # (M) 3.79 X 10*3/uL (1.80-7.70); Neutrophils % (M) 15 %; Platelet Count 24 X 10*3/uL (140-440); RBC 2.67 X 10*6/uL (4.40-5.60); RDW 19.7 % (11.5-14.5); WBC 25.28 X 10*3/uL (4.50-10.00)
--- NOTE | 2023-09-29 17:07 | P.CONS ---
History of Present Illness - Reason for Consult Consult date: 09/29/23 CLL Requesting physician: Ke Monroe - Chief Complaint fall, neck pain - History of Present Illness Mr. Lua is an 82-year-old male patient who follows with Dr. 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 He remained on surveillance for years. Around December of 2021 he reported B-symptoms of fatigue, abd fullness, night sweats and anorexia. He was started in acalabrutinib. This was held Apr 2022 after hospitalization and low plt. He remained off and on surveillance until he was seen by Dr. Wilder 09/11/2023. He had notable increase in his WBC from 29 in May 2023 to 68. Patient was instructed at that time to restart Calquence at 100 mg twice daily. Patient is not able to tell me if he is currently taking. He is currently admitted to the hospital status post a fall and subsequent neck pain. When talking with patient he is no longer having significant pain. Denies numbness or tingling, headache. He has unfortunately though been diagnosed with influenza A. He denies any fevers, chills, shortness of breath or chest pain. No significantly unusual cough. Review of Systems 10 point ROS is neg except as stated in HPI. Past Medical History Past Medical History: Cancer, Chest Pain / Angina, Dementia, GERD/Reflux, Hypertension, Thyroid Disorder Additional Past Medical History / Comment(s): CLL, leukemia, parkinsons History of Any Multi-Drug Resistant Organisms: None Reported Past Surgical History: Heart Catheterization, Hernia Repair Past Anesthesia/Blood Transfusion Reactions: No Reported Reaction Additional Past Anesthesia/Blood Transfusion Reaction / Comm: PATIENT STATES HE HAS NEVER HAD A BLOOD TRANSFUSION Past Psychological History: No Psychological Hx Reported Smoking Status: Never smoker Past Alcohol Use History: Rare Past Drug Use History: None Reported - Past Family History Father Family Medical History: Unable to Obtain Medications and Allergies Home Medications Medication Instructions Recorded Confirmed Type Levothyroxine Sodium [Synthroid] 50 mcg PO DAILY 03/28/21 09/28/23 History Atorvastatin [Lipitor] 80 mg PO HS 05/13/22 09/28/23 History Memantine [Namenda] 10 mg PO BID 05/13/22 09/28/23 History Carbidopa-Levodopa ER 50-200Mg 1 tab PO BID 09/28/23 09/28/23 History [Sinemet CR 50-200 mg] Losartan [Cozaar] 25 mg PO DAILY 09/28/23 09/28/23 History Metoprolol Tartrate [Lopressor] 25 mg PO BID 09/28/23 09/28/23 History Pantoprazole Sodium [Protonix] 40 mg PO BID 09/28/23 09/28/23 History Allergies Allergy/AdvReac Type Severity Reaction Status Date / Time No Known Allergies Allergy Verified 09/28/23 17:21 Physical Exam Vitals: Vital Signs Temp Pulse Pulse Resp BP BP Pulse Ox 09/29/23 07:00 97.9 F 77 16 155/74 94 L 09/29/23 03:19 97.6 F 70 15 109/56 91 L 09/28/23 21:04 98.4 F 80 16 162/80 96 09/28/23 20:37 76 16 138/76 96 09/28/23 15:56 98.6 F 80 16 108/53 96 Intake and Output 09/28/23 09/29/23 09/29/23 22:59 06:59 14:59 Other: # Voids 1 Weight 85.729 kg - Constitutional General appearance: average body habitus, cooperative, no acute distress - EENT Eyes: anicteric sclerae, EOMI ENT: hearing grossly normal - Neck Neck: no lymphadenopathy - Respiratory Respiratory: bilateral: diminished, other (harsh breath sounds on expiration, maybe slight wheeze on the right) - Cardiovascular Rhythm: regular Heart sounds: normal: S1, S2 Abnormal Heart Sounds: no systolic murmur, no diastolic murmur, no rub, no S3 Gallop, no S4 Gallop, no click, no other leg Peripheral Edema: bilateral: None - Gastrointestinal General gastrointestinal: no absent bowel sounds, no decreased bowel sounds, no distended, no hepatomegaly, no hyperactive bowel sounds, normal bowel sounds, no organomegaly, no rigid, no scaphoid, soft, no splenomegaly, no tenderness, no umbilical hernia, no ventral hernia - Neurologic Neurologic: CNII-XII intact - Musculoskeletal Musculoskeletal: generalized weakness, strength equal bilaterally - Psychiatric Psychiatric: A&O x's 3, appropriate affect, intact judgment & insight Results CBC & Chem 7: 09/28/23 18:21 09/29/23 06:13 Labs: Abnormal Lab Results - Last 24 Hours (Table) 09/28/23 09/28/23 09/28/23 Range/Units 18:21 18:21 20:27 WBC 20.7 H (3.8-10.6) k/uL RBC 2.86 L (4.30-5.90) m/uL Hgb 9.2 L (13.0-17.5) gm/dL Hct 28.8 L (39.0-53.0) % MCV 100.8 H (80.0-100.0) fL RDW 17.7 H (11.5-15.5) % Plt Count 21 L (150-450) k/uL Lymphocytes # (Manual) 17.39 H (1.0-4.8) k/uL Sodium 131 L (137-145) mmol/L Carbon Dioxide 20 L (22-30) mmol/L BUN 33 H (9-20) mg/dL Creatinine 1.42 H (0.66-1.25) mg/dL Calcium 8.1 L (8.4-10.2) mg/dL Alkaline Phosphatase 128 H (38-126) U/L Total Protein 4.9 L (6.3-8.2) g/dL Albumin 2.8 L (3.5-5.0) g/dL Urine Protein 1+ H (Negative) Urine Mucus Rare H (None) /hpf Comments: C-spine xray report reviewed Chest x-ray: report reviewed Assessment and Plan (1) Influenza Current Visit: Yes Status: Acute Priority: High Code(s): J11.1 - FLU DUE TO UNIDENTIFIED INFLUENZA VIRUS W OTH RESP MANIFEST SNOMED Code(s): 4901065 (2) CLL (chronic lymphocytic leukemia) Current Visit: No Status: Chronic Priority: Low Code(s): C91.10 - CHRONIC LYMPHOCYTIC LEUK OF B-CELL TYPE NOT ACHIEVE REMIS SNOMED Code(s): 34228062 Plan: Influenza A -CXR suggestive of the same -Pt not reporting severe respiratory symptoms at this time -Defer mgmt to Admitting CLL -Diagnosed about 2013. -Patient was started on treatment and 2021 when he had some constitutional symptoms. Treatment was held later in the year after hospitalization and low platelets. He remained off treatment until he was just seen by Dr. Wilder about 2 weeks ago. His white blood cell increased from 29 to 68, since May. WBC was 20 on admit, 25 today. Significant improvement from just a f ew weeks ago. Also, there is going to be a reactive component of his white blood cells to his acute infection. -Patient is to hold Calquence for now. -Patient has a follow-up with Dr. Wilder scheduled for 10/08 at 1 PM. This appointment has been placed in the discharge plan. It has also been noted in the discharge plan that the patient is to remain off of Calquence until he is seen by Dr. Wilder. -Patient verbalized understanding the plan.
[2023-09-29] MEDS ORDERED: VANCOMYCIN 1,500 MG in SODIUM CHLORIDE 0.9% 500 ML 500 ML IVPB SCH (20:00)
--- NOTE | 2023-09-29 22:25 | P.CONS ---
History of Present Illness - Reason for Consult Consult date: 09/29/23 Bacteremia Requesting physician: Ke Monroe - Chief Complaint Weakness and fall x 1 day - History of Present Illness Patient is 82-year-old male with a past medical history significant for hypertension reflux dementia CLL Parkinson disease presenting to the hosp [facility] initially on 09/26/2023 for generalized weakness and fever at that time he was diagnosed with influenza and sent home now presenting back to the hospital on 09/29/2023 for evaluation of fall while he was going to the bathroom denies having a syncopal episode patient complaining of dizziness no headache or URI symptoms no chest pain or shortness of that he did have some cough but not bringing up any sputum denies any nausea no vomiting no abdominal pain or diarrhea on presentation to the hospital the patient was afebrile and no fever have recorded subsequently patient was not tachycardic hypotensive or hypoxic he did have a white count of 20,000 which is up to 25.28 creatinine was mildly lázaro vated liver isms are normal urine has been negative patient did have a chest x- ray acute cardiopulmonary disease small focal infiltrate right lung base with small effusion findings suggestive of pneumonia patient also have a blood culture done on his last admission 146 which grew coagulase-negative staph patient has been started on Rocephin and Zithromax, vancomycin infectious disease was consulted for further management of antibiotic therapy Review of Systems Positive point and negatives has been mentioned in the HPI, complete review of systems was performed and all other systems are negative Past Medical History Past Medical History: Cancer, Chest Pain / Angina, Dementia, GERD/Reflux, Hypertension, Thyroid Disorder Additional Past Medical History / Comment(s): CLL, leukemia, parkinsons History of Any Multi-Drug Resistant Organisms: None Reported Past Surgical History: Heart Catheterization, Hernia Repair Past Anesthesia/Blood Transfusion Reactions: No Reported Reaction Additional Past Anesthesia/Blood Transfusion Reaction / Comm: PATIENT STATES HE HAS NEVER HAD A BLOOD TRANSFUSION Past Psychological History: No Psychological Hx Reported Smoking Status: Never smoker Past Alcohol Use History: Rare Past Drug Use History: None Reported - Past Family History Father Family Medical History: Unable to Obtain Medications and Allergies Home Medications Medication Instructions Recorded Confirmed Type Levothyroxine Sodium [Synthroid] 50 mcg PO DAILY 03/28/21 09/28/23 History Atorvastatin [Lipitor] 80 mg PO HS 05/13/22 09/28/23 History Memantine [Namenda] 10 mg PO BID 05/13/22 09/28/23 History Carbidopa-Levodopa ER 50-200Mg 1 tab PO BID 09/28/23 09/28/23 History [Sinemet CR 50-200 mg] Metoprolol Tartrate [Lopressor] 25 mg PO BID 09/28/23 09/28/23 History Pantoprazole Sodium [Protonix] 40 mg PO BID 09/28/23 09/28/23 History Acetaminophen Tab [Tylenol] 650 mg PO Q6HR PRN tab 10/08/23 Rx Ipratropium-Albuterol Nebulize 3 ml INHALATION RT-TID #100 each 10/08/23 Rx [Duoneb 0.5 mg-3 mg/3 ml Soln] Ipratropium-Albuterol Nebulize 3 ml INHALATION RT-TID PRN each 10/08/23 Rx [Duoneb 0.5 mg-3 mg/3 ml Soln] Moxifloxacin HCl [Avelox] 400 mg PO DAILY 7 Days #7 tab 10/08/23 Rx Allergies Allergy/AdvReac Type Severity Reaction Status Date / Time No Known Allergies Allergy Verified 09/28/23 17:21 Physical Exam Vitals: Vital Signs Temp Pulse Pulse Resp BP BP Pulse Ox 09/29/23 07:00 97.9 F 77 16 155/74 94 L 09/29/23 03:19 97.6 F 70 15 109/56 91 L 09/28/23 21:04 98.4 F 80 16 162/80 96 09/28/23 20:37 76 16 138/76 96 09/28/23 15:56 98.6 F 80 16 108/53 96 Intake and Output 09/28/23 09/29/23 09/29/23 22:59 06:59 14:59 Intake Total 118 Balance 118 Intake: Oral 118 Other: # Voids 1 2 # Bowel Movements 1 Weight 85.729 kg 85.729 kg GENERAL DESCRIPTION: Elderly male lying in bed, no distress. No tachypnea or accessory muscle of respiration use. HEENT: Shows Pallor , no scleral icterus. Oral mucous membrane is dry. NECK: Trachea central, no thyromegaly. LUNGS: Unlabored breathing. Decreased breath sound at the base HEART: S1, S2, regular rate and rhythm. No loud murmur ABDOMEN: Soft, no tenderness , EXTREMITIES: No edema of feet. SKIN: Bruises, no masses palpable. NEUROLOGICAL: The patient is awake, alert, mood and affect normal. Results CBC & Chem 7: 10/06/23 04:43 10/06/23 04:43 Labs: Abnormal Lab Results - Last 24 Hours (Table) 09/28/23 09/28/23 09/28/23 Range/Units 18:21 18:21 20:27 WBC 20.7 H (3.8-10.6) k/uL RBC 2.86 L (4.30-5.90) m/uL Hgb 9.2 L (13.0-17.5) gm/dL Hct 28.8 L (39.0-53.0) % MCV 100.8 H (80.0-100.0) fL RDW 17.7 H (11.5-15.5) % Plt Count 21 L (150-450) k/uL Lymphocytes # (Manual) 17.39 H (1.0-4.8) k/uL Sodium 131 L (137-145) mmol/L Carbon Dioxide 20 L (22-30) mmol/L BUN 33 H (9-20) mg/dL Creatinine 1.42 H (0.66-1.25) mg/dL Calcium 8.1 L (8.4-10.2) mg/dL Alkaline Phosphatase 128 H (38-126) U/L Total Protein 4.9 L (6.3-8.2) g/dL Albumin 2.8 L (3.5-5.0) g/dL Urine Protein 1+ H (Negative) Urine Mucus Rare H (None) /hpf Assessment and Plan (1) Bacteremia Status: Acute Code(s): R78.81 - BACTEREMIA SNOMED Code(s): 4511918 (2) Leukocytosis Status: Acute Code(s): D72.829 - ELEVATED WHITE BLOOD CELL COUNT, UNSPECIFIED SNOMED Code(s): 977696052 (3) Pneumonia Status: Acute Code(s): J18.9 - PNEUMONIA, UNSPECIFIED ORGANISM SNOMED Code(s): 763325869 Plan: 1patient with a positive blood culture with coagulase-negative staph more likely is contamination as the patient has no clinical disease to go along with it blood cultures repeated document clearance 2-patient presented to hospital with a fall with a recent diagnosis of influenza chest x-ray with pneumonia and did have elevated white count 3-we will try to obtain a sputum for Gram stain culture check a CRP and a procalcitonin 4-continue Rocephin and Zithromax however discontinue vancomycin We will follow on clinical condition and cultures to further adjust medication if needed Thank you for this consultation we will follow the patient along with you Dictation was produced using [employer] dictation software. please excuse any grammatical, word or spelling errors. Time with Patient: Greater than 30
[2023-09-30 07:49] LABS: African American GFR (CKD) 72 (>60 ml/min/1.73 sqM); Anion Gap 7 mmol/L; Blood Urea Nitrogen 27 mg/dL (9-20); Calcium 7.4 mg/dL (8.4-10.2); Carbon Dioxide 18 mmol/L (22-30); Chloride 109 mmol/L (98-107); Glucose 85 mg/dL (74-99); Non-African American GFR(CKD) 62 (>60 ml/min/1.73 sqM); Sodium 134 mmol/L (137-145)
[2023-09-30 07:50] LABS: Anisocytosis Slight; Basophils # (A) 0.1 k/uL (0-0.2); Basophils % (A) 1 %; Eosinophils % (A) 0 %; HCT 24.2 % (39.0-53.0); Hypochromasia Moderate; Lymphocytes # (A) 13.2 k/uL (1.0-4.8); Lymphocytes % (A) 75 %; MCH 32.1 pg (25.0-35.0); MCHC 31.2 g/dL (31.0-37.0); MCV 103.1 fL (80.0-100.0); Macrocytosis Moderate; Mean Platelet Volume 13.1; Monocytes # (A) 0.4 k/uL (0-1.0); Monocytes % (A) 2 %; Neutrophils # (A) 3.1 k/uL (1.3-7.7); Neutrophils % (A) 18 %; Poikilocytosis Slight; RBC 2.35 m/uL (4.30-5.90); RDW 18.1 % (11.5-15.5); WBC 17.6 k/uL (3.8-10.6)
[2023-09-30 08:00] LABS: HGB 7.6 gm/dL (13.0-17.5)
[2023-09-30 08:01] LABS: Platelet Count 27 k/uL (150-450)
[2023-09-30] MEDS: QUEtiapine 25 MG TAB PO PRN ×2 (11:25→20:24)
--- NOTE | 2023-09-30 12:07 | CT ---
EXAMINATION TYPE: CT brain wo con DATE OF EXAM: 09/30/2023 COMPARISON: INDICATION: bacteremia DLP: 1188.3 mGycm, Automated exposure control for dose reduction was used. CONTRAST: None CT of the brain is performed utilizing 3 mm thick sections through the posterior fossa and 3 mm thick sections through the remaining calvarium. Study is performed within 24 hours of arrival to the hosp [place]. No abnormal hyperdensity is present to suggest an acute intracranial hemorrhage. No mass lesion is evident. No acute infarcts are evident. Periventricular and deep white matter hypodensity is present, likely o n the basis of chronic white matter ischemic changes. Findings however appear progressive from compar suze. Ventricles and sulci are prominent for the patient age. There is mucosal thickening within bilateral maxillary sinuses. Some minimal mucosal thickening is in the medial left sphenoid sinus. Mucosal thickening is 2 ethmoid air cells with partial opacification of mid bilateral ethmoid air cells right frontal sinuses are clear. Mastoid air cells are clear. IMPRESSION: 1. Chronic periventricular white matter ischemic-type changes, progressive from the comparison in 2 014, with atrophy. 2. No acute intracranial process radiographically apparent. Follow-up MRI can be performed as clinica lly indicated
--- NOTE | 2023-09-30 12:23 | P.PN ---
Subjective History of Present Illness This is a pleasant 82 years old male with past medical history of multiple medical problems including history of colorectal cancer on chemotherapy and CLL. He presents to the emergency room on 09/25 for generalized weakness and fever, his influenza and he had a fever of 101.5 at that time and he was diagnosed with influenza without pneumonia or hypoxia and was sent home He comes back yesterday because of fall while he was going to the bathroom, he states he blacked out woke without syncope because his both legs give way and he fell hitting his elbow but no head trauma. He denies dizziness at that time and no other specific complaint he was complaining from some mild neck pain which is fine today as he denies any pain to me Patient denies chest pain or dyspnea. No exertional dyspnea, no coughing, no diarrhea or vomiting. No abdominal pain, no urinary complaint No headache or dizziness or weakness or numbness. Patient feels generally weak He denies smoking alcohol or illicit drugs This time patient is afebrile, vitals are stable and he is on room air He has leukocytosis of 20,000 improved from 34.8k 3 days ago, hemoglobin stable 9.4 and 9.2, platelet count is low at 2621 Influenza was positive on 11/27, rest of viruses were negative BMP and liver enzymes were unremarkable except for mildly elevated creatinine at baseline of 1.4 Chest x-ray showed cardiomegaly with no evidence of vascular congestion but there is a small right lower lobe infiltrate suspicious for pneumonia, Cervical spine x-ray showing no fracture or dislocation with 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 She is currently receiving normal saline 130 mL, Zithromax, ceftriaxone and IV vancomycin Addendum: After rounding patient developed large bloody bowel movement, vitals remained stable and repeat hemoglobin 8.7 which is slightly lower Patient placed on IV Protonix Surgery team consulted for plan for EGD/colonoscopy on 09/3009/30/2023 Patient was more confused today and he was climbing out of bed. He is on Seroquel 25 mg at bedtime, we increased another dose this morning However by the time I saw the patient he was lying in bed confused to time place and person, count, not agitated. No more fever and other vital stable Labs improving except for hemoglobin went down to 7.6. No more evidence of active bleeding. Platelets still low only slightly better at 27, and surgery team are considering hold EGD/colonoscopy till platelet count improved. We will repeat hemoglobin and platelet count tomorrow. In the meantime patient kept on IV Protonix twice daily also going to change his fluid to D5 normal saline at 75 mL/h. CT of the brain was checked today and reviewed myself which show no evidence of acute hemorrhage or bleed but there is progressive atrophy compared to old CAT scan about 10 years ago. Patient remains on Zithromax and ceftriaxone., For possible pneumonia and bacteremia Significant other at bedside and all her questions were answered to his satisfaction Discussed with the staff Review of systems CONSTITUTIONAL: No fever, no malaise, no fatigue. HEENT: No recent visual problems or hearing problems. Denied any sore throat. HEMATOLOGICAL: Denies any bleeding or petechiae. GENITOURINARY: Denies any burning micturition, frequency, or urgency. MUSCULOSKELETAL/RHEUMATOLOGICAL: Denies any joint pain, swelling, or any muscle pain. ENDOCRINE: Denies any polyuria or polydipsia. Active Medications Generic Name Dose Route Start Last Admin Trade Name Freq PRN Reason Stop Dose Admin Acetaminophen 650 mg 09/28/23 18:21 Acetaminophen Tab 325 Mg Tab PO Q6HR PRN Mild Pain or Fever > 100.5 Atorvastatin Calcium 80 mg 09/28/23 23:00 09/29/23 21:00 Atorvastatin 80 Mg Tab PO 80 mg HS WARREN Administration Carbidopa/Levodopa 1 each 09/28/23 23:00 09/30/23 09:31 Carbidopa-Levodopa Er 50-200mg 1 Each Tablet.Er PO 1 each BID WARREN Administration Sodium Chloride 1,000 mls @ 75 mls/hr 09/28/23 18:15 09/30/23 02:07 Saline 0.9% IV 130 mls/hr .[id number] WARREN Administration Ceftriaxone Sodium 1 gm/ 50 mls @ 100 mls/hr 09/28/23 19:00 09/30/23 05:57 Sodium Chloride IVPB 100 mls/hr Q12H WARREN Administration Protocol Azithromycin 500 mg/ Sodium 250 mls @ 250 mls/hr 09/28/23 21:15 09/29/23 21:00 Chloride IVPB 09/30/23 21:59 250 mls/hr HS WARREN Administration Protocol Levothyroxine Sodium 50 mcg 09/29/23 06:30 09/30/23 05:55 Levothyroxine 50 Mcg Tab PO 50 mcg DAILY@0630 WARREN Administration Memantine 10 mg 09/28/23 23:00 09/30/23 09:31 Memantine 10 Mg Tab PO 10 mg BID WARREN Administration Metoprolol Tartrate 25 mg 09/28/23 23:00 09/30/23 09:31 Metoprolol Tartrate 25 Mg Tab PO 25 mg BID WARREN Administration Naloxone HCl 0.2 mg 09/28/23 18:21 Naloxone 0.4 Mg/Ml 1 Ml Vial IV Q2M PRN Opioid Reversal Pantoprazole Sodium 40 mg 09/29/23 10:45 09/30/23 09:32 Pantoprazole 40 Mg/10 Ml Vial IVP 40 mg BID WARREN Administration Quetiapine Fumarate 12.5 mg 09/29/23 23:39 Quetiapine 25 Mg Tab PO HS PRN Agitation Quetiapine Fumarate 25 mg 09/30/23 10:41 09/30/23 11:25 Quetiapine 25 Mg Tab PO 25 mg DAILY PRN Administration Agitation or Acute Anxiety Objective - Vital Signs Vital signs: Vital Signs Temp 98.3 F 09/30/23 07:00 Pulse 72 09/30/23 07:00 Resp 16 09/30/23 07:00 BP 148/71 09/30/23 07:00 Pulse Ox 95 09/30/23 07:00 FiO2 Intake & Output 09/29/23 09/30/23 09/30/23 18:59 06:59 18:59 Intake Total 236 360 Output Total 50 Balance 186 360 Weight 85.729 kg Intake: Oral 236 360 Output: Urine 50 Other: # Voids 2 2 # Bowel Movements 1 - Exam -GENERAL: The patient is awake but confused, currently calm , not in any acute distress. Well developed, well nourished. HEENT: Pupils are round and equally reacting to light. EOMI. No scleral icterus. No conjunctival pallor. Normocephalic, atraumatic. No pharyngeal erythema. No thyromegaly. CARDIOVASCULAR: S1 and S2 present. No murmurs, rubs, or gallops. PULMONARY: Chest is clear to auscultation, no wheezing , no crackles. ABDOMEN: Soft, nontender, nondistended, normoactive bowel sounds. No palpable organomegaly. MUSCULOSKELETAL: No joint swelling or deformity. EXTREMITIES: No cyanosis, clubbing, or pedal edema. NEUROLOGICAL: Gross neurological examination did not reveal any focal deficits. SKIN: No rashes. no petechiae. - Labs CBC & Chem 7: 09/30/23 07:09 09/30/23 07:09 Labs: Abnormal Lab Results - Last 24 Hours (Table) 09/29/23 09/30/23 09/30/23 Range/Units 10:55 07:09 07:09 WBC 25.28 H 17.6 H (4.50-10.00) X 10*3/uL RBC 2.67 L 2.35 L (4.40-5.60) X 10*6/uL Hgb 8.7 L 7.6 L D (13.0-17.0) g/dL Hct 26.7 L 24.2 L (39.6-50.0) % MCV 100.0 H 103.1 H (80.0-97.0) FL MCH 32.6 H (27.0-32.0) pg RDW 19.7 H 18.1 H (11.5-14.5) % Plt Count 24 L 27 L (140-440) X 10*3/uL Lymphocytes # 13.2 H (1.0-4.8) k/uL Lymphocytes # (Manual) 20.22 H (0.90-5.00) X 10*3/uL Monocytes # (Manual) 1.26 H (0.20-1.00) X 10*3/uL Eosinophils # (Manual) 0 L (0.04-0.35) X 10*3/uL Immature Plt Fraction 16.3 H (1.1-6.1) % Sodium 134 L (137-145) mmol/L Chloride 109 H (98-107) mmol/L Carbon Dioxide 18 L (22-30) mmol/L BUN 27 H (9-20) mg/dL Calcium 7.4 L (8.4-10.2) mg/dL Microbiology - Last 24 Hours (Table) 09/28/23 19:15 Blood Culture - Preliminary Blood 09/28/23 19:00 Blood Culture - Preliminary Blood Assessment and Plan Assessment: Bacteremia Possible right lower lobe pneumonia Toxic/metabolic encephalopathy secondary to above Acute GI bleed with bloody bowel movements on the day of admission Acute blood loss anemia Fall at home without syncope related to generalized weakness Leukocytosis, improving Bicytopenia with anemia and more severe thrombocytopenia Parkinson disease Hypertension Chronic kidney disease stage III Plan: Continue with broad-spectrum antibiotic and follow-up culture results, currently on Zithromax and ceftriaxone CT of the brain reviewed Repeat blood cultures Infectious disease consult Hematology/oncology team consult for his malignancy Surgery team consult for GI bleed Labs and medication were reviewed.. Continue same treatment. Continue with symptomatic treatment. Resume home medication. Monitor labs and vitals. DVT and GI prophylaxis. Further recommendations as per clinical course of the p atient DVT prophylaxis: no Subcutaneous heparin GI Prophylaxis: Ppi PT/OT: Pending Prognosis is guarded
[2023-09-30] MEDS: DEXTROSE 5%-0.9% NACL 1,000 ML IV SCH (12:36)
[2023-09-30] MEDS: LORazepam 2 MG/ML INJ IV STA (14:01)
--- NOTE | 2023-09-30 14:02 | P.PN ---
Subjective Progress Note Date: 09/30/23 Principal diagnosis: Reason for follow-up is pneumonia and positive blood culture Patient is 82-year-old male with a past medical history significant for hypertension reflux dementia CLL Parkinson disease, who recently diagnosed and treated for influenza presented to hospital with a fall chest x-ray with the right lung infiltrate concerning for pneumonia and blood culture call from previous admission positive for coagulase-negative staph. On today's evaluation that is 09/30/2023, the patient remains to be afebrile he is breathing comfortably room air patient remains to be pleasantly confused and trying to get out of bed cannot provide any history. Patient white count is down to 17.6, creatinine 1.09, blood cultures admission so far pending Objective - Vital Signs Vital signs: Vital Signs Temp 98.3 F 09/30/23 07:00 Pulse 72 09/30/23 07:00 Resp 16 09/30/23 07:00 BP 148/71 09/30/23 07:00 Pulse Ox 95 09/30/23 07:00 FiO2 Intake & Output 09/29/23 09/30/23 09/30/23 18:59 06:59 18:59 Intake Total 236 360 Output Total 50 Balance 186 360 Weight 85.729 kg Intake: Oral 236 360 Output: Urine 50 Other: # Voids 2 2 # Bowel Movements 1 - Exam GENERAL DESCRIPTION: An elderly male lying in bed in no distress RESPIRATORY SYSTEM: Unlabored breathing , decreased breath sounds at bases HEART: S1 S2 regular rate and rhythm , ABDOMEN: Soft , no tenderness EXTREMITIES: No edema feet - Labs CBC & Chem 7: 09/30/23 07:09 09/30/23 07:09 Labs: Abnormal Lab Results - Last 24 Hours (Table) 09/29/23 09/30/23 09/30/23 Range/Units 10:55 07:09 07:09 WBC 25.28 H 17.6 H (4.50-10.00) X 10*3/uL RBC 2.67 L 2.35 L (4.40-5.60) X 10*6/uL Hgb 8.7 L 7.6 L D (13.0-17.0) g/dL Hct 26.7 L 24.2 L (39.6-50.0) % MCV 100.0 H 103.1 H (80.0-97.0) FL MCH 32.6 H (27.0-32.0) pg RDW 19.7 H 18.1 H (11.5-14.5) % Plt Count 24 L 27 L (140-440) X 10*3/uL Lymphocytes # 13.2 H (1.0-4.8) k/uL Lymphocytes # (Manual) 20.22 H (0.90-5.00) X 10*3/uL Monocytes # (Manual) 1.26 H (0.20-1.00) X 10*3/uL Eosinophils # (Manual) 0 L (0.04-0.35) X 10*3/uL Immature Plt Fraction 16.3 H (1.1-6.1) % Sodium 134 L (137-145) mmol/L Chloride 109 H (98-107) mmol/L Carbon Dioxide 18 L (22-30) mmol/L BUN 27 H (9-20) mg/dL Calcium 7.4 L (8.4-10.2) mg/dL Microbiology - Last 24 Hours (Table) 09/28/23 19:15 Blood Culture - Preliminary Blood 09/28/23 19:00 Blood Culture - Preliminary Blood Assessment and Plan Plan: 1patient with a positive blood culture with coagulase-negative staph more likely skin contamination as the patient has no clinical disease to go along with it blood cultures repeated document clearance which are currently pending 2-patient presented to hospital with a fall with a recent diagnosis of influenza chest x-ray with pneumonia and did have elevated white count which is trending down 3-patient to continue Rocephin and Zithromax while waiting for the workup to be completed Dictation was produced using [employer] dictation software. please excuse any grammatical, word or spelling errors. Time with Patient: Less than 30
[2023-09-30] MEDS: HALOPERIDOL LACTATE 5 MG/ML 1 ML VIAL IM STA (15:12)
--- NOTE | 2023-09-30 15:40 | P.PN ---
Subjective Progress Note Date: 09/30/23 CHIEF COMPLAINT: Fall HISTORY OF PRESENT ILLNESS: Surgical service following in regards to GI bleed. Patient had 1 large maroon stool yesterday. Hemoglobin is trending down 9.2 on admission and is now down to 7.6. Patient also with low platelets of 27. He is weak and fatigued. Patient denies any abdominal pain. He has had no further bleeding. He is tolerating the clear liquids. Afebrile. WBC 17.6 Hgb 7.6 platelets 27 sodium is 134 potassium 4.0 creatinine 1.09 PHYSICAL EXAM: VITAL SIGNS: Reviewed. GENERAL: Well-developed in no acute distress. ABDOMEN: Soft. Nondistended. Nontender. NEUROLOGIC: Awake and alert. Mildly confused. ASSESSMENT: 1. Acute GI bleed with 1 large maroon stool. Likely medical bleed due to his thrombocytopenia. Patient has had no further bleeding. 2. Influenza A positive 3. Possible pneumonia and possible bacteremia 4. History of CLL 5. Thrombocytopenia PLAN: -Continue to medically optimize patient -Will transfuse 1 unit of blood -Plan for endoscopies when medically stable -Continue to monitor hemoglobin -Continue to monitor for any signs or symptoms of bleeding -Advance diet to full liquid Physician Criminal Attorney note has been reviewed by physician. Signing provider agrees with the documented findings, assessment, and plan of care. Objective - Vital Signs Vital signs: Vital Signs Temp 98.3 F 09/30/23 07:00 Pulse 72 09/30/23 07:00 Resp 16 09/30/23 07:00 BP 148/71 09/30/23 07:00 Pulse Ox 95 09/30/23 07:00 FiO2 Intake & Output 09/29/23 09/30/23 09/30/23 18:59 06:59 18:59 Intake Total 236 360 Output Total 50 Balance 186 360 Weight 85.729 kg Intake: Oral 236 360 Output: Urine 50 Other: # Voids 2 2 # Bowel Movements 1 - Labs CBC & Chem 7: 09/30/23 07:09 09/30/23 07:09 Labs: Abnormal Lab Results - Last 24 Hours (Table) 09/29/23 09/30/23 09/30/23 Range/Units 10:55 07:09 07:09 WBC 25.28 H 17.6 H (4.50-10.00) X 10*3/uL RBC 2.67 L 2.35 L (4.40-5.60) X 10*6/uL Hgb 8.7 L 7.6 L D (13.0-17.0) g/dL Hct 26.7 L 24.2 L (39.6-50.0) % MCV 100.0 H 103.1 H (80.0-97.0) FL MCH 32.6 H (27.0-32.0) pg RDW 19.7 H 18.1 H (11.5-14.5) % Plt Count 24 L 27 L (140-440) X 10*3/uL Lymphocytes # 13.2 H (1.0-4.8) k/uL Lymphocytes # (Manual) 20.22 H (0.90-5.00) X 10*3/uL Monocytes # (Manual) 1.26 H (0.20-1.00) X 10*3/uL Eosinophils # (Manual) 0 L (0.04-0.35) X 10*3/uL Immature Plt Fraction 16.3 H (1.1-6.1) % Sodium 134 L (137-145) mmol/L Chloride 109 H (98-107) mmol/L Carbon Dioxide 18 L (22-30) mmol/L BUN 27 H (9-20) mg/dL Calcium 7.4 L (8.4-10.2) mg/dL Microbiology - Last 24 Hours (Table) 09/28/23 19:15 Blood Culture - Preliminary Blood 09/28/23 19:00 Blood Culture - Preliminary Blood
[2023-10-01 11:48] LABS: Blood Urea Nitrogen 16.4 mg/dL (9.0-27.0); Calcium 7.5 mg/dL (8.7-10.3); Chloride 108 mmol/L (96-109); Glucose 90 mg/dL (70-110); Potassium 3.8 mmol/L (3.5-5.5); Sodium 138 mmol/L (135-145)
[2023-10-01 13:13] LABS: Basophils # (M) 0 X 10*3/uL (0.00-0.10); Eosinophils # (M) 0.19 X 10*3/uL (0.04-0.35); HCT 28.1 % (39.6-50.0); HGB 8.7 g/dL (13.0-17.0); Immature Platelet Fraction 12.8 % (1.1-6.1); Lymphocytes # (M) 14.15 X 10*3/uL (0.90-5.00); MCH 31.9 pg (27.0-32.0); MCV 102.9 FL (80.0-97.0); Monocytes # (M) 0.58 X 10*3/uL (0.20-1.00); NRBC Per 100 WBC 0.03 X 10*3/uL (0.00-0.01); Neutrophils % (M) 23 %; Platelet Count 24 X 10*3/uL (140-440); RBC 2.73 X 10*6/uL (4.40-5.60); WBC 19.39 X 10*3/uL (4.50-10.00)
[2023-10-01 13:32] LABS: Neutrophils # (M) 4.46 X 10*3/uL (1.80-7.70)
--- NOTE | 2023-10-01 15:39 | P.PN ---
Subjective Progress Note Date: 10/01/23 CHIEF COMPLAINT: Fall HISTORY OF PRESENT ILLNESS: Surgical service following in regards to GI bleed. Patient has had no further bleeding. He is tolerating the full liquid diet. He remains confused has a bedside sitter. He did receive 1 unit of blood yesterday. Hemoglobin is up from 7.6-8.7. Platelets remain low at 24 PHYSICAL EXAM: VITAL SIGNS: Reviewed. GENERAL: Well-developed in no acute distress. ABDOMEN: Soft. Nondistended. Nontender. NEUROLOGIC: Awake and alert. Mildly confused. ASSESSMENT: 1. Acute GI bleed with 1 large maroon stool. Likely medical bleed due to his thrombocytopenia. Patient has had no further bleeding. 2. Influenza A positive 3. Possible pneumonia and possible bacteremia 4. History of CLL 5. Thrombocytopenia PLAN: -Continue to medically optimize patient -Plan for endoscopies when medically stable -Continue to monitor hemoglobin -Continue to monitor for any signs or symptoms of bleeding -Advance diet to full liquid Physician Solar Technician note has been reviewed by physician. Signing provider agrees with the documented findings, assessment, and plan of care. Objective - Vital Signs Vital signs: Vital Signs Temp 98 F 10/01/23 13:35 Pulse 85 10/01/23 13:35 Resp 16 10/01/23 13:35 BP 153/66 10/01/23 13:35 Pulse Ox 93 L 10/01/23 13:35 FiO2 Intake & Output 09/30/23 10/01/23 10/01/23 18:59 06:59 18:59 Intake Total 360 284 540 Output Total 50 Balance 360 284 490 Intake: Oral 360 540 Blood Product 0 284 Rc Pheresis As-3 Unit 0 284 [id number] Output: Urine 50 Other: # Voids 3 2 1 - Labs CBC & Chem 7: 10/01/23 07:02 10/01/23 07:02 Labs: Abnormal Lab Results - Last 24 Hours (Table) 09/29/23 10/01/23 10/01/23 Range/Units 10:55 07:02 07:02 WBC 19.39 H (4.50-10.00) X 10*3/uL RBC 2.73 L (4.40-5.60) X 10*6/uL Hgb 8.7 L (13.0-17.0) g/dL Hct 28.1 L (39.6-50.0) % MCV 102.9 H (80.0-97.0) FL MCHC 31.0 L (32.0-37.0) g/dL RDW 20.0 H (11.5-14.5) % Plt Count 24 L (140-440) X 10*3/uL Lymphocytes # (Manual) 14.15 H (0.90-5.00) X 10*3/uL NRBC/100 WBC Diff 0.03 H (0.00-0.01) X 10*3/uL Immature Plt Fraction 12.8 H (1.1-6.1) % Carbon Dioxide 20.0 L (21.6-31.8) mmol/L Calcium 7.5 L (8.7-10.3) mg/dL Crossmatch See Detail Microbiology - Last 24 Hours (Table) 09/28/23 19:15 Blood Culture - Preliminary Blood 09/28/23 19:00 Blood Culture - Preliminary Blood
[2023-10-01] MEDS: ACETAMINOPHEN TAB 325 MG TAB PO PRN (22:20)
--- NOTE | 2023-10-01 22:24 | P.PN ---
Subjective History of Present Illness This is a pleasant 82 years old male with past medical history of multiple medical problems including history of colorectal cancer on chemotherapy and CLL. He presents to the emergency room on 09/25 for generalized weakness and fever, his influenza and he had a fever of 101.5 at that time and he was diagnosed with influenza without pneumonia or hypoxia and was sent home He comes back yesterday because of fall while he was going to the bathroom, he states he blacked out woke without syncope because his both legs give way and he fell hitting his elbow but no head trauma. He denies dizziness at that time and no other specific complaint he was complaining from some mild neck pain which is fine today as he denies any pain to me Patient denies chest pain or dyspnea. No exertional dyspnea, no coughing, no diarrhea or vomiting. No abdominal pain, no urinary complaint No headache or dizziness or weakness or numbness. Patient feels generally weak He denies smoking alcohol or illicit drugs This time patient is afebrile, vitals are stable and he is on room air He has leukocytosis of 20,000 improved from 34.8k 3 days ago, hemoglobin stable 9.4 and 9.2, platelet count is low at 2621 Influenza was positive on 11/27, rest of viruses were negative BMP and liver enzymes were unremarkable except for mildly elevated creatinine at baseline of 1.4 Chest x-ray showed cardiomegaly with no evidence of vascular congestion but there is a small right lower lobe infiltrate suspicious for pneumonia, Cervical spine x-ray showing no fracture or dislocation with 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 She is currently receiving normal saline 130 mL, Zithromax, ceftriaxone and IV vancomycin Addendum: After rounding patient developed large bloody bowel movement, vitals remained stable and repeat hemoglobin 8.7 which is slightly lower Patient placed on IV Protonix Surgery team consulted for plan for EGD/colonoscopy on 09/3009/30/2023 Patient was more confused today and he was climbing out of bed. He is on Seroquel 25 mg at bedtime, we increased another dose this morning However by the time I saw the patient he was lying in bed confused to time place and person, count, not agitated. No more fever and other vital stable Labs improving except for hemoglobin went down to 7.6. No more evidence of active bleeding. Platelets still low only slightly better at 27, and surgery team are considering hold EGD/colonoscopy till platelet count improved. We will repeat hemoglobin and platelet count tomorrow. In the meantime patient kept on IV Protonix twice daily also going to change his fluid to D5 normal saline at 75 mL/h. CT of the brain was checked today and reviewed myself which show no evidence of acute hemorrhage or bleed but there is progressive atrophy compared to old CAT scan about 10 years ago. Patient remains on Zithromax and ceftriaxone., For possible pneumonia and bacteremia Significant other at bedside and all her questions were answered to his satisfaction Discussed with the staff 10/01/2023 Patient remains confused, he does not follow commands, he opens eye spontaneously. He denies specific complaint but feels very weak, somewhat drowsy as well He still on azithromycin and ceftriaxone for bacteremia and possible right lower lobe pneumonia, no much respiratory symptoms saturating his room air, tachypneic Remains also on D5 normal saline 75 mL/h Had low-grade fever today at 100 WBC stable 19, hemoglobin 8.7, platelet count stable around 24. We will check vitamin B12 level, level was about 500 last 1 year ago. He is also on IV Protonix Advance to liquid diet. Prognosis remains guarded Discussed with the staff Active Medications Generic Name Dose Route Start Last Admin Trade Name Freq PRN Reason Stop Dose Admin Acetaminophen 650 mg 09/28/23 18:21 10/01/23 22:20 Acetaminophen Tab 325 Mg Tab PO 650 mg Q6HR PRN Administration Mild Pain or Fever > 100.5 Atorvastatin Calcium 80 mg 09/28/23 23:00 10/01/23 20:09 Atorvastatin 80 Mg Tab PO 80 mg HS WARREN Administration Carbidopa/Levodopa 1 each 09/28/23 23:00 10/01/23 20:09 Carbidopa-Levodopa Er 50-200mg 1 Each Tablet.Er PO 1 each BID WARREN Administration Ceftriaxone Sodium 1 gm/ 50 mls @ 100 mls/hr 09/28/23 19:00 10/01/23 18:16 Sodium Chloride IVPB 100 mls/hr Q12H WARREN Administration Protocol Dextrose/Sodium Chloride 1,000 mls @ 75 mls/hr 09/30/23 12:30 10/01/23 11:56 Dextrose 5%-Ns Iv Soln IV 75 mls/hr .[id number] WARREN Administration Levothyroxine Sodium 50 mcg 09/29/23 06:30 10/01/23 11:57 Levothyroxine 50 Mcg Tab PO 50 mcg DAILY@0630 WARREN Administration Memantine 10 mg 09/28/23 23:00 10/01/23 20:09 Memantine 10 Mg Tab PO 10 mg BID WARREN Administration Metoprolol Tartrate 25 mg 09/28/23 23:00 10/01/23 20:09 Metoprolol Tartrate 25 Mg Tab PO 25 mg BID WARREN Administration Naloxone HCl 0.2 mg 09/28/23 18:21 Naloxone 0.4 Mg/Ml 1 Ml Vial IV Q2M PRN Opioid Reversal Pantoprazole Sodium 40 mg 09/29/23 10:45 10/01/23 22:04 Pantoprazole 40 Mg/10 Ml Vial IVP 40 mg BID WARREN Administration Quetiapine Fumarate 12.5 mg 09/29/23 23:39 09/30/23 20:24 Quetiapine 25 Mg Tab PO 12.5 mg HS PRN Administration Agitation Quetiapine Fumarate 25 mg 09/30/23 10:41 09/30/23 11:25 Quetiapine 25 Mg Tab PO 25 mg DAILY PRN Administration Agitation or Acute Anxiety Objective - Vital Signs Vital signs: Vital Signs Temp 98.3 F 10/01/23 07:00 Pulse 81 10/01/23 07:00 Resp 16 10/01/23 07:00 BP 159/73 10/01/23 07:00 Pulse Ox 93 L 10/01/23 07:00 FiO2 Intake & Output 09/30/23 10/01/23 10/01/23 18:59 06:59 18:59 Intake Total 360 284 Balance 360 284 Intake: Oral 360 Blood Product 0 284 Rc Pheresis As-3 Unit 0 284 [id number] Other: # Voids 3 2 1 - Exam -GENERAL: The patient is awake but confused, currently calm , not in any acute distress. Well developed, well nourished. HEENT: Pupils are round and equally reacting to light. EOMI. No scleral icterus. No conjunctival pallor. Normocephalic, atraumatic. No pharyngeal erythema. No thyromegaly. CARDIOVASCULAR: S1 and S2 present. No murmurs, rubs, or gallops. PULMONARY: Chest is clear to auscultation, no wheezing , no crackles. ABDOMEN: Soft, nontender, nondistended, normoactive bowel sounds. No palpable organomegaly. MUSCULOSKELETAL: No joint swelling or deformity. EXTREMITIES: No cyanosis, clubbing, or pedal edema. NEUROLOGICAL: Gross neurological examination did not reveal any focal deficits. SKIN: No rashes. no petechiae. - Labs CBC & Chem 7: 10/01/23 07:02 10/01/23 07:02 Labs: Abnormal Lab Results - Last 24 Hours (Table) 09/29/23 10/01/23 Range/Units 10:55 07:02 Carbon Dioxide 20.0 L (21.6-31.8) mmol/L Calcium 7.5 L (8.7-10.3) mg/dL Crossmatch See Detail Microbiology - Last 24 Hours (Table) 09/28/23 19:15 Blood Culture - Preliminary Blood 09/28/23 19:00 Blood Culture - Preliminary Blood Assessment and Plan Assessment: Bacteremia Possible right lower lobe pneumonia Toxic/metabolic encephalopathy secondary to above Acute GI bleed with bloody bowel movements on the day of admission Acute blood loss anemia Fall at home without syncope related to generalized weakness Leukocytosis, improving Bicytopenia with anemia and more severe thrombocytopenia Parkinson disease Hypertension Chronic kidney disease stage III Plan: Continue with broad-spectrum antibiotic and follow-up culture results, currently on Zithromax and ceftriaxone Follow-up Repeat blood cultures Infectious disease consult Hematology/oncology team consult for his malignancy Surgery team consult for GI bleed. Plan for endoscopy when patient clinically stable Labs and medication were reviewed.. Continue same treatment. Continue with symptomatic treatment. Resume home medication. Monitor labs and vitals. DVT and GI prophylaxis. Further recommendations as per clinical course of the patient DVT prophylaxis: no Subcutaneous heparin GI Prophylaxis: Ppi PT/OT: Pending Prognosis is guarded
--- NOTE | 2023-10-02 08:01 | P.PN ---
Subjective Progress Note Date: 10/01/23 Principal diagnosis: Reason for follow-up is pneumonia and positive blood culture Patient is 82-year-old male with a past medical history significant for hypertension reflux dementia CLL Parkinson disease, who recently diagnosed and treated for influenza presented to hospital with a fall chest x-ray with the right lung infiltrate concerning for pneumonia and blood culture call from previous admission positive for coagulase-negative staph. On today's evaluation that is 10/01/2023, the patient continues to be afebrile, the patient is on room air and breathing comfortably, the Pt seem to be slightly lethargic today and did not provide any history has received some sedation as the patient was standing out of the bed and did have a sitter at the bedside oral intake seems to be poor no other changes reported. Patient white count is up to 19.39 today creatinine is 1.0 blood cultures done this admission so far negative Objective - Vital Signs Vital signs: Vital Signs Temp 98.3 F 10/01/23 07:00 Pulse 81 10/01/23 07:00 Resp 16 10/01/23 07:00 BP 159/73 10/01/23 07:00 Pulse Ox 93 L 10/01/23 07:00 FiO2 Intake & Output 09/30/23 10/01/23 10/01/23 18:59 06:59 18:59 Intake Total 360 284 Balance 360 284 Intake: Oral 360 Blood Product 0 284 Rc Pheresis As-3 Unit 0 284 [id number] Other: # Voids 3 2 1 - Exam GENERAL DESCRIPTION: An elderly male lying in bed in no distress RESPIRATORY SYSTEM: Unlabored breathing , decreased breath sounds at bases HEART: S1 S2 regular rate and rhythm , ABDOMEN: Soft , no tenderness EXTREMITIES: No edema feet - Labs CBC & Chem 7: 10/01/23 07:02 10/01/23 07:02 Labs: Abnormal Lab Results - Last 24 Hours (Table) 09/29/23 Range/Units 10:55 Crossmatch See Detail Microbiology - Last 24 Hours (Table) 09/28/23 19:15 Blood Culture - Preliminary Blood 09/28/23 19:00 Blood Culture - Preliminary Blood Assessment and Plan (1) Pneumonia Current Visit: Yes Status: Acute Code(s): J18.9 - PNEUMONIA, UNSPECIFIED OR GANISM SNOMED Code(s): 310134217 (2) Bacteremia Current Visit: Yes Status: Acute Code(s): R78.81 - BACTEREMIA SNOMED Code(s): 3147920 (3) Leukocytosis Current Visit: No Status: Acute Code(s): D72.829 - ELEVATED WHITE BLOOD CELL COUNT, UNSPECIFIED SNOMED Code(s): 789074941 Plan: 1patient with a positive blood culture with coagulase-negative staph more likely skin contamination as the patient has no clinical disease to go along with it blood cultures repeated document clearance which are currently pending 2-patient presented to hospital with a fall with a recent diagnosis of influenza chest x-ray with pneumonia and did have elevated white count which is slightly up today however the patient has a history of blood dyscrasia remain responsible for this elevated white count 3-patient to continue Rocephin and Zithromax try to obtain a sputum check a CRP and procalcitonin Dictation was produced using [employer] dictation software. please excuse any grammatical, word or spelling errors. Time with Patient: Less than 30
--- NOTE | 2023-10-02 12:48 | P.PN ---
Subjective Progress Note Date: 10/02/23 CHIEF COMPLAINT: Fall HISTORY OF PRESENT ILLNESS: Surgical service following in regards to GI bleed. Patient has had no further bleeding per nursing. He is tolerating the full liquid diet. He remains confused has a bedside sitter. Denies any abdominal pain. He is eating breakfast this morning. He did have a low-grade temp of 100.7 last night CBC for today pending. Hemoglobin 8.7 yesterday PHYSICAL EXAM: VITAL SIGNS: Reviewed. GENERAL: Well-developed in no acute distress. ABDOMEN: Soft. Nondistended. Nontender. NEUROLOGIC: Awake and alert. Mildly confused. ASSESSMENT: 1. Acute GI bleed with 1 large maroon stool. Likely medical bleed due to his thrombocytopenia. Patient has had no further bleeding. 2. Influenza A positive 3. Possible pneumonia 4. History of CLL 5. Thrombocytopenia PLAN: -Continue to medically optimize patient -Plan for endoscopies when medically stable -Continue to monitor hemoglobin -Continue to monitor for any signs or symptoms of bleeding -Advance diet to regular Physician Editorial Intern note has been reviewed by physician. Signing provider agrees with the documented findings, assessment, and plan of care. Objective - Vital Signs Vital signs: Vital Signs Temp 98.3 F 10/02/23 07:09 Pulse 77 10/02/23 07:09 Resp 17 10/02/23 09:35 BP 122/74 10/02/23 07:09 Pulse Ox 93 L 10/02/23 07:09 FiO2 Intake & Output 10/01/23 10/02/23 10/02/23 18:59 06:59 18:59 Intake Total 895 Output Total 50 150 50 Balance 845 -150 -50 Weight 85.729 kg Intake: Oral 895 Output: Urine 50 150 50 Other: # Voids 1 2 - Labs CBC & Chem 7: 10/01/23 07:02 10/01/23 07:02 Labs: Abnormal Lab Results - Last 24 Hours (Table) 10/01/23 10/02/23 10/02/23 Range/Units 07:02 08:12 08:12 WBC 19.39 H (4.50-10.00) X 10*3/uL RBC 2.73 L (4.40-5.60) X 10*6/uL Hgb 8.7 L (13.0-17.0) g/dL Hct 28.1 L (39.6-50.0) % MCV 102.9 H (80.0-97.0) FL MCHC 31.0 L (32.0-37.0) g/dL RDW 20.0 H (11.5-14.5) % Plt Count 24 L (140-440) X 10*3/uL Lymphocytes # (Manual) 14.15 H (0.90-5.00) X 10*3/uL NRBC/100 WBC Diff 0.03 H (0.00-0.01) X 10*3/uL Immature Plt Fraction 12.8 H (1.1-6.1) % C-Reactive Protein 3.30 H (0.00-0.80) mg/dL Procalcitonin 0.15 H (0.02-0.09) ng/mL Microbiology - Last 24 Hours (Table) 09/28/23 19:15 Blood Culture - Preliminary Blood 09/28/23 19:00 Blood Culture - Preliminary Blood
[2023-10-02 13:00] LABS: HCT 24.1 % (39.6-50.0); HGB 7.9 g/dL (13.0-17.0); MCH 32.4 pg (27.0-32.0); MCHC 32.8 g/dL (32.0-37.0); MCV 98.8 FL (80.0-97.0); NRBC Per 100 WBC 0 X 10*3/uL (0.00-0.01); Platelet Count 26 X 10*3/uL (140-440); RBC 2.44 X 10*6/uL (4.40-5.60); RDW 19.8 % (11.5-14.5); WBC 19.91 X 10*3/uL (4.50-10.00)
[2023-10-02 13:01] LABS: Basophils # (M) 0 X 10*3/uL (0.00-0.10); Eosinophils # (M) 0 X 10*3/uL (0.04-0.35); Lymphocytes # (M) 18.32 X 10*3/uL (0.90-5.00); Neutrophils # (M) 1.19 X 10*3/uL (1.80-7.70); Neutrophils % (M) 6 %
--- NOTE | 2023-10-02 13:28 | P.PN ---
Subjective Progress Note Date: 10/02/23 Principal diagnosis: Reason for follow-up is pneumonia and positive blood culture Patient is 82-year-old male with a past medical history significant for hypertension reflux dementia CLL Parkinson disease, who recently diagnosed and treated for influenza presented to hospital with a fall chest x-ray with the right lung infiltrate concerning for pneumonia and blood culture call from previous admission positive for coagulase-negative staph. On today's evaluation that is 10/02/2023, Patient is afebrile patient is currently on 2 L nasal cannula oxygen and seems to be breathing comfortably, the patient is currently sleepy lethargic and cannot provide any history did have some breakfast per the sitter at the bedside no vomiting or diarrhea has been reported. Patient white count is 19.91 CRP 3.30 Pro-Cayden 0.15 blood culture has been negative Objective - Vital Signs Vital signs: Vital Signs Temp 98.3 F 10/02/23 07:09 Pulse 77 10/02/23 07:09 Resp 17 10/02/23 09:35 BP 122/74 10/02/23 07:09 Pulse Ox 93 L 10/02/23 07:09 FiO2 Intake & Output 10/01/23 10/02/23 10/02/23 18:59 06:59 18:59 Intake Total 895 Output Total 50 150 50 Balance 845 -150 -50 Weight 85.729 kg Intake: Oral 895 Output: Urine 50 150 50 Other: # Voids 1 2 - Exam GENERAL DESCRIPTION: An elderly male lying in bed in no distress RESPIRATORY SYSTEM: Unlabored breathing , decreased breath sounds at bases HEART: S1 S2 regular rate and rhythm , ABDOMEN: Soft , no tenderness EXTREMITIES: No edema feet - Labs CBC & Chem 7: 10/02/23 08:12 10/01/23 07:02 Labs: Abnormal Lab Results - Last 24 Hours (Table) 10/02/23 10/02/23 10/02/23 Range/Units 08:12 08:12 08:12 WBC 19.91 H (4.50-10.00) X 10*3/uL RBC 2.44 L (4.40-5.60) X 10*6/uL Hgb 7.9 L (13.0-17.0) g/dL Hct 24.1 L (39.6-50.0) % MCV 98.8 H (80.0-97.0) FL MCH 32.4 H (27.0-32.0) pg RDW 19.8 H (11.5-14.5) % Plt Count 26 L (140-440) X 10*3/uL Lymphocytes # (Manual) 18.32 H (0.90-5.00) X 10*3/uL Eosinophils # (Manual) 0 L (0.04-0.35) X 10*3/uL Immature Plt Fraction 12.0 H (1.1-6.1) % C-Reactive Protein 3.30 H (0.00-0.80) mg/dL Procalcitonin 0.15 H (0.02-0.09) ng/mL Microbiology - Last 24 Hours (Table) 09/28/23 19:15 Blood Culture - Preliminary Blood 09/28/23 19:00 Blood Culture - Preliminary Blood Assessment and Plan (1) Pneumonia Current Visit: Yes Status: Acute Code(s): J18.9 - PNEUMONIA, UNSPECIFIED ORGANISM SNOMED Code(s): 428258209 (2) Bacteremia Current Visit: Yes Status: Acute Code(s): R78.81 - BACTEREMIA SNOMED Code(s): 8884377 (3) Leukocytosis Current Visit: No Status: Acute Code(s): D72.829 - ELEVATED WHITE BLOOD CELL COUNT, UNSPECIFIED SNOMED Code(s): 253943518 Plan: 1patient with a positive blood culture with coagulase-negative staph more likely skin contamination as the patient has no clinical disease to go along with it blood cultures repeated document clearance which are currently pending 2-patient presented to hospital with a fall with a recent diagnosis of influenza chest x-ray with pneumonia and did have elevated white count which is slightly up today however the patient has a history of blood dyscrasia remain responsible for this elevated white count 3-patient to continue Rocephin and Zithromax while waiting for the culture to finalize and monitor clinical course closely Dictation was produced using CME dictation software. please excuse any grammatical, word or spelling errors. Time with Patient: Less than 30
--- NOTE | 2023-10-02 15:52 | P.PN ---
Subjective Progress Note Date: 10/02/23 Patient resting comfortably in bedside chair. Reports he is feeling well just chilled. is reporting improvement in mentation. Hemoglobin today 7.9, platelets 26,000. Patient did have bloody/maroon bowel movement 2 days ago but has not had any reported blood in stool since. Objective - Vital Signs Vital signs: Vital Signs Temp 98.1 F 10/02/23 13:58 Pulse 68 10/02/23 13:58 Resp 18 10/02/23 13:58 BP 105/60 10/02/23 13:58 Pulse Ox 92 L 10/02/23 13:58 FiO2 Intake & Output 10/01/23 10/02/23 10/02/23 18:59 06:59 18:59 Intake Total 895 Output Total 50 150 50 Balance 845 -150 -50 Weight 85.729 kg Intake: Oral 895 Output: Urine 50 150 50 Other: # Voids 1 2 - Constitutional General appearance: Present: average body habitus, no acute distress - EENT Eyes: Present: anicteric sclerae, EOMI ENT: Present: hearing grossly normal - Respiratory Details: breathing is even and unlabored - Cardiovascular Details: skin warm and dry - Integumentary Integumentary: Present: pale. Absent: cyanotic - Musculoskeletal Musculoskeletal: Present: generalized weakness - Psychiatric Psychiatric: Present: A&O x's 3 - Labs CBC & Chem 7: 10/02/23 08:12 10/01/23 07:02 Labs: Abnormal Lab Results - Last 24 Hours (Table) 10/02/23 10/02/23 10/02/23 Range/Units 08:12 08:12 08:12 WBC 19.91 H (4.50-10.00) X 10*3/uL RBC 2.44 L (4.40-5.60) X 10*6/uL Hgb 7.9 L (13.0-17.0) g/dL Hct 24.1 L (39.6-50.0) % MCV 98.8 H (80.0-97.0) FL MCH 32.4 H (27.0-32.0) pg RDW 19.8 H (11.5-14.5) % Plt Count 26 L (140-440) X 10*3/uL Lymphocytes # (Manual) 18.32 H (0.90-5.00) X 10*3/uL Eosinophils # (Manual) 0 L (0.04-0.35) X 10*3/uL Immature Plt Fraction 12.0 H (1.1-6.1) % C-Reactive Protein 3.30 H (0.00-0.80) mg/dL Procalcitonin 0.15 H (0.02-0.09) ng/mL Microbiology - Last 24 Hours (Table) 09/28/23 19:15 Blood Culture - Preliminary Blood 09/28/23 19:00 Blood Culture - Preliminary Blood Assessment and Plan (1) Bicytopenia Current Visit: Yes Status: Acute Priority: High Code(s): D75.89 - OTHER SPECIFIED DISEASES OF BLOOD AND BLOOD-FORMING ORGANS SNOMED Code(s): 42129928 (2) Influenza Current Visit: Yes Status: Acute Priority: High Code(s): J11.1 - FLU DUE TO UNIDENTIFIED INFLUENZA VIRUS W OTH RESP MANIFEST SNOMED Code(s): 7462662 (3) GI bleed Current Visit: Yes Status: Acute Priority: High Code(s): K92.2 - GASTROINTESTINAL HEMORRHAGE, UNSPECIFIED SNOMED Code(s): 07584824 (4) CLL (chronic lymphocytic leukemia) Current Visit: Yes Status: Chronic Priority: Medium Code(s): C91.10 - CHRONIC LYMPHOCYTIC LEUK OF B-CELL TYPE NOT ACHIEVE REMIS SNOMED Code(s): 09412987 Plan: Influenza A -CXR suggestive of the same -Pt not reporting severe respiratory symptoms at this time -Defer mgmt to Admitting Anemia, thrombocytopenia, GI bleed: -Hemoglobin today 7.9, MCV 98.8, platelets 26,000. S/p 1 unit PRBCs on 09/29. Patient did have bloody/maroon bowel movement 2 days ago but has not had any reported blood in stool since. Hemoglobin in clinic on 09/11/2023 was 11.8. -Platelets usually in the 50K range, lower than normal during this admission in the 20K range; Thrombocytopenia likely worsened by acute condition, would expect to improve to baseline as pt recovers. SCDs ordered for DVT prophylaxis. Please transfuse for plts less than 10,000 or if symptomatic Vitamin B12 lower end of normal at 384, folate 5.2. Will order MMA, iron studies, and ferritin. Will also obtain hemolysis workup General surgery has been consulted and scopes are currently on hold until patient is stable. Agree with endoscopic evaluation Continue to monitor CBC. Please transfuse for hemoglobin less than 7 or if symptomatic CLL -Diagnosed about 2013. -Patient was started on treatment and 2021 when he had some constitutional symptoms. Treatment was held later in the year after hospitalization and low platelets. He remained off treatment until he was just seen by Dr. Wilder about 2 weeks ago. His white blood cell increased from 29 to 68, since May. WBC was 20 on admit, 25 today. Significant improvement from just a few weeks ago. Also, there is going to be a reactive component of his white blood cells to his acute infection. -Patient is to hold [facility] for now. -Patient has a follow-up with Dr. Wilder scheduled for 10/08 at 1 PM. This appointment has been placed in the discharge plan. It has also been noted in the discharge plan that the patient is to remain off of [facility] until he is seen by Dr. Wilder. -Patient verbalized understanding the plan.
[2023-10-02 16:02] LABS: Reticulocyte % 0.4 % (0.5-2.0)
[2023-10-02 18:48] LABS: % Iron Saturation 28.44 (15.00-50.00)
--- NOTE | 2023-10-02 20:53 | P.PN ---
Subjective History of Present Illness This is a pleasant 82 years old male with past medical history of multiple medical problems including history of colorectal cancer on chemotherapy and CLL. He presents to the emergency room on 09/25 for generalized weakness and fever, his influenza and he had a fever of 101.5 at that time and he was diagnosed with influenza without pneumonia or hypoxia and was sent home He comes back yesterday because of fall while he was going to the bathroom, he states he blacked out woke without syncope because his both legs give way and he fell hitting his elbow but no head trauma. He denies dizziness at that time and no other specific complaint he was complaining from some mild neck pain which is fine today as he denies any pain to me Patient denies chest pain or dyspnea. No exertional dyspnea, no coughing, no diarrhea or vomiting. No abdominal pain, no urinary complaint No headache or dizziness or weakness or numbness. Patient feels generally weak He denies smoking alcohol or illicit drugs This time patient is afebrile, vitals are stable and he is on room air He has leukocytosis of 20,000 improved from 34.8k 3 days ago, hemoglobin stable 9.4 and 9.2, platelet count is low at 2621 Influenza was positive on 11/27, rest of viruses were negative BMP and liver enzymes were unremarkable except for mildly elevated creatinine at baseline of 1.4 Chest x-ray showed cardiomegaly with no evidence of vascular congestion but there is a small right lower lobe infiltrate suspicious for pneumonia, Cervical spine x-ray showing no fracture or dislocation with 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 She is currently receiving normal saline 130 mL, Zithromax, ceftriaxone and IV vancomycin Addendum: After rounding patient developed large bloody bowel movement, vitals remained stable and repeat hemoglobin 8.7 which is slightly lower Patient placed on IV Protonix Surgery team consulted for plan for EGD/colonoscopy on 09/3009/30/2023 Patient was more confused today and he was climbing out of bed. He is on Seroquel 25 mg at bedtime, we increased another dose this morning However by the time I saw the patient he was lying in bed confused to time place and person, count, not agitated. No more fever and other vital stable Labs improving except for hemoglobin went down to 7.6. No more evidence of active bleeding. Platelets still low only slightly better at 27, and surgery team are considering hold EGD/colonoscopy till platelet count improved. We will repeat hemoglobin and platelet count tomorrow. In the meantime patient kept on IV Protonix twice daily also going to change his fluid to D5 normal saline at 75 mL/h. CT of the brain was checked today and reviewed myself which show no evidence of acute hemorrhage or bleed but there is progressive atrophy compared to old CAT scan about 10 years ago. Patient remains on Zithromax and ceftriaxone., For possible pneumonia and bacteremia Significant other at bedside and all her questions were answered to his satisfaction Discussed with the staff 10/01/2023 Patient remains confused, he does not follow commands, he opens eye spontaneously. He denies specific complaint but feels very weak, somewhat drowsy as well He still on azithromycin and ceftriaxone for bacteremia and possible right lower lobe pneumonia, no much respiratory symptoms saturating his room air, tachypneic Remains also on D5 normal saline 75 mL/h Had low-grade fever today at 100 WBC stable 19, hemoglobin 8.7, platelet count stable around 24. We will check vitamin B12 level, level was about 500 last 1 year ago. He is also on IV Protonix Advance to liquid diet. Prognosis remains guarded Discussed with the staff 10/02/2023 Patient today he knows where he is at and he has some insight into his illness he looks more calm. He still somewhat more lethargic he still mildly confused not completely back to normal. No much respiratory symptoms No abdominal pain and he tolerates diet. Blood culture still pending to document clearance, there original blood culture prior to hospitalization showing staph multitest suspicious for contamination Patient remains on Zithromax and Rocephin for possible pneumonia His leukocytosis is a chronic problem related to his CLL and actually improvement from 2 weeks prior to hospitalization There were 86 positive Hematology/oncology June, although there is chemotherapy per calquence till he can see his oncologist Dr. Wilder on 10/08 And significant other at bedside and questions answered Objective - Vital Signs Vital signs: Vital Signs Temp 98.3 F 10/02/23 07:09 Pulse 77 10/02/23 07:09 Resp 17 10/02/23 09:35 BP 122/74 10/02/23 07:09 Pulse Ox 93 L 10/02/23 07:09 FiO2 Intake & Output 10/01/23 10/02/2310/01/24 18:59 06:59 18:59 Intake Total 895 Output Total 50 150 50 Balance 845 -150 -50 Weight 85.729 kg Intake: Oral 895 Output: Urine 50 150 50 Other: # Voids 1 2 - Exam -GENERAL: The patient is awake but confused, currently calm , not in any acute distress. Well developed, well nourished. HEENT: Pupils are round and equally reacting to light. EOMI. No scleral icterus. No conjunctival pallor. Normocephalic, atraumatic. No pharyngeal erythema. No thyromegaly. CARDIOVASCULAR: S1 and S2 present. No murmurs, rubs, or gallops. PULMONARY: Chest is clear to auscultation, no wheezing , no crackles. ABDOMEN: Soft, nontender, nondistended, normoactive bowel sounds. No palpable organomegaly. MUSCULOSKELETAL: No joint swelling or deformity. EXTREMITIES: No cyanosis, clubbing, or pedal edema. NEUROLOGICAL: Gross neurological examination did not reveal any focal deficits. SKIN: No rashes. no petechiae. - Labs CBC & Chem 7: 10/02/23 08:12 10/01/23 07:02 Labs: Abnormal Lab Results - Last 24 Hours (Table) 10/02/23 10/02/23 10/02/23 Range/Units 08:12 08:12 08:12 WBC 19.91 H (4.50-10.00) X 10*3/uL RBC 2.44 L (4.40-5.60) X 10*6/uL Hgb 7.9 L (13.0-17.0) g/dL Hct 24.1 L (39.6-50.0) % MCV 98.8 H (80.0-97.0) FL MCH 32.4 H (27.0-32.0) pg RDW 19.8 H (11.5-14.5) % Plt Count 26 L (140-440) X 10*3/uL Lymphocytes # (Manual) 18.32 H (0.90-5.00) X 10*3/uL Eosinophils # (Manual) 0 L (0.04-0.35) X 10*3/uL Immature Plt Fraction 12.0 H (1.1-6.1) % C-Reactive Protein 3.30 H (0.00-0.80) mg/dL Procalcitonin 0.15 H (0.02-0.09) ng/mL Microbiology - Last 24 Hours (Table) 09/28/23 19:15 Blood Culture - Preliminary Blood 09/28/23 19:00 Blood Culture - Preliminary Blood Assessment and Plan Assessment: Bacteremia Possible right lower lobe pneumonia Toxic/metabolic encephalopathy secondary to above Acute GI bleed with bloody bowel movements on the day of admission Acute blood loss anemia Fall at home without syncope related to generalized weakness Leukocytosis, improving Bicytopenia with anemia and more severe thrombocytopenia Parkinson disease Hypertension Chronic kidney disease stage III Plan: Continue with broad-spectrum antibiotic and follow-up culture results, currently on Zithromax and ceftriaxone Follow-up Repeat blood cultures Infectious disease consult Hematology/oncology team consult for his malignancy Surgery team consult for GI bleed. Plan for endoscopy when patient clinically stable Labs and medication were reviewed.. Continue same treatment. Continue with s ymptomatic treatment. Resume home medication. Monitor labs and vitals. DVT and GI prophylaxis. Further recommendations as per clinical course of the patient DVT prophylaxis: no Subcutaneous heparin GI Prophylaxis: Ppi PT/OT: Pending Prognosis is guarded
[2023-10-03 05:01] LABS: ALT 11 U/L (10-49); AST 55 U/L (14-35); Albumin 2.9 g/dL (3.8-4.9); Albumin/Globulin Ratio 1.81 Ratio (1.60-3.17); Alkaline Phosphatase 107 U/L (41-126); BUN/Creat Ratio 13.73 Ratio (12.00-20.00); Blood Urea Nitrogen 15.1 mg/dL (9.0-27.0); Calcium 7.4 mg/dL (8.7-10.3); Carbon Dioxide 21.2 mmol/L (21.6-31.8); Chloride 106 mmol/L (96-109); Globulin 1.6 g/dL (1.6-3.3); Glucose 98 mg/dL (70-110); LDH 274 U/L (120-246); Potassium 3.9 mmol/L (3.5-5.5); Sodium 136 mmol/L (135-145); Total Bilirubin 0.4 mg/dL (0.3-1.2); Total Protein 4.5 g/dL (6.2-8.2)
[2023-10-03 08:30] LABS: Anisocytosis Slight; HCT 26.9 % (39.0-53.0); HGB 7.7 gm/dL (13.0-17.5); Hypochromasia Marked; MCH 32.7 pg (25.0-35.0); MCHC 28.6 g/dL (31.0-37.0); Macrocytosis Marked; Mean Platelet Volume 13.5; Poikilocytosis Slight; RBC 2.36 m/uL (4.30-5.90); RDW 18.7 % (11.5-15.5); WBC 17.1 k/uL (3.8-10.6)
[2023-10-03 08:35] LABS: Platelet Count 23 k/uL (150-450)
[2023-10-03 09:13] LABS: Anisocytosis (M) Present; Hypochromasia (M) Present; Lymphocytes # (M) 14.02 k/uL (1.0-4.8); Monocytes # (M) 0.17 k/uL (0-1.0); Neutrophils # (M) 2.91 k/uL (1.3-7.7); Neutrophils % (M) 17 %; Nucleated Red Blood Cells 0 /100 WBC (0-0); Total Cells Counted 100
--- NOTE | 2023-10-03 14:29 | P.PN ---
Subjective History of Present Illness This is a pleasant 82 years old male with past medical history of multiple medical problems including history of colorectal cancer on chemotherapy and CLL. He presents to the emergency room on 09/25 for generalized weakness and fever, his influenza and he had a fever of 101.5 at that time and he was diagnosed with influenza without pneumonia or hypoxia and was sent home He comes back yesterday because of fall while he was going to the bathroom, he states he blacked out woke without syncope because his both legs give way and he fell hitting his elbow but no head trauma. He denies dizziness at that time and no other specific complaint he was complaining from some mild neck pain which is fine today as he denies any pain to me Patient denies chest pain or dyspnea. No exertional dyspnea, no coughing, no diarrhea or vomiting. No abdominal pain, no urinary complaint No headache or dizziness or weakness or numbness. Patient feels generally weak He denies smoking alcohol or illicit drugs This time patient is afebrile, vitals are stable and he is on room air He has leukocytosis of 20,000 improved from 34.8k 3 days ago, hemoglobin stable 9.4 and 9.2, platelet count is low at 2621 Influenza was positive on 11/27, rest of viruses were negative BMP and liver enzymes were unremarkable except for mildly elevated creatinine at baseline of 1.4 Chest x-ray showed cardiomegaly with no evidence of vascular congestion but there is a small right lower lobe infiltrate suspicious for pneumonia, Cervical spine x-ray showing no fracture or dislocation with 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 She is currently receiving normal saline 130 mL, Zithromax, ceftriaxone and IV vancomycin Addendum: After rounding patient developed large bloody bowel movement, vitals remained stable and repeat hemoglobin 8.7 which is slightly lower Patient placed on IV Protonix Surgery team consulted for plan for EGD/colonoscopy on 09/3009/30/2023 Patient was more confused today and he was climbing out of bed. He is on Seroquel 25 mg at bedtime, we increased another dose this morning However by the time I saw the patient he was lying in bed confused to time place and person, count, not agitated. No more fever and other vital stable Labs improving except for hemoglobin went down to 7.6. No more evidence of active bleeding. Platelets still low only slightly better at 27, and surgery team are considering hold EGD/colonoscopy till platelet count improved. We will repeat hemoglobin and platelet count tomorrow. In the meantime patient kept on IV Protonix twice daily also going to change his fluid to D5 normal saline at 75 mL/h. CT of the brain was checked today and reviewed myself which show no evidence of acute hemorrhage or bleed but there is progressive atrophy compared to old CAT scan about 10 years ago. Patient remains on Zithromax and ceftriaxone., For possible pneumonia and bacteremia Significant other at bedside and all her questions were answered to his satisfaction Discussed with the staff 10/01/2023 Patient remains confused, he does not follow commands, he opens eye spontaneously. He denies specific complaint but feels very weak, somewhat drowsy as well He still on azithromycin and ceftriaxone for bacteremia and possible right lower lobe pneumonia, no much respiratory symptoms saturating his room air, tachypneic Remains also on D5 normal saline 75 mL/h Had low-grade fever today at 100 WBC stable 19, hemoglobin 8.7, platelet count stable around 24. We will check vitamin B12 level, level was about 500 last 1 year ago. He is also on IV Protonix Advance to liquid diet. Prognosis remains guarded Discussed with the staff 10/02/2023 Patient today he knows where he is at and he has some insight into his illness he looks more calm. He still somewhat more lethargic he still mildly confused not completely back to normal. No much respiratory symptoms No abdominal pain and he tolerates diet. Blood culture still pending to document clearance, there original blood culture prior to hospitalization showing staph multitest suspicious for contamination Patient remains on Zithromax and Rocephin for possible pneumonia His leukocytosis is a chronic problem related to his CLL and actually improvement from 2 weeks prior to hospitalization There were 86 positive Hematology/oncology June, although there is chemotherapy per calquence till he can see his oncologist Dr. Wilder on 10/08 And significant other at bedside and questions answered 10/03/2023 Patient improving slowly and gradually He is more awake today, he asking to go home but he agrees to stay No other new complaint He still on 2 L oxygen via nasal cannula Labs look stable including CBC He remains on Zithromax and ceftriaxone with repeat blood culture pending Objective - Vital Signs Vital signs: Vital Signs Temp 98.0 F 10/03/23 08:00 Pulse 69 10/03/23 08:00 Resp 18 10/03/23 08:00 BP 147/67 10/03/23 08:00 Pulse Ox 94 L 10/03/23 08:00 FiO2 Intake & Output 10/02/23 10/03/23 10/03/23 18:59 06:59 18:59 Output Total 50 Balance -50 Weight 85.729 kg Output: Urine 50 Other: Voiding Method Urinal Urinal Diaper Diaper # Voids 3 - Exam -GENERAL: The patient is awake but confused, currently calm , not in any acute distress. Well developed, well nourished. HEENT: Pupils are round and equally reacting to light. EOMI. No scleral icterus. No conjunctival pallor. Normocephalic, atraumatic. No pharyngeal erythema. No thyromegaly. CARDIOVASCULAR: S1 and S2 present. No murmurs, rubs, or gallops. PULMONARY: Chest is clear to auscultation, no wheezing , no crackles. ABDOMEN: Soft, nontender, nondistended, normoactive bowel sounds. No palpable organomegaly. MUSCULOSKELETAL: No joint swelling or deformity. EXTREMITIES: No cyanosis, clubbing, or pedal edema. NEUROLOGICAL: Gross neurological examination did not reveal any focal deficits. SKIN: No rashes. no petechiae. - Labs CBC & Chem 7: 10/03/23 06:17 10/02/23 15:47 Labs: Abnormal Lab Results - Last 24 Hours (Table) 09/28/23 10/02/23 10/02/23 Range/Units 18:20 15:47 15:47 WBC (3.8-10.6) k/uL RBC (4.30-5.90) m/uL Hgb (13.0-17.5) gm/dL Hct (39.0-53.0) % MCV (80.0-100.0) fL MCHC (31.0-37.0) g/dL RDW (11.5-15.5) % Plt Count (150-450) k/uL Lymphocytes # (Manual) (1.0-4.8) k/uL Macrocytosis Retic Count 0.4 L (0.5-2.0) % Carbon Dioxide 21.2 L (21.6-31.8) mmol/L Calcium 7.4 L (8.7-10.3) mg/dL Iron 62 L (65-175) UG/DL TIBC 218 L (228-460) UG/DL Transferrin 156.0 L (204.0-354.0) mg/dL Ferritin 753.0 H (22.0-322.0) ng/mL AST 55 H (14-35) U/L Lactate Dehydrogenase 274 H (120-246) U/L Total Protein 4.5 L (6.2-8.2) g/dL Albumin 2.9 L (3.8-4.9) g/dL 10/03/23 Range/Units 06:17 WBC 17.1 H (3.8-10.6) k/uL RBC 2.36 L (4.30-5.90) m/uL Hgb 7.7 L (13.0-17.5) gm/dL Hct 26.9 L (39.0-53.0) % MCV 114.1 H D (80.0-100.0) fL MCHC 28.6 L (31.0-37.0) g/dL RDW 18.7 H (11.5-15.5) % Plt Count 23 L (150-450) k/uL Lymphocytes # (Manual) 14.02 H (1.0-4.8) k/uL Macrocytosis Marked A Retic Count (0.5-2.0) % Carbon Dioxide (21.6-31.8) mmol/L Calcium (8.7-10.3) mg/dL Iron (65-175) UG/DL TIBC (228-460) UG/DL Transferrin (204.0-354.0) mg/dL Ferritin (22.0-322.0) ng/mL AST (14-35) U/L Lactate Dehydrogenase (120-246) U/L Total Protein (6.2-8.2) g/dL Albumin (3.8-4.9) g/dL Assessment and Plan Assessment: Bacteremia Possible right lower lobe pneumonia Toxic/metabolic encephalopathy secondary to above Acute GI bleed with bloody bowel movements on the day of admission Acute blood loss anemia Fall at home without syncope related to generalized weakness Leukocytosis, improving Bicytopenia with anemia and more severe thrombocytopenia Parkinson disease Hypertension Chronic kidney disease stage III Plan: Continue with broad-spectrum antibiotic and follow-up culture results, currently on Zithromax and ceftriaxone Follow-up Repeat blood cultures Infectious disease consult Hematology/oncology team consult for his malignancy Surgery team consult for GI bleed. Plan for endoscopy when patient clinically stable Labs and medication were reviewed.. Continue same treatment. Continue with symptomatic treatment. Resume home medication. Monitor labs and vitals. DVT and GI prophylaxis. Further recommendations as per clinical course of the patient DVT prophylaxis: no Subcutaneous heparin GI Prophylaxis: Ppi PT/OT: Pending Prognosis is guarded
--- NOTE | 2023-10-03 17:33 | P.PN ---
Subjective Progress Note Date: 10/03/23 patient seen and evaluated bedside. no overnight events Objective - Vital Signs Vital signs: Vital Signs Temp 97.8 F 10/03/23 14:00 Pulse 64 10/03/23 14:00 Resp 18 10/03/23 14:00 BP 110/55 10/03/23 14:00 Pulse Ox 93 L 10/03/23 14:00 FiO2 Intake & Output 10/02/23 10/03/23 10/03/23 18:59 06:59 18:59 Output Total 50 Balance -50 Weight 85.729 kg Output: Urine 50 Other: Voiding Method Urinal Urinal Diaper Diaper # Voids 3 - Exam VITAL SIGNS: Reviewed. GENERAL: Well-developed in no acute distress. ABDOMEN: Soft. Nondistended. Nontender. NEUROLOGIC: Awake and alert. Mildly confused. - Labs CBC & Chem 7: 10/03/23 06:17 10/02/23 15:47 Labs: Abnormal Lab Results - Last 24 Hours (Table) 09/28/23 10/02/23 10/03/23 Range/Units 18:20 15:47 06:17 WBC 17.1 H (3.8-10.6) k/uL RBC 2.36 L (4.30-5.90) m/uL Hgb 7.7 L (13.0-17.5) gm/dL Hct 26.9 L (39.0-53.0) % MCV 114.1 H D (80.0-100.0) fL MCHC 28.6 L (31.0-37.0) g/dL RDW 18.7 H (11.5-15.5) % Plt Count 23 L (150-450) k/uL Lymphocytes # (Manual) 14.02 H (1.0-4.8) k/uL Macrocytosis Marked A Carbon Dioxide 21.2 L (21.6-31.8) mmol/L Calcium 7.4 L (8.7-10.3) mg/dL Iron 62 L (65-175) UG/DL TIBC 218 L (228-460) UG/DL Transferrin 156.0 L (204.0-354.0) mg/dL Ferritin 753.0 H (22.0-322.0) ng/mL AST 55 H (14-35) U/L Lactate Dehydrogenase 274 H (120-246) U/L Total Protein 4.5 L (6.2-8.2) g/dL Albumin 2.9 L (3.8-4.9) g/dL Assessment and Plan Assessment: ASSESSMENT: 1. Acute GI bleed with 1 large maroon stool. Likely medical bleed due to his thrombocytopenia. Patient has had no further bleeding. 2. Influenza A positive 3. Possible pneumonia 4. History of CLL 5. Thrombocytopenia PLAN: -Continue to medically optimize patient -Plan for endoscopies when medically stable -Continue to monitor hemoglobin -Continue to monitor for any signs or symptoms of bleeding -Advance diet to regular Time with Patient: Greater than 30
[2023-10-03 18:42] LABS: Anisocytosis Slight; HCT 26.7 % (39.0-53.0); HGB 8.6 gm/dL (13.0-17.5); Hypochromasia Slight; MCHC 32.1 g/dL (31.0-37.0); Macrocytosis Slight; Mean Platelet Volume 12.1; Poikilocytosis Slight; RBC 2.68 m/uL (4.30-5.90); RDW 17.9 % (11.5-15.5)
[2023-10-03 18:43] LABS: MCV 99.7 fL (80.0-100.0)
[2023-10-03 20:30] LABS: Platelet Count 26 k/uL (150-450)
[2023-10-03 20:33] LABS: Neutrophils % (M) 14 %; Nucleated Red Blood Cells 0 /100 WBC (0-0); Total Cells Counted 100
--- NOTE | 2023-10-04 13:21 | P.PN ---
Subjective Progress Note Date: 10/04/23 Resting comfortably. No new overnight issues. Hgb stable 7.7 to 7.8. No new events of GI bleed overnight. PLAN: 1. Monitor Hgb 2. Monitor signs of bleeding. Objective - Vital Signs Vital signs: Vital Signs Temp 97.6 F 10/04/23 07:35 Pulse 68 10/04/23 07:35 Resp 18 10/04/23 07:35 BP 151/72 10/04/23 07:35 Pulse Ox 92 L 10/04/23 07:35 FiO2 Intake & Output 10/03/23 10/04/23 10/04/23 18:59 06:59 18:59 Other: Voiding Method Urinal Urinal Urinal Diaper Diaper Diaper # Voids 1 4 # Bowel Movements 1 1 - Labs CBC & Chem 7: 10/03/23 17:47 10/02/23 15:47 Labs: Abnormal Lab Results - Last 24 Hours (Table) 10/03/23 Range/Units 17:47 WBC 20.0 H (3.8-10.6) k/uL RBC 2.68 L (4.30-5.90) m/uL Hgb 8.6 L (13.0-17.5) gm/dL Hct 26.7 L (39.0-53.0) % RDW 17.9 H (11.5-15.5) % Plt Count 26 L (150-450) k/uL Lymphocytes # (Manual) 17.20 H (1.0-4.8) k/uL Microbiology - Last 24 Hours (Table) 09/28/23 19:15 Blood Culture - Final Blood 09/28/23 19:00 Blood Culture - Final Blood
--- NOTE | 2023-10-04 14:53 | P.PN ---
Subjective Progress Note Date: 10/04/23 Principal diagnosis: Reason for follow-up is pneumonia and positive blood culture Patient is 82-year-old male with a past medical history significant for hypertension reflux dementia CLL Parkinson disease, who recently diagnosed and treated for influenza presented to hospital with a fall chest x-ray with the right lung infiltrate concerning for pneumonia and blood culture call from previous admission positive for coagulase-negative staph. On today's evaluation that is 10/04/2023,the patient denies any fever or any chills, patient is breathing comfortably on room air, the patient denies chest pain shortness of breath and no significant cough, patient denies abdominal pain, no nausea vomiting or diarrhea tolerating his diet and no further bleeding per rectum reported Patient white count is 20,000, no BMP was done today procalcitonin 0.15 blood culture has been negative Objective - Vital Signs Vital signs: Vital Signs Temp 98.7 F 10/04/23 13:30 Pulse 67 10/04/23 13:30 Resp 18 10/04/23 13:30 BP 169/69 10/04/23 13:30 Pulse Ox 96 10/04/23 13:30 FiO2 Intake & Output 10/03/23 10/04/23 10/04/23 18:59 06:59 18:59 Intake Total 500 Balance 500 Intake: Oral 500 Other: Voiding Method Urinal Urinal Urinal Diaper Diaper Diaper # Voids 1 4 # Bowel Movements 1 1 - Exam GENERAL DESCRIPTION: An elderly male lying in bed in no distress RESPIRATORY SYSTEM: Unlabored breathing , decreased breath sounds at bases HEART: S1 S2 regular rate and rhythm , ABDOMEN: Soft , no tenderness EXTREMITIES: No edema feet - Labs CBC & Chem 7: 10/03/23 17:47 10/02/23 15:47 Labs: Abnormal Lab Results - Last 24 Hours (Table) 10/03/23 Range/Units 17:47 WBC 20.0 H (3.8-10.6) k/uL RBC 2.68 L (4.30-5.90) m/uL Hgb 8.6 L (13.0-17.5) gm/dL Hct 26.7 L (39.0-53.0) % RDW 17.9 H (11.5-15.5) % Plt Count 26 L (150-450) k/uL Lymphocytes # (Manual) 17.20 H (1.0-4.8) k/uL Microbiology - Last 24 Hours (Table) 09/28/23 19:15 Blood Culture - Final Blood 09/28/23 19:00 Blood Culture - Final Blood Assessment and Plan (1) Pneumonia Current Visit: Yes Status: Acute Code(s): J18.9 - PNEUMONIA, UNSPECIFIED ORGANISM SNOMED Code(s): 193963281 (2) Bacteremia Current Visit: Yes Status: Acute Code(s): R78.81 - BACTEREMIA SNOMED Code(s): 4340977 (3) Leukocytosis Current Visit: No Status: Acute Code(s): D72.829 - ELEVATED WHITE BLOOD CELL COUNT, UNSPECIFIED SNOMED Code(s): 666467654 Plan: 1patient with a positive blood culture with coagulase-negative staph more likely skin contamination as the patient has no clinical disease to go along wit h it blood cultures repeated document clearance which are currently pending 2-patient presented to hospital with a fall with a recent diagnosis of influenza chest x-ray with pneumonia and did have elevated white count which is slightly up today however the patient has a history of blood dyscrasia remain responsible for this elevated white count 3-patient to continue Rocephin however switch the dose to every 24 hours rather than every 12 hours and monitor clinical course closely Dictation was produced using [employer] dictation software. please excuse any grammatical, word or spelling errors. Time with Patient: Less than 30
--- NOTE | 2023-10-04 14:53 | P.PN ---
Subjective Progress Note Date: 10/03/23 Principal diagnosis: Reason for follow-up is pneumonia and positive blood culture Patient is 82-year-old male with a past medical history significant for hypertension reflux dementia CLL Parkinson disease, who recently diagnosed and treated for influenza presented to hospital with a fall chest x-ray with the right lung infiltrate concerning for pneumonia and blood culture call from previous admission positive for coagulase-negative staph. On today's evaluation that is 10/03/2023, patient has been afebrile, patient is breathing comfortably and is currently on room air, patient slightly more awake alert today denies having any significant cough no chest pain shortness of breath, patient denies nausea vomiting or diarrhea and no abdominal pain no further bleeding per rectum Patient did have a white count of 17.1, creatinine is 1.1 Objective - Vital Signs Vital signs: Vital Signs Temp 98.0 F 10/03/23 08:00 Pulse 69 10/03/23 08:00 Resp 18 10/03/23 08:00 BP 147/67 10/03/23 08:00 Pulse Ox 94 L 10/03/23 08:00 FiO2 Intake & Output 10/02/23 10/03/23 10/03/23 18:59 06:59 18:59 Output Total 50 Balance -50 Weight 85.729 kg Output: Urine 50 Other: Voiding Method Urinal Urinal Diaper Diaper # Voids 3 - Exam GENERAL DESCRIPTION: An elderly male lying in bed in no distress RESPIRATORY SYSTEM: Unlabored breathing , decreased breath sounds at bases HEART: S1 S2 regular rate and rhythm , ABDOMEN: Soft , no tenderness EXTREMITIES: No edema feet - Labs CBC & Chem 7: 10/03/23 17:47 10/02/23 15:47 Labs: Abnormal Lab Results - Last 24 Hours (Table) 09/28/23 10/02/23 10/02/23 Range/Units 18:20 08:12 08:12 WBC 19.91 H (4.50-10.00) X 10*3/uL RBC 2.44 L (4.40-5.60) X 10*6/uL Hgb 7.9 L (13.0-17.0) g/dL Hct 24.1 L (39.6-50.0) % MCV 98.8 H (80.0-97.0) FL MCH 32.4 H (27.0-32.0) pg MCHC (31.0-37.0) g/dL RDW 19.8 H (11.5-14.5) % Plt Count 26 L (140-440) X 10*3/uL Lymphocytes # (Manual) 18.32 H (0.90-5.00) X 10*3/uL Eosinophils # (Manual) 0 L (0.04-0.35) X 10*3/uL Immature Plt Fraction 12.0 H (1.1-6.1) % Macrocytosis Retic Count (0.5-2.0) % Carbon Dioxide (21.6-31.8) mmol/L Calcium (8.7-10.3) mg/dL Iron 62 L (65-175) UG/DL TIBC 218 L (228-460) UG/DL Transferrin 156.0 L (204.0-354.0) mg/dL Ferritin 753.0 H (22.0-322.0) ng/mL AST (14-35) U/L Lactate Dehydrogenase (120-246) U/L Total Protein (6.2-8.2) g/dL Albumin (3.8-4.9) g/dL Procalcitonin 0.15 H (0.02-0.09) ng/mL 10/02/23 10/02/23 10/03/23 Range/Units 15:47 15:47 06:17 WBC 17.1 H (4.50-10.00) X 10*3/uL RBC 2.36 L (4.40-5.60) X 10*6/uL Hgb 7.7 L (13.0-17.0) g/dL Hct 26.9 L (39.6-50.0) % MCV 114.1 H D (80.0-97.0) FL MCH (27.0-32.0) pg MCHC 28.6 L (31.0-37.0) g/dL RDW 18.7 H (11.5-14.5) % Plt Count 23 L (140-440) X 10*3/uL Lymphocytes # (Manual) 14.02 H (0.90-5.00) X 10*3/uL Eosinophils # (Manual) (0.04-0.35) X 10*3/uL Immature Plt Fraction (1.1-6.1) % Macrocytosis Marked A Retic Count 0.4 L (0.5-2.0) % Carbon Dioxide 21.2 L (21.6-31.8) mmol/L Calcium 7.4 L (8.7-10.3) mg/dL Iron (65-175) UG/DL TIBC (228-460) UG/DL Transferrin (204.0-354.0) mg/dL Ferritin (22.0-322.0) ng/mL AST 55 H (14-35) U/L Lactate Dehydrogenase 274 H (120-246) U/L Total Protein 4.5 L (6.2-8.2) g/dL Albumin 2.9 L (3.8-4.9) g/dL Procalcitonin (0.02-0.09) ng/mL Assessment and Plan (1) Pneumonia Current Visit: Yes Status: Acute Code(s): J18.9 - PNEUMONIA, UNSPECIFIED ORGANISM SNOMED Code(s): 245936073 (2) Bacteremia Current Visit: Yes Status: Acute Code(s): R78.81 - BACTEREMIA SNOMED Code(s): 4929535 (3) Leukocytosis Current Visit: No Status: Acute Code(s): D72.829 - ELEVATED WHITE BLOOD CELL COUNT, UNSPECIFIED SNOMED Code(s): 274081211 Plan: 1patient with a positive blood culture with coagulase-negative staph more likely skin contamination as the patient has no clinical disease to go along with it blood cultures repeated document clearance which are currently pending 2-patient presented to hospital with a fall with a recent diagnosis of influenza chest x-ray with pneumonia and did have elevated white count which is slightly up today however the patient has a history of blood dyscrasia remain responsible for this elevated white count 3-patient to continue Rocephin while waiting for the culture to finalize and monitor clinical course closely Dictation was produced using [employer] software. please excuse any grammatical, word or spelling errors. Time with Patient: Less than 30
--- NOTE | 2023-10-05 07:46 | P.PN ---
Subjective History of Present Illness This is a pleasant 82 years old male with past medical history of multiple medical problems including history of colorectal cancer on chemotherapy and CLL. He presents to the emergency room on 09/25 for generalized weakness and fever, his influenza and he had a fever of 101.5 at that time and he was diagnosed with influenza without pneumonia or hypoxia and was sent home He comes back yesterday because of fall while he was going to the bathroom, he states he blacked out woke without syncope because his both legs give way and he fell hitting his elbow but no head trauma. He denies dizziness at that time and no other specific complaint he was complaining from some mild neck pain which is fine today as he denies any pain to me Patient denies chest pain or dyspnea. No exertional dyspnea, no coughing, no diarrhea or vomiting. No abdominal pain, no urinary complaint No headache or dizziness or weakness or numbness. Patient feels generally weak He denies smoking alcohol or illicit drugs This time patient is afebrile, vitals are stable and he is on room air He has leukocytosis of 20,000 improved from 34.8k 3 days ago, hemoglobin stable 9.4 and 9.2, platelet count is low at 2621 Influenza was positive on 11/27, rest of viruses were negative BMP and liver enzymes were unremarkable except for mildly elevated creatinine at baseline of 1.4 Chest x-ray showed cardiomegaly with no evidence of vascular congestion but there is a small right lower lobe infiltrate suspicious for pneumonia, Cervical spine x-ray showing no fracture or dislocation with 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 She is currently receiving normal saline 130 mL, Zithromax, ceftriaxone and IV vancomycin Addendum: After rounding patient developed large bloody bowel movement, vitals remained stable and repeat hemoglobin 8.7 which is slightly lower Patient placed on IV Protonix Surgery team consulted for plan for EGD/colonoscopy on 09/3009/30/2023 Patient was more confused today and he was climbing out of bed. He is on Seroquel 25 mg at bedtime, we increased another dose this morning However by the time I saw the patient he was lying in bed confused to time place and person, count, not agitated. No more fever and other vital stable Labs improving except for hemoglobin went down to 7.6. No more evidence of active bleeding. Platelets still low only slightly better at 27, and surgery team are considering hold EGD/colonoscopy till platelet count improved. We will repeat hemoglobin and platelet count tomorrow. In the meantime patient kept on IV Protonix twice daily also going to change his fluid to D5 normal saline at 75 mL/h. CT of the brain was checked today and reviewed myself which show no evidence of acute hemorrhage or bleed but there is progressive atrophy compared to old CAT scan about 10 years ago. Patient remains on Zithromax and ceftriaxone., For possible pneumonia and bacteremia Significant other at bedside and all her questions were answered to his satisfaction Discussed with the staff 10/01/2023 Patient remains confused, he does not follow commands, he opens eye spontaneously. He denies specific complaint but feels very weak, somewhat drowsy as well He still on azithromycin and ceftriaxone for bacteremia and possible right lower lobe pneumonia, no much respiratory symptoms saturating his room air, tachypneic Remains also on D5 normal saline 75 mL/h Had low-grade fever today at 100 WBC stable 19, hemoglobin 8.7, platelet count stable around 24. We will check vitamin B12 level, level was about 500 last 1 year ago. He is also on IV Protonix Advance to liquid diet. Prognosis remains guarded Discussed with the staff 10/02/2023 Patient today he knows where he is at and he has some insight into his illness he looks more calm. He still somewhat more lethargic he still mildly confused not completely back to normal. No much respiratory symptoms No abdominal pain and he tolerates diet. Blood culture still pending to document clearance, there original blood culture prior to hospitalization showing staph multitest suspicious for contamination Patient remains on Zithromax and Rocephin for possible pneumonia His leukocytosis is a chronic problem related to his CLL and actually improvement from 2 weeks prior to hospitalization There were 86 positive Hematology/oncology June, although there is chemotherapy per calquence till he can see his oncologist Dr. Wilder on 10/08 And significant other at bedside and questions answered 10/03/2023 Patient improving slowly and gradually He is more awake today, he asking to go home but he agrees to stay No other new complaint He still on 2 L oxygen via nasal cannula Labs look stable including CBC He remains on Zithromax and ceftriaxone with repeat blood culture pending 10/04/2023 Patientblyig in Bed comfortable No new complaint. Sitter for safety Last night patient had bloody bowel movement, repeat chest x-ray showed actually better hemoglobin level 8.6. Surgery team still following Continue on ceftriaxone for his bacteremia and pneumonia Patient chronic leukocytosis hematological problems but be related to his CLL, hematology/oncology team following Objective - Vital Signs Vital signs: Vital Signs Temp 98.7 F 10/04/23 13:30 Pulse 67 10/04/23 13:30 Resp 18 10/04/23 13:30 BP 169/69 10/04/23 13:30 Pulse Ox 96 10/04/23 13:30 FiO2 Intake & Output 10/03/23 10/04/23 10/04/23 18:59 06:59 18:59 Intake Total 500 Balance 500 Intake: Oral 500 Other: Voiding Method Urinal Urinal Urinal Diaper Diaper Diaper # Voids 1 4 # Bowel Movements 1 1 - Exam -GENERAL: The patient is awake but confused, currently calm , not in any acute distress. Well developed, well nourished. HEENT: Pupils are round and equally reacting to light. EOMI. No scleral icterus. No conjunctival pallor. Normocephalic, atraumatic. No pharyngeal erythema. No thyromegaly. CARDIOVASCULAR: S1 and S2 present. No murmurs, rubs, or gallops. PULMONARY: Chest is clear to auscultation, no wheezing , no crackles. ABDOMEN: Soft, nontender, nondistended, normoactive bowel sounds. No palpable organomegaly. MUSCULOSKELETAL: No joint swelling or deformity. EXTREMITIES: No cyanosis, clubbing, or pedal edema. NEUROLOGICAL: Gross neurological examination did not reveal any focal deficits. SKIN: No rashes. no petechiae. - Labs CBC & Chem 7: 10/03/23 17:47 10/02/23 15:47 Labs: Abnormal Lab Results - Last 24 Hours (Table) 10/03/23 Range/Units 17:47 WBC 20.0 H (3.8-10.6) k/uL RBC 2.68 L (4.30-5.90) m/uL Hgb 8.6 L (13.0-17.5) gm/dL Hct 26.7 L (39.0-53.0) % RDW 17.9 H (11.5-15.5) % Plt Count 26 L (150-450) k/uL Lymphocytes # (Manual) 17.20 H (1.0-4.8) k/uL Microbiology - Last 24 Hours (Table) 09/28/23 19:15 Blood Culture - Final Blood 09/28/23 19:00 Blood Culture - Final Blood Assessment and Plan Assessment: Bacteremia Possible right lower lobe pneumonia Toxic/metabolic encephalopathy secondary to above Acute GI bleed with bloody bowel movements on the day of admission Acute blood loss anemia Fall at home without syncope related to generalized weakness Leukocytosis, improving Bicytopenia with anemia and more severe thrombocytopenia Parkinson disease Hypertension Chronic kidney disease stage III Plan: Continue with broad-spectrum antibiotic and follow-up culture results, currently on ceftriaxone Follow-up Repeat blood cultures Infectious disease consult Hematology/oncology team consult for his malignancy Surgery team consult for GI bleed. Plan for endoscopy when patient clinically stable Labs and medication were reviewed.. Continue same treatment. Continue with symptomatic treatment. Resume home medication. Monitor labs and vitals. DVT and GI prophylaxis. Further recommendations as per clinical course of the p atient DVT prophylaxis: no Subcutaneous heparin GI Prophylaxis: Ppi PT/OT: Pending Prognosis is guarded
[2023-10-05 10:03] LABS: Anisocytosis Slight; HCT 25.5 % (39.0-53.0); HGB 8.3 gm/dL (13.0-17.5); Hypochromasia Slight; MCH 32.3 pg (25.0-35.0); MCHC 32.4 g/dL (31.0-37.0); MCV 99.7 fL (80.0-100.0); Macrocytosis Slight; Mean Platelet Volume 10.9; Poikilocytosis Slight; RBC 2.56 m/uL (4.30-5.90); WBC 24.3 k/uL (3.8-10.6)
[2023-10-05 10:12] LABS: Platelet Count 32 k/uL (150-450)
[2023-10-05 11:15] LABS: Lymphocytes # (M) 18.95 k/uL (1.0-4.8); Monocytes # (M) 0.73 k/uL (0-1.0); Neutrophils # (M) 4.86 k/uL (1.3-7.7); Neutrophils % (M) 20 %; Nucleated Red Blood Cells 0 /100 WBC (0-0); Total Cells Counted 200
--- NOTE | 2023-10-05 12:44 | P.PN ---
Subjective Progress Note Date: 10/05/23 Principal diagnosis: Reason for follow-up is pneumonia and positive blood culture Patient is 82-year-old male with a past medical history significant for hypertension reflux dementia CLL Parkinson disease, who recently diagnosed and treated for influenza presented to hospital with a fall chest x-ray with the right lung infiltrate concerning for pneumonia and blood culture call from previous admission positive for coagulase-negative staph. On today's evaluation that is 10/05/2023,the patient remains to be afebrile, patient is on room air not requiring supplemental oxygen and denies any shortness of breath no chest pain or cough.Patient denies having any nausea or vomiting, no abdominal pain and no diarrhea has been reported. Patient white count is up to 24.3 hemoglobin is 8.3 creatinine is 1.1 blood culture has been negative Objective - Vital Signs Vital signs: Vital Signs Temp 97.8 F 10/05/23 08:00 Pulse 72 10/05/23 08:00 Resp 16 10/05/23 08:00 BP 172/76 10/05/23 08:00 Pulse Ox 93 L 10/05/23 08:00 FiO2 Intake & Output 10/04/23 10/05/23 10/05/23 18:59 06:59 18:59 Intake Total 500 100 Output Total 100 Balance 500 -100 100 Intake: Oral 500 100 Output: Urine 100 Other: Voiding Method Urinal Urinal Urinal Diaper Diaper Diaper # Voids 3 3 - Exam GENERAL DESCRIPTION: An elderly male lying in bed in no distress RESPIRATORY SYSTEM: Unlabored breathing , decreased breath sounds at bases HEART: S1 S2 regular rate and rhythm , ABDOMEN: Soft , no tenderness EXTREMITIES: No edema feet - Labs CBC & Chem 7: 10/05/23 09:33 10/02/23 15:47 Labs: Abnormal Lab Results - Last 24 Hours (Table) 10/02/23 10/05/23 Range/Units 08:12 09:33 WBC 24.3 H (3.8-10.6) k/uL RBC 2.56 L (4.30-5.90) m/uL Hgb 8.3 L (13.0-17.5) gm/dL Hct 25.5 L (39.0-53.0) % RDW 18.0 H (11.5-15.5) % Plt Count 32 L (150-450) k/uL Neutrophils # (Manual) 1.19 L (1.80-7.70) X 10*3/uL Lymphocytes # (Manual) 18.95 H (1.0-4.8) k/uL Assessment and Plan (1) Pneumonia Current Visit: Yes Status: Acute Code(s): J18.9 - PNEUMONIA, UNSPECIFIED ORGANISM SNOMED Code(s): 422402054 (2) Bacteremia Current Visit: Yes Status: Acute Code(s): R78.81 - BACTEREMIA SNOMED Code(s): 1306752 (3) Leukocytosis Current Visit: No Status: Acute Code(s): D72.829 - ELEVATED WHITE BLOOD CELL COUNT, UNSPECIFIED SNOMED Code(s): 738940457 Plan: 1patient with a positive blood culture with coagulase-negative staph more likely skin contamination as the patient has no clinical disease to go along with it blood cultures repeated document clearance which are currently pending 2-patient noticed to have further worsening of the white count with predominantly GI symptoms possible GI source we will discontinue Rocephin and start the patient on Zosyn repeat the blood cultures and inflammatory markers he may benefit from a CT abdominal pelvis Dictation was produced using [employer] dictation software. please excuse any grammatical, word or spelling errors.
--- NOTE | 2023-10-05 12:53 | P.PN ---
Subjective Progress Note Date: 10/05/23 CHIEF COMPLAINT: Fall HISTORY OF PRESENT ILLNESS: Surgical service following in regards to GI bleed. Patient had a maroonish colored stool on Thursday. No blood reported on Thursday. Lying in bed comfortably. No abdominal pain reported. Afebrile. WBC 24.3 hemoglobin stable at 8.3 platelets 32 PHYSICAL EXAM: VITAL SIGNS: Reviewed. GENERAL: Well-developed in no acute distress. ABDOMEN: Soft. Nondistended. Nontender. NEUROLOGIC: Mildly confused. ASSESSMENT: 1. Acute GI bleed. Likely medical bleed due to his thrombocytopenia. 2. Influenza A positive 3. Possible pneumonia 4. History of CLL 5. Thrombocytopenia PLAN: -Continue to medically optimize patient -Plan for endoscopies when medically stable -Continue to monitor hemoglobin -Continue to monitor for any signs or symptoms of bleeding -Continue regular diet -Infectious ease has ordered a CT scan abdomen pelvis. Will follow-up on results Physician [employer] note has been reviewed by physician. Signing provider agrees with the documented findings, assessment, and plan of care. Objective - Vital Signs Vital signs: Vital Signs Temp 97.8 F 10/05/23 08:00 Pulse 72 10/05/23 08:00 Resp 16 10/05/23 08:00 BP 172/76 10/05/23 08:00 Pulse Ox 93 L 10/05/23 08:00 FiO2 Intake & Output 10/04/23 10/05/23 10/05/23 18:59 06:59 18:59 Intake Total 500 100 Output Total 100 Balance 500 -100 100 Intake: Oral 500 100 Output: Urine 100 Other: Voiding Method Urinal Urinal Urinal Diaper Diaper Diaper # Voids 3 3 - Labs CBC & Chem 7: 10/05/23 09:33 10/02/23 15:47 Labs: Abnormal Lab Results - Last 24 Hours (Table) 10/02/23 10/05/23 Range/Units 08:12 09:33 WBC 24.3 H (3.8-10.6) k/uL RBC 2.56 L (4.30-5.90) m/uL Hgb 8.3 L (13.0-17.5) gm/dL Hct 25.5 L (39.0-53.0) % RDW 18.0 H (11.5-15.5) % Plt Count 32 L (150-450) k/uL Neutrophils # (Manual) 1.19 L (1.80-7.70) X 10*3/uL Lymphocytes # (Manual) 18.95 H (1.0-4.8) k/uL
[2023-10-05] MEDS: IOPAMIDOL CONTRAST (ORAL USE) VIAL PO PRN (14:59)
[2023-10-05] MEDS: PIPERACILLIN-TAZOBACTAM 3.375 GM in SODIUM CHLORIDE 0.9% 100 ML IVPB SCH (15:41)
--- NOTE | 2023-10-05 16:53 | CT ---
EXAMINATION TYPE: CT abdomen pelvis w con CT DLP: 885.7 mGycm, Automated exposure control for dose reduction was used. DATE OF EXAM: 10/05/2023 4:45 PM COMPARISON: 09/28/2023 CLINICAL INDICATION:Male, 82 years old with history of Abdominal pain and leukocytosis; Abdominal kyle n and leukocytosis. TECHNIQUE: Axial CT abdomen pelvis w con;Sagittal and coronal reformats were created on a separate w orkstation. Contrast used:80 mL of Isovue 300 with IV Contrast, (none if empty) Oral contrast used: with Oral Contrast (none if empty) FINDINGS: LOWER CHEST: Large hiatal hernia containing a majority of the stomach. Trace bilateral pleural effusi ons. The heart is mildly enlarged for size. Some airspace opacities and/or atelectasis are seen in th e lung bases right greater than left. ABDOMEN LIVER: Unremarkable GALLBLADDER AND BILE DUCTS: Large gallstone in the gallbladder lumen with other smaller stones also p resent. PANCREAS: Unremarkable. SPLEEN: Unremarkable. ADRENAL GLANDS: Unremarkable. KIDNEYS AND URETERS: No evidence of hydronephrosis or renal calculus. The ureters are unremarkable. PELVIS BLADDER: Bladder diverticulum with multiple bladder stones present. There is also trabeculations pres ent lung bladder mejia. REPRODUCTIVE: Prostate is enlarged in size measuring 5.9 cm in transverse dimension. ABDOMEN & PELVIS STOMACH AND BOWEL: No evidence of bowel obstruction. PERITONEUM/RETROPERITONEUM: No evidence of pneumoperitoneum or free fluid. VASCULATURE: Moderate atherosclerotic calcifications are present throughout the abdominal aorta and i ts branches. No evidence of aortic aneurysm. MUSCULOSKELETAL: No acute osseous abnormalities. Moderate disc degeneration changes are present throu ghout the thoracolumbar spine. T12 vertebral body hemangioma. LYMPH NODES: No gross evidence for lymphadenopathy. SOFT TISSUE/ABDOMINAL WALL: Fat-containing inguinal hernias. IMPRESSION: 1. No evidence for acute abdominal process. 2. Airspace opacities in the right lung base possibly atelectasis superimposed infection not exclude d. 3. Cardiomegaly with bilateral pleural effusions correlate for congestive heart failure. 4. Large hiatal hernia containing a majority of the stomach. 5. Bladder diverticula with multiple bladder stones in the diverticulum. Correlate with urinalysis f or cystitis. Possibly secondary to prostatomegaly and chronic bladder outlet obstruction. 6. Prostatomegaly, correlate serum PSA. 7. Cholelithiasis
--- NOTE | 2023-10-06 06:31 | P.PN ---
Subjective Progress Note Date: 10/05/23 This is a pleasant 82 years old male with past medical history of multiple medical problems including history of colorectal cancer on chemotherapy and CLL. He presents to the emergency room on 09/25 for generalized weakness and fever, his influenza and he had a fever of 101.5 at that time and he was diagnosed with influenza without pneumonia or hypoxia and was sent home He comes back yesterday because of fall while he was going to the bathroom, he states he blacked out woke without syncope because his both legs give way and he fell hitting his elbow but no head trauma. He denies dizziness at that time and no other specific complaint he was complaining from some mild neck pain which is fine today as he denies any pain to me Patient denies chest pain or dyspnea. No exertional dyspnea, no coughing, no diarrhea or vomiting. No abdominal pain, no urinary complaint No headache or dizziness or weakness or numbness. Patient feels generally weak He denies smoking alcohol or illicit drugs This time patient is afebrile, vitals are stable and he is on room air He has leukocytosis of 20,000 improved from 34.8k 3 days ago, hemoglobin stable 9.4 and 9.2, platelet count is low at 2621 Influenza was positive on 11/27, rest of viruses were negative BMP and liver enzymes were unremarkable except for mildly elevated creatinine at baseline of 1.4 Chest x-ray showed cardiomegaly with no evidence of vascular congestion but there is a small right lower lobe infiltrate suspicious for pneumonia, Cervical spine x-ray showing no fracture or dislocation with 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 She is currently receiving normal saline 130 mL, Zithromax, ceftriaxone and IV vancomycin Addendum: After rounding patient developed large bloody bowel movement, vitals remained stable and repeat hemoglobin 8.7 which is slightly lower Patient placed on IV Protonix Surgery team consulted for plan for EGD/colonoscopy on 09/3009/30/2023 Patient was more confused today and he was climbing out of bed. He is on Seroquel 25 mg at bedtime, we increased another dose this morning However by the time I saw the patient he was lying in bed confused to time place and person, count, not agitated. No more fever and other vital stable Labs improving except for hemoglobin went down to 7.6. No more evidence of active bleeding. Platelets still low only slightly better at 27, and surgery team are considering hold EGD/colonoscopy till platelet count improved. We will repeat hemoglobin and platelet count tomorrow. In the meantime patient kept on IV Protonix twice daily also going to change his fluid to D5 normal saline at 75 mL/h. CT of the brain was checked today and reviewed myself which show no evidence of acute hemorrhage or bleed but there is progressive atrophy compared to old CAT scan about 10 years ago. Patient remains on Zithromax and ceftriaxone., For possible pneumonia and bacteremia Significant other at bedside and all her questions were answered to his satisfaction Discussed with the staff 10/01/2023 Patient remains confused, he does not follow commands, he opens eye spontaneously. He denies specific complaint but feels very weak, somewhat drowsy as well He still on azithromycin and ceftriaxone for bacteremia and possible right lower lobe pneumonia, no much respiratory symptoms saturating his room air, tachypneic Remains also on D5 normal saline 75 mL/h Had low-grade fever today at 100 WBC stable 19, hemoglobin 8.7, platelet count stable around 24. We will check vitamin B12 level, level was about 500 last 1 year ago. He is also on IV Protonix Advance to liquid diet. Prognosis remains guarded Discussed with the staff 10/02/2023 Patient today he knows where he is at and he has some insight into his illness he looks more calm. He still somewhat more lethargic he still mildly confused not completely back to normal. No much respiratory symptoms No abdominal pain and he tolerates diet. Blood culture still pending to document clearance, there original blood culture prior to hospitalization showing staph multitest suspicious for contamination Patient remains on Zithromax and Rocephin for possible pneumonia His leukocytosis is a chronic problem related to his CLL and actually improveme nt from 2 weeks prior to hospitalization There were 86 positive Hematology/oncology June, although there is chemotherapy per calquence till he can see his oncologist Dr. Wilder on 10/08 And significant other at bedside and questions answered 10/03/2023 Patient improving slowly and gradually He is more awake today, he asking to go home but he agrees to stay No other new complaint He still on 2 L oxygen via nasal cannula Labs look stable including CBC He remains on Zithromax and ceftriaxone with repeat blood culture pending 10/04/2023 Patient lying in Bed comfortable No new complaint. Sitter for safety Last night patient had bloody bowel movement, repeat chest x-ray showed actually better hemoglobin level 8.6. Surgery team still following Continue on ceftriaxone for his bacteremia and pneumonia Patient chronic leukocytosis hematological problems but be related to his CLL, hematology/oncology team following 10/05/2023 Patient is seen in follow-up today with multiple medical consultations following. Patient is continued on antibiotics with infectious disease did have an elevated white count plans for repeat CT abdomen for further evaluation. Patient with significant weakness recommend physical therapy daily and patient plans on going to [facility] with them. Patient was noted being was a positive with generalized bodyaches and weakness. Awaiting finalized cultures. Review of systems: Constitutional: No reports of fatigue, no fever, or chills Cardiovascular: No reports of chest pain or palpitations Respiratory: No reports of shortness of breath or cough GI: No reports of nausea, vomiting, or diarrhea, reports not much of an appetite : No reports of dysuria or retention Neurovascular: reports of generalized weakness or numbness All medications have been reviewed Physical exam: -GENERAL: The patient is awake but confused, currently calm , not in any acute distress. Well developed, well nourished. Elderly appearing, ill-appearing HEENT: Pupils are round and equally reacting to light. EOMI. No scleral icterus. No conjunctival pallor. Normocephalic, atraumatic. No pharyngeal erythema. No thyromegaly. CARDIOVASCULAR: S1 and S2 muffled PULMONARY: Diminished breath sounds bilaterally otherwise chest is clear to auscultation, no wheezing , no crackles. ABDOMEN: Soft, nontender, nondistended, normoactive bowel sounds. No palpable organomegaly. MUSCULOSKELETAL: No joint swelling or deformity. EXTREMITIES: No cyanosis, clubbing, or pedal edema. NEUROLOGICAL: Gross neurological examination did not reveal any focal deficits. Diffusely weak SKIN: No rashes. no petechiae. Assessment: Bacteremia Possible right lower lobe pneumonia Acute influenza infection Toxic/metabolic encephalopathy secondary to above, improving Acute GI bleed with bloody bowel movements on the day of admission Acute blood loss anemia secondary to above Fall at home without syncope related to generalized weakness Leukocytosis Bicytopenia with anemia and more severe thrombocytopenia Parkinson disease Gait dysfunction with generalized weakness Hypertension Chronic kidney disease stage III GI prophylaxis DVT prophylaxis Full code Plan: Continue with broad-spectrum antibiotic and follow-up culture results, currently on ceftriaxone with infectious disease following awaiting finalized cultures Hematology/oncology team consult for his malignancy Surgery team following for GI bleed. Plan for endoscopy when patient clinically stable, not quite stable at this time, no active bleeding noted Recommend PT/OT therapy daily Recommend aspiration precautions and head of the bed elevated 30 to 45 degrees at all times Will follow-up on repeat labs in the a.m. Case management/social work following as patient will likely need ECF for continued strength and mobility Due to multiple complex medical issues, prognosis is guarded The impression and plan of care has been dictated by Simi Jacinto, Nurse Practitioner as directed. Dr. Brian MD I have performed a history and examination and MDM of this patient, discussed the same with the dictator, and agree with the dictator's assessment and plan as written ,documented as a scribe. Based on total visit time, I have performed more than 50% of the visit. Objective - Vital Signs Vital signs: Vital Signs Temp 97.8 F 10/05/23 08:00 Pulse 72 10/05/23 08:00 Resp 16 10/05/23 08:00 BP 172/76 10/05/23 08:00 Pulse Ox 93 L 10/05/23 08:00 FiO2 Intake & Output 10/04/23 10/05/23 10/05/23 18:59 06:59 18:59 Intake Total 500 100 Output Total 100 Balance 500 -100 100 Intake: Oral 500 100 Output: Urine 100 Other: Voiding Method Urinal Urinal Urinal Diaper Diaper Diaper # Voids 3 3 - Labs CBC & Chem 7: 10/05/23 09:33 10/02/23 15:47 Labs: Abnormal Lab Results - Last 24 Hours (Table) 10/02/23 10/05/23 Range/Units 08:12 09:33 WBC 24.3 H (3.8-10.6) k/uL RBC 2.56 L (4.30-5.90) m/uL Hgb 8.3 L (13.0-17.5) gm/dL Hct 25.5 L (39.0-53.0) % RDW 18.0 H (11.5-15.5) % Plt Count 32 L (150-450) k/uL Neutrophils # (Manual) 1.19 L (1.80-7.70) X 10*3/uL Lymphocytes # (Manual) 18.95 H (1.0-4.8) k/uL
[2023-10-06 09:15] LABS: BUN/Creat Ratio 14.91 Ratio (12.00-20.00); Blood Urea Nitrogen 16.4 mg/dL (9.0-27.0); Calcium 7.7 mg/dL (8.7-10.3); Carbon Dioxide 21.7 mmol/L (21.6-31.8); Chloride 104 mmol/L (96-109); Glucose 85 mg/dL (70-110); Magnesium 1.7 mg/dL (1.5-2.4); Potassium 3.8 mmol/L (3.5-5.5); Sodium 136 mmol/L (135-145)
[2023-10-06 09:53] LABS: Basophils # (M) 0 X 10*3/uL (0.00-0.10); Eosinophils # (M) 0 X 10*3/uL (0.04-0.35); HCT 24.3 % (39.6-50.0); HGB 7.9 g/dL (13.0-17.0); Immature Platelet Fraction 10.9 % (1.1-6.1); Lymphocytes # (M) 24.97 X 10*3/uL (0.90-5.00); MCH 31.3 pg (27.0-32.0); MCHC 32.5 g/dL (32.0-37.0); MCV 96.4 FL (80.0-97.0); Monocytes # (M) 1.66 X 10*3/uL (0.20-1.00); NRBC Per 100 WBC 0.04 X 10*3/uL (0.00-0.01); Neutrophils # (M) 6.66 X 10*3/uL (1.80-7.70); Neutrophils % (M) 20 %; Platelet Count 33 X 10*3/uL (140-440); RBC 2.52 X 10*6/uL (4.40-5.60); Smudge Cells Present; WBC 33.29 X 10*3/uL (4.50-10.00)
--- NOTE | 2023-10-06 10:52 | P.PN ---
Subjective Progress Note Date: 10/06/23 CHIEF COMPLAINT: Fall HISTORY OF PRESENT ILLNESS: Surgical service following in regards to GI bleed. No further reports of bleeding noted. Patient lying in bed comfortably. Tolerating diet. Hemoglobin did drop from 8.3-7.9 white count elevated at 33.[address] scan abdomen pelvis no evidence of acute abdominal process. Large hiatal hernia containing majority of the stomach. Atelectasis. Cholelithiasis. PHYSICAL EXAM: VITAL SIGNS: Reviewed. GENERAL: Well-developed in no acute distress. ABDOMEN: Soft. Nondistended. Nontender. NEUROLOGIC: Mildly confused. ASSESSMENT: 1. Acute GI bleed. Likely medical bleed due to his thrombocytopenia. 2. Influenza A positive 3. Possible pneumonia 4. History of CLL 5. Thrombocytopenia 6. Large hiatal hernia containing majority of the stomach PLAN: -Continue to medically optimize patient -Plan for endoscopies when medically stable -Continue to monitor hemoglobin -Continue to monitor for any signs or symptoms of bleeding -Continue regular diet Physician Chief Drafter note has been reviewed by physician. Signing provider agrees with the documented findings, assessment, and plan of care. Objective - Vital Signs Vital signs: Vital Signs Temp 98.6 F 10/06/23 06:47 Pulse 72 10/06/23 06:47 Resp 21 10/06/23 06:47 BP 136/63 10/06/23 06:47 Pulse Ox 91 L 10/06/23 06:47 FiO2 Intake & Output 10/05/23 10/06/23 10/06/23 18:59 06:59 18:59 Intake Total 100 Balance 100 Weight 85.729 kg Intake: Oral 100 Other: Voiding Method Urinal Bedside Commode Urinal Diaper Urinal Diaper Diaper Incontinent # Voids 4 2 # Bowel Movements 1 - Labs CBC & Chem 7: 10/06/23 04:43 10/06/23 04:43 Labs: Abnormal Lab Results - Last 24 Hours (Table) 10/02/23 10/05/23 10/05/23 Range/Units 08:12 09:33 13:01 WBC (4.50-10.00) X 10*3/uL RBC (4.40-5.60) X 10*6/uL Hgb (13.0-17.0) g/dL Hct (39.6-50.0) % RDW (11.5-14.5) % Plt Count (140-440) X 10*3/uL Neutrophils # (Manual) 1.19 L (1.80-7.70) X 10*3/uL Lymphocytes # (Manual) 18.95 H (1.0-4.8) k/uL Monocytes # (Manual) (0.20-1.00) X 10*3/uL Eosinophils # (Manual) (0.04-0.35) X 10*3/uL NRBC/100 WBC Diff (0.00-0.01) X 10*3/uL Smudge Cells Immature Plt Fraction (1.1-6.1) % Calcium (8.7-10.3) mg/dL C-Reactive Protein 1.90 H (0.00-0.80) mg/dL 10/06/23 10/06/23 Range/Units 04:43 04:43 WBC 33.29 H (4.50-10.00) X 10*3/uL RBC 2.52 L (4.40-5.60) X 10*6/uL Hgb 7.9 L (13.0-17.0) g/dL Hct 24.3 L (39.6-50.0) % RDW 19.0 H (11.5-14.5) % Plt Count 33 L (140-440) X 10*3/uL Neutrophils # (Manual) (1.80-7.70) X 10*3/uL Lymphocytes # (Manual) 24.97 H (1.0-4.8) k/uL Monocytes # (Manual) 1.66 H (0.20-1.00) X 10*3/uL Eosinophils # (Manual) 0 L (0.04-0.35) X 10*3/uL NRBC/100 WBC Diff 0.04 H (0.00-0.01) X 10*3/uL Smudge Cells Present A Immature Plt Fraction 10.9 H (1.1-6.1) % Calcium 7.7 L (8.7-10.3) mg/dL C-Reactive Protein (0.00-0.80) mg/dL
--- NOTE | 2023-10-06 12:40 | P.PN ---
Subjective Progress Note Date: 10/06/23 Principal diagnosis: Reason for follow-up is pneumonia and positive blood culture Patient is 82-year-old male with a past medical history significant for hypertension reflux dementia CLL Parkinson disease, who recently diagnosed and treated for influenza presented to hospital with a fall chest x-ray with the right lung infiltrate concerning for pneumonia and blood culture call from previous admission positive for coagulase-negative staph. On today's evaluation that is 10/06/2023, the patient continues to be afebrile, the patient is on room air and breathing comfortably, the Pt sleepy but arousable denies any chest pain or cough no vomiting diarrhea and the changes reported by the nursing staff. Patient white count is up to 33.29 creatinine is 1.[address] abdominal pelvis no evidence for acute abdominal process patient was evidence of right lung base opacities concerning for possible pneumonia Objective - Vital Signs Vital signs: Vital Signs Temp 98.6 F 10/06/23 06:47 Pulse 72 10/06/23 06:47 Resp 21 10/06/23 06:47 BP 136/63 10/06/23 06:47 Pulse Ox 91 L 10/06/23 06:47 FiO2 Intake & Output 10/05/23 10/06/23 10/06/23 18:59 06:59 18:59 Intake Total 100 Balance 100 Weight 85.729 kg Intake: Oral 100 Other: Voiding Method Urinal Bedside Commode Urinal Diaper Urinal Diaper Diaper Incontinent # Voids 4 2 # Bowel Movements 1 - Exam GENERAL DESCRIPTION: An elderly male lying in bed in no distress RESPIRATORY SYSTEM: Unlabored breathing , decreased breath sounds at bases HEART: S1 S2 regular rate and rhythm , ABDOMEN: Soft , no tenderness EXTREMITIES: No edema feet - Labs CBC & Chem 7: 10/06/23 04:43 10/06/23 04:43 Labs: Abnormal Lab Results - Last 24 Hours (Table) 10/02/23 10/05/23 10/05/23 Range/Units 08:12 09:33 13:01 WBC 24.3 H (3.8-10.6) k/uL RBC 2.56 L (4.30-5.90) m/uL Hgb 8.3 L (13.0-17.5) gm/dL Hct 25.5 L (39.0-53.0) % RDW 18.0 H (11.5-15.5) % Plt Count 32 L (150-450) k/uL Neutrophils # (Manual) 1.19 L (1.80-7.70) X 10*3/uL Lymphocytes # (Manual) 18.95 H (1.0-4.8) k/uL Monocytes # (Manual) (0.20-1.00) X 10*3/uL Eosinophils # (Manual) (0.04-0.35) X 10*3/uL NRBC/100 WBC Diff (0.00-0.01) X 10*3/uL Smudge Cells Immature Plt Fraction (1.1-6.1) % Calcium (8.7-10.3) mg/dL C-Reactive Protein 1.90 H (0.00-0.80) mg/dL 10/06/23 10/06/23 Range/Units 04:43 04:43 WBC 33.29 H (3.8-10.6) k/uL RBC 2.52 L (4.30-5.90) m/uL Hgb 7.9 L (13.0-17.5) gm/dL Hct 24.3 L (39.0-53.0) % RDW 19.0 H (11.5-15.5) % Plt Count 33 L (150-450) k/uL Neutrophils # (Manual) (1.80-7.70) X 10*3/uL Lymphocytes # (Manual) 24.97 H (1.0-4.8) k/uL Monocytes # (Manual) 1.66 H (0.20-1.00) X 10*3/uL Eosinophils # (Manual) 0 L (0.04-0.35) X 10*3/uL NRBC/100 WBC Diff 0.04 H (0.00-0.01) X 10*3/uL Smudge Cells Present A Immature Plt Fraction 10.9 H (1.1-6.1) % Calcium 7.7 L (8.7-10.3) mg/dL C-Reactive Protein (0.00-0.80) mg/dL Assessment and Plan (1) Pneumonia Current Visit: Yes Status: Acute Code(s): J18.9 - PNEUMONIA, UNSPECIFIED ORGANISM SNOMED Code(s): 165877485 (2) Bacteremia Current Visit: Yes Status: Acute Code(s): R78.81 - BACTEREMIA SNOMED Code(s): 5167913 (3) Leukocytosis Current Visit: No Status: Acute Code(s): D72.829 - ELEVATED WHITE BLOOD CELL COUNT, UNSPECIFIED SNOMED Code(s): 770530143 Plan: 1patient with a positive blood culture with coagulase-negative staph more likely skin contamination as the patient has no clinical disease to go along with it blood cultures repeated document clearance which are currently pending 2-patient CT abdominal pelvis did not show intra-abdominal pathology evidence of right lower lobe pneumonia possible aspiration etiology patient was switched to Zosyn yesterday continue try to obtain a sputum and may benefit from swallow evaluation Dictation was produced using [employer] dictation software. please excuse any grammatical, word or spelling errors. Time with Patient: Less than 30
[2023-10-06 14:51] LABS: MCV 114.1 fL (80.0-100.0)
[2023-10-06] MEDS ORDERED: IPRATROPIUM-ALBUTEROL 3 ML NEB INHALATION PRN (16:15)
--- NOTE | 2023-10-06 17:12 | XR ---
EXAMINATION TYPE: XR chest 1V portable DATE OF EXAM: 10/06/2023 COMPARISON: 09/28/2023 INDICATION: Shortness of breath TECHNIQUE: Single frontal view of the chest is obtained. FINDINGS: The heart size is normal. The pulmonary vasculature is normal. Right lower lobe infiltrate is present. Minimal left basilar infiltrate may be present. Correlate for atelectasis and pneumonia IMPRESSION: 1. Right lower lobe and minimal left basilar infiltrates. Correlate for atelectasis and pneumonia. Fo llow-up is recommended.
[2023-10-06] MEDS: IPRATROPIUM-ALBUTEROL 3 ML NEB INHALATION SCH (21:41)
[2023-10-07] MEDS: MAGNESIUM SULFATE-D5W PMX 1 GM in DEXTROSE/WATER 1 100ML.BAG IVPB SCH (05:49)
--- NOTE | 2023-10-07 06:09 | P.PN ---
Subjective Progress Note Date: 10/06/23 This is a pleasant 82 years old male with past medical history of multiple medical problems including history of colorectal cancer on chemotherapy and CLL. He presents to the emergency room on 09/25 for generalized weakness and fever, his influenza and he had a fever of 101.5 at that time and he was diagnosed with influenza without pneumonia or hypoxia and was sent home He comes back yesterday because of fall while he was going to the bathroom, he states he blacked out woke without syncope because his both legs give way and he fell hitting his elbow but no head trauma. He denies dizziness at that time and no other specific complaint he was complaining from some mild neck pain which is fine today as he denies any pain to me Patient denies chest pain or dyspnea. No exertional dyspnea, no coughing, no diarrhea or vomiting. No abdominal pain, no urinary complaint No headache or dizziness or weakness or numbness. Patient feels generally weak He denies smoking alcohol or illicit drugs This time patient is afebrile, vitals are stable and he is on room air He has leukocytosis of 20,000 improved from 34.8k 3 days ago, hemoglobin stable 9.4 and 9.2, platelet count is low at 2621 Influenza was positive on 11/27, rest of viruses were negative BMP and liver enzymes were unremarkable except for mildly elevated creatinine at baseline of 1.4 Chest x-ray showed cardiomegaly with no evidence of vascular congestion but there is a small right lower lobe infiltrate suspicious for pneumonia, Cervical spine x-ray showing no fracture or dislocation with 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 She is currently receiving normal saline 130 mL, Zithromax, ceftriaxone and IV vancomycin Addendum: After rounding patient developed large bloody bowel movement, vitals remained stable and repeat hemoglobin 8.7 which is slightly lower Patient placed on IV Protonix Surgery team consulted for plan for EGD/colonoscopy on 09/3009/30/2023 Patient was more confused today and he was climbing out of bed. He is on Seroquel 25 mg at bedtime, we increased another dose this morning However by the time I saw the patient he was lying in bed confused to time place and person, count, not agitated. No more fever and other vital stable Labs improving except for hemoglobin went down to 7.6. No more evidence of active bleeding. Platelets still low only slightly better at 27, and surgery team are considering hold EGD/colonoscopy till platelet count improved. We will repeat hemoglobin and platelet count tomorrow. In the meantime patient kept on IV Protonix twice daily also going to change his fluid to D5 normal saline at 75 mL/h. CT of the brain was checked today and reviewed myself which show no evidence of acute hemorrhage or bleed but there is progressive atrophy compared to old CAT scan about 10 years ago. Patient remains on Zithromax and ceftriaxone., For possible pneumonia and bacteremia Significant other at bedside and all her questions were answered to his satisfaction Discussed with the staff 10/01/2023 Patient remains confused, he does not follow commands, he opens eye spontaneously. He denies specific complaint but feels very weak, somewhat drowsy as well He still on azithromycin and ceftriaxone for bacteremia and possible right lower lobe pneumonia, no much respiratory symptoms saturating his room air, tachypneic Remains also on D5 normal saline 75 mL/h Had low-grade fever today at 100 WBC stable 19, hemoglobin 8.7, platelet count stable around 24. We will check vitamin B12 level, level was about 500 last 1 year ago. He is also on IV Protonix Advance to liquid diet. Prognosis remains guarded Discussed with the staff 10/02/2023 Patient today he knows where he is at and he has some insight into his illness he looks more calm. He still somewhat more lethargic he still mildly confused not completely back to normal. No much respiratory symptoms No abdominal pain and he tolerates diet. Blood culture still pending to document clearance, there original blood culture prior to hospitalization showing staph multitest suspicious for contamination Patient remains on Zithromax and Rocephin for possible pneumonia His leukocytosis is a chronic problem related to his CLL and actually improveme nt from 2 weeks prior to hospitalization There were 86 positive Hematology/oncology June, although there is chemotherapy per calquence till he can see his oncologist Dr. Wilder on 10/08 And significant other at bedside and questions answered 10/03/2023 Patient improving slowly and gradually He is more awake today, he asking to go home but he agrees to stay No other new complaint He still on 2 L oxygen via nasal cannula Labs look stable including CBC He remains on Zithromax and ceftriaxone with repeat blood culture pending 10/04/2023 Patient lying in Bed comfortable No new complaint. Sitter for safety Last night patient had bloody bowel movement, repeat chest x-ray showed actually better hemoglobin level 8.6. Surgery team still following Continue on ceftriaxone for his bacteremia and pneumonia Patient chronic leukocytosis hematological problems but be related to his CLL, hematology/oncology team following 10/05/2023 Patient is seen in follow-up today with multiple medical consultations following. Patient is continued on antibiotics with infectious disease did have an elevated white count plans for repeat CT abdomen for further evaluation. Patient with significant weakness recommend physical therapy daily and patient plans on going to [facility] with them. Patient was noted being was a positive with generalized bodyaches and weakness. Awaiting finalized cultures. 10/06/2023 Patient is seen and evaluated in follow-up today currently sitting up in the chair with multiple medical consultations following. Patient is maintained on antibiotics which have been transitioned to Zosyn while awaiting cultures to finalize. Most recent blood cultures have been negative. Repeat chest x-ray ordered. Patient is reporting he wants to go home. Patient with generalized weakness evaluated by physical therapy recommending rehab. [facility] can accept the patient if patient is agreeable upon holding all oncological care until discharged from [facility]. Will discuss with patient and family regarding treatment plan. Patient is currently afebrile with no reports of chest pain or shortness of breath currently on room air. Patient has been tolerating diet although not much of an appetite. Will evaluate with speech with any concerns of aspiration.. Review of systems: Constitutional: No reports of fatigue, no fever, or chills Cardiovascular: No reports of chest pain or palpitations Respiratory: No reports of shortness of breath or cough GI: No reports of nausea, vomiting, or diarrhea, reports not much of an appetite : No reports of dysuria or retention Neurovascular: reports of generalized weakness or numbness All medications have been reviewed Physical exam: -GENERAL: The patient is awake, more alert, currently calm , not in any acute d istress. Well developed, well nourished. Elderly appearing, ill-appearing HEENT: Pupils are round and equally reacting to light. EOMI. No scleral icterus. No conjunctival pallor. Normocephalic, atraumatic. No pharyngeal erythema. No thyromegaly. CARDIOVASCULAR: S1 and S2 muffled PULMONARY: Diminished breath sounds bilaterally otherwise chest is clear to auscultation, no wheezing , no crackles. ABDOMEN: Soft, nontender, nondistended, normoactive bowel sounds. No palpable organomegaly. MUSCULOSKELETAL: No joint swelling or deformity. EXTREMITIES: No cyanosis, clubbing, or pedal edema. NEUROLOGICAL: Gross neurological examination did not reveal any focal deficits. Diffusely weak SKIN: No rashes. no petechiae. Assessment: Bacteremia, likely contaminant as repeat blood cultures have been negative Acute right lower lobe pneumonia, present on admission with acute influenza Toxic/metabolic encephalopathy secondary to above, improving Acute GI bleed with bloody bowel movements on the day of admission, currently stable awaiting endoscopic intervention until patient is stable Acute blood loss anemia secondary to above Fall at home without syncope related to generalized weakness Leukocytosis associated with CLL Bicytopenia with anemia and more severe thrombocytopenia Parkinson disease Gait dysfunction with generalized weakness Hypertension Chronic kidney disease stage III Moderate protein calorie malnutrition with a BMI of 25.6 GI prophylaxis DVT prophylaxis Full code Plan: Continue with broad-spectrum antibiotic and follow-up culture results have been negative, patient continues on Zosyn with infectious disease following. Will discuss further regarding discharge planning Hematology/oncology team following For his malignancy, will follow-up outpatient Surgery team following for GI bleed. Plan for endoscopy when patient clinically stable, not quite stable at this time, no active bleeding noted Recommend PT/OT therapy daily. [facility] [place] able to except if patient is agreeable to no cancer treatment while at [facility] Recommend aspiration precautions and head of the bed elevated 30 to 45 degrees at all times Will follow-up on repeat labs in the a.m. Will have speech evaluate for possible concerns of aspiration Case management/social work following as patient will need ECF for continued strength and mobility Due to multiple complex medical issues, prognosis is guarded Possible discharge planning in the next 24 to 48 hours The impression and plan of care has been dictated by Simi Jacinto, Nurse Practitioner as directed. Dr. Brina MD I have performed a history and examination and MDM of this patient, discussed the same with the dictator, and agree with the dictator's assessment and plan as written ,documented as a scribe. Based on total visit time, I have performed more than 50% of the visit. Objective - Vital Signs Vital signs: Vital Signs Temp 98.5 F 10/06/23 14:17 Pulse 55 L 10/06/23 14:17 Resp 17 10/06/23 14:17 BP 162/69 10/06/23 14:17 Pulse Ox 95 10/06/23 14:17 FiO2 Intake & Output 10/05/23 10/06/23 10/06/23 18:59 06:59 18:59 Intake Total 100 Balance 100 Weight 85.729 kg Intake: Oral 100 Other: Voiding Method Urinal Bedside Commode Urinal Diaper Urinal Diaper Diaper Incontinent # Voids 4 2 1 # Bowel Movements 1 - Labs CBC & Chem 7: 10/06/23 04:43 10/06/23 04:43 Labs: Abnormal Lab Results - Last 24 Hours (Table) 10/03/23 10/06/23 10/06/23 Range/Units 06:17 04:43 04:43 WBC 33.29 H (4.50-10.00) X 10*3/uL RBC 2.52 L (4.40-5.60) X 10*6/uL Hgb 7.9 L (13.0-17.0) g/dL Hct 24.3 L (39.6-50.0) % MCV 114.1 H D (80.0-100.0) fL RDW 19.0 H (11.5-14.5) % Plt Count 33 L (140-440) X 10*3/uL Lymphocytes # (Manual) 24.97 H (0.90-5.00) X 10*3/uL Monocytes # (Manual) 1.66 H (0.20-1.00) X 10*3/uL Eosinophils # (Manual) 0 L (0.04-0.35) X 10*3/uL NRBC/100 WBC Diff 0.04 H (0.00-0.01) X 10*3/uL Smudge Cells Present A Immature Plt Fraction 10.9 H (1.1-6.1) % Calcium 7.7 L (8.7-10.3) mg/dL
--- NOTE | 2023-10-07 14:20 | P.PN ---
Subjective Progress Note Date: 10/07/23 CHIEF COMPLAINT: Fall HISTORY OF PRESENT ILLNESS: Surgical service following in regards to GI bleed. No further reports of bleeding noted. Patient lying in bed comfortably. Tolerating diet. hgb 7.9 yesterday PHYSICAL EXAM: VITAL SIGNS: Reviewed. GENERAL: Well-developed in no acute distress. ABDOMEN: Soft. Nondistended. Nontender. NEUROLOGIC: Mildly confused. ASSESSMENT: 1. Acute GI bleed. Likely medical bleed due to his thrombocytopenia. 2. Influenza A positive 3. Possible pneumonia 4. History of CLL 5. Thrombocytopenia 6. Large hiatal hernia containing majority of the stomach PLAN: -Continue to medically optimize patient -Plan for endoscopies when medically stable -Continue to monitor hemoglobin -Continue to monitor for any signs or symptoms of bleeding -Continue regular diet Physician Internal Grinding Machine Operator note has been reviewed by physician. Signing provider agrees with the documented findings, assessment, and plan of care. Objective - Vital Signs Vital signs: Vital Signs Temp 98.1 F 10/07/23 13:30 Pulse 61 10/07/23 13:30 Resp 17 10/07/23 13:30 BP 147/69 10/07/23 13:30 Pulse Ox 94 L 10/07/23 13:30 FiO2 Intake & Output 10/06/23 10/07/23 10/07/23 18:59 06:59 18:59 Other: Voiding Method Urinal Bedside Commode Toilet Diaper Diaper Bedside Commode Incontinent Incontinent # Voids 1 3 - Labs CBC & Chem 7: 10/06/23 04:43 10/06/23 04:43 Labs: Abnormal Lab Results - Last 24 Hours (Table) 10/03/23 Range/Units 06:17 MCV 114.1 H D (80.0-100.0) fL Microbiology - Last 24 Hours (Table) 10/05/23 13:01 Blood Culture - Preliminary Blood
[2023-10-08 01:37] VITALS: TEMP 98.4
--- NOTE | 2023-10-08 06:16 | P.PN ---
Subjective Progress Note Date: 10/07/23 This is a pleasant 82 years old male with past medical history of multiple medical problems including history of colorectal cancer on chemotherapy and CLL. He presents to the emergency room on 09/25 for generalized weakness and fever, his influenza and he had a fever of 101.5 at that time and he was diagnosed with influenza without pneumonia or hypoxia and was sent home He comes back yesterday because of fall while he was going to the bathroom, he states he blacked out woke without syncope because his both legs give way and he fell hitting his elbow but no head trauma. He denies dizziness at that time and no other specific complaint he was complaining from some mild neck pain which is fine today as he denies any pain to me Patient denies chest pain or dyspnea. No exertional dyspnea, no coughing, no diarrhea or vomiting. No abdominal pain, no urinary complaint No headache or dizziness or weakness or numbness. Patient feels generally weak He denies smoking alcohol or illicit drugs This time patient is afebrile, vitals are stable and he is on room air He has leukocytosis of 20,000 improved from 34.8k 3 days ago, hemoglobin stable 9.4 and 9.2, platelet count is low at 2621 Influenza was positive on 11/27, rest of viruses were negative BMP and liver enzymes were unremarkable except for mildly elevated creatinine at baseline of 1.4 Chest x-ray showed cardiomegaly with no evidence of vascular congestion but there is a small right lower lobe infiltrate suspicious for pneumonia, Cervical spine x-ray showing no fracture or dislocation with 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 She is currently receiving normal saline 130 mL, Zithromax, ceftriaxone and IV vancomycin Addendum: After rounding patient developed large bloody bowel movement, vitals remained stable and repeat hemoglobin 8.7 which is slightly lower Patient placed on IV Protonix Surgery team consulted for plan for EGD/colonoscopy on 09/3009/30/2023 Patient was more confused today and he was climbing out of bed. He is on Seroquel 25 mg at bedtime, we increased another dose this morning However by the time I saw the patient he was lying in bed confused to time place and person, count, not agitated. No more fever and other vital stable Labs improving except for hemoglobin went down to 7.6. No more evidence of active bleeding. Platelets still low only slightly better at 27, and surgery team are considering hold EGD/colonoscopy till platelet count improved. We will repeat hemoglobin and platelet count tomorrow. In the meantime patient kept on IV Protonix twice daily also going to change his fluid to D5 normal saline at 75 mL/h. CT of the brain was checked today and reviewed myself which show no evidence of acute hemorrhage or bleed but there is progressive atrophy compared to old CAT scan about 10 years ago. Patient remains on Zithromax and ceftriaxone., For possible pneumonia and bacteremia Significant other at bedside and all her questions were answered to his satisfaction Discussed with the staff 10/01/2023 Patient remains confused, he does not follow commands, he opens eye spontaneously. He denies specific complaint but feels very weak, somewhat drowsy as well He still on azithromycin and ceftriaxone for bacteremia and possible right lower lobe pneumonia, no much respiratory symptoms saturating his room air, tachypneic Remains also on D5 normal saline 75 mL/h Had low-grade fever today at 100 WBC stable 19, hemoglobin 8.7, platelet count stable around 24. We will check vitamin B12 level, level was about 500 last 1 year ago. He is also on IV Protonix Advance to liquid diet. Prognosis remains guarded Discussed with the staff 10/02/2023 Patient today he knows where he is at and he has some insight into his illness he looks more calm. He still somewhat more lethargic he still mildly confused not completely back to normal. No much respiratory symptoms No abdominal pain and he tolerates diet. Blood culture still pending to document clearance, there original blood culture prior to hospitalization showing staph multitest suspicious for contamination Patient remains on Zithromax and Rocephin for possible pneumonia His leukocytosis is a chronic problem related to his CLL and actually improveme nt from 2 weeks prior to hospitalization There were 86 positive Hematology/oncology June, although there is chemotherapy per calquence till he can see his oncologist Dr. Wilder on 10/08 And significant other at bedside and questions answered 10/03/2023 Patient improving slowly and gradually He is more awake today, he asking to go home but he agrees to stay No other new complaint He still on 2 L oxygen via nasal cannula Labs look stable including CBC He remains on Zithromax and ceftriaxone with repeat blood culture pending 10/04/2023 Patient lying in Bed comfortable No new complaint. Sitter for safety Last night patient had bloody bowel movement, repeat chest x-ray showed actually better hemoglobin level 8.6. Surgery team still following Continue on ceftriaxone for his bacteremia and pneumonia Patient chronic leukocytosis hematological problems but be related to his CLL, hematology/oncology team following 10/05/2023 Patient is seen in follow-up today with multiple medical consultations following. Patient is continued on antibiotics with infectious disease did have an elevated white count plans for repeat CT abdomen for further evaluation. Patient with significant weakness recommend physical therapy daily and patient plans on going to [facility] with them. Patient was noted being was a positive with generalized bodyaches and weakness. Awaiting finalized cultures. 10/06/2023 Patient is seen and evaluated in follow-up today currently sitting up in the chair with multiple medical consultations following. Patient is maintained on antibiotics which have been transitioned to Zosyn while awaiting cultures to finalize. Most recent blood cultures have been negative. Repeat chest x-ray ordered. Patient is reporting he wants to go home. Patient with generalized weakness evaluated by physical therapy recommending rehab. [facility] can accept the patient if patient is agreeable upon holding all oncological care until discharged from [facility]. Will discuss with patient and family regarding treatment plan. Patient is currently afebrile with no reports of chest pain or shortness of breath currently on room air. Patient has been tolerating diet although not much of an appetite. Will evaluate with speech with any concerns of aspiration.. 10/07/2023 Patient seen and evaluated in follow-up today reports he wants to go home. Patient is refusing to go to rehab and is currently working with physical therapy. Patient with generalized weakness although is improving per PT report he may be able to go home with home care. Patient refusing home care at this time. Patient lives with significant other although she works 4 days a week and patient would be alone. Patient is adamant about going home. Patient continued on antibiotics and recent blood cultures remain negative. Infectious disease following and will likely transition to oral antibiotics on discharge. Patient is afebrile denies chest pain or shortness of breath. Patient being evaluated by speech therapy although no overt aspiration noted. Review of systems: Constitutional: No reports of fatigue, no fever, or chills Cardiovascular: No reports of chest pain or palpitations Respiratory: No reports of shortness of breath or cough GI: No reports of nausea, vomiting, or diarrhea, reports not much of an appetite : No reports of dysuria or retention Neurovascular: reports of generalized weakness but persistent is going home All medications have been reviewed Physical exam: GENERAL: The patient is awake, more alert, currently calm , not in any acute distress. Well developed, well nourished. Elderly appearing, ill-appearing HEENT: Pupils are round and equally reacting to light. EOMI. No scleral icterus. No conjunctival pallor. Normocephalic, atraumatic. No pharyngeal erythema. No thyromegaly. CARDIOVASCULAR: S1 and S2 muffled PULMONARY: Diminished breath sounds bilaterally otherwise chest is clear to auscultation, no wheezing , no crackles. ABDOMEN: Soft, nontender, nondistended, normoactive bowel sounds. No palpable organomegaly. MUSCULOSKELETAL: No joint swelling or deformity. EXTREMITIES: No cyanosis, clubbing, or pedal edema. NEUROLOGICAL: Gross neurological examination did not reveal any focal deficits. Diffusely weak SKIN: No rashes. no petechiae. Assessment: Bacteremia, likely contaminant as repeat blood cultures have been negative Acute right lower lobe pneumonia, present on admission with acute influenza Toxic/metabolic encephalopathy secondary to above, improving Acute GI bleed with bloody bowel movements on the day of admission, currently stable with no active bleeding noted Acute blood loss anemia secondary to above Fall at home without syncope related to generalized weakness Leukocytosis associated with CLL Bicytopenia with anemia and more severe thrombocytopenia Parkinson disease Gait dysfunction with generalized weakness Hypertension Chronic kidney disease stage III Moderate protein calorie malnutrition with a BMI of 25.6 GI prophylaxis DVT prophylaxis Full code Plan: Continue with broad-spectrum antibiotic and follow-up culture results have been negative, patient continues on Zosyn with infectious disease following. Will discuss further regarding discharge planning, likely transition to oral antibio tics on discharge Hematology/oncology team following For his malignancy, will follow-up outpatient Surgery team following for GI bleed. Plan for endoscopy when patient clinically stable, no active bleeding noted, may require outpatient follow-up for endoscopic intervention Recommend PT/OT therapy daily. [facility] able to accept if patient is agreeable to no cancer treatment while at [facility]. Patient is adamant he is going home and refusing rehab. Patient does not want home care either. Will discuss further with case management/social work along with significant other Lupe Zabala regarding discharge planning Recommend aspiration precautions and head of the bed elevated 30 to 45 degrees at all times speech evaluating the patient with no overt signs of aspiration Due to multiple complex medical issues, prognosis is guarded Possible discharge planning in the next 24 to 48 hours The impression and plan of care has been dictated by Simi Jacinto, Nurse Practitioner as directed. Dr. Brian MD I have performed a history and examination and MDM of this patient, discussed the same with the dictator, and agree with the dictator's assessment and plan as written ,documented as a scribe. Based on total visit time, I have performed more than 50% of the visit. Objective - Vital Signs Vital signs: Vital Signs Temp 98.4 F 10/08/23 00:48 Pulse 64 10/08/23 00:48 Resp 15 10/08/23 00:48 BP 128/56 10/08/23 00:48 Pulse Ox 91 L 10/08/23 00:48 FiO2 Intake & Output 10/07/23 10/07/23 10/08/23 06:59 18:59 06:59 Other: Voiding Method Bedside Commode Toilet Toilet Diaper Bedside Commode Bedside Commode Incontinent # Voids 3 3 - Labs CBC & Chem 7: 10/06/23 04:43 10/06/23 04:43 Labs: Abnormal Lab Results - Last 24 Hours (Table) 10/06/23 10/07/23 Range/Units 16:39 11:08 Total PSA 8.1 H (<=4.0) ng/mL IgG 542.0 L (700.0-1600.0) mg/dL Microbiology - Last 24 Hours (Table) 10/05/23 13:01 Blood Culture - Preliminary Blood
[2023-10-08 09:13] VITALS: BP 162/75; RESP 18
--- NOTE | 2023-10-08 09:13 | P.PN ---
Subjective Progress Note Date: 10/07/23 Principal diagnosis: Reason for follow-up is pneumonia and positive blood culture Patient is 82-year-old male with a past medical history significant for hypertension reflux dementia CLL Parkinson disease, who recently diagnosed and treated for influenza presented to hospital with a fall chest x-ray with the right lung infiltrate concerning for pneumonia and blood culture call from previous admission positive for coagulase-negative staph. On today's evaluation that is 10/07/2023, Patient is afebrile patient is currently on room air and denies having any shortness of breath, the patient denies any chest pain or cough, the patient denies any nausea vomiting did not have any abdominal pain and no diarrhea, feeling better today. No CBC was done today cultures has been negative so far Objective - Vital Signs Vital signs: Vital Signs Temp 98.1 F 10/07/23 13:30 Pulse 61 10/07/23 13:30 Resp 17 10/07/23 13:30 BP 147/69 10/07/23 13:30 Pulse Ox 94 L 10/07/23 13:30 FiO2 Intake & Output 10/06/23 10/07/23 10/07/23 18:59 06:59 18:59 Other: Voiding Method Urinal Bedside Commode Toilet Diaper Diaper Bedside Commode Incontinent Incontinent # Voids 1 3 3 - Exam GENERAL DESCRIPTION: An elderly male lying in bed in no distress RESPIRATORY SYSTEM: Unlabored breathing , decreased breath sounds at bases HEART: S1 S2 regular rate and rhythm , ABDOMEN: Soft , no tenderness EXTREMITIES: No edema feet - Labs CBC & Chem 7: 10/06/23 04:43 10/06/23 04:43 Labs: Abnormal Lab Results - Last 24 Hours (Table) 10/06/23 Range/Units 16:39 Total PSA 8.1 H (<=4.0) ng/mL Microbiology - Last 24 Hours (Table) 10/05/23 13:01 Blood Culture - Preliminary Blood Assessment and Plan (1) Pneumonia Current Visit: Yes Status: Acute Code(s): J18.9 - PNEUMONIA, UNSPECIFIED ORGANISM SNOMED Code(s): 779206860 (2) Bacteremia Current Visit: Yes Status: Acute Code(s): R78.81 - BACTEREMIA SNOMED Code(s): 0818177 (3) Leukocytosis Current Visit: No Status: Acute Code(s): D72.829 - ELEVATED WHITE BLOOD CELL COUNT, UNSPECIFIED SNOMED Code(s): 831075883 Plan: 1patient with a positive blood culture with coagulase-negative staph more likely skin contamination as the patient has no clinical disease to go along with it blood cultures repeated document clearance which are currently pending 2-patient CT abdominal pelvis did not show intra-abdominal pathology evidence of right lower lobe pneumonia possible aspiration etiology, patient is slowly clinical improvement continue with Zosyn Dictation was produced using [employer] dictation software. please excuse any grammatical, word or spelling errors. Time with Patient: Less than 30
[2023-10-08 09:57] VITALS: PULSE 69
--- NOTE | 2023-10-08 12:04 | P.PN ---
Subjective Progress Note Date: 10/08/23 CHIEF COMPLAINT: Fall HISTORY OF PRESENT ILLNESS: Surgical service following in regards to GI bleed. No further reports of bleeding noted. Patient lying in bed comfortably. Tolerating diet. hgb 7.9 (10/05) PHYSICAL EXAM: VITAL SIGNS: Reviewed. GENERAL: Well-developed in no acute distress. ABDOMEN: Soft. Nondistended. Nontender. NEUROLOGIC: Mildly confused. ASSESSMENT: 1. Acute GI bleed. Likely medical bleed due to his thrombocytopenia. No further bleeding 2. Influenza A positive 3. Possible pneumonia 4. History of CLL 5. Thrombocytopenia 6. Large hiatal hernia containing majority of the stomach PLAN: -Recommend outpatient EGD and colonoscopy for anemia workup. However, platelets need to be above 50 to proceed with endoscopies -Continue to medically optimize patient -Continue to monitor for any signs or symptoms of bleeding -Continue regular diet Physician Rn Postpartum note has been reviewed by physician. Signing provider agrees with the documented findings, assessment, and plan of care. Objective - Vital Signs Vital signs: Vital Signs Temp 98.4 F 10/08/23 07:40 Pulse 69 10/08/23 09:37 Resp 18 10/08/23 07:40 BP 162/75 10/08/23 07:40 Pulse Ox 94 L 10/08/23 07:40 FiO2 Intake & Output 10/07/23 10/08/23 10/08/23 18:59 06:59 18:59 Weight 85.729 kg Other: Voiding Method Toilet Toilet Toilet Bedside Commode Bedside Commode Urinal # Voids 3 4 - Labs CBC & Chem 7: 10/06/23 04:43 10/06/23 04:43 Labs: Abnormal Lab Results - Last 24 Hours (Table) 10/06/23 10/07/23 Range/Units 16:39 11:08 Total PSA 8.1 H (<=4.0) ng/mL IgG 542.0 L (700.0-1600.0) mg/dL Microbiology - Last 24 Hours (Table) 10/05/23 13:01 Blood Culture - Preliminary Blood
--- NOTE | 2023-10-08 14:42 | XR ---
EXAMINATION TYPE: XR chest 1V DATE OF EXAM: 10/08/2023 2:10 PM CLINICAL INDICATION:Male, 82 years old with history of pna; COMPARISON: Chest radiographs from 10/06/2023 TECHNIQUE: XR chest 1V Frontal view of the chest. FINDINGS: Lungs/Pleura: No evidence of focal consolidation or pneumothorax. Blunting of the costophrenic angles is present. Pulmonary vascularity: Pulmonary vascular congestion. Heart/mediastinum: Cardiomediastinal silhouette is enlarged and stable. Atherosclerotic calcificatio ns are seen in the aorta. Musculoskeletal: No acute osseous pathology. IMPRESSION: Cardiomegaly, pulmonary vascular congestion and bilateral pleural effusions. Correlate with BNP for c ongestive heart failure.
[2023-10-08] MEDS: FUROSEMIDE 10 MG/ML 4 ML VIAL IV STA (15:41)
--- NOTE | 2023-10-12 11:36 | CDI ---
Documentation Clarification Form Date: 10/12/2023 From: Maggie Timmons Admit Date: 09/28/2023 06:22:00 PM Patient Name: Tab Lua Visit Number: [id number] Discharge Date: 10/08/2023 04:31:00 PM ATTENTION: The Clinical Documentation Specialists (CDI) and [facility] Coding Staff appreciate your assistance in clarifying documentation. Please respond to the clarification below the line at the bottom and electronically sign. The CDI & [facility] Coding staff will review the response and follow-up if needed. Please note: Queries are made part of the Legal Health Record. If you have any questions, please contact the author of this message via ITS. Dr. Wilberto Torres, Pneumonia is documented in ED Note, H&P, consults & PNs. Additional clarification regarding the type of pneumonia is requested. History/Risk Factors: CLL, colorectal cancer, cervical DDD, moderate PCM, hiatal hernia, GERD Clinical Indicators: Presents with Influenza A pradip'd 09/25, fever 101.5 and fell at home. Aspiration precautions with HOB at 30 to 45 degrees. Labs: WBC 20.7, CRP 3.30, Procalcitonin 0.15 X-ray: Small focal infiltrate right lung base with small pleural effusion. Suggests acute pneumonia. Treatment: IV Azithromycin, IV Ceftriaxone Sodium, IV Zoysn, IV Vancomycin Hand Nebulizer Please clarify the type of pneumonia, if known: [ ] Aspiration Pneumonia, Due to food or vomitus [ ] Bacterial Pneumonia, specify causal organism (if known) [ x ] Viral Pneumonia due to Influenza A [ ] Other bacteria (please specify) [ ] Unable to determine MTDD
--- NOTE | 2023-10-15 05:36 | P.DS ---
Providers Date of admission: 09/28/23 18:22 Expected date of discharge: 10/08/23 Attending physician: Wilberto Torres Consults: 09/28/23 18:21 Consult Physician Routine Consulting Provider: Lc Black Consult Reason/Comments: Bacteremia Do you want consulting provider notified?: Yes 09/28/23 21:07 Consult Physician Urgent Consulting Provider: Torin España Consult Reason/Comments: cll Do you want consulting provider notified?: Yes 09/29/23 10:45 Consult Physician Routine Consulting Provider: Pepe Carpio Consult Reason/Comments: gi bleed Do you want consulting provider notified?: Yes Primary care physician: Roberto Crocker Hospital Course: Final diagnosis Bacteremia, likely contaminant as repeat blood cultures have been negative Acute right lower lobe pneumonia, present on admission with acute influenza, likely viral pneumonia Toxic/metabolic encephalopathy secondary to above, improving Acute GI bleed with bloody bowel movements on the day of admission, currently stable with no active bleeding noted Acute blood loss anemia secondary to above Fall at home without syncope related to generalized weakness Leukocytosis associated with CLL Bicytopenia with anemia and more severe thrombocytopenia Parkinson disease Gait dysfunction with generalized weakness Hypertension Chronic kidney disease stage III Moderate protein calorie malnutrition with a BMI of 25.6 GI prophylaxis DVT prophylaxis Full code Discharge disposition Patient is being discharged in a stable condition with guarded prognosis to home. Patient will follow-up with Dr. Roberto Crocker in the outpatient setting upon discharge. Patient is to continue with medications as prescribed and outpatient follow-up with consultations as scheduled. Total time taken is greater than 35 minutes. Hospital course This is a 82-year-old male who was recently admitted with increased shortness of breath with generalized weakness and recent acute influenza A infection being closely monitored. Multiple medical consultations following including infectious disease maintained on antibiotics. Patient did have positive blood cultures initially likely bacteremia as repeat blood cultures have been negative. Patient will continue on oral antibiotics on discharge with close outpatient follow-up. Patient evaluated by general surgery during hospitalization with concerns of possible acute GI bleed although no further bleeding noted and hemoglobin is stable recommending outpatient endoscopy. Patient evaluated by physical therapy recommending rehab and patient is adamant he is returning home. Discussed with significant other Lupe Zabala who feels he is unsafe although agreeable for him to come home. Attempted to arrange for home care although patient has refused and did not work with them very well in the outpatient setting. Please refer to other consultation notes for further HPI. Currently no reports of chest pain, no worsening shortness of breath, or palpitations. Patient is afebrile. No reports of nausea or vomiting and patient is tolerating diet. Patient will be going home today. Guarded prognosis and extremely high risk for readmission given patient's significant comorbidities. Physical exam: Gen: This is a 82-year-old male who is awake, alert and oriented x 2, baseline, thin built, elderly appearing, well-developed, ill-appearing HEENT: Head is atraumatic, normocephalic. Pupils equal, round. Sclerae is anicteric. NECK: Supple. No JVD. No lymphadenopathy. No thyromegaly. LUNGS: Diminished breath sounds bilaterally with some scattered rhonchi. No intercostal retractions. HEART: S1, S2 are muffled ABDOMEN: Soft. Bowel sounds are present. No masses. No tenderness. EXTREMITIES: No pedal edema. No calf tenderness. NEUROLOGICAL: Patient is awake, alert and oriented x2. Cranial nerves 2 through 12 are grossly intact. Diffusely weak Please refer to medication reconciliation sheet for a list of medications. The impression and plan of care has been dictated by Simi Jacinto, Nurse Practitioner as directed. Dr. Brian MD I have performed a history and examination and MDM of this patient, discussed the same with the dictator, and agree with the dictator's assessment and plan as written ,documented as a scribe. Based on total visit time, I have performed more than 50% of the visit. Patient Condition at Discharge: Fair Plan - Discharge Summary New Discharge Prescriptions: New Ipratropium-Albuterol Nebulize [Duoneb 0.5 mg-3 mg/3 ml Soln] 3 ml INHALATION RT-TID #100 each Ipratropium-Albuterol Nebulize [Duoneb 0.5 mg-3 mg/3 ml Soln] 3 ml INHALATION RT-TID PRN each PRN Reason: Shortness Of Breath Or Wheezing Acetaminophen Tab [Tylenol] 650 mg PO Q6HR PRN tab PRN Reason: Mild Pain Or Fever > 100.5 Moxifloxacin HCl [Avelox] 400 mg PO DAILY 7 Days #7 tab Continue Levothyroxine Sodium [Synthroid] 50 mcg PO DAILY Memantine [Namenda] 10 mg PO BID Carbidopa-Levodopa ER 50-200Mg [Sinemet CR 50-200 mg] 1 tab PO BID Atorvastatin [Lipitor] 80 mg PO HS Pantoprazole Sodium [Protonix] 40 mg PO BID Metoprolol Tartrate [Lopressor] 25 mg PO BID Discontinued Losartan [Cozaar] 25 mg PO DAILY Discharge Medication List Levothyroxine Sodium [Synthroid] 50 mcg PO DAILY 03/28/21 [History] Atorvastatin [Lipitor] 80 mg PO HS 05/13/22 [History] Memantine [Namenda] 10 mg PO BID 05/13/22 [History] Carbidopa-Levodopa ER 50-200Mg [Sinemet CR 50-200 mg] 1 tab PO BID 09/28/23 [History] Metoprolol Tartrate [Lopressor] 25 mg PO BID 09/28/23 [History] Pantoprazole Sodium [Protonix] 40 mg PO BID 09/28/23 [History] Acetaminophen Tab [Tylenol] 650 mg PO Q6HR PRN tab 10/08/23 [Rx] Ipratropium-Albuterol Nebulize [Duoneb 0.5 mg-3 mg/3 ml Soln] 3 ml INHALATION RT-TID #100 each 10/08/23 [Rx] Ipratropium-Albuterol Nebulize [Duoneb 0.5 mg-3 mg/3 ml Soln] 3 ml INHALATION RT-TID PRN each 10/08/23 [Rx] Moxifloxacin HCl [Avelox] 400 mg PO DAILY 7 Days #7 tab 10/08/23 [Rx] Follow up Appointment(s)/Referral(s): Real Wilder MD [STAFF PHYSICIAN] - 10/09/23 1:00 pm Roberto Crocker MD [Primary Care Provider] - 10/13/23 1:45 pm Pepe Carpio MD [STAFF PHYSICIAN] - 1 Week Activity/Diet/Wound Care/Special Instructions: PLEASE HOLD [place] UNTIL SEEN BY DR. WILDER ON 10/08 Activity limited until follow-up Follow-up with oncology outpatient Follow-up with primary care provider Follow-up with general surgery outpatient for possible endoscopy Continue taking medications as prescribed Continue with breathing treatments Discharge Disposition: HOME SELF-CARE
== END 2023-10-08 16:31 | disposition home or self-care (01) | DRG 193 ==
LOC: EC 15:55 → 6NMEDSUR 18:21 → OBSVTOIN 18:22 → 6NMEDSUR 20:12 → 4SSUR 10-02 15:00
PROVIDERS: ADMIT Hospitalist; ATTEND Hospitalist
PROC: 30233N1 Transfusion of Nonautologous Red Blood Cells into Peripheral Vein, Percutaneous Approach (ICD-10-PCS; principal; 2023-09-30)
DX: J10.01 Influenza due to other identified influenza virus with the same other identified influenza virus pneumonia (principal); G92.8 Other toxic encephalopathy; E44.0 Moderate protein-calorie malnutrition; D62 Acute posthemorrhagic anemia; E87.1 Hypo-osmolality and hyponatremia; C91.10 Chronic lymphocytic leukemia of B-cell type not having achieved remission; F02.84 Dementia in other diseases classified elsewhere, unspecified severity, with anxiety; K92.1 Melena; J98.11 Atelectasis; D69.6 Thrombocytopenia, unspecified; G20.A1 Parkinson's disease without dyskinesia, without mention of fluctuations; I13.10 Hypertensive heart and chronic kidney disease without heart failure, with stage 1 through stage 4 chronic kidney disease, or unspecified chronic kidney disease; N18.30 Chronic kidney disease, stage 3 unspecified; J10.1 Influenza due to other identified influenza virus with other respiratory manifestations; Z68.25 Body mass index [BMI] 25.0-25.9, adult; M50.30 Other cervical disc degeneration, unspecified cervical region; K80.20 Calculus of gallbladder without cholecystitis without obstruction; K44.9 Diaphragmatic hernia without obstruction or gangrene; E07.9 Disorder of thyroid, unspecified; K21.9 Gastro-esophageal reflux disease without esophagitis; R26.9 Unspecified abnormalities of gait and mobility; Z79.890 Hormone replacement therapy; Z79.899 Other long term (current) drug therapy; Z85.048 Personal history of other malignant neoplasm of rectum, rectosigmoid junction, and anus; Z92.21 Personal history of antineoplastic chemotherapy; W01.0XXA Fall on same level from slipping, tripping and stumbling without subsequent striking against object, initial encounter; Y92.002 Bathroom of unspecified non-institutional (private) residence as the place of occurrence of the external cause
CPT/HCPCS: 70450; 71045; 71046; 72050; 74177; 80048; 80053; 81001; 82565; 82607; 82728; 82746; 82784; 83010; 83540; 83550; 83605; 83615; 83735; 83921; 84145; 84153; 84154; 85025; 85045; 86140; 86850; 86900; 86901; 86920; 87040; 94640; 99285

== ENCOUNTER 2023-10-09 13:33 | Inpatient (IN) | payer MEDICARE ==
[2023-10-09] MEDS ORDERED: NALOXONE 0.4 MG/ML 1 ML VIAL IV PRN (15:21)
--- NOTE | 2023-10-09 15:21 | ED ---
General Adult HPI - General Chief complaint: Recheck/Abnormal Lab/Rx Stated complaint: Failure to thrive Time Seen by Provider: 10/09/23 13:50 Source: patient, family Mode of arrival: wheelchair Limitations: no limitations - History of Present Illness Initial comments: 82-year-old male who presents emergency department accompanied by his . Patient was just recently hospitalized for pneumonia and was discharged home on antibiotics. states that he was offered rehab and home care however the patient refused. Today the patient woke up and could not find his way to the bathroom. He cannot ambulate on his own. Patient is not eating. states that she works and is not able to take care of him full-time and therefore he must be admitted. Denies any falls. No fevers. Patient is taking his home medications as directed. No other alleviating, precipitating or modifying factors - Related Data Home Medications Medication Instructions Recorded Confirmed Levothyroxine Sodium [Synthroid] 50 mcg PO DAILY 03/28/21 10/09/23 Atorvastatin [Lipitor] 80 mg PO HS 05/13/22 10/09/23 Memantine [Namenda] 10 mg PO BID 05/13/22 10/09/23 Carbidopa-Levodopa ER 50-200Mg 1 tab PO BID 09/28/23 10/09/23 [Sinemet CR 50-200 mg] Metoprolol Tartrate [Lopressor] 25 mg PO BID 09/28/23 10/09/23 Pantoprazole Sodium [Protonix] 40 mg PO BID 09/28/23 10/09/23 Previous Rx's Medication Instructions Recorded Acetaminophen Tab [Tylenol] 650 mg PO Q6HR PRN tab 10/08/23 Ipratropium-Albuterol Nebulize 3 ml INHALATION RT-TID #100 each 10/08/23 [Duoneb 0.5 mg-3 mg/3 ml Soln] Ipratropium-Albuterol Nebulize 3 ml INHALATION RT-TID PRN each 10/08/23 [Duoneb 0.5 mg-3 mg/3 ml Soln] Moxifloxacin HCl [Avelox] 400 mg PO DAILY 7 Days #7 tab 10/08/23 Allergies Allergy/AdvReac Type Severity Reaction Status Date / Time No Known Allergies Allergy Verified 10/09/23 14:48 Review of Systems ROS Statement: Those systems with pertinent positive or pertinent negative responses have been documented in the HPI. ROS Other: All systems not noted in ROS Statement are negative. Past Medical History Past Medical History: Cancer, Chest Pain / Angina, Dementia, GERD/Reflux, Hypertension, Thyroid Disorder Additional Past Medical History / Comment(s): CLL, leukemia, parkinsons History of Any Multi-Drug Resistant Organisms: None Reported Past Surgical History: Heart Catheterization, Hernia Repair Past Anesthesia/Blood Transfusion Reactions: No Reported Reaction Additional Past Anesthesia/Blood Transfusion Reaction / Comment(s): PATIENT STATES HE HAS NEVER HAD A BLOOD TRANSFUSION Past Psychological History: No Psychological Hx Reported Smoking Status: Never smoker Past Alcohol Use History: Rare Past Drug Use History: None Reported - Past Family History Father Family Medical History: Unable to Obtain General Exam Limitations: no limitations, altered mental status General appearance: alert, lethargic Head exam: Present: atraumatic, normocephalic, normal inspection Eye exam: Present: normal appearance, PERRL, EOMI. Absent: scleral icterus, conjunctival injection, periorbital swelling ENT exam: Present: normal exam, mucous membranes moist Neck exam: Present: normal inspection. Absent: tenderness, meningismus, lymphadenopathy Respiratory exam: Present: normal lung sounds bilaterally. Absent: respiratory distress, wheezes, rales, rhonchi, stridor Cardiovascular Exam: Present: regular rate, normal rhythm, normal heart sounds. Absent: systolic murmur, diastolic murmur, rubs, gallop, clicks GI/Abdominal exam: Present: soft, normal bowel sounds. Absent: distended, tenderness, guarding, rebound, rigid Extremities exam: Present: normal inspection, full ROM, normal capillary refill. Absent: tenderness, pedal edema, joint swelling, calf tenderness Back exam: Present: normal inspection Neurological exam: Present: alert, CN II-XII intact Psychiatric exam: Present: flat affect Skin exam: Present: warm, dry, intact, normal color. Absent: rash Course Vital Signs 10/09/23 10/09/23 10/09/23 13:46 16:16 16:25 Temperature 97.9 F Pulse Rate 60 58 L 60 Respiratory 16 Rate Blood Pressure 113/66 O2 Sat by Pulse 90 L Oximetry 10/09/23 10/09/23 10/09/23 17:23 19:42 19:48 Temperature Pulse Rate 70 71 77 Respiratory 16 Rate Blood Pressure 143/67 O2 Sat by Pulse 93 L Oximetry Medical Decision Making - Medical Decision Making Was pt. sent in by a medical professional or institution (, [facility], [employer]OR, urgent care, hospital, or jail...) When possible be specific @ -No Did you speak to anyone other than the patient for history (EMS, parent, family, police, friend...)? What history was obtained from this source @ -Spoke with the for history Did you review nursing and triage notes (agree or disagree)? Why? @ -I reviewed and agree with nursing and triage notes Were old charts reviewed (outside hosp., previous admission, EMS record, old EKG, old radiological studies, urgent care reports/EKG's, jail records)? Report findings @ -I reviewed the patient's discharge summary from yesterday Differential Diagnosis (chest pain, altered mental status, abdominal pain women, abdominal pain men, vaginal bleeding, weakness, fever, dyspnea, syncope, headache, dizziness, GI bleed, back pain, seizure, CVA, palpatations, mental health, musculoskeletal)? @ -Differential Weakness: Hypoglycemia, shock, sepsis, hyponatremia, anemia, infection, OH, ETOH, adverse medicine reaction, overdose, stroke, this is not meant to be an all-inclusive list. EKG interpreted by me (3pts min.). @ -Yes and demonstrates sinus bradycardia with a rate of 58. UT interval 215. QRS 136. QTc of 468. No acute ST segment elevations or depressions X-rays interpreted by me (1pt min.). @ -None done CT interpreted by me (1pt min.). @ -None done U/S interpreted by me (1pt. min.). @ -None done What testing was considered but not performed or refused? (CT, X-rays, U/S, labs)? Why? @ -None What meds were considered but not given or refused? Why? @ -None Did you discuss the management of the patient with other professionals (professionals i.e. FRANCK Araujo, [employer] SUPERVISOR, lab, RT, psych nurse, mental health social worker, barista, teacher, parachute/combatant diver officer, case finisher)? Give summary @ -Spoke with Dr. Torres who is aware of the patient as he just discharged him yesterday Was smoking cessation discussed for >3mins.? @ -No Was critical care preformed (if so, how long)? @ -No Were there social determinants of health that impacted care today? How? (Homelessness, low income, unemployed, alcoholism, drug addiction, transportation, low edu. Level, literacy, decrease access to med. care, residential, rehab)? @ -No Was there de-escalation of care discussed even if they declined (Discuss DNR or withdrawal of care, Hospice)? DNR status @ -No What co-morbidities impacted this encounter? (DM, HTN, Smoking, COPD, CAD, Cancer, CVA, ARF, Chemo, Hep., AIDS, mental health diagnosis, sleep apnea, morbid obesity)? @ -None Was patient admitted / discharged? Hospital course, mention meds given and route, prescriptions, significant lab abnormalities, going to OR and other pertinent info. @ -Upon arrival patient seen and evaluated in room 7. Thorough history and physical exam was performed. is unable to care for the patient. Requesting admission for rehab. Spoke with Dr. Torres. Patient will be admitted with case management consult as well as PT OT Undiagnosed new problem with uncertain prognosis? @ -No Drug Therapy requiring intensive monitoring for toxicity (Heparin, Nitro, Insulin, Cardizem)? @ -No Were any procedures done? @ -No Diagnosis/symptom? @ -Acute generalized weakness. Inability to care for self Acute, or Chronic, or Acute on Chronic? @ -Acute Uncomplicated (without systemic symptoms) or Complicated (systemic symptoms)? @ -Complicated Side effects of treatment? @ -No Exacerbation, Progression, or Severe Exacerbation? @ -No Poses a threat to life or bodily function? How? (Chest pain, USA, OH, pneumonia, PE, COPD, DKA, ARF, appy, cholecystitis, CVA, Diverticulitis, Homicidal, Suicidal, threat to staff... and all critical care pts) @ -No - Lab Data Result diagrams: 10/13/23 05:56 10/13/23 05:56 Disposition Clinical Impression: Weakness, Acute encephalopathy Disposition: ADMITTED IP TO THIS [facility] Condition: Stable Is patient prescribed a controlled substance at d/c from ED?: No Time of Disposition: 15:20 Decision to Admit Reason: Admit from EC Decision Date: 10/09/23 Decision Time: 15:20
[2023-10-09] MEDS ORDERED: ACETAMINOPHEN TAB 325 MG TAB PO PRN (15:25)
[2023-10-09] MEDS ORDERED: IPRATROPIUM-ALBUTEROL 3 ML NEB INHALATION PRN (15:25)
--- NOTE | 2023-10-09 15:34 | XR ---
EXAMINATION TYPE: XR chest 2V DATE OF EXAM: 10/09/2023 COMPARISON: 10/08/2023 HISTORY: 82-year-old male with weakness TECHNIQUE: AP and lateral views FINDINGS: Heart mildly enlarged. Hyperinflation. Trace bilateral pleural effusions and vascular prominence. Old bilateral rib fracture deformities IMPRESSION: COPD with superimposed mild pulmonary vascular congestion though improving from prior. Trace pleural effusions with adjacent atelectasis and/or consolidation also remain.
[2023-10-09] MEDS: PIPERACILLIN-TAZOBACTAM 3.375 GM in SODIUM CHLORIDE 0.9% 100 ML IVPB STA (15:56)
[2023-10-09] MEDS: IPRATROPIUM-ALBUTEROL 3 ML NEB INHALATION STA (16:16)
[2023-10-09 16:39] LABS: ALT 6 U/L (4-49); AST 27 U/L (17-59); African American GFR (CKD) 72 (>60 ml/min/1.73 sqM); Albumin 3.2 g/dL (3.5-5.0); Alkaline Phosphatase 112 U/L (38-126); Anion Gap 9 mmol/L; Anisocytosis Slight; Blood Urea Nitrogen 21 mg/dL (9-20); Calcium 8.1 mg/dL (8.4-10.2); Carbon Dioxide 24 mmol/L (22-30); Chloride 103 mmol/L (98-107); Glucose 83 mg/dL (74-99); HCT 28.6 % (39.0-53.0); HGB 9.4 gm/dL (13.0-17.5); MCH 32.2 pg (25.0-35.0); MCHC 32.8 g/dL (31.0-37.0); Macrocytosis Slight; Mean Platelet Volume 11.7; Non-African American GFR(CKD) 63 (>60 ml/min/1.73 sqM); Poikilocytosis Slight; Potassium 3.7 mmol/L (3.5-5.1); RBC 2.92 m/uL (4.30-5.90); RDW 17.7 % (11.5-15.5); Sodium 136 mmol/L (137-145); Total Bilirubin 1.6 mg/dL (0.2-1.3); Total Protein 5.6 g/dL (6.3-8.2); WBC 41.8 k/uL (3.8-10.6)
[2023-10-09 17:13] LABS: Platelet Count 50 k/uL (150-450)
[2023-10-09 17:15] LABS: Lymphocytes # (M) 33.44 k/uL (1.0-4.8); Monocytes # (M) 4.18 k/uL (0-1.0); Neutrophils # (M) 4.18 k/uL (1.3-7.7); Neutrophils % (M) 10 %; Nucleated Red Blood Cells 0 /100 WBC (0-0); Total Cells Counted 100
[2023-10-09] MEDS: PANTOPRAZOLE 40 MG TABLET PO SCH (17:35)
[2023-10-09] MEDS: IPRATROPIUM-ALBUTEROL 3 ML NEB INHALATION SCH (19:41)
[2023-10-09] MEDS: HEPARIN SODIUM,PORCINE 5,000 UNIT/ML 1 ML VIAL SQ SCH (20:10)
[2023-10-09] MEDS: ATORVASTATIN 80 MG TAB PO SCH (20:10)
[2023-10-09] MEDS: MEMANTINE 10 MG TAB PO SCH (20:10)
[2023-10-09] MEDS: CARBIDOPA-LEVODOPA ER 50-200MG 1 EACH TABLET.ER PO SCH (20:10)
[2023-10-09] MEDS: METOPROLOL TARTRATE 25 MG TAB PO SCH (20:10)
--- NOTE | 2023-10-09 22:45 | HP ---
HISTORY AND PHYSICAL CHIEF COMPLAINT: Shortness of breath, cough, and weakness as well as change in mental status. HISTORY OF PRESENT ILLNESS: This is an 82-year-old gentleman with a past medical history of multiple medical problems, was admitted with bacteremia as well as right lower lobe pneumonia recently. The patient was recommended to go to rehab, but apparently patient refused and the took the patient home. After going home, the patient is not eating. The patient also ate like a spoon of scrambled eggs and the patient also confused. The patient is extremely weak. The is not able to handle him and the patient is taken back to [facility] and is admitted for further evaluation and treatment. Currently, the patient is unable to give a coherent history. The patient is extremely confused, generally weak, tired, and dehydrated. Most of the history is taken by my discussion with staff and discussion with the at the bedside. PAST MEDICAL HISTORY: Recent pneumonia, history of dementia, GERD, multiple medical issues, rest of the history and rest of the chart is also reviewed. HOME MEDICATIONS: Reviewed and include currently Protonix, doses and rest of medications reviewed. ALLERGIES: None Family history, social history, review of systems could not be taken because of change in mental status. PHYSICAL EXAMINATION: VITAL SIGNS: Pulse is 60, blood pressure 113/60, respirations 16. HEENT: Conjunctivae normal. Oral mucosa dry. NECK: No jugular venous distention. CARDIOVASCULAR: S1, S2. RESPIRATION: Few scattered rhonchi, no crackles. ABDOMEN: Soft, nontender. LEGS: No edema, no swelling. NERVOUS SYSTEM: Diffusely weak. SKIN: No ulcer, rash, bleeding. JOINTS: No active deforming arthropathy. LABORATORY DATA: Not available. ASSESSMENT: 1. Acute right lower lobe pneumonia with possible sepsis with failure of outpatient treatment. 2. Change in mental status, metabolic encephalopathy. 3. Gait dysfunction. 4. Dementia. 5. Gastroesophageal reflux disease. 6. Hypertension. 7. History of CLL. 8. History of Parkinson's. 9. History of CAD. 10.Chest pain. RECOMMENDATIONS AND DISCUSSION: This 82-year-old gentleman presented with multiple complex medical issues, we will monitor the patient closely. Continue the current management, continue symptomatic treatment. I will recommend blood cultures, IV fluids, and broad-spectrum IV antibiotics. PT, OT evaluation, possible ECF rehab. Discussed at length with the . She is willing to consider ECF at this time, I will continue to monitor. Prognosis guarded. Home medications will be continued once they confirm. Prognosis guarded. Further recommendations to follow. See orders for details. MMODL / IJN: [id number] /
[2023-10-09] MEDS: PIPERACILLIN-TAZOBACTAM 3.375 GM in SODIUM CHLORIDE 0.9% 100 ML IVPB SCH (23:32)
[2023-10-10] MEDS: LEVOTHYROXINE 50 MCG TAB PO SCH (06:00)
[2023-10-10 11:07] LABS: Basophils # (M) 0 X 10*3/uL (0.00-0.10); Eosinophils # (M) 0 X 10*3/uL (0.04-0.35); HCT 24.7 % (39.6-50.0); HGB 7.9 g/dL (13.0-17.0); Immature Platelet Fraction 13.8 % (1.1-6.1); Lymphocytes # (M) 41.34 X 10*3/uL (0.90-5.00); MCH 31.6 pg (27.0-32.0); MCV 98.8 FL (80.0-97.0); Monocytes # (M) 3.03 X 10*3/uL (0.20-1.00); NRBC Per 100 WBC 0.12 X 10*3/uL (0.00-0.01); Neutrophils # (M) 6.05 X 10*3/uL (1.80-7.70); Neutrophils % (M) 12 %; Platelet Count 39 X 10*3/uL (140-440); RDW 18.7 % (11.5-14.5); WBC 50.42 X 10*3/uL (4.50-10.00)
[2023-10-10 11:44] LABS: ALT 5 U/L (10-49); AST 22 U/L (14-35); Albumin/Globulin Ratio 1.88 Ratio (1.60-3.17); Alkaline Phosphatase 90 U/L (41-126); BUN/Creat Ratio 19.55 Ratio (12.00-20.00); Blood Urea Nitrogen 21.5 mg/dL (9.0-27.0); Calcium 7.8 mg/dL (8.7-10.3); Carbon Dioxide 20.9 mmol/L (21.6-31.8); Chloride 102 mmol/L (96-109); Globulin 1.6 g/dL (1.6-3.3); Glucose 78 mg/dL (70-110); Potassium 3.4 mmol/L (3.5-5.5); Sodium 138 mmol/L (135-145); Total Bilirubin 1.2 mg/dL (0.3-1.2); Total Protein 4.6 g/dL (6.2-8.2)
--- NOTE | 2023-10-10 13:33 | PN ---
PROGRESS NOTE DATE OF SERVICE: 10/10/2023 HISTORY OF PRESENT ILLNESS: This is an 82-year-old gentleman, who was admitted with pneumonia, had failure of outpatient treatment. The patient is also confused. The patient's p.o. intake also appears to be very poor. The patient is started on broad-spectrum IV antibiotics. The recent chest x-ray which I reviewed personally did show bilateral lower lobe infiltrates. The patient was dehydrated also on admission. White count is elevated to 50.42. PAST MEDICAL HISTORY: Reviewed. REVIEW OF SYSTEMS: Could not be taken. The patient is still confused. CURRENT MEDICATIONS: Reviewed include DuoNeb, dose and rest of medications noted. PHYSICAL EXAMINATION: VITAL SIGNS: Pulse is 63, blood pressure 140/76, respiratory rate 18. HEENT: Conjunctivae are normal. NECK: No JVD. CARDIAC: S1 and S2. RESPIRATIONS: Bilateral scattered rhonchi and crackles. ABDOMEN: Soft. Nontender. LABORATORY DATA: Reviewed. ASSESSMENT: 1. Acute right lower lobe pneumonia with possible sepsis with failure of outpatient treatment. 2. Change in mental status, acute metabolic encephalopathy. 3. Gait dysfunction. 4. Dementia. 5. Gastroesophageal reflux disease. 6. Dehydration. 7. Hypertension. 8. History of chronic lymphocytic leukemia. 9. History of Parkinson's. 10.History of coronary artery disease. RECOMMENDATIONS AND DISCUSSION: Recommend to continue current medications, continue symptomatic treatment, otherwise broad-spectrum IV antibiotics, IV fluids. PT/OT evaluation. DVT prophylaxis. Incentive spirometry. Overall prognosis extremely guarded because of multiple complex medical issues. This patient will require more than 2 nights stay for denominational of the symptoms and I would recommend full admit at this time. Repeat labs will be ordered and further recommendations to follow. MMODL / IJN: [id number] /
[2023-10-11 07:02] LABS: Anisocytosis Slight; HCT 23.3 % (39.0-53.0); MCH 33.3 pg (25.0-35.0); Macrocytosis Slight; Mean Platelet Volume 8.6; Poikilocytosis Slight; RBC 2.37 m/uL (4.30-5.90); RDW 17.9 % (11.5-15.5); WBC 37.6 k/uL (3.8-10.6)
[2023-10-11 07:14] LABS: African American GFR (CKD) 85 (>60 ml/min/1.73 sqM); Anion Gap 10 mmol/L; Blood Urea Nitrogen 22 mg/dL (9-20); Calcium 7.5 mg/dL (8.4-10.2); Carbon Dioxide 17 mmol/L (22-30); Chloride 110 mmol/L (98-107); Glucose 68 mg/dL (74-99); Non-African American GFR(CKD) 74 (>60 ml/min/1.73 sqM); Potassium 3.4 mmol/L (3.5-5.1); Sodium 137 mmol/L (137-145)
[2023-10-11 07:15] LABS: HGB 7.9 gm/dL (13.0-17.5)
[2023-10-11 07:16] LABS: Platelet Count 97 k/uL (150-450)
[2023-10-11 09:26] LABS: Lymphocytes # (M) 28.95 k/uL (1.0-4.8); Monocytes # (M) 0.75 k/uL (0-1.0); Neutrophils % (M) 21 %; Nucleated Red Blood Cells 0 /100 WBC (0-0); Total Cells Counted 100
--- NOTE | 2023-10-12 00:54 | PN ---
PROGRESS NOTE DATE OF SERVICE: 10/11/2023 SUBJECTIVE: This is an 82-year-old gentleman who was admitted with acute right lower pneumonia and sepsis, is continuing to be mildly confused. No chest pain. No palpitations. No fever. Readmitted with pneumonia. OBJECTIVE: VITAL SIGNS: Pulse is 70, blood pressure 131/64, respirations 17. CHEST: Few scattered rhonchi. ABDOMEN: Soft. NERVOUS SYSTEM: Nonfocal. LABORATORY DATA: WBC 7.2, hemoglobin 7.9. ASSESSMENT: 1. Acute right lower lobe pneumonia with possible sepsis present on admission, failure of outpatient treatment. 2. Change in mental status, acute metabolic encephalopathy. 3. Gait dysfunction. 4. Dementia. 5. Gastroesophageal reflux disease. 6. Dehydration. 7. Hypertension. 8. History of chronic lymphatic leukemia. 9. History of Parkinson's. 10.History of coronary artery disease. RECOMMENDATIONS: Recommended to continue current management, continue symptomatic treatment. Continue the empiric antibiotics, PT/OT evaluation, possible ECF rehab currently. The patient has worsened after going home so I would definitely recommend rehab for continued monitoring and the prognosis guarded. Further recommendations to follow. The patient has a very poor home support at this time. MMODL / IJN: [id number] /
[2023-10-12 12:55] VITALS: BMI 16.7
--- NOTE | 2023-10-12 18:36 | P.PN ---
Subjective Progress Note Date: 10/12/23 This is an 82-year-old male who was recently admitted and discharged with acute influenza and pneumonia last week. Patient with significant weakness and prolonged hospitalization evaluated by physical therapy recommending rehab although patient minimally improved over the course of a few days and insisted on going home. Per significant other at home patient was not eating was weak and lethargic and continued to have recurrent patient brought back to the hospital for PT/OT therapy evaluation and ECF. Patient is afebrile with no reported chest pain or worsening shortness of breath. Patient needs encouragement with oral intake and would recommend supervision with meals and aspiration precautions. No reported nausea or vomiting noted. Awaiting updated PT notes today with case management following and working on discharge planning. Patient does require insurance authorization which will be submitted today. Review of systems: Constitutional: reports of fatigue, no fever, or chills Cardiovascular: No reports of chest pain or palpitations Respiratory: No reports of worsening shortness of breath or cough GI: No reports of nausea, no reports of vomiting, no diarrhea, not much of an appetite : No reports of dysuria or retention Neurovascular: reports of generalized weakness All medications have been reviewed PHYSICAL EXAMINATION: GENERAL: The patient is alert and oriented x2. Baseline,, Well developed, elderly appearing, ill-appearing, thin built HEENT: Pupils are round and equally reacting to light. EOMI. no scleral icterus. No conjunctival pallor. Normocephalic, atraumatic. No pharyngeal erythema. No thyromegaly. CARDIOVASCULAR: S1 and S2 muffled PULMONARY: diminished breath sounds bilaterally with some scattered rhonchi and upper congestion noted. ABDOMEN: soft. Nontender on exam. Thin. Non-distended, normoactive bowel sounds. No palpable organomegaly. MUSCULOSKELETAL: No joint swelling or deformity. EXTREMITIES: No cyanosis, clubbing, or pedal edema. NEUROLOGICAL: Gross neurological examination did not reveal any focal deficits. Diffuse weakness SKIN: No rashes. Assessment: Acute right lower lobe pneumonia with features of sepsis, present on admission with failure of outpatient treatment Change in mental status, acute metabolic encephalopathy Gait dysfunction with generalized weakness Frequent falls History of dementia GERD Dehydration Poor oral intake Moderate protein calorie malnutrition with a BMI of 16.7 Hypertension history History of chronic lymphatic leukemia History of Parkinson's History of coronary artery disease GI prophylaxis DVT prophylaxis Full code Plan: Recommend to continue with current medications and management and awaiting updated PT/OT therapy notes Case management following and will require insurance authorization to be submitted for [facility] Significant other is unable to care for him at home as he has become significantly weak with recurrent falls and not eating. Patient is agreeable to no oncological care while at [facility]. Patient will follow- up with oncology in the outpatient setting once discharged from [facility]. Due to multiple complex medical issues, overall prognosis is poor and guarded The impression and plan of care has been dictated by Simi Jacinto, nurse practitioner as directed. Dr. Randi MD I have performed a history and examination and MDM of this patient, discussed th e same with the dictator, and agree with the dictator's assessment and plan as written ,documented as a scribe. Based on total visit time, I have performed more than 50% of the visit. Any additional findings or plans will be noted. Objective - Vital Signs Vital signs: Vital Signs Temp 97.7 F 10/12/23 07:16 Pulse 72 10/12/23 08:11 Resp 16 10/12/23 07:16 BP 149/67 10/12/23 07:16 Pulse Ox 95 10/12/23 07:16 FiO2 Intake & Output 10/11/23 10/12/23 10/12/23 18:59 06:59 18:59 Other: Voiding Method Urinal Urinal Urinal Diaper Diaper # Voids 2 3 - Labs CBC & Chem 7: 10/11/23 05:06 10/11/23 05:06 Labs: Microbiology - Last 24 Hours (Table) 10/09/23 15:40 Blood Culture - Preliminary Blood 10/09/23 15:55 Blood Culture - Preliminary Blood
[2023-10-13 06:55] LABS: Anisocytosis Slight; HCT 22.6 % (39.0-53.0); HGB 7.2 gm/dL (13.0-17.5); Hypochromasia Slight; MCH 31.2 pg (25.0-35.0); MCHC 31.7 g/dL (31.0-37.0); MCV 98.4 fL (80.0-100.0); Macrocytosis Slight; Mean Platelet Volume 10.9; Poikilocytosis Slight; RDW 18.3 % (11.5-15.5); WBC 36.4 k/uL (3.8-10.6)
[2023-10-13 07:30] LABS: Platelet Count 46 k/uL (150-450)
[2023-10-13 09:27] LABS: Band Neutrophils % 2 %; Lymphocytes # (M) 30.94 k/uL (1.0-4.8); Monocytes # (M) 1.09 k/uL (0-1.0); Neutrophils % (M) 10 %; Nucleated Red Blood Cells 0 /100 WBC (0-0); Total Cells Counted 100
[2023-10-13 09:39] LABS: African American GFR (CKD) >90 (>60 ml/min/1.73 sqM); Anion Gap 7 mmol/L; Blood Urea Nitrogen 18 mg/dL (9-20); Calcium 7.2 mg/dL (8.4-10.2); Carbon Dioxide 20 mmol/L (22-30); Chloride 111 mmol/L (98-107); Glucose 86 mg/dL (74-99); Magnesium 1.9 mg/dL (1.6-2.3); Non-African American GFR(CKD) 81 (>60 ml/min/1.73 sqM); Potassium 3.1 mmol/L (3.5-5.1); Sodium 138 mmol/L (137-145)
[2023-10-13] MEDS ORDERED: PHENAZOPYRIDINE 100 MG TAB PO PRN (11:45)
--- NOTE | 2023-10-13 12:54 | XR ---
EXAMINATION TYPE: XR chest 1V portable DATE OF EXAM: 10/13/2023 12:48 PM CLINICAL INDICATION:Male, 82 years old with history of shortness of breath; [facility] COMPARISON: Chest radiographs from 10/09/2023 TECHNIQUE: XR chest 1V portable Frontal view of the chest. FINDINGS: Lungs/Pleura: Right lower lobe airspace opacity and right pleural effusion are noted. The right upper lobe is clear. The left lung is clear. No pneumothorax. Pulmonary vascularity: Unremarkable. Heart/mediastinum: Cardiomediastinal silhouette is unremarkable. Musculoskeletal: No acute osseous pathology. Other findings: None Lines/Tubes: Right lower lobe pneumonia. IMPRESSION: No acute cardiopulmonary disease/process.
[2023-10-13 14:36] LABS: Appearance,Urine Clear (Clear); Bilirubin,Urine Negative (Negative); Blood,Urine Moderate (Negative); Color,Urine Yellow; Glucose,Urine (UA) Negative (Negative); Ketones,Urine 2+ (Negative); Leukocyte Esterase,Urine Small (Negative); Nitrite,Urine Negative (Negative); Protein,Urine 1+ (Negative); RBC,Urine 74 /hpf (0-5); Specific Gravity,Urine 1.031 (1.001-1.035); Squamous Epithelial Cell,Urine <1 /hpf (0-4); Urobilinogen,Urine <2.0 mg/dL (<2.0); WBC,Urine 5 /hpf (0-5)
--- NOTE | 2023-10-13 17:03 | P.PN ---
Subjective Progress Note Date: 10/13/23 This is an 82-year-old male who was recently admitted and discharged with acute influenza and pneumonia last week. Patient with significant weakness and prolonged hospitalization evaluated by physical therapy recommending rehab although patient minimally improved over the course of a few days and insisted on going home. Per significant other at home patient was not eating was weak and lethargic and continued to have recurrent patient brought back to the hospital for PT/OT therapy evaluation and ECF. Patient is afebrile with no reported chest pain or worsening shortness of breath. Patient needs encouragement with oral intake and would recommend supervision with meals and aspiration precautions. No reported nausea or vomiting noted. Awaiting updated PT notes today with case management following and working on discharge planning. Patient does require insurance authorization which will be submitted today. 10/13/2023 Patient is seen and evaluated in follow-up today lethargic although arousable. Patient reports to feeling tired with not much of an appetite. Per nursing staff patient was noted to have some hematuria and initially reported some burning with urination. On exam patient denies any burning or pain with urination and does not recall having any blood in the urine. Will obtain urinalysis with culture and follow-up on repeat CBC. Hemoglobin is 7.2 and will transfuse if 7 or less. Patient currently requiring insurance authorization for ECF which is pending at this time. Will plan for ECF once stable. Encouraged oral intake and supplements between meals. Recommend aspiration precautions and supervision with meals with head of the bed elevated 30 to 45 degrees at all times. Review of systems: Constitutional: reports of fatigue, no fever, or chills Cardiovascular: No reports of chest pain or palpitations Respiratory: No reports of worsening shortness of breath or cough GI: No reports of nausea, no reports of vomiting, no diarrhea, not much of an appetite : No reports of dysuria or retention Neurovascular: reports of generalized weakness All medications have been reviewed PHYSICAL EXAMINATION: GENERAL: The patient is alert and oriented x2. Baseline,, Well developed, elderly appearing, ill-appearing, thin built HEENT: Pupils are round and equally reacting to light. EOMI. no scleral icterus. No conjunctival pallor. Normocephalic, atraumatic. No pharyngeal erythema. No thyromegaly. CARDIOVASCULAR: S1 and S2 muffled PULMONARY: diminished breath sounds bilaterally with some scattered rhonchi and upper congestion noted. ABDOMEN: soft. Nontender on exam. Thin. Non-distended, normoactive bowel sounds. No palpable organomegaly. MUSCULOSKELETAL: No joint swelling or deformity. EXTREMITIES: No cyanosis, clubbing, or pedal edema. NEUROLOGICAL: Gross neurological examination did not reveal any focal deficits. Diffuse weakness SKIN: No rashes. Assessment: Acute right lower lobe pneumonia with features of sepsis, present on admission with failure of outpatient treatment Change in mental status, acute metabolic encephalopathy Gait dysfunction with generalized weakness Hematuria, possibly secondary to heparin injections Frequent falls History of dementia GERD Dehydration Poor oral intake Moderate protein calorie malnutrition with a BMI of 16.7 Hypertension history History of chronic lymphatic leukemia History of Parkinson's History of coronary artery disease GI prophylaxis DVT prophylaxis Full code Plan: Recommend to continue with current medications and management and awaiting updated PT/OT therapy notes Case management following and will require insurance authorization to be submitted for F Patient with noted hematuria this morning per nursing staff and urinalysis shows noted blood with no significant white count. Recommend to hold heparin injections and monitor for resolution of hematuria. Patient denies any burning or pain or frequency with urination. Significant other is unable to care for him at home as he has become significantly weak with recurrent falls and not eating. Patient is agreeable to no oncological care while at [facility]. Patient will follow- up with oncology in the outpatient setting once discharged from [facility]. Due to multiple complex medical issues, overall prognosis is poor and guarded Possible discharge planning in the next 24 hours The impression and plan of care has been dictated by Simi Jacinto, nurse practitioner as directed. Dr. Randi MD I have performed a history and examination and MDM of this patient, discussed the same with the dictator, and agree with the dictator's assessment and plan as written ,documented as a scribe. Based on total visit time, I have performed more than 50% of the visit. Any additional findings or plans will be noted. Objective - Vital Signs Vital signs: Vital Signs Temp 97.7 F 10/13/23 07:02 Pulse 73 10/13/23 07:02 Resp 16 10/13/23 07:02 BP 152/63 10/13/23 07:02 Pulse Ox 92 L 10/13/23 07:02 FiO2 Intake & Output 10/12/23 10/13/23 10/13/23 18:59 06:59 18:59 Output Total 250 Balance -250 Weight 72.575 kg Output: Urine 250 Other: Voiding Method Urinal Urinal Diaper Diaper # Voids 1 1 - Labs CBC & Chem 7: 10/13/23 05:56 10/13/23 05:56 Labs: Abnormal Lab Results - Last 24 Hours (Table) 10/13/23 10/13/23 Range/Units 05:56 05:56 WBC 36.4 H (3.8-10.6) k/uL RBC 2.30 L (4.30-5.90) m/uL Hgb 7.2 L (13.0-17.5) gm/dL Hct 22.6 L (39.0-53.0) % RDW 18.3 H (11.5-15.5) % Plt Count 46 L D (150-450) k/uL Lymphocytes # (Manual) 30.94 H (1.0-4.8) k/uL Monocytes # (Manual) 1.09 H (0-1.0) k/uL Potassium 3.1 L (3.5-5.1) mmol/L Chloride 111 H (98-107) mmol/L Carbon Dioxide 20 L (22-30) mmol/L Calcium 7.2 L (8.4-10.2) mg/dL Microbiology - Last 24 Hours (Table) 10/09/23 15:40 Blood Culture - Preliminary Blood 10/09/23 15:55 Blood Culture - Preliminary Blood
--- NOTE | 2023-10-15 04:04 | P.PN ---
Subjective Progress Note Date: 10/14/23 This is an 82-year-old male who was recently admitted and discharged with acute influenza and pneumonia last week. Patient with significant weakness and prolonged hospitalization evaluated by physical therapy recommending rehab although patient minimally improved over the course of a few days and insisted on going home. Per significant other at home patient was not eating was weak and lethargic and continued to have recurrent patient brought back to the hospital for PT/OT therapy evaluation and ECF. Patient is afebrile with no reported chest pain or worsening shortness of breath. Patient needs encouragement with oral intake and would recommend supervision with meals and aspiration precautions. No reported nausea or vomiting noted. Awaiting updated PT notes today with case management following and working on discharge planning. Patient does require insurance authorization which will be submitted today. 10/13/2023 Patient is seen and evaluated in follow-up today lethargic although arousable. Patient reports to feeling tired with not much of an appetite. Per nursing staff patient was noted to have some hematuria and initially reported some burning with urination. On exam patient denies any burning or pain with urination and does not recall having any blood in the urine. Will obtain urinalysis with culture and follow-up on repeat CBC. Hemoglobin is 7.2 and will transfuse if 7 or less. Patient currently requiring insurance authorization for ECF which is pending at this time. Will plan for ECF once stable. Encouraged oral intake and supplements between meals. Recommend aspiration precautions and supervision with meals with head of the bed elevated 30 to 45 degrees at all times. 10/14/2023 Patient is seen and evaluated in follow-up today with no acute overnight issues noted. Patient reports to feeling lethargic and cold with no other other specific complaints. Patient is not eating very well and has been encouraged with each meal including supplements between meals. Patient with significant weakness and had recurrent falls currently awaiting insurance authorization to go to ECF. Social work/case management following and reports authorization remains pending. Patient will be going to [facility] on discharge. Encouraged sitting up in the chair more often and increased activity as tolerated. No further hematuria noted and hemoglobin is stable. Review of systems: Constitutional: reports of fatigue, no fever, or chills Cardiovascular: No reports of chest pain or palpitations Respiratory: No reports of worsening shortness of breath or cough GI: No reports of nausea, no reports of vomiting, no diarrhea, not much of an appetite : No reports of dysuria or retention, no reports of pain or burning with urination Neurovascular: reports of generalized weakness All medications have been reviewed PHYSICAL EXAMINATION: GENERAL: The patient is asleep although arousable, alert and oriented x2. Baseline,, Well developed, elderly appearing, ill-appearing, thin built HEENT: Pupils are round and equally reacting to light. EOMI. no scleral icterus. No conjunctival pallor. Normocephalic, atraumatic. No pharyngeal erythema. No thyromegaly. CARDIOVASCULAR: S1 and S2 muffled PULMONARY: diminished breath sounds bilaterally with some scattered rhonchi noted. ABDOMEN: soft. Nontender on exam. Thin. Non-distended, normoactive bowel rain nds. No palpable organomegaly. MUSCULOSKELETAL: No joint swelling or deformity. EXTREMITIES: No cyanosis, clubbing, or pedal edema. NEUROLOGICAL: Gross neurological examination did not reveal any focal deficits. Diffuse weakness SKIN: No rashes. Assessment: Acute right lower lobe pneumonia with features of sepsis, present on admission with failure of outpatient treatment Change in mental status, acute metabolic encephalopathy Gait dysfunction with generalized weakness Hematuria, possibly secondary to heparin injections, resolved Frequent falls History of dementia GERD Dehydration Poor oral intake Moderate protein calorie malnutrition with a BMI of 16.7 Hypertension history History of chronic lymphatic leukemia History of Parkinson's History of coronary artery disease GI prophylaxis DVT prophylaxis Full code Plan: Recommend to continue with current medications and management and awaiting insurance authorization for [facility] Case management following and authorization remains pending at this time Patient with noted hematuria yesterday morning per nursing staff and urinalysis shows noted blood with no significant white count. Recommend to hold heparin injections and hematuria has resolved. Patient denies any burning or pain or frequency with urination. Significant other is unable to care for him at home as he has become significantly weak with recurrent falls and not eating. Patient is agreeable to no oncological care while at [facility]. Patient will follow- up with oncology in the outpatient setting once discharged from [facility]. Due to multiple complex medical issues, overall prognosis is poor and guarded Possible discharge planning in the next 24 hours once insurance authorization is obtained The impression and plan of care has been dictated by Simi Jacinto, nurse practitioner as directed. Dr. Randi MD I have performed a history and examination and MDM of this patient, discussed the same with the dictator, and agree with the dictator's assessment and plan as written ,documented as a scribe. Based on total visit time, I have performed more than 50% of the visit. Any additional findings or plans will be noted. Objective - Vital Signs Vital signs: Vital Signs Temp 97.9 F 10/14/23 07:05 Pulse 67 10/14/23 08:48 Resp 20 10/14/23 07:55 BP 159/75 10/14/23 07:05 Pulse Ox 96 10/14/23 07:05 FiO2 Intake & Output 10/13/23 10/14/23 10/14/23 18:59 06:59 18:59 Output Total 150 250 75 Balance -150 -250 -75 Output: Urine 150 250 75 Other: Voiding Method Urinal Urinal Diaper Diaper # Voids 6 - Labs CBC & Chem 7: 10/13/23 05:56 10/13/23 05:56 Labs: Abnormal Lab Results - Last 24 Hours (Table) 10/13/23 Range/Units 14:00 Urine Protein 1+ H (Negative) Urine Ketones 2+ H (Negative) Urine Blood Moderate H (Negative) Ur Leukocyte Esterase Small H (Negative) Urine RBC 74 H (0-5) /hpf
[2023-10-15] MEDS ORDERED: Potassium Replacement Protocol 1 EACH MISC MISCELLANE PRN (14:37)
--- NOTE | 2023-10-15 14:55 | P.DS ---
Providers Date of admission: 10/09/23 15:21 Expected date of discharge: 10/14/23 Attending physician: Wilberto Torres Primary care physician: Roberto Crocker [facility] Course: Final diagnosis Acute right lower lobe pneumonia with features of sepsis, present on admission with failure of outpatient treatment Change in mental status, acute metabolic encephalopathy Gait dysfunction with generalized weakness Hematuria, possibly secondary to heparin injections, resolved Frequent falls History of dementia GERD Dehydration Poor oral intake Moderate protein calorie malnutrition with a BMI of 16.7 Hypertension history History of chronic lymphatic leukemia History of Parkinson's History of coronary artery disease GI prophylaxis DVT prophylaxis Full code Discharge disposition Patient is being discharged in a stable condition with guarded prognosis to [facility] for continued PT/OT therapy. Patient will follow-up with Dr. Roberto Crocker in the outpatient setting upon discharge. Patient is to continue with Avelox once daily for the next 7 days and outpatient follow-up as scheduled. Total time taken is greater than 35 minutes. Hospital course This is a 82-year-old male who was recently admitted with increased weakness with continued right lower lobe pneumonia with features of sepsis with failure of outpatient treatment. Patient was recently hospitalized and adamant about discharging home although evaluated by physical therapy recommending rehab. Patient refused rehab and went home and proceeded to continue to fall, have increased lethargy, not eating, and difficult to take care of and family brought him back here for further evaluation and possible ECF. Patient is now agreeable and was awaiting insurance authorization which was obtained today. Patient will be going to [facility]. Patient does follow with oncology outpatient and is agreeable to withhold all oncological care while at [facility] and will follow-up with his oncologist once discharged from [facility]. Currently no reports of chest pain, shortness of breath, or palpitations. Patient is afebrile. No reports of nausea or vomiting and patient is tolerating diet. Patient with continued poor appetite recommend supplements in between meals as well as Magic cups for lunch and dinner. Patient was started on Megace. Patient will be going to [facility] today. Due to multiple complex medical issues, prognosis is guarded. Physical exam: Gen: This is a 82-year-old male who is awake, alert and oriented x 2, baseline, thin built, elderly appearing, cachectic HEENT: Head is atraumatic, normocephalic. Pupils equal, round. Sclerae is an icteric. NECK: Supple. No JVD. No lymphadenopathy. No thyromegaly. LUNGS: Diminished breath sounds bilaterally with scattered rhonchi. No intercostal retractions. HEART: S1, S2 are muffled ABDOMEN: Soft. Thin bowel sounds are present. No masses. No tenderness. EXTREMITIES: No pedal edema. No calf tenderness. NEUROLOGICAL: Patient is awake, alert and oriented x2 . Cranial nerves 2 through 12 are grossly intact. diffusely weak Please refer to medication reconciliation sheet for a list of medications. The impression and plan of care has been dictated by Simi Jacinto, Nurse Practitioner as directed. Dr. Randi MD I have performed a history and examination and MDM of this patient, discussed the same with the dictator, and agree with the dictator's assessment and plan as written ,documented as a scribe. Based on total visit time, I have performed more than 50% of the visit. Patient Condition at Discharge: Stable Plan - Discharge Summary New Discharge Prescriptions: New Megestrol [Megace] 80 mg PO DAILY 30 Days #30 tablet Continue Levothyroxine Sodium [Synthroid] 50 mcg PO DAILY Memantine [Namenda] 10 mg PO BID Carbidopa-Levodopa ER 50-200Mg [Sinemet CR 50-200 mg] 1 tab PO BID Ipratropium-Albuterol Nebulize [Duoneb 0.5 mg-3 mg/3 ml Soln] 3 ml INHALATION RT-TID #100 each Atorvastatin [Lipitor] 80 mg PO HS Pantoprazole Sodium [Protonix] 40 mg PO BID Metoprolol Tartrate [Lopressor] 25 mg PO BID Ipratropium-Albuterol Nebulize [Duoneb 0.5 mg-3 mg/3 ml Soln] 3 ml INHALATION RT-TID PRN each PRN Reason: Shortness Of Breath Or Wheezing Acetaminophen Tab [Tylenol] 650 mg PO Q6HR PRN tab PRN Reason: Mild Pain Or Fever > 100.5 Moxifloxacin HCl [Avelox] 400 mg PO DAILY 7 Days #7 tab Discharge Medication List Levothyroxine Sodium [Synthroid] 50 mcg PO DAILY 03/28/21 [History] Atorvastatin [Lipitor] 80 mg PO HS 05/13/22 [History] Memantine [Namenda] 10 mg PO BID 05/13/22 [History] Carbidopa-Levodopa ER 50-200Mg [Sinemet CR 50-200 mg] 1 tab PO BID 09/28/23 [History] Metoprolol Tartrate [Lopressor] 25 mg PO BID 09/28/23 [History] Pantoprazole Sodium [Protonix] 40 mg PO BID 09/28/23 [History] Acetaminophen Tab [Tylenol] 650 mg PO Q6HR PRN tab 10/08/23 [Rx] Ipratropium-Albuterol Nebulize [Duoneb 0.5 mg-3 mg/3 ml Soln] 3 ml INHALATION RT-TID #100 each 10/08/23 [Rx] Ipratropium-Albuterol Nebulize [Duoneb 0.5 mg-3 mg/3 ml Soln] 3 ml INHALATION RT-TID PRN each 10/08/23 [Rx] Megestrol [Megace] 80 mg PO DAILY 30 Days #30 tablet 10/15/23 [Rx] Moxifloxacin HCl [Avelox] 400 mg PO DAILY 7 Days #7 tab 10/15/23 [Rx] Follow up Appointment(s)/Referral(s): Roberto Crocker MD [Primary Care Provider] - 1-2 days Activity/Diet/Wound Care/Special Instructions: Patient is going to [facility] Activity as tolerated Continue with Magic cups for lunch and dinner Continue heart healthy diet Follow-up with primary care provider on discharge Continue Avelox once daily for the next 7 days Discharge Disposition: TRANSFER TO SNF/ECF
[2023-10-15] MEDS: POTASSIUM CHLORIDE ER 20 MEQ TAB.ER PO SCH (15:06)
[2023-10-15 16:53] VITALS: BP 165/76; PULSE 68; RESP 17; TEMP 97.4
== END 2023-10-15 17:52 | DRG 871 ==
LOC: EC 13:33 → OBSVTOIN 15:21 → 4SSUR 15:21
PROVIDERS: ADMIT Hospitalist; ATTEND Hospitalist
DX: A41.9 Sepsis, unspecified organism (principal); G93.41 Metabolic encephalopathy; J18.9 Pneumonia, unspecified organism; E44.0 Moderate protein-calorie malnutrition; Z68.1 Body mass index [BMI] 19.9 or less, adult; E07.9 Disorder of thyroid, unspecified; R62.7 Adult failure to thrive; F02.80 Dementia in other diseases classified elsewhere, unspecified severity, without behavioral disturbance, psychotic disturbance, mood disturbance, and anxiety; E86.0 Dehydration; R65.20 Severe sepsis without septic shock; G20.A1 Parkinson's disease without dyskinesia, without mention of fluctuations; I10 Essential (primary) hypertension; I25.10 Atherosclerotic heart disease of native coronary artery without angina pectoris; K21.9 Gastro-esophageal reflux disease without esophagitis; Z28.21 Immunization not carried out because of patient refusal; R26.9 Unspecified abnormalities of gait and mobility; R29.6 Repeated falls; R31.9 Hematuria, unspecified; T45.515A Adverse effect of anticoagulants, initial encounter; Z79.890 Hormone replacement therapy; Z79.899 Other long term (current) drug therapy; Z85.6 Personal history of leukemia; Z87.01 Personal history of pneumonia (recurrent); Z91.81 History of falling
CPT/HCPCS: 36415; 71045; 71046; 80048; 80053; 81001; 83735; 85025; 87040; 93005; 94640; 96365; 96366; 99285